=== PATIENT | male | born 1980 | race Caucasian/White ===

== ENCOUNTER 2024-07-20 15:39 | Outpatient (OUT) | payer OTHER, SELFPAY ==
[2024-07-20 16:25] LABS: Basophils Absolute Auto 0.1 10^3/uL (0.0-0.1); Eosinophils Absolute Auto 0.1 10^3/uL (0.0-0.7); Hematocrit 37.3 % (42.0-54.0); Hemoglobin 13.1 g/dL (14.0-18.0); Immature Granulocytes Abs Auto 0.02 10^3/uL (0.00-0.03); Immature Granulocytes Pct Auto 0.4 % (0.0-0.5); Lymphocytes Absolute Auto 1.5 10^3/uL (1.2-3.8); Lymphocytes Percent Auto 29.7 % (20.5-60.0); Mean Corpuscular HGB Conc 35.1 g/dL (29.9-35.2); Mean Corpuscular Volume 88.2 fL (80.0-94.0); Mean Platelet Volume 10.3 fL (9.5-13.5); Monocytes Absolute Auto 0.3 10^3/uL (0.3-0.8); Monocytes Percent Auto 6.3 % (1.7-12.0); Neutrophils Absolute Auto 3.1 10^3/uL (1.4-6.5); Neutrophils Percent Auto 60.6 % (43.0-75.0); Platelet Count 182 10^3/uL (150-450); Red Blood Count 4.23 10^6/uL (4.70-6.10); Red Cell Distribution Width 12.2 % (11.0-15.0); White Blood Count 5.1 10^3/uL (4.0-11.0)
[2024-07-20 16:27] LABS: Estimated Average Glucose 194 mg/dL; Glycohemoglobin A1C 8.4 % (4.5-6.2)
[2024-07-20 16:57] LABS: Alanine Aminotransferase 44 U/L (16-63); Albumin Globulin Ratio 1.1; Albumin Level 3.9 g/dL (3.4-5.0); Alkaline Phosphatase 116 U/L (46-116); Anion Gap 13.3; Aspartate Amino Transferase 20 U/L (15-37); BUN Creatinine Ratio 13.8; Bilirubin Direct 0.1 mg/dL (0.0-0.2); Bilirubin Total 0.5 mg/dL (0.2-1.0); Carbon Dioxide 27.3 mmol/L (21.0-32.0); Chloride 95 mmol/L (98-107); Chol HDL Ratio 5.3; Cholesterol 196 mg/dL (<=200); Estimated GFR (African America >60 (>=60); Estimated GFR (Non-African Ame >60 (>=60); Globulin 3.4 g/dL; Glucose 250 mg/dL (74-106); HDL Cholesterol 37 mg/dL (40-60); Potassium 3.6 mmol/L (3.5-5.1); Sodium 132 mmol/L (136-145); Thyroid Stimulating Hormone 1.311 uIU/mL (0.358-3.740); Total Protein 7.3 g/dL (6.4-8.2); Triglycerides 779 mg/dL (<=150); VLDL CHOLESTEROL 155.8 mg/dL
[2024-07-20 17:27] LABS: Prostate Specific Antigen Scrn 0.54 ng/mL (<=4.00)
[2024-07-20 19:10] LABS: LDL Cholesterol Direct 72 mg/dL
== END 2024-07-20 15:40 | disposition home or self-care (01) ==
LOC: LAB 15:43
PROVIDERS: PCP Family Medicine; Visit Provider Family Medicine
DX: Z00.00 Encounter for general adult medical examination without abnormal findings (principal)
CPT/HCPCS: 36415; 80048; 80061; 80076; 83036; 83721; 84443; 85025; G0103

== ENCOUNTER 2025-02-19 20:20 | Emergency (ER) | payer OTHER, SELFPAY ==
--- OUTSIDE RECORDS SUMMARY | 2025-02-19 20:30 | XMS_ITS | CCD ---
Author Organization [facility] Care Team Providers Care Nuclear Medicine Physician Name Role Phone DR SRINIVASAN CHRISTINE Attending Unavailable NANCI, DR SRINIVASAN Fernandez Consulting Unavailable NANCI, DR SRINIVASAN Fernandez Primary Care Unavailable NANCI, DR SRINIVASAN Fernandez Admitting Unavailable Srinivasan Christine MD Primary Care Provider SRINIVASAN CHRISTINE Attending Unavailable PETITTINEZ Person Attending Unavailable SRINIVASAN CHRISTINE Attending Unavailable NANCI, SRINIVASAN Attending Unavailable BOYER, CHRISTELLE Fernandez Attending Unavailable SRINIVASAN CHRISTINE Referring Unavailable SRINIVASAN CHRISTINE Primary Care Unavailable Srinivasan Christine MD Unavailable SRINIVASAN CHRISTINE Referring Unavailable SRINIVASAN CHRISTINE Primary Care Unavailable PATRIA MICHEL Admitting Unavailable PATRIA MICHEL Attending Unavailable SRINIVASAN CHRISTINE Primary Care Unavailable Srinivasan Christine MD Primary Care Provider [phone] Medications Current Medications Medication Drug Class(es) Dates Sig (Normalized) Sig (Original) atorvastatin 40 mg oral tablet (14 sources) HMG-CoA Reductase Inhibitor Start: 07-24-2024 take 1 tablet by mouth in the morning atorvastatin (LIPITOR) 40 mg tablet Take 1 tablet (40 mg total) by mouth in the morning. 07/24/2024 Active Start: 06-29-2024 End: 07-24-2024 take 1 tablet by mouth once daily atorvastatin (Lipitor) 20 MG tablet Indications: Dyslipidemia (CMS/HCC) Take 1 tablet (20 mg) by mouth Daily 90 tablet 3 06/29/2024 07/24/2024 Discontinued (Reorder) Start: 12-28-2023 take 1 tablet by john th in the morning atorvastatin (Lipitor) 20 MG tablet Indications: Dyslipidemia (CMS/HCC) Take 1 tablet (20 mg) by mouth in the morning. 90 tablet 3 12/28/2023 Active Start: 12-28-2023 take 1 tablet by john th in the morning atorvastatin (Lipitor) 20 MG tablet Indications: Dyslipidemia (CMS/HCC) Take 1 tablet (20 mg) by mouth in the morning. 90 tablet 3 12/28/2023 Active Start: 09-06-2023 End: 12-28-2023 take 1 tablet by mouth in the morning atorvastatin (Lipitor) 20 MG tablet Take 20 mg by mouth in the morning. 0 09/06/2023 12/28/2023 Discontinued (Reorder) Blood Glucose Monitoring Suppl (FreeStyle Lite) device (2 sources) Start: 07-24-2024 inject 1 dose by subcutaneous injection once daily Blood Glucose Monitoring Suppl (FreeStyle Lite) device Indications: Type 2 diabetes mellitus with hyperglycemia, without long-term current use of insulin (CMS/HCC) Inject 1 each under the skin Daily Use as instructed 1 each 07/24/2024 Active FREESTYLE LITE METER kit (3 sources) Start: 07-24-2024 FREESTYLE LITE METER kit 07/24/2024 Active hydroCHLOROthiazide 25 mg oral tablet (3 sources) Thiazide Diuretic Start: 11-03-2023 End: 12-28-2023 take 1 tablet by mouth once daily hydroCHLOROthiazide (HYDRODiuril) 25 MG tablet Indications: Benign essential hypertension (CMS/HCC) TAKE 1 TABLET BY MOUTH EVERY DAY 90 tablet 3 11/03/2023 12/28/2023 Discontinued hydroCHLOROthiazide 25 mg / lisinopril 20 mg oral tablet (11 sources) Thiazide Diuretic, Angiotensin Converting Enzyme Inhibitor Start: 06-29-2024 take 1 tablet by mouth in the morning lisinopril-hydroCHLOR Othiazide 20-25 MG tablet Indications: Benign essential hypertension (CMS/HCC) Take 1 tablet by mouth in the morning. 30 tablet 3 06/29/2024 Active Start: 12-28-2023 take 20-25 mg by john th in the morning lisinopril-hydroCHLOROthiazide (Zestoret ic) 20-25 MG tablet Indications: Benign essential hypertension (CMS/HCC) Take 1 tablet by mouth in the morning. 30 tablet 3 12/28/2023 Active Start: 12-28-2023 take 20-25 mg by john th in the morning lisinopril-hydroCHLOROthiazide (Zestoret ic) 20-25 MG tablet Indications: Benign essential hypertension (CMS/HCC) Take 1 tablet by mouth in the morning. 30 tablet 3 12/28/2023 Active take 1 tablet by john th once in the morning lisinopril-hydroCHLOROthiazide (PRINZIDE,ZESTORETIC) 20-25 mg per tablet Take 1 tablet by mouth in the morning. Active 24 hr metFORMIN hydrochloride 500 mg extended release oral tablet (5 sources) Biguanide Start: 08-28-2024 take 1 tablet by mouth every twenty-four hours at mealtime metFORMIN XR (Glucophage-XR) 500 MG 24 hr tablet Indications: Type 2 diabetes mellitus with hyperglycemia, without long-term current use of insulin (CMS/HCC) Take 1 tablet (500 mg) by mouth in the evening. Take with meals Do not crush, chew, or split. 30 tablet 5 08/28/2024 Active Start: 07-24-2024 take 1 tablet by john th once daily at breakfast metFORMIN XR (GLUCOPHAGE XR) 500 mg 24 hr tablet Take 1 tablet (500 mg total) by mouth daily with breakfast. 07/24/2024 Active Start: 07-24-2024 take 1 tablet by john th every twenty-four hours at mealtime metFORMIN XR (Glucophage-XR) 500 MG 24 hr tablet Indications: Type 2 diabetes mellitus with hyperglycemia, without long-term current use of insulin (CMS/HCC) Take 1 tablet (500 mg) by mouth in the evening. Take with meals Do not crush, chew, or split. 30 tablet 5 07/24/2024 Active PARoxetine hydrochloride 10 mg oral tablet (16 sources) Serotonin Reuptake Inhibitor Start: 06-29-2024 take 1 tablet by mouth in the morning PARoxetine (PAXIL) 10 mg tablet Take 1 tablet (10 mg total) by mouth in the morning. 06/29/2024 Active Start: 06-29-2024 End: 06-29-2025 take 1 tablet by mouth in the morning PARoxetine (Paxil) 20 MG tablet Indications: Generalized anxiety disorder (CMS/HCC) Take 1 tablet (20 mg) by mouth in the morning. 30 tablet 11 06/29/2024 07/20/2024 Discontinued Start: 12-28-2023 take 2 tablets by mo uth in the morning PARoxetine (Paxil) 10 MG tablet Indications: Generalized anxiety disorder (CMS/HCC) Take 2 tablets (20 mg) by mouth in the morning. 30 tablet 5 12/28/2023 Active Start: 12-28-2023 take 2 tablets by mo ut in the morning PARoxetine (Paxil) 10 MG tablet Indications: Generalized anxiety disorder (CMS/HCC) Take 2 tablets (20 mg) by mouth in the morning. 30 tablet 5 12/28/2023 Active Start: 11-23-2023 End: 12-28-2023 take 1 tablet by mouth in the morning PARoxetine (Paxil) 10 MG tablet Take 10 mg by mouth in the morning. 0 11/23/2023 12/28/2023 Discontinued (Reorder) sod sulf-pot chloride-mag sulf 1.479-0.188- 0.225 gram tablet (2 sources) Start: 07-31-2024 sod sulf-pot chloride-mag sulf 1.479-0.188- 0.225 gram tablet Indications: Encounter for screening colonoscopy Please see instructional sheet given by physicians office. 24 tablet 07/31/2024 Active terbinafine 250 mg oral tablet (14 sources) Allylamine Antifungal Start: 06-29-2024 take 1 tablet by mouth in the morning terbinafine (LamISIL) 250 mg tablet Take 1 tablet (250 mg total) by mouth in the morning. 06/29/2024 Active Start: 06-08-2024 terbinafine (L amISIL) 1 % cream Indications: Tinea manuum Apply to affected areas on hands and feet bid, then when clear use once weekly as maintenance 42 g 11 06/08/2024 Active Completed/Discontinued Medications Medication Drug Class(es) Dates Sig (Normalized) Sig (Original) chlorhexidine gluconate 1.2 mg/ml mouthwash (1 source) Start: 07-15-2021 End: 07-31-2024 take 15 mL by mouth twice daily chlorhexidine (PERIDEX) 0.12 % solution Indications: Tongue lesion Apply 15 mL to the mouth or throat 2 (two) times a day. 150 mL 07/15/2021 07/31/2024 Discontinued (Therapy completed) predniSONE 10 mg oral tablet (3 sources) Start: 02-21-2024 End: 07-20-2024 take 6 tablets by mouth once daily, then take 4 tablets by mouth once daily, then take 2 tablets by mouth once daily, then take 1 tablet by mouth once daily predniSONE (Deltasone) 10 MG tablet Indications: Chronic rhinosinusitis 6 PO daily x 3 days, 4 PO daily x 3 days, 2 PO daily x 3 days, 1 PO daily x 3 days 39 tablet 02/21/2024 07/20/2024 Discontinued Problems Active Problems Problem Classification Problem Date Documented Date Episodic/Chronic Anxiety disorders (11 sources) Generalized anxiety disorder; Translations: [Generalized anxiety disorder] Onset: 12-28-2023 12-28-2023 Chronic Diabetes mellitus with complications (3 sources) Hyperglycemia due to type 2 diabetes mellitus; Translations: [Type 2 diabetes mellitus with hyperglycemia] Onset: 07-21-2024 07-21-2024 Chronic Disorders of lipid metabolism (12 sources) Dyslipidemia; Translations: [Hyperlipidemia, unspecified] Onset: 12-28-2023 12-28-2023 Chronic Essential hypertension (13 sources) Benign essential hypertension; Translations: [Essential (primary) hypertension] Onset: 11-03-2023 11-03-2023 Chronic Other eye disorders (3 sources) Xanthoma of eyelid; 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, unspecified eyelid] Onset: 12-28-2023 12-28-2023 Episodic Other nutritional; endocrine; and metabolic disorders (2 sources) Severe obesity; Translations: [Class 2 severe obesity due to excess calories with serious comorbidity and body mass index (BMI) of 37.0 to 37.9 in adult ([facility])] Onset: 07-20-2024 09-07-2024 Chronic Other nutritional; endocrine; and metabolic disorders (6 sources) Body mass index 30+ - obesity; Translations: [Body mass index (BMI) 36.0-36.9, adult] Onset: 07-20-2024 07-20-2024 Chronic Other screening for suspected conditions (not mental disorders or infectious disease) (6 sources) Encounter for screening for malignant neoplasm of prostate; Translations: [Encounter for screening for malignant neoplasm of colon] Onset: 07-03-2022 07-20-2024 Episodic Other upper respiratory infections (9 sources) Chronic sinusitis; Translations: [Chronic sinusitis, unspecified] Onset: 12-28-2023 12-28-2023 Chronic Residual codes; unclassified (6 sources) Hypersomnia; Translations: [Hypersomnia, unspecified] Onset: 01-27-2024 01-27-2024 Chronic Residual codes; unclassified (1 source) Family history of malignant neoplasm of digestive organs; Translations: [Family history of malignant neoplasm of digestive organs] Onset: 07-31-2024 Episodic Unclassified (1 source) Colon Cancer Screening Onset: 07-31-2024 Unclassified (6 sources) Patient on antidepressant monitoring plan Onset: 06-29-2024 06-29-2024 Unclassified (6 sources) Baseline PHQ-9 Onset: 06-29-2024 06-29-2024 Unclassified (1 source) screening Onset: 09-22-2024 Past or Other Problems Problem Classification Problem Date Documented Da te Episodic/Chronic Mood disorders (3 sources) Mood disorders Onset: 08-27-2021 08-27-2021 Other eye disorders (6 sources) Xanthelasma; 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, unspecified eyelid] Onset: 12-28-2023 12-28-2023 Episodic Other upper respiratory disease (3 sources) Deviated nasal septum; Translations: [Deviated nasal septum] Onset: 07-15-2021 07-15-2021 Episodic Residual codes; unclassified (1 source) Family history of cancer of colon; Translations: [Family history of malignant neoplasm of digestive organs] 07-31-2024 Episodic Results Test Name Value Interpretation Reference Range Facility Surgical Pathologyon 024 Surgical Pathology Normal [facility] Comment on above: Result Comment: [facility] [address] [place] [address] Surgical Pathology Consultation Patient Name:GEM MENENDEZ:1980 (Age: 44)Gender:MTaken:4Reported:4Physician(s):Judy Michel MD ([phone])Copy To: Rec. #:[id number]: #[id number] Final Pathologic Diagnosis Rectal sigmoid polyp, polypectomy: Tubular adenoma. No high-grade dysplasia or invasive carcinoma identified. Report Electronically Signed Out [facility]09/27/2024Chema Casas M.D. Interpretation performed at [facility], [address] [place] [address], [place] [address], License number: [id number]. Clinical History Screening. Gross Description Received in formalin labeled RAKES, polyp rectal sigmoid is a 1.5 x 1.2 x 0.8 cm multinodular pedunculated polyp. The resection margin is inked black and the specimen is serially sectioned. Entirely submitted in 1 cassette. (1, ns, [id number], m1) mxw/09/25/2024NSK Specimen(s) Received Rectal sigmoid polyp Fee Codes(s): 1; 92472 ALL CBC WITH AUTO DIFFon BASOPHILS ABSOLUTE AUTO 0.1 [facility] Basophils/100 WBC (Bld) 1.0 % 0.2 - 2.0 % [facility] Eosinophils/100 WBC (Bld) 2.0 % 0.9 - 7.0 % [facility] Erythrocyte distribution width (RBC) [Ratio] 12.2 % 11.0 - 15.0 % [facility] Hematocrit (Bld) [Volume fraction] 37.3 % Low 42.0 - 54.0 % [facility] [Mass/Vol] 13.1 g/dL Low 14.0 - 18.0 g/dL [facility] IMMATURE GRANULOCYTES ABS AUTO 0.02 [facility] Immature granulocytes/100 WBC (Bld) 0.4 % 0.0 - 0.5 % [facility] Interpretation and review of laboratory results Abnormal [facility] LYMPHOCYTES ABSOLUTE AUTO 1.5 [facility] Lymphocytes/100 WBC (Bld) 29.7 % 20.5 - 60.0 % [facility] MCH (RBC) [Entitic mass] 31.0 pg 25.9 - 34.0 pg [facility] MCHC (RBC) [Mass/Vol] 35.1 g/dL 29.9 - 35.2 g/dL [facility] MCV (RBC) [Entitic vol] 88.2 fL 80.0 - 94.0 fL [facility] MONOCYTES ABSOLUTE AUTO 0.3 [facility] Monocytes/100 WBC (Bld) 6.3 % 1.7 - 12.0 % [facility] NEUTROPHILS ABSOLUTE AUTO 3.1 [facility] Neutrophils/100 WBC (Bld) 60.6 % 43.0 - 75.0 % [facility] Platelet mean volume (Bld) [Entitic vol] 10.3 fL 9.5 - 13.5 fL [facility] EO # 0.1 [facility] PLT 182 [facility] RBC 4.23 Low [facility] WBC 5.1 [facility] CBC AUTO DIFFon 07-02-2022 BASO # 0.1 103/ul Normal 0.0-0.1 [facility] Comment on above: Performed By: #### C BC #### [facility] [address] [place] [address] Dr. Casey Siddiqui Basophils/100 WBC (Bld) 0.6 % Normal 0.2-2.0 [facility] Comment on above: Performed By: #### C BC #### [facility] [address] [place] [address] Dr. Casey Siddiqui EO # 0.3 103/ul Normal 0.0-0.7 [facility] Comment on above: Performed By: #### C BC #### [facility] [address] [place] [address] Dr. Casey Siddiqui Eosinophils/100 WBC (Bld) 4.3 % Normal 0.9-7.0 [facility] Comment on above: Performed By: #### C BC #### [facility] [address] [place] [address] Dr. Casey Siddiqui Erythrocyte distribution width (RBC) [Ratio] 11.9 % Normal 11.0-15.0 [facility] Comment on above: Performed By: #### C BC #### [facility] [address] [place] [address] Dr. Casey Siddiqui Hematocrit (Bld) [Volume fraction] 40.8 % Critically low 42.0-54.0 [facility] Comment on above: Performed By: #### C BC #### [facility] [address] [place] [address] Dr. Casey Siddiqui Hemoglobin (Bld) [Mass/Vol] 14.5 g/dL Normal 14.0-18.0 [facility] Comment on above: Performed By: #### C BC #### [facility] [address] [place] [address] Dr. Casey Siddiqui IG # 0.03 10e3/ul Normal 0.00-0.03 [facility] Comment on above: Performed By: #### C BC #### [facility] [address] [place] [address] Dr. Casey Siddiqui IG % 0.4 % Normal 0.0-0.5 [facility] Comment on above: Performed By: #### C BC #### [facility] [address] [place] [address] Dr. Casey Siddiqui LYMPH # 1.9 103/ul Normal 1.2-3.8 [facility] Comment on above: Performed By: #### C BC #### [facility] [address] [place] [address] Dr. Casey Siddiqui Lymphocytes/100 WBC (Bld) 24.0 % Normal 20.5-60.0 [facility] Comment on above: Performed By: #### C BC #### [facility] [address] [place] [address] Dr. Casey Siddiqui MANUAL DIFF REQ NO Normal [facility] Comment on above: Performed By: #### C BC #### [facility] [address] [place] [address] Dr. Casey Siddiqui MCH (RBC) [Entitic mass] 31.6 pg Normal 25.9-34.0 [facility] Comment on above: Performed By: #### C BC #### [facility] [address] [place] [address] Dr. Casey Siddiqui MCHC (RBC) [Mass/Vol] 35.5 g/dL Critically high 29.9-35.2 [facility] Comment on above: Performed By: #### C BC #### [facility] [address] [place] [address] Dr. Casey Siddiqui MCV (RBC) [Entitic vol] 88.9 fL Normal 80.0-94.0 [facility] Comment on above: Performed By: #### C BC #### [facility] [address] [place] [address] Dr. Casey Siddiqui MONO # 0.5 103/ul Normal 0.3-0.8 [facility] Comment on above: Performed By: #### C BC #### [facility] [address] [place] [address] Dr. Casey Siddiqui Monocytes/100 WBC (Bld) 6.2 % Normal 1.7-12.0 [facility] Comment on above: Performed By: #### C BC #### [facility] [address] [place] [address] Dr. Casey Siddiqui NEUT # 5.0 103/ul Normal 1.4-6.5 [facility] Comment on above: Performed By: #### C BC #### [facility] [address] [place] [address] Dr. Casey Siddiqui Neutrophils/100 WBC (Bld) 64.5 % Normal 43.0-75.0 [facility] Comment on above: Performed By: #### C BC #### [facility] [address] [place] [address] Dr. Casey Siddiqui Platelet mean volume (Bld) [Entitic vol] 9.7 fL Normal 9.5-13.5 [facility] Comment on above: Performed By: #### C BC #### [facility] [address] [place] [address] Dr. Casey Siddiqui PLT 184 103/ul Normal 150-450 [facility] Comment on above: Performed By: #### C BC #### [facility] [address] [place] [address] Dr. Casey Siddiqui RBC 4.59 106/ul Critically low 4.70-6.10 [facility] Comment on above: Performed By: #### C BC #### [facility] [address] [place] [address] Dr. Casey Siddiqui WBC 7.8 103/ul Normal 4.0-11.0 [facility] Comment on above: Performed By: #### C BC #### [facility] [address] [address] [address] Casey Siddiqui GLYCOHEMOGLOBIN A1Con 2021 ADA RECOMMENDATION SEE BELOW Normal [facility] Comment on above: Result Comment: ADA RECOMMENDED LIMIT 4.0 - 6.0 ADA THERAPEUTIC TARGET < 7.0 ACTION SUGGESTED > 7.0 Performed By: #### A 1C #### [facility] [address] [place] [address] Dr. Casey Siddiqui Glucose [Mass/Vol] 105 mg/dL Normal [facility] Comment on above: Performed By: #### A 1C #### [facility] [address] [place] [address] Dr. Casey Siddiqui HbA1c (Bld) [Mass fraction] 5.3 % Normal 4.5-6.2 [facility] Comment on above: Performed By: #### A 1C #### [facility] [address] [place] [address] Dr. Casey Siddiqui LIPID PROFILEon 07-02-2022 CHOL-HDL RATIO NORM SEE BELOW Normal [facility] Comment on above: Result Comment: 3.3 - 4.4 LOW RISK 4.4 - 7.1 AVERAGE RISK 7.1 - 11.0 MODERATE RISK >11.0 HIGH RISK Performed By: #### B MP, LIPID, TSH, LIVER #### [facility] [address] [place] [address] Dr. Casey Siddiqui Cholesterol [Mass/Vol] 237 mg/dL Critically high <=200 [facility] Comment on above: Performed By: #### B MP, LIPID, TSH, LIVER #### [facility] [address] [place] [address] Dr. Casey Siddiqui Cholesterol in HDL [Mass/Vol] 44 mg/dL Normal 40-60 [facility] Comment on above: Performed By: #### B MP, LIPID, TSH, LIVER #### [facility] [address] [place] [address] Dr. Casey Siddiqui Cholesterol in LDL [Mass/Vol] 115.6 mg/dL Normal [facility] Comment on above: Performed By: #### B MP, LIPID, TSH, LIVER #### [facility] [address] [address] [address] Casey Siddiqui Cholesterol.total/Cho lesterol in HDL [Mass ratio] 5.4 {ratio} Normal [facility] Comment on above: Performed By: #### B MP, LIPID, TSH, LIVER #### [facility] [address] [address] [address] Casey Siddiqui HDL NORMAL > or = 60 mg/dl - LOW CARDIOVASCULAR RISK <40 mg/dl - HIGH CARDIOVASCULAR RISK Normal [facility] Comment on above: Performed By: #### B MP, LIPID, TSH, LIVER #### [facility] [address] [place] [address] Dr. Casey Siddiqui LDL CALC NORMAL SEE BELOW Normal [facility] Comment on above: Result Comment: <100 mg/dl OPTIMAL 100 - 129 mg/dl NEAR OR ABOVE OPTIMAL 130 - 159 mg/dl BORDERLINE HIGH 160 - 189 mg/dl HIGH >190 mg/dl VERY HIGH Performed By: #### B MP, LIPID, TSH, LIVER #### [facility] [address] [place] [address] Dr. Casey Siddiqui Triglyceride [Mass/Vol] 387 mg/dL Critically high <=150 [facility] Comment on above: Performed By: #### B MP, LIPID, TSH, LIVER #### [facility] [address] [place] [address] Dr. Casey Siddiqui VLDL CALC 77.4 mg/dL Normal [facility] Comment on above: Performed By: #### B MP, LIPID, TSH, LIVER #### [facility] [address] [address] [address] Casey Siddiqui LIVER PROFILEon 07-02-2022 Albumin [Mass/Vol] 4.2 g/dL Normal 3.4-5.0 [facility] Comment on above: Performed By: #### B MP, LIPID, TSH, LIVER #### [facility] [address] [place] [address] Dr. Casey Siddiqui Albumin/Globulin [Mass ratio] 1.2 {ratio} Normal [facility] Comment on above: Performed By: #### B MP, LIPID, TSH, LIVER #### [facility] [address] [place] [address] Dr. Casey Siddiqui ALP [Catalytic activity/Vol] 102 U/L Normal 46-116 [facility] Comment on above: Performed By: #### B MP, LIPID, TSH, LIVER #### [facility] [address] [place] [address] Dr. Casey Siddiqui ALT [Catalytic activity/Vol] 35 U/L Normal 16-63 [facility] [facility] Comment on above: Performed By: #### B MP, LIPID, TSH, LIVER #### [facility] [address] [place] [address] Dr. Casey Siddiqui AST [Catalytic activity/Vol] 23 U/L Normal 15-37 [facility] Comment on above: Performed By: #### B MP, LIPID, TSH, LIVER #### [facility] [address] [place] [address] Dr. Casey Siddiqui BILI, CONJUGATED 0.1 mg/dL Normal 0.0-0.2 [facility] Comment on above: Performed By: #### B MP, LIPID, TSH, LIVER #### [facility] [address] [place] [address] Dr. Casey Siddiqui Bilirubin [Mass/Vol] 0.6 mg/dL Normal 0.2-1.0 [facility] Comment on above: Performed By: #### B MP, LIPID, TSH, LIVER #### [facility] [address] [place] [address] Dr. Casey Siddiqui Globulin (S) [Mass/Vol] 3.4 g/dL Normal [facility] Comment on above: Performed By: #### B MP, LIPID, TSH, LIVER #### [facility] [address] [place] [address] Dr. Casey Siddiqui Protein [Mass/Vol] 7.6 g/dL Normal 6.4-8.2 [facility] Comment on above: Performed By: #### B MP, LIPID, TSH, LIVER #### [facility] [address] [place] [address] Dr. Casey Siddiqui PROF CHEM 8 (BAS METB)on Anion gap [Moles/Vol] 13.1 mmol/L Normal Th [facility] Comment on above: Performed By: #### B MP, LIPID, TSH, LIVER #### [facility] [address] [address] [address] Casey Siddiqui Calcium [Mass/Vol] 8.8 mg/dL Normal 8.5-10.1 [facility] Comment on above: Performed By: #### B MP, LIPID, TSH, LIVER #### [facility] [address] [address] [address] Casey Siddiqui Chloride [Moles/Vol] 101 mmol/L Normal 98-107 [facility] Comment on above: Performed By: #### B MP, LIPID, TSH, LIVER #### [facility] [address] [place] [address] Dr. Casey Siddiqui CO2 [Moles/Vol] 27.1 mmol/L Normal 21.0-32.0 [facility] Comment on above: Performed By: #### B MP, LIPID, TSH, LIVER #### [facility] [address] [address] [address] Caesy Siddiqui Creatinine [Mass/Vol] 0.99 mg/dL Normal 0.70-1.30 [facility] Comment on above: Performed By: #### B MP, LIPID, TSH, LIVER #### [facility] [address] [address] [address] Casey Siddiqui EGFR-AF NAMIBIAN >60 Normal >=60 [facility] Comment on above: Performed By: #### B MP, LIPID, TSH, LIVER #### [facility] [address] [address] [address] Casey Siddiqui EGFR-NON AF NAMIBIAN >60 Normal >=60 [facility] Comment on above: Performed By: #### B MP, LIPID, TSH, LIVER #### [facility] [address] [address] [address] Casey Siddiqui Glucose [Mass/Vol] 100 mg/dL Normal 74-106 [facility] Comment on above: Performed By: #### B MP, LIPID, TSH, LIVER #### [facility] [address] [place] [address] Dr. Casey Siddiqui Potassium [Moles/Vol] 3.2 mmol/L Critically low 3.5-5.1 [facility] Comment on above: Performed By: #### B MP, LIPID, TSH, LIVER #### [facility] [address] [place] [address] Dr. Casey Siddiqui Sodium [Moles/Vol] 138 mmol/L Normal 136-145 [facility] Comment on above: Performed By: #### B MP, LIPID, TSH, LIVER #### [facility] [address] [place] [address] Dr. Casey Siddiqui Urea nitrogen [Mass/Vol] 13.0 mg/dL Normal 7.0-18.0 [facility] Comment on above: Performed By: #### B MP, LIPID, TSH, LIVER #### [facility] [address] [place] [address] Dr. Casey Siddiqui Urea nitrogen/Creatinine [Mass ratio] 13.1 mg/mg Normal [facility] Comment on above: Performed By: #### B MP, LIPID, TSH, LIVER #### [facility] [address] [place] [address] Dr. Casey Siddiqui TSHon 07-02-2022 TSH 1.519 uIU/mL Normal 0.358-3.740 [facility] Comment on above: Performed By: #### B MP, LIPID, TSH, LIVER #### [facility] [address] [place] [address] Dr. Casey Siddiqui Vital Signs Date Time Vital Sign Value Performing Clinician Facility 09-14-2024 10:59-0400 Body height 170.2 cm P[facility] 1 [facility] 09-14-2024 10:59-0400 Body mass index (BMI) [Ratio] 35.4 kg/m2 [facility] 1 [facility] 09-14-2024 10:59-0400 Body weight 102.51 kg [facility] 1 [facility] 07-31-2024 11:21-0400 Body height 172.7 cm Christelle Boyer COMPONENT PREP OPERATOR-BONDED STRUCTURES REPAIRER Work Phone: [facility] 07-31-2024 11:21-0400 Body mass index (BMI) [Ratio] 35.34 kg/m2 Christelle Boyer COMPONENT PREP OPERATOR-BONDED STRUCTURES REPAIRER Work Phone: [facility] 07-31-2024 11:21-0400 Body weight 105.42 kg Christelle Boyer COMPONENT PREP OPERATOR-BONDED STRUCTURES REPAIRER Work Phone: [facility] 07-31-2024 11:21-0400 Diastolic blood pressure 97 mm[Hg] Christelle Boyer COMPONENT PREP OPERATOR-BONDED STRUCTURES REPAIRER Work Phone: [facility] 07-31-2024 11:21-0400 Systolic blood pressure 148 mm[Hg] Christelle Boyer COMPONENT PREP OPERATOR-BONDED STRUCTURES REPAIRER Work Phone: [facility] 07-20-2024 15:04-0400 Body height 170.2 cm Srinivasan Christine MD Work Phone: [facility] 07-20-2024 15:04-0400 Body mass index (BMI) [Ratio] 37.28 kg/m2 Srinivasan Christine MD Work Phone: [facility] 07-20-2024 15:04-0400 Body temperature 97.3 [degF] Srinivasan Christine MD Work Phone: [facility] 07-20-2024 15:04-0400 Body weight 107.96 kg Srinivasan Christine MD Work Phone: [facility] 07-20-2024 15:04-0400 Diastolic blood pressure 76 mm[Hg] Srinivasan Christine MD Work Phone: [facility] 07-20-2024 15:04-0400 Heart rate 101 /min Srinivasan Christine MD Work Phone: [facility] 07-20-2024 15:04-0400 Respiratory rate 18 /min Srinivasan Christine MD Work Phone: [facility] 07-20-2024 15:04-0400 SaO2% (BldA) [Mass fraction] 95 % Srinivasan Christine MD Work Phone: [facility] 07-20-2024 15:04-0400 Systolic blood pressure 130 mm[Hg] Srinivasan Christine MD Work Phone: [facility] 12-28-2023 11:38-0500 Body height 170.2 cm Srinivasna Christine MD Work Phone: [facility] 12-28-2023 11:38-0500 Body mass index (BMI) [Ratio] 36.34 kg/m2 Srinivasan Christine MD Work Phone: [facility] 12-28-2023 11:38-0500 Body temperature 97.81 [degF] Srinivasan Christine MD Work Phone: [facility] 12-28-2023 11:38-0500 Body weight 105.23 kg Srinivasan Christine MD Work Phone: [facility] 12-28-2023 11:38-0500 Diastolic blood pressure 130 mm[Hg] Srinivasan Christine MD Work Phone: [facility] 12-28-2023 11:38-0500 Heart rate 98 /min Srinivasan Christine MD Work Phone: [facility] 12-28-2023 11:38-0500 SaO2% (BldA) [Mass fraction] 98 % Srinivasan Christine MD Work Phone: [facility] 12-28-2023 11:38-0500 Systolic blood pressure 220 mm[Hg] Srinivasan Christine MD Work Phone: [facility] Encounters Encounter Date Encounter Type Care Provider Facility Start: 09-29-2024 End: 09-29-2024 Telephone encounter [facility] Start: 09-22-2024 End: 09-22-2024 Evaluation and management of inpatient [facility] Start: 09-14-2024 End: 09-14-2024 ambulatory SRINIVASAN CHRISTINE [facility] Start: 09-07-2024 End: 09-07-2024 Orders Only Srinivasan Christine MD Work Phone: [facility] Comment on above: Class 2 severe obesi ty due to excess calories with serious comorbidity and body mass index (BMI) of 37.0 to 37.9 in adult (CMS/HCC) (Primary Dx) Start: 07-31-2024 End: 07-31-2024 Patient encounter procedure Christelle Parhamoll COMPONENT PREP OPERATOR-BONDED STRUCTURES REPAIRER Work Phone: [facility] Comment on above: Encounter for screen ing colonoscopy (Primary Dx); Family history of malignant neoplasm of colon in mother Start: 07-31-2024 End: 07-31-2024 ambulatory [facility] Start: 07-21-2024 End: 07-24-2024 Orders Only Srinivasan Christine MD Work Phone: [facility] Comment on above: Type 2 diabetes aniyah itus with hyperglycemia, without long-term current use of insulin ([facility]) (Primary Dx); Dyslipidemia ([facility]) Start: 07-20-2024 End: 07-20-2024 Periodic preventive med est patient 40-64yrs Srinivasan Christine MD Work Phone: [facility] Comment on above: Annual physical exam (Primary Dx); Benign essential hypertension ([facility]); Colon cancer screening; Body mass index (BMI) 36.0-36.9, adult Start: 07-20-2024 End: 07-20-2024 ambulatory SRINIVASAN CHRISTINE Not Available Start: 07-20-2024 End: 07-20-2024 Bamboo flowsheet Srinivasan Christine MD Work Phone: [facility] Start: 07-20-2024 End: 07-20-2024 Clinisync Result Encounter Srinivasan Christine MD Work Phone: [facility] Unsolicited Start: 07-20-2024 End: 07-20-2024 Clinisync Result Encounter Srinivasan Christine MD Work Phone: [facility] Unsolicited Start: 07-20-2024 End: 07-20-2024 Patient encounter procedure Srinivasan Christine MD Work Phone: [facility] Start: 06-08-2024 End: 06-08-2024 ambulatory INEZ PANRaza Not Available Start: 01-27-2024 End: 01-27-2024 ambulatory SRINIVASAN CHRISTINE Not Available Start: 12-28-2023 Bamboo flowsheet Srinivasan Christine MD Work Phone: [facility] Start: 12-28-2023 Bamboo flowsheet Srinivasan Christine MD Work Phone: [facility] Start: 12-28-2023 End: 12-28-2023 ambulatory SRINIVASAN CHRISTINE Not Available Start: 12-28-2023 End: 12-28-2023 Office outpatient visit 15 minutes Srinivasan Christine MD Work Phone: [facility] Comment on above: Benign essential hyp ertension (CMS/HCC) (Primary Dx); Generalized anxiety disorder (CMS/HCC); Dyslipidemia (CMS/HCC) Start: 07-03-2022 Encounter for genera l adult medical examination without abnormal findings DR SRINIVASAN CHRISTINE [facility] Start: 07-02-2022 End: 07-03-[address] SRINIVASAN CHRISTINE Facility:[facility] Start: 07-02-2022 End: 07-03-2022 Encounter for general adult medical examination without abnormal findings DR SRINIVASAN CHRISTINE Facility:[facility] Procedures Date Procedure Procedure Detail Performing Clinician Start: 09-22-2024 Colonoscopy Salina Mistry ia PROPOSAL COORDINATOR Start: 07-20-2024 ALL CBC WITH AUTO DIFF Srinivasan Christine MD Work Phone: Start: 07-02-[address] SRINIVASAN VILLAFUERTE Comment on above: Performed By: #### P [facility] #### [facility] [address] [place] [address] Dr. Casey Siddiqui Start: 08-27-2021 Adult depression scr eening assessment Christellejayla Boyer COMPONENT PREP OPERATOR-BONDED STRUCTURES REPAIRER Work Phone: Plan of Treatment Date Care Activity Detail Author Start: 09-22-2027 Screening for malign ant neoplasm of colon Colonoscopy [facility] Start: 09-22-2025 Adult BMI Screening Adult BMI Screen ing [facility] Start: 09-22-2025 Tobacco Screening Tobacco Screening [facility] Start: 07-31-2025 Adult BMI Screening Adult BMI Screen ing [facility] Start: 07-31-2025 Tobacco Screening Tobacco Screening [facility] Start: 01-22-2025 End: 01-22-2025 Patient encounter procedure 01/22/2025 2:45 PM EDT Office Visit [facility] [address] [place] [address] Srinivasan Christine MD [address] [place] [address] [facility] Start: 12-28-2024 Screening for malign ant neoplasm of colon Colorectal Cancer Screening [facility] Comment on above: Postponed from 01/18 (Patient Refused) Start: 09-22-2024 End: 09-22-2024 Admission to same day surgery center 09/22/2024 8:00 AM EST - 09/22/2024 8:30 AM EST Surgery [facility] [address] [place] [id number] Patria Michel MD [address] [place] [id number] COLONOSCOPY DIAGNOSTIC / SCREENING [39002 (CPT )] [facility] Comment on above: COLONOSCOPY DIAGNOST IC / SCREENING [40122 (CPT )] Start: 09-22-2024 End: 09-22-2024 Colonoscopy flx dx w/collj spec when pfrmd COLONOSCOPY DIAGNOSTIC / SCREENING Screen for colon cancer 09/22/2024 8:00 AM [facility] Start: 09-22-2024 Subsequent hospital visit by physician 09/22/2024 8:00 AM EST Hospital Encounter [facility] [address] [place] [phone] Patria Michel MD [address] [place] [id number] [facility] Start: 09-14-2024 End: 09-14-2024 ambulatory 09/14/2024 4:00 PM EDT Support Visit [facility] [address] [place] [phone] [facility] Start: 09-07-2024 End: 09-07-2025 Thyrotropin [Units/volume] in Serum or Plasma TSH Lab Routine Class 2 severe obesity due to excess calories with serious comorbidity and body mass index (BMI) of 37.0 to 37.9 in adult (CMS/HCC) Expected: 09/07/2024 (Approximate), Expires: 09/07/2025 [facility] Work Phone: Comment on above: Expected: 09/07/2024 (Approximate), Expires: 09/07/2025 Start: 07-20-2024 End: 07-20-2024 Patient encounter procedure 07/20/2024 3:15 PM EDT [facility] [address] [place] [phone] Srinivasan Christine MD [address] [place] [address] Arrived [facility] Comment on above: Arrived Start: 07-20-2024 End: 07-20-2025 Basic metabolic 1998 panel - Serum or Plasma Basic metabolic panel Lab Routine Annual physical exam Expected: 07/20/2024 (Approximate), Expires: 07/20/2025 [facility] Comment on above: Expected: 07/20/2024 (Approximate), Expires: 07/20/2025 Start: 07-20-2024 End: 07-20-2025 CBC W Auto Differential panel - Blood CBC and differential Lab Routine Annual physical exam Expected: 07/20/2024 (Approximate), Expires: 07/20/2025 [facility] Comment on above: Expected: 07/20/2024 (Approximate), Expires: 07/20/2025 Start: 07-20-2024 End: 07-20-2025 Hemoglobin A1c/Hemoglobin.total in Blood Hemoglobin A1c Lab Routine Annual physical exam Expected: 07/20/2024 (Approximate), Expires: 07/20/2025 [facility] Work Phone: Comment on above: Expected: 07/20/2024 (Approximate), Expires: 07/20/2025 Start: 07-20-2024 End: 07-20-2025 Hepatic function 2000 panel - Serum or Plasma Hepatic function panel Lab Routine Annual physical exam Expected: 07/20/2024 (Approximate), Expires: 07/20/2025 [facility] Comment on above: Expected: 07/20/2024 (Approximate), Expires: 07/20/2025 Start: 07-20-2024 End: 07-20-2025 Lipid 1996 panel - Serum or Plasma Lipid panel Lab Routine Annual physical exam Expected: 07/20/2024 (Approximate), Expires: 07/20/2025 [facility] Comment on above: Expected: 07/20/2024 (Approximate), Expires: 07/20/2025 Start: 07-20-2024 End: 07-20-2025 Prostate specific Ag [Mass/volume] in Serum or Plasma PSA Lab Routine Annual physical exam Expected: 07/20/2024 (Approximate), Expires: 07/20/2025 [facility] Comment on above: Expected: 07/20/2024 (Approximate), Expires: 07/20/2025 Start: 07-20-2024 End: 07-20-2025 Thyrotropin [Units/volume] in Serum or Plasma TSH Lab Routine Annual physical exam Expected: 07/20/2024 (Approximate), Expires: 07/20/2025 [facility] Comment on above: Expected: 07/20/2024 (Approximate), Expires: 07/20/2025 Start: 07-16-2024 COVID-19 Vaccine () COVID-19 Vaccine () [facility] Start: 07-16-2024 COVID-19 Vaccine ( season) COVID-19 Vaccine ( season) [facility] Start: 07-16-2024 Influenza vaccination [facility] Start: 01-27-2024 End: 01-27-2024 Patient encounter procedure 01/27/2024 9:30 AM EDT Office Visit [facility] [address] [place] [address] Srinivasan Christine MD [address] [place] [address] [facility] Start: 07-16-2023 Influenza vaccination Influenza Vacc ine (#1) [facility] Start: 08-27-2022 Depression Screening Depression Scre ing [facility] Start: 1997 DTaP,Tdap and Td Vaccines (1 - Tdap) DTaP,Tdap and Td Vaccines (1 - Tdap) [facility] Start: 1997 Urine screening for protein Diabetes: Urine Protein Screening [facility] Start: 01-19-1996 Adult BMI Follow Up Plan Adult BMI Follow Up Plan [facility] Start: 1990 Depression Screening Depression Scre [facility] Start: 01-19-1988 Glaucoma screening Diabetes: R etinopathy Screening [facility] Start: 1978 Hemoglobin A1c measurement Diabetes: Hemoglobin A1C [facility] Start: 1978 Screening for malign ant neoplasm of colon [facility] Start: 1978 Tobacco Counseling Tobacco Counselin g [facility] End: 07-31-2025 Colonoscopy Colonoscopy GI Routine Encounter for screening colonoscopy 1 Occurrences starting 07/31/2024 until 07/31/[address] [facility] Work Phone: Comment on above: 1 Occurrences starti ng 07/31/2024 until 07/31/2025 Payers Date Payer Category Payer Managed Care Other (unspecified) [employer] [place] [id number] 2022 Private Health Insurance [employer] Member Subscriber Plan / Payer (Effective 2022-Present) Name: Gem Menendez Relation to Subscriber: Self Name: Gem Menendez Payer ID: Not on file Type: Not on file Address: [address] [place] [id number] 2020 Unknown [id number] 1978 Unknown [id number] 1978 Unknown [id number] 1978 Unknown [id number] [id number] 1978 Unknown [id number] 1978 Unknown [id number] [id number] 1978 Unknown [id number] 1978 Unknown [id number] 1978 Unknown [id number] 1959 Unknown [id number] Social History Date Type Detail Facility Tobacco smoking stat [facility] Tobacco smoking consumption unknown [facility] Start: 1978 Sex Assigned At Not on file [facility] Start: 08-27-2021 End: 12-28-2023 Gender identity Not on file [facility] Start: 12-28-2023 End: 01-05-2024 Tobacco smoking status ILIS Never smoked tobacco [facility] Start: 12-28-2023 Tobacco use and exposure Smokeless tobacco non-user [facility] Start: 08-27-2021 End: 12-28-2023 History of Social function [facility] Start: 01-05-2024 End: 07-31-2024 Tobacco use and exposure Former smokeless tobacco user [facility] History of tobacco use Chews Tobacco [facility] Start: 07-31-2024 Tobacco smoking stat [facility] Occasional tobacco smoker [facility] History of tobacco use Cigar Smoker [facility] Start: 07-31-2024 End: 09-26-2024 Alcoholic beverage intake Current drinker of alcohol (finding) [facility] Adolescent depressio n screening assessment 0 [facility] Start: 06-25-2021 Sex Male (finding) [facility] Medical Equipment Procedure Code Equipment Code Equipment Origin al Text Equipment Identifier Dates [id number] Start: 07-24-2024 1 each Daily [id number] Start: 07-24-2024 Goals Date Patient Goal Desired Activity /State Personal health goal Clinical Notes 12-28-2023 to 09-29-2024 Telephone Encounter - Salina Hurtado, [facility] - 09/29/2024 1:39 PM ESTTelephone Encounter - Salina Hurtado, [facility] - 09/29/2024 1:39 PM ESTTelephone Encounter - Salina Hurtado, [facility] - 09/29/2024 1:39 PM EST Note Date & Type Note Facility 09-29-2024 Miscellaneous Notes ----- Message from Dr. Patria Michel MD sent at 09/28/2024 9:00 AM EST ----- Regarding: Pathology Patient know that polyp removed during colonoscopy was benign tubular adenoma. Repeat colonoscopy as needed in 3 years due to size. Thank you ----- Message ----- From: Interface - Lab Results/Orders In Sent: 09/27/2024 4:43 PM EST To: Patria Michel MD Spoke with patient regarding pathology results. Patient verbally understood with no further questions. Recall to be put in chart. documented in this encounter [facility] 09-29-2024 Telephone encounter Note ----- Message from Dr. Patria Michel MD sent at 09/28/2024 9:00 AM EST ----- Regarding: Pathology Patient know that polyp removed during colonoscopy was benign tubular adenoma. Repeat colonoscopy as needed in 3 years due to size. Thank you ----- Message ----- From: Interface - Lab Results/Orders In Sent: 09/27/2024 4:43 PM EST To: Patria Michel MD [facility] 09-29-2024 Telephone encounter Note Spoke with patient regarding pathology results. Patient verbally understood with no further questions. Recall to be put in chart. [facility] 09-14-2024 Nurse Note Preoperative Education Checklist- General Surgery date: 09/22/24 Surgery time: 8a Arrival time: 610a 1. Bring a photo ID and your insurance card with you the day of surgery. You will check in at the main lobby of the [facility]- registration desk is straight ahead as soon as you walk in. Tell them you are here for surgery. 2. If you have a Living Will/Durable Power of Sap Pp Consultant for Health Care that is not on file here, please bring a copy the day of surgery. 3. Please shower/bathe the night before surgery with the provided soap or wipes. Do not shower the morning of surgery- you will do use wipes when you arrive here at the hospital before getting into your surgical gown. Do not shave the area of your procedure for 2 days prior to your surgery. 4. NO powder, lotion, perfume/cologne, aftershave, make-up, deodorant, or hair products after you have bathed. 5. NO nail v[place] citizen/acrylic on at least one finger. If you are having a hand, wrist or foot surgery then all nail v[place] citizen and artificial/acrylic nails must be removed from that hand or foot. 6. Avoid ALL Aspirin and non-steroidal anti-inflammatory drugs and certain vitamins (Ibuprofen, Advil, Aleve, Excedrin, Meloxicam, Celebrex, fish/krill oil, etc.) for 7 days prior to surgery as instructed by your surgeon and/or your prescribing doctor. Tylenol IS ALLOWED. If you are on Ticlid, Xarelto, Eliquis, Pradaxa, Plavix or Coumadin, please check with your prescribing doctor for instructions for when to stop them. 7. If you use an inhaler, continue to use it routinely. 8. Nothing to eat or drink (not even water, gum, mints, or hard candy!) AFTER midnight prior to your surgery. 9. Take only medications that you are instructed to on the morning of surgery with a TINY SIP OF WATER. 10. Choose a responsible adult that will be able to drive you home when you are discharged from your hospital stay for your surgery and can stay with you in your home for 24 hours after your procedure. You must NOT drive any vehicle or operate any machinery for 24 hours after surgery. 11. When you dress for your appointment, please wear loose fitting clothing that is appropriate to accommodate your surgical area procedure. BRING WITH YOU ANY DEVICES YOU MAY NEED: LACY hose, ice machine, sling/swath, brace or special shoe, oversized zip-up or button up shirt, CPAP machine if staying overnight. 12. Do NOT wear jewelry, watches, or any piercings or metal for surgery- leave these valuables and money at home. 13. Do NOT wear contact lenses for surgery- glasses are okay if needed. 14. The anesthesiologist will talk with you the day of surgery and will ask you to sign a Consent Form. 15. Refrain from smoking or any type of tobacco use for at least 8 hours and marijuana for 24 hours prior to arrival for your surgery. 16. If a GREEN BLOOD band is given to you, please bring it with you for the day of surgery. 17. Notify your surgeon if you develop any illness before your surgery. 18. If you are staying overnight, please DO NOT BRING your home medications with you. 19. If you have any questions prior to surgery, please call the Preadmission Testing office at [phone], Mon.-Fri. 7 a.m.-3 p.m. Leave a voicemail if needed. Pre-Surgery Instructions: Medication Instructions atorvastatin (LIPITOR) 40 mg tablet Stop taking 0 days prior to procedure lisinopril-hydroCHLOROthiazide (PRINZIDE,ZESTORETIC) 20-25 mg per tablet Stop taking 0 days prior to procedure PARoxetine (PAXIL) 10 mg tablet Stop taking 0 days prior to procedure sod sulf-pot chloride-mag sulf 1.479-0.188- 0.225 gram tablet Check with prescribing doctor for instructions terbinafine (LamISIL) 250 mg tablet Stop taking 0 days prior to procedure freestyle 28 gauge lancets Stop taking 0 days prior to procedure FREESTYLE LITE METER kit Stop taking 0 days prior to procedure FREESTYLE LITE STRIPS strip Stop taking 0 days prior to procedure metFORMIN XR (GLUCOPHAGE XR) 500 mg 24 hr tablet Stop taking 0 days prior to procedure [facility] 09-14-2024 Miscellaneous Notes Preoperative Education Checklist- General Surgery date: 09/22/24 Surgery time: 8a Arrival time: 610a 1. Bring a photo ID and your insurance card with you the day of surgery. You will check in at the main lobby of the [facility]- registration desk is straight ahead as soon as you walk in. Tell them you are here for surgery. 2. If you have a Living Will/Durable Power of Sap Pp Consultant for Health Care that is not on file here, please bring a copy the day of surgery. 3. Please shower/bathe the night before surgery with the provided soap or wipes. Do not shower the morning of surgery- you will do use wipes when you arrive here at the hospital before getting into your surgical gown. Do not shave the area of your procedure for 2 days prior to your surgery. 4. NO powder, lotion, perfume/cologne, aftershave, make-up, deodorant, or hair products after you have bathed. 5. NO nail v[place] citizen/acrylic on at least one finger. If you are having a hand, wrist or foot surgery then all nail v[place] citizen and artificial/acrylic nails must be removed from that hand or foot. 6. Avoid ALL Aspirin and non-steroidal anti-inflammatory drugs and certain vitamins (Ibuprofen, Advil, Aleve, Excedrin, Meloxicam, Celebrex, fish/krill oil, etc.) for 7 days prior to surgery as instructed by your surgeon and/or your prescribing doctor. Tylenol IS ALLOWED. If you are on Ticlid, Xarelto, Eliquis, Pradaxa, Plavix or Coumadin, please check with your prescribing doctor for instructions for when to stop them. 7. If you use an inhaler, continue to use it routinely. 8. Nothing to eat or drink (not even water, gum, mints, or hard candy!) AFTER midnight prior to your surgery. 9. Take only medications that you are instructed to on the morning of surgery with a TINY SIP OF WATER. 10. Choose a responsible adult that will be able to drive you home when you are discharged from your hospital stay for your surgery and can stay with you in your home for 24 hours after your procedure. You must NOT drive any vehicle or operate any machinery for 24 hours after surgery. 11. When you dress for your appointment, please wear loose fitting clothing that is appropriate to accommodate your surgical area procedure. BRING WITH YOU ANY DEVICES YOU MAY NEED: LACY hose, ice machine, sling/swath, brace or special shoe, oversized zip-up or button up shirt, CPAP machine if staying overnight. 12. Do NOT wear jewelry, watches, or any piercings or metal for surgery- leave these valuables and money at home. 13. Do NOT wear contact lenses for surgery- glasses are okay if needed. 14. The anesthesiologist will talk with you the day of surgery and will ask you to sign a Consent Form. 15. Refrain from smoking or any type of tobacco use for at least 8 hours and marijuana for 24 hours prior to arrival for your surgery. 16. If a GREEN BLOOD band is given to you, please bring it with you for the day of surgery. 17. Notify your surgeon if you develop any illness before your surgery. 18. If you are staying overnight, please DO NOT BRING your home medications with you. 19. If you have any questions prior to surgery, please call the Preadmission Testing office at [phone], Mon.-Fri. 7 a.m.-3 p.m. Leave a voicemail if needed. Pre-Surgery Instructions: Medication Instructions atorvastatin (LIPITOR) 40 mg tablet Stop taking 0 days prior to procedure lisinopril-hydroCHLOROthiazide (PRINZIDE,ZESTORETIC) 20-25 mg per tablet Stop taking 0 days prior to procedure PARoxetine (PAXIL) 10 mg tablet Stop taking 0 days prior to procedure sod sulf-pot chloride-mag sulf 1.479-0.188- 0.225 gram tablet Check with prescribing doctor for instructions terbinafine (LamISIL) 250 mg tablet Stop taking 0 days prior to procedure freestyle 28 gauge lancets Stop taking 0 days prior to procedure FREESTYLE LITE METER kit Stop taking 0 days prior to procedure FREESTYLE LITE STRIPS strip Stop taking 0 days prior to procedure metFORMIN XR (GLUCOPHAGE XR) 500 mg 24 hr tablet Stop taking 0 days prior to procedure [facility] History of Present illness Narrative Images from the original note were not included. Chief Complaint: Colon cancer screening History of Present Illness Gem Menendez is a 44 y.o. male who presents to the office for colon cancer screening. This is his first colonoscopy. He denies diarrhea, constipation, abdominal pain, melena, hematochezia, unexplained weight loss. There is a family history of colon cancer in his mother diagnosed in her late 40s or early 50s. Review of Systems Constitutional: Negative for fever and unexpected weight change. HENT: Negative for trouble swallowing. Respiratory: Negative for shortness of breath. Cardiovascular: Negative for chest pain. Gastrointestinal: Negative for nausea, vomiting, abdominal pain, diarrhea, constipation, blood in stool and black tarry stool. Genitourinary: Negative for dysuria and difficulty urinating. Musculoskeletal: Negative for gait problem. Skin: Negative for rash and wound. Neurological: Negative for dizziness, weakness and light-headedness. Hematological: Does not bruise/bleed easily. Psychiatric/Behavioral: Negative for confusion. Past Medical History: Diagnosis Date Diabetes mellitus ([facility]) 07/25/2024 Varicella YOUNG CHILD Past Surgical History: Procedure Laterality Date ANKLE SURGERY APPENDECTOMY KNEE SURGERY TONSILLECTOMY No Known Allergies Current Outpatient Medications: atorvastatin (LIPITOR) 40 mg tablet, Take 1 tablet (40 mg total) by mouth in the morning., Disp: , Rfl: freestyle 28 gauge lancets, , Disp: , Rfl: FREESTYLE LITE METER kit, , Disp: , Rfl: FREESTYLE LITE STRIPS strip, , Disp: , Rfl: lisinopril-hydroCHLOROthiazide (PRINZIDE,ZESTORETIC) 20-25 mg per tablet, Take 1 tablet by mouth in the morning., Disp: , Rfl: metFORMIN XR (GLUCOPHAGE XR) 500 mg 24 hr tablet, Take 1 tablet (500 mg total) by mouth daily with breakfast., Disp: , Rfl: PARoxetine (PAXIL) 10 mg tablet, Take 1 tablet (10 mg total) by mouth in the morning., Disp: , Rfl: terbinafine (LamISIL) 250 mg tablet, Take 1 tablet (250 mg total) by mouth in the morning., Disp: , Rfl: sod sulf-pot chloride-mag sulf 1.479-0.188- 0.225 gram tablet, Please see instructional sheet given by physicians office., Disp: 24 tablet, Rfl: 0 Social History Socioeconomic History Marital status: Spouse name: Not on file Number of children: Not on file Years of education: Not on file Highest education level: Not on file Occupational History Not on file Tobacco Use Smoking status: Some Days Types: Cigars Smokeless tobacco: Former Vaping Use Vaping status: Never Used Substance and Sexual Activity Alcohol use: Yes Alcohol/week: 12.0 standard drinks of alcohol Types: 12 Cans of beer per week Drug use: Never Sexual activity: Defer Other Topics Concern Coffee Not Asked Tea Not Asked Carbonated Beverages Not Asked Chocolate Not Asked Social History Narrative Not on file Social Determinants of Health Financial Resource Strain: Not on file Food Insecurity: Not on file Transportation Needs: Not on file Physical Activity: Not on file Stress: Not on file Social Connections: Not on file Interpersonal Safety: Not on file Housing Instability: Not on file Family History Problem Relation Age of Onset Colon cancer Mother Depression Mother Diabetes Mother Lung cancer Father Objective Physical Exam Constitutional: General: He is not in acute distress. Appearance: Normal appearance. He is not ill-appearing. HENT: Head: Normocephalic and atraumatic. Mouth/Throat: Mouth: Mucous membranes are moist. Eyes: Pupils: Pupils are equal, round, and reactive to light. Cardiovascular: Rate and Rhythm: Normal rate. Pulmonary: Effort: Pulmonary effort is normal. No respiratory distress. Abdominal: General: There is no distension. Palpations: Abdomen is soft. Musculoskeletal: General: Normal range of motion. Skin: General: Skin is warm and dry. Neurological: Mental Status: He is alert and oriented to person, place, and time. Mental status is at baseline. Vital Signs: Blood pressure (!) 148/97, height 172.7 cm (5' 8 ), weight 105.4 kg (232 lb 6.4 oz). Respiratory Source: No data recorded Admission Weight: Weight: 105.4 kg (232 lb 6.4 oz) Labs No results found for: WBC , HGB , HCT , MCV , PLT No results found for: GLU , CALCIUM , NA , K , CO2 , CL , BUN , CREATININE No results found for: AMYLASE No results found for: LIPASE No results found for: ALT , AST , GGT , ALKPHOS , LABBILI No results found for: INR , PROTIME Assessment First screening colonoscopy Family history of colon cancer in mother Plan Colonoscopy with possible biopsy and/or polypectomy. Risks, benefits, and alternatives discussed with patient. Educated on bowel evacuation preparation. Patient verbalizes understanding and wishes to proceed. Evaluation included: Preparing to see the patient (e.g., review of tests) Obtaining and/or reviewing separately obtained history Performing a medically appropriate examination and/or evaluation Counseling and educating the patient/family/caregiver Referring and communicating with other health team primary care physician Encounter for screening colonoscopy [Z12.11] ANNE CEDEÑO [facility] General Surgery [place] This note was created with the assistance of a speech recognition program. While intending to generate a timely document that accurately reflects the content of the visit, no guarantee can be provided that every grammatical or spelling mistake has been or will be identified or corrected. Thank you for your understanding. ANNE Cedeño 07/31/24 1242 documented in this encounter [facility] 07-21-2024 History of Present illness Narrative documented in this encounter [facility] 07-20-2024 History of Present illness Narrative Associated Problem(s): Benign essential hypertension (CMS/HCC) BP controlled and monitor PRN. Associated Problem(s): Annual physical exam Due for labs. Due for colon cancer screening and referral in chart. Discussed proper diet and regular aerobic exercise. Need aerobic exercise 5-6 days a week for 30 minutes at a time. Smaller portions and limit total calories. Tetanus every 10 years. Advised not to smoke. Discussed daily Aspirin therapy. Images from the original note were not included. Subjective Patient ID: Gem Menendez is a 44 y.o. male who presents for Follow-up (6 m). Presents for annual PE. Weight up 6 pounds since last visit. Plan on resuming regular exercise and activity. Tries to watch diet and eat healthy. Increased fruits and vegetables. Smaller portions and limits snacking. Tries to limit total daily calories. Due for labs. Never had colon cancer screening and willing to have colonoscopy. Checking BP PRN and typically controlled. BP normal today. Taking medication daily and tolerating without side effects. Review of Systems Constitutional: Negative for fatigue. Respiratory: Negative for cough, shortness of breath and wheezing. Cardiovascular: Negative for chest pain and palpitations. Gastrointestinal: Negative for abdominal pain, diarrhea, nausea and vomiting. Genitourinary: Negative for dysuria. Objective Physical Exam Constitutional: General: He is not in acute distress. Appearance: Normal appearance. HENT: Head: Normocephalic. Right Ear: Tympanic membrane and ear canal normal. Left Ear: Tympanic membrane and ear canal normal. Eyes: Extraocular Movements: Extraocular movements intact. Pupils: Pupils are equal, round, and reactive to light. Cardiovascular: Rate and Rhythm: Normal rate and regular rhythm. Heart sounds: No murmur heard. No friction rub. No gallop. Pulmonary: Breath sounds: Normal breath sounds. No wheezing, rhonchi or rales. Abdominal: General: Bowel sounds are normal. There is no distension. Palpations: Abdomen is soft. Tenderness: There is no abdominal tenderness. There is no guarding or rebound. Musculoskeletal: General: Normal range of motion. Left lower leg: No edema. Neurological: General: No focal deficit present. Mental Status: He is alert. Cranial Nerves: No cranial nerve deficit. Deep Tendon Reflexes: Reflexes normal. Assessment/Plan Problem List Items Addressed This Visit Benign essential hypertension (CMS/HCC) BP controlled and monitor PRN. Annual physical exam - Primary Due for labs. Due for colon cancer screening and referral in chart. Discussed proper diet and regular aerobic exercise. Need aerobic exercise 5-6 days a week for 30 minutes at a time. Smaller portions and limit total calories. Tetanus every 10 years. Advised not to smoke. Discussed daily Aspirin therapy. Relevant Orders Hemoglobin A1c Basic metabolic panel CBC and differential Hepatic function panel Lipid panel PSA TSH Other Visit Diagnoses Colon cancer screening Relevant Orders Ambulatory referral to General Surgery documented in this encounter [facility] 12-28-2023 History of Present illness Narrative Associated Problem(s): Generalized anxiety disorder (CMS/HCC) Increased stress and may be affecting BP. Increase paxil and warned will take 2-3 weeks to notice improvement in mood. Associated Problem(s): Benign essential hypertension (CMS/HCC) BP elevated and add lisinopril to hydrochlorothiazide. Monitor BP PRN. Discussed DASH diet. Subjective Patient ID: Gem Menendez is a 43 y.o. male who presents for Follow-up (High bp). C/o elevated blood pressure. Last seen July 2022 and tacking hydrochlorothiazide daily. Not monitoring BP away from office. Seen by ortho and had left thumb trigger finger release 12/24 under local anesthesia. Noted BP very high prior to surgery and almost did not perform surgery. Gave medication and BP improved prior to discharge. BP 220/130 today. Reports overall feels well and getting a cuff to start checking BP at home. Reports worsening anxiety. Severe stress and not handling well. Nervous and worry all the time. Stressed out and overwhelmed. Thought racing and hard to clear mind. [place], irritable and snapping at others. Easily upset and overreact. Taking paxil daily and seems like helping but may be affecting BP. Review of Systems Constitutional: Negative for fatigue. Respiratory: Negative for cough, shortness of breath and wheezing. Cardiovascular: Negative for chest pain and palpitations. Gastrointestinal: Negative for abdominal pain, diarrhea, nausea and vomiting. Genitourinary: Negative for dysuria. Objective Physical Exam Constitutional: General: He is not in acute distress. Appearance: Normal appearance. HENT: Head: Normocephalic. Right Ear: Tympanic membrane and ear canal normal. Left Ear: Tympanic membrane and ear canal normal. Eyes: Extraocular Movements: Extraocular movements intact. Pupils: Pupils are equal, round, and reactive to light. Cardiovascular: Rate and Rhythm: Normal rate and regular rhythm. Heart sounds: No murmur heard. No friction rub. No gallop. Pulmonary: Breath sounds: Normal breath sounds. No wheezing, rhonchi or rales. Abdominal: General: Bowel sounds are normal. There is no distension. Palpations: Abdomen is soft. Tenderness: There is no abdominal tenderness. There is no guarding or rebound. Musculoskeletal: Left lower leg: No edema. Neurological: Mental Status: He is alert. Assessment/Plan Problem List Items Addressed This Visit Benign essential hypertension (CMS/HCC) - Primary BP elevated and add lisinopril to hydrochlorothiazide. Monitor BP PRN. Discussed DASH diet. Relevant Medications lisinopril-hydroCHLOROthiazide (Zestoretic) 20-25 MG tablet Dyslipidemia (CMS/HCC) Relevant Medications atorvastatin (Lipitor) 20 MG tablet Generalized anxiety disorder (CMS/HCC) Increased stress and may be affecting BP. Increase paxil and warned will take 2-3 weeks to notice improvement in mood. Relevant Medications PARoxetine (Paxil) 10 MG tablet documented in this encounter [facility] Evaluation note Diagnosis Benign essential hypertension (CMS/HCC)- Primary Essential hypertension, benign Generalized anxiety disorder (CMS/HCC) Generalized anxiety disorder Dyslipidemia (CMS/HCC) Other and unspecified hyperlipidemia [facility] Diagnosis Benign essential hypertension (CMS/HCC)- Primary Essential hypertension, benign Generalized anxiety disorder (CMS/HCC) Generalized anxiety disorder Dyslipidemia (CMS/HCC) Other and unspecified hyperlipidemia Benign essential hypertension (CMS/HCC)- Primary Essential hypertension, benign Generalized anxiety disorder (CMS/HCC) Generalized anxiety disorder Chronic rhinosinusitis Unspecified sinusitis (chronic) Body mass index [BMI] 36.0-36.9, adult (Z68.36) Hypersomnia Hypersomnia, unspecified Dyslipidemia (CMS/HCC) Other and unspecified hyperlipidemia Annual physical exam- Primary Routine general medical examination at a health care facility Benign essential hypertension (CMS/HCC) Essential hypertension, benign Colon cancer screening Special screening for malignant neoplasms, colon Body mass index (BMI) 36.0-36.9, adult Class 2 severe obesity due to excess calories with serious comorbidity and body mass index (BMI) of 37.0 to 37.9 in adult (CMS/HCC)- Primary [facility] Diagnosis Annual physical exam- Primary Routine general medical examination at a health care facility Benign essential hypertension (CMS/HCC) Essential hypertension, benign Colon cancer screening Special screening for malignant neoplasms, colon Body mass index (BMI) 36.0-36.9, adult [facility] Diagnosis Type 2 diabetes mellitus with hyperglycemia, without long-term current use of insulin (CMS/HCC)- Primary Dyslipidemia (CMS/HCC) Other and unspecified hyperlipidemia [facility] Diagnosis Encounter for screening colonoscopy- Primary Family history of malignant neoplasm of colon in mother Screen for colon cancer Special screening for malignant neoplasms, colon [facility] filed[facility] in [facility] System[facility]ructionsNot on filedocumented in this encounter [facility] System[facility]ructionsNot on filedocumented in this encounter [facility] ([facility]ative[facility] Consultation (Routine) - Pending Review Specialty Diagnoses / Procedures [facility] Referred To Contact General Surgery Diagnoses Colon cancer screening Procedures [place] OFFICE/OUTPATIENT NEW HIGH MDM 60 MINUTES Srinivasan Christine MD [address] [place] [address] Oliver Fajardo DO [address] [place] [id number] Referral ID Status Reason Start Date Expiration Date Visits Requested Visits Authorized [id number] Pending Review Specialty Services Required 07/20/2024 01/16/2025 1 1 [facility] Summary Purpose Family History No Family History Records FoundNo Family History Records FoundNo Family History Records FoundNo Family History Records Found Advance Directives No Advanced Directives Records FoundNo Advanced Directives Records FoundNo Advanced Directives Records FoundNo Advanced Directives Records Found Additional Source Comments (unrecognized sect ion and content) No Status Records FoundNo Status Records FoundNo Status Records FoundNo Status Records Found INFORMATION SOURCE (unrecogn ized section and content) DATE CREATED AUTHOR 07/09/2022 [facility] DATE CREATED AUTHOR AUTHOR'S ORGANIZ ATION 07/22/2024 [facility] EPIC DATE CREATED AUTHOR AUTHOR'S ORGANIZ ATION 08/01/2024 [facility] DATE CREATED AUTHOR AUTHOR'S ORGANIZ ATION 09/30/2024 [facility] (unrecognized sec tion and content) Nuclear Medicine Physician Relationship Specialty Start Date End Date Srinivasan Christine MD [address] [place] [address] PCP - General Family Medicine 12/28/23 Nuclear Medicine Physician Relationship Specialty Start Date End Date Srinivasan Christine MD [address] [place] [address] PCP - General Family Medicine 12/28/23 Nuclear Medicine Physician Relationship Specialty Start Date End Date Srinivasan Christine MD [address] [place] [address] PCP - General Family Medicine 12/28/23 Srinivasan Christine MD [address] [place] [address] PCP - Medical [employer] 08/15/20 11/14/99 Nuclear Medicine Physician Relationship Specialty Start Date End Date Srinivasan Christine MD [address] [place] [address] PCP - General Family Medicine 12/28/23 Srinivasan Christine MD [address] [place] [address] PCP - [employer] 08/15/20 11/14/99 Nuclear Medicine Physician Relationship Specialty Start Date End Date Srinivasan Christine MD [address] [place] [address] PCP - General Family Medicine 12/28/23 Srinivasan Christine MD [address] [place] [id number] PCP - [facility] [employer] 08/15/20 11/14/99 Nuclear Medicine Physician Relationship Specialty Start Date End Date Srinivasan Christine MD [address] [place] [id number] PCP - General Family Medicine 12/28/23 Srinivasan Christine MD [address] [place] [phone] PCP - [facility] [employer] 08/15/20 11/14/99 Nuclear Medicine Physician Relationship Specialty Start Date End Date Srinivasan Christine MD PCP - General Family Medicine 07/15/21 Nuclear Medicine Physician Relationship Specialty Start Date End Date Srinivasan Christine MD PCP - General Family Medicine 07/15/21 Nuclear Medicine Physician Relationship Specialty Start Date End Date Srinivasan Christine MD PCP - General Family Medicine 07/15/21 Reason for Visit (unrecogniz ed section and content) Reason Comments Follow-up High bp Reason Comments Follow-up 6 m Reason Comments Colon Cancer Screening FIRST SCREENING C OLLIZETTE, HX OF COLON CANCER IN MOTHER Specialty Diagnoses / Procedures Referred By Contnolan t Referred To Contact General Surgery Diagnoses Colon cancer screening Procedures [place] OFFICE OUTPATIENT VISIT 60-74 MINS HIGH MDM AMB REFERRAL TO GENERAL SURGERY Srinivasan Christine MD [address] [place] [address] Oliver Fajardo DO [address] [place] [id number] Referral ID Status Reason Start Date Expiration Date Visits Re quested Visits Authorized [id number] Closed 07/20/2024 01/16/2025 1 1 FOR RECORDS PERTAINING TO PATIENTS WHO ARE OR HAVE BEEN ENROLLED IN A CHEMICAL DEPENDENCY/SUBSTANCEABUSE PROGRAM, SOME INFORMATION MAY BE OMITTED. This clinical summary was aggregated from multiple sources. Caution should be exercised in using it in the provision of clinical care. This summary normalizes information from multiple sources, and as a consequence, information in this document may materially change the coding, format and clinical context of patient data. In addition, data may be omitted in some cases. CLINICAL DECISIONS SHOULD BE BASED ON THE PRIMARY CLINICAL RECORDS. [facility]. provides no warranty or guarantee of the accuracy or completeness of information in this document.
[2025-02-19 20:33] VITALS: BP 157/109; PULSE 110; TEMP 36.9; O2SAT 97; BMI 35.2
--- NOTE | 2025-02-19 20:36 | ECG_ITS ---
[facility] Test Date: 2025-02-19 Pat Name: GEM HERRERA Department: Room: - Gender: Male [employer]: : 1980 Requested By: [id number] Order Number: [id number] Reading MD: SAMANTHA CARIAS M.D. Measurements Intervals [place] Rate: 111 P: 35 VT: 162 QRS: 110 QRSD: 86 T: 27 QT: 320 QTc: 386 Interpretive Statements 1120 Sinus tachycardia 5120 Possible right ventricular hypertrophy 9140 abnormal rhythm ECG No previous ECG available for comparison Electronically Signed On 02-20-2025 19:56:55 EDT by SAMANTHA CARIAS M.D.
--- NOTE | 2025-02-19 20:37 | ED.GENADUL1 ---
HPI HPI - General Adult General Chief complaint: Back Pain/Injury Stated complaint: FLANK PAIN Time Seen by Provider: 02/19/25 20:26 Source: patient and family Mode of arrival: walk-in Limitations: no limitations History of Present Illness HPI narrative: Patient is a 45 year old male who presents to the ED for the evaluation of pain in the thoracic back for the last 3 hours. Patient denies any mechanism of trauma or injury. He points to the right posterior chest as the source of his pain, worse with movement and position. He denies fevers, cough, hemoptysis, abdominal pain, urinary symptoms, extremity swelling. He has no history of coronary artery disease, Pulmonary embolism or pneumothorax. He took ibuprofen prior to arrival. Related Data Home Medications ?Medication ?Instructions ?Recorded ?Confirmed atorvastatin 40 mg tablet 40 mg PO .once daily 02/19/25 02/19/25 lisinopril 20 1 tab PO .once daily 02/19/25 02/19/25 mg-hydrochlorothiazide 25 mg tablet metformin 500 mg tablet,extended 500 mg PO .once daily 02/19/25 02/19/25 release 24 hr paroxetine HCl 10 mg tablet 10 mg PO .once daily 02/19/25 02/19/25 Previous Rx's ?Medication ?Instructions ?Recorded hydrocodone 5 mg-acetaminophen 325 1 tab PO Q6H PRN pain 3 days #12 02/19/25 mg tablet tabs ketorolac 10 mg tablet 10 mg PO TID PRN pain #10 tabs 02/19/25 methocarbamol 750 mg tablet 750 mg PO TID PRN pain #20 tabs 02/19/25 Allergies Allergy/AdvReac Type Severity Reaction Status Date / Time No Known Drug Allergies Allergy Verified 02/19/25 20:36 Opioid HPI Opioid Management Most Recent Opioid Data: No Data to Display Review of Systems ROS Constitutional Denies: fever or chills Ears, nose, mouth, and throat Denies: throat pain or nasal congestion Cardiovascular Denies: chest pain Respiratory Denies: shortness of breath, cough, change in phlegm color or coughing up blood Gastrointestinal Denies: abdominal pain, nausea or vomiting Musculoskeletal Reports: back pain; Denies: neck pain, extremity pain or extremity swelling Integumentary/Breast Denies: rash Neurological Denies: numbness in extremities or weakness in extremities Hematologic/Lymphatic Denies: easy bruising or easy bleeding PFSH PFSH Social History Little interest or pleasure in doing things: not at all Feeling down, depressed, or hopeless: not at all Exam Narrative Exam Narrative: Gen.: Awake, alert, in no distress Head: Normocephalic, atraumatic ENT: Moist mucous membranes Respiratory: No respiratory distress, lungs clear bilaterally Cardio: Regular rate and rhythm Back: No CVA tenderness, tenderness of the right thoracic back/chest wall. No thoracic spinal tenderness, no rashes noted. No ecchymosis or crepitance Extremities: Moves extremities equally, no peripheral edema Psych: Normal mood and affect Neuro: No focal neuro deficit Skin: Warm, dry, intact Constitutional Vital Signs, click to edit/add: Last Vital Signs Temp 98.5 F 02/19/25 20:33 Pulse 110 H 02/19/25 20:33 Resp 18 02/19/25 20:33 BP 157/109 H 02/19/25 20:33 Pulse Ox 98 02/19/25 21:14 O2 Del Method Room Air 02/19/25 21:14 Course Vital Signs Vital signs: Vital Signs Temperature 98.5 F 02/19/25 20:33 Pulse Rate 110 H 02/19/25 20:33 Respiratory Rate 18 02/19/25 20:33 Blood Pressure 157/109 H 02/19/25 20:33 Pulse Oximetry 97 02/19/25 20:33 Oxygen Delivery Method Room Air 02/19/25 20:33 Temperature 98.5 F 02/19/25 20:33 Pulse Rate 110 H 02/19/25 20:33 Respiratory Rate 18 02/19/25 20:33 Blood Pressure 157/109 H 02/19/25 20:33 Pulse Oximetry 98 02/19/25 21:14 Oxygen Delivery Method Room Air 02/19/25 21:14 Medical Decision Making MDM Narrative Medical decision making narrative: Patient medicated for pain with morphine, zofran, norflex and he is more relaxed however still having spasms on reevaluation. Additional solu-medrol and fentanyl given. Patient with normal labs, including d dimer and troponin. Chest xray is pending. Anticipate discharge home with pain medication, muscle relaxant and NSAIDS. Xray results pending and case is turned over to attending physician. SUPERVISED APC VISIT, PHYSICIAN ATTESTATION: Based on the medical record the care appears appropriate. ? Medical Records Medical records reviewed: Yes I reviewed the patient's medical records Lab Data Lab results reviewed: Yes I reviewed the patient's lab results Labs: Lab Results 02/19/25 Range/Units 20:45 WBC 7.1 (4.0-11.0) 10^3/uL RBC 4.57 L (4.70-6.10) 10^6/uL Hgb 14.3 (14.0-18.0) g/dL Hct 40.0 L (42.0-54.0) % MCV 87.5 (80.0-94.0) fL MCH 31.3 (25.9-34.0) pg MCHC 35.8 H (29.9-35.2) g/dL RDW 12.3 (11.0-15.0) % Plt Count 172 (150-450) 10^3/uL MPV 9.9 (9.5-13.5) fL Neut % (Auto) 79.3 H (43.0-75.0) % Lymph % (Auto) 12.3 L (20.5-60.0) % [place] % (Auto) 6.1 (1.7-12.0) % Eos % (Auto) 1.3 (0.9-7.0) % Baso % (Auto) 0.6 (0.2-2.0) % Neut # (Auto) 5.6 (1.4-6.5) 10^3/uL Lymph # (Auto) 0.9 L (1.2-3.8) 10^3/uL [place] # (Auto) 0.4 (0.3-0.8) 10^3/uL Eos # (Auto) 0.1 (0.0-0.7) 10^3/uL Baso # (Auto) 0.0 (0.0-0.1) 10^3/uL Abs Immat Gran (auto) 0.03 (0.00-0.03) 10^3/uL Imm/Tot Granulo (auto) 0.4 (0.0-0.5) % PT 11.2 (9.0-11.6) sec INR 1.06 D-Dimer <0.19 (<=0.59) mg/L FEU Sodium 132 L (136-145) mmol/L Potassium 3.7 (3.5-5.1) mmol/L Chloride 97 L (98-107) mmol/L Carbon Dioxide 22.6 (21.0-32.0) mmol/L Anion Gap 16.1 BUN 16.0 (7.0-18.0) mg/dL Creatinine 1.28 (0.70-1.30) mg/dL Est GFR ( Amer) >60 (>=60 mL/min/1.73m^2) Est GFR (Non-Af Amer) >60 (>=60 mL/min/1.73m^2) BUN/Creatinine Ratio 12.5 Glucose 184 H (74-106) mg/dL Calcium 9.3 (8.5-10.1) mg/dL Total Bilirubin 0.7 (0.2-1.0) mg/dL AST 24 (15-37) U/L ALT 40 (16-63) U/L Alkaline Phosphatase 113 (46-116) U/L Troponin I High Sens 5.2 (4.0-76.1) pg/mL Total Protein 7.9 (6.4-8.2) g/dL Albumin 4.3 (3.4-5.0) g/dL Globulin 3.6 g/dL Albumin/Globulin Ratio 1.2 Lipase 53.0 (16.0-77.0) U/L Imaging Data Chest x-ray: Attestation: I have reviewed the pertinent imaging results. ECG Data Attestation: I personally reviewed and interpreted this ECG as follows: (Sinus tachycardia at a rate of 111, no acute ST elevation or ectopy, artifact noted. EKG reviewed by attending physician.) Discharge Plan Discharge Chief Complaint: Back Pain/Injury Clinical Impression: Thoracic back pain Patient Disposition: Home, Self-Care Time of Disposition Decision: 21:48 Condition: Good Prescriptions / Home Meds: New hydrocodone-acetaminophen 5-325 mg tablet 1 tab PO Q6H PRN (Reason: pain) 3 Days Qty: 12 0RF Rx Instructions: DX: M54.5 ketorolac 10 mg tablet 10 mg PO TID PRN (Reason: pain) Qty: 10 0RF methocarbamol 750 mg tablet 750 mg PO TID PRN (Reason: pain) Qty: 20 0RF No Action atorvastatin 40 mg tablet 40 mg PO .once daily paroxetine HCl 10 mg tablet 10 mg PO .once daily lisinopril-hydrochlorothiazide 20-25 mg tablet 1 tab PO .once daily metformin 500 mg tablet extended release 24 hr 500 mg PO .once daily Print Language: Martiniquais Instructions: Thoracic Pain (ED) Referrals: Srinivasan Graham MD [Primary Care Provider] - 1 week Discharge Date/Time: 02/19/25 23:03
[2025-02-19] MEDS: ORPHENADRINE 60 MG/2 ML VIAL IV (20:56)
[2025-02-19] MEDS: 0.9 % SODIUM CHLORIDE 1,000 ML 999 ML IV (20:56)
[2025-02-19] MEDS: MORPHINE SULFATE 4 MG/ML VIAL IV (20:57)
[2025-02-19] MEDS: ONDANSETRON PF 4 MG/2 ML VIAL IV (20:57)
[2025-02-19 21:08] LABS: Basophils Percent Auto 0.6 % (0.2-2.0); Eosinophils Absolute Auto 0.1 10^3/uL (0.0-0.7); Eosinophils Percent Auto 1.3 % (0.9-7.0); Hemoglobin 14.3 g/dL (14.0-18.0); Immature Granulocytes Abs Auto 0.03 10^3/uL (0.00-0.03); Immature Granulocytes Pct Auto 0.4 % (0.0-0.5); Lymphocytes Absolute Auto 0.9 10^3/uL (1.2-3.8); Lymphocytes Percent Auto 12.3 % (20.5-60.0); Mean Corpuscular HGB Conc 35.8 g/dL (29.9-35.2); Mean Corpuscular Hemoglobin 31.3 pg (25.9-34.0); Mean Corpuscular Volume 87.5 fL (80.0-94.0); Mean Platelet Volume 9.9 fL (9.5-13.5); Monocytes Absolute Auto 0.4 10^3/uL (0.3-0.8); Monocytes Percent Auto 6.1 % (1.7-12.0); Neutrophils Absolute Auto 5.6 10^3/uL (1.4-6.5); Neutrophils Percent Auto 79.3 % (43.0-75.0); Platelet Count 172 10^3/uL (150-450); Red Blood Count 4.57 10^6/uL (4.70-6.10); Red Cell Distribution Width 12.3 % (11.0-15.0); White Blood Count 7.1 10^3/uL (4.0-11.0)
[2025-02-19 21:14] VITALS: O2SAT 98
[2025-02-19 21:25] LABS: Alanine Aminotransferase 40 U/L (16-63); Albumin Globulin Ratio 1.2; Albumin Level 4.3 g/dL (3.4-5.0); Alkaline Phosphatase 113 U/L (46-116); Anion Gap 16.1; Aspartate Amino Transferase 24 U/L (15-37); BUN Creatinine Ratio 12.5; Bilirubin Total 0.7 mg/dL (0.2-1.0); Calcium 9.3 mg/dL (8.5-10.1); Carbon Dioxide 22.6 mmol/L (21.0-32.0); Chloride 97 mmol/L (98-107); Estimated GFR (African America >60 (>=60 mL/min/1.73m^2); Estimated GFR (Non-African Ame >60 (>=60 mL/min/1.73m^2); Globulin 3.6 g/dL; Glucose 184 mg/dL (74-106); Potassium 3.7 mmol/L (3.5-5.1); Sodium 132 mmol/L (136-145); Total Protein 7.9 g/dL (6.4-8.2)
[2025-02-19 21:26] LABS: INR 1.06; Prothrombin Time 11.2 sec (9.0-11.6)
[2025-02-19 21:27] LABS: D Dimer <0.19 mg/L FEU (<=0.59)
[2025-02-19 21:28] LABS: Troponin I High Sensitivity 5.2 pg/mL (4.0-76.1)
[2025-02-19] MEDS: METHYLPREDNISOLONE SOD SUCC PF 125 MG/2 ML VIAL IVP (21:38)
[2025-02-19] MEDS: FENTANYL CITRATE/PF 100 MCG/2 ML VIAL 50 MCG IV (21:39)
== END 2025-02-19 23:03 | disposition home or self-care (01) ==
PROVIDERS: Physician Assistant; Emergency Provider Internal Medicine; PCP Family Medicine
DX: M54.6 Pain in thoracic spine (principal)
CPT/HCPCS: 36415; 71046; 80053; 83690; 84484; 85025; 85378; 85610; 93005; 96374; 96375; 99285; J2270; J2360; J2405; J2919; J3010

== ENCOUNTER 2025-02-21 07:08 | Emergency (ER) | payer OTHER, SELFPAY ==
[2025-02-21 07:11] VITALS: BP 134/93; PULSE 119; TEMP 36.6; O2SAT 98; BMI 35.2
--- OUTSIDE RECORDS SUMMARY | 2025-02-21 07:13 | XMS_ITS | CCD ---
Author Organization [facility] Care Team Providers Care Broacher Name Role Phone DR SRINIVASAN CHRISTINE Attending [...] Unavailable Srinivasan Christine MD Primary Care Provider Medications Current Medications Medication Drug Class(es) Dates [...] (BMI) of 37.0 to 37.9 in adult ([facility])] Onset: 07-20-2024 09-07-2024 Chronic Other nutritional; [...] Facility Surgical Pathologyon 024 Surgical Pathology Normal [facility] Comment on above: Result Comment: [facility] [address] [place] [address] Surgical Pathology Consultation Patient Name:GEM MENENDEZ:1980 (Age: 44)Gender:MTaken:4Reported:4Physician(s):Judy Michel MD ([phone])Copy To: Rec. #:[id number]: #[id number] Final Pathologic Diagnosis Rectal sigmoid polyp, polypectomy: Tubular adenoma. No high-grade dysplasia or invasive carcinoma identified. Report Electronically Signed Out [facility]09/27/2024Chema Casas M.D. Interpretation performed at [facility], [address] [place] [address], [place] [address], License number: [id number]. Clinical History Screening. Gross Description Received in formalin labeled RAKES, polyp rectal sigmoid is a 1.5 x 1.2 x 0.8 cm multinodular pedunculated polyp. The resection margin is inked black and the specimen is serially sectioned. Entirely submitted in 1 cassette. (1, ns, [id number], m1) mxw/09/25/2024NSK Specimen(s) Received Rectal sigmoid polyp Fee Codes(s): 1; 55713 ALL CBC WITH AUTO DIFFon BASOPHILS ABSOLUTE AUTO 0.1 [facility] Basophils/100 WBC (Bld) 1.0 % 0.2 - 2.0 % [facility] Eosinophils/100 WBC (Bld) 2.0 % 0.9 - 7.0 % [facility] Erythrocyte distribution width (RBC) [Ratio] 12.2 % 11.0 - 15.0 % [facility] Hematocrit (Bld) [Volume fraction] 37.3 % Low 42.0 - 54.0 % [facility] [Mass/Vol] 13.1 g/dL Low 14.0 - 18.0 g/dL [facility] IMMATURE GRANULOCYTES ABS AUTO 0.02 [facility] Immature granulocytes/100 WBC (Bld) 0.4 % 0.0 - 0.5 % [facility] Interpretation and review of laboratory results Abnormal [facility] LYMPHOCYTES ABSOLUTE AUTO 1.5 [facility] Lymphocytes/100 WBC (Bld) 29.7 % 20.5 - 60.0 % [facility] MCH (RBC) [Entitic mass] 31.0 pg 25.9 - 34.0 pg [facility] MCHC (RBC) [Mass/Vol] 35.1 g/dL 29.9 - 35.2 g/dL [facility] MCV (RBC) [Entitic vol] 88.2 fL 80.0 - 94.0 fL [facility] MONOCYTES ABSOLUTE AUTO 0.3 [facility] Monocytes/100 WBC (Bld) 6.3 % 1.7 - 12.0 % [facility] NEUTROPHILS ABSOLUTE AUTO 3.1 [facility] Neutrophils/100 WBC (Bld) 60.6 % 43.0 [...] BASO # 0.1 103/ul Normal 0.0-0.1 [facility] Comment on above: Performed By: #### C BC #### [facility] [address] [place] [address] Dr. Casey Siddiqui Basophils/100 WBC (Bld) 0.6 % Normal 0.2-2.0 [facility] Comment on above: Performed By: #### C BC #### [facility] [address] [place] [address] Dr. Casey Siddiqui EO # 0.3 103/ul Normal 0.0-0.7 [facility] Comment on above: Performed By: #### C BC #### [facility] [address] [place] [address] Dr. Casey Siddiqui Eosinophils/100 WBC (Bld) 4.3 % Normal 0.9-7.0 [facility] Comment on above: Performed By: #### C BC #### [facility] [address] [place] [address] Dr. Casey Siddiqui Erythrocyte distribution width (RBC) [Ratio] 11.9 % Normal 11.0-15.0 [facility] Comment on above: Performed By: #### C BC #### [facility] [address] [place] [address] Dr. Casey Siddiqui Hematocrit (Bld) [Volume fraction] 40.8 % Critically low 42.0-54.0 [facility] Comment on above: Performed By: #### C BC #### [facility] [address] [place] [address] Dr. Casey Siddiqui Hemoglobin (Bld) [Mass/Vol] 14.5 g/dL Normal 14.0-18.0 [facility] Comment on above: Performed By: #### C BC #### [facility] [address] [place] [address] Dr. Casey Siddiqui IG # 0.03 10e3/ul Normal 0.00-0.03 [facility] Comment on above: Performed By: #### C BC #### [facility] [address] [place] [address] Dr. Casey Siddiqui IG % 0.4 % Normal 0.0-0.5 [facility] Comment on above: Performed By: #### C BC #### [facility] [address] [place] [address] Dr. Casey Siddiqui LYMPH # 1.9 103/ul Normal 1.2-3.8 [facility] Comment on above: Performed By: #### C BC #### [facility] [address] [place] [address] Dr. Casey Siddiqui Lymphocytes/100 WBC (Bld) 24.0 % Normal 20.5-60.0 [facility] Comment on above: Performed By: #### C BC #### [facility] [address] [place] [address] Dr. Casey Siddiqui MANUAL DIFF REQ NO Normal [facility] Comment on above: Performed By: #### C BC #### [facility] [address] [place] [address] Dr. Casey Siddiqui MCH (RBC) [Entitic mass] 31.6 pg Normal 25.9-34.0 [facility] Comment on above: Performed By: #### C BC #### [facility] [address] [place] [address] Dr. Casey Siddiqui MCHC (RBC) [Mass/Vol] 35.5 g/dL Critically high 29.9-35.2 [facility] Comment on above: Performed By: #### C BC #### [facility] [address] [place] [address] Dr. Casey Siddiqui MCV (RBC) [Entitic vol] 88.9 fL Normal 80.0-94.0 [facility] Comment on above: Performed By: #### C BC #### [facility] [address] [place] [address] Dr. Casey Siddiqui MONO # 0.5 103/ul Normal 0.3-0.8 [facility] Comment on above: Performed By: #### C BC #### [facility] [address] [place] [address] Dr. Casey Siddiqui Monocytes/100 WBC (Bld) 6.2 % Normal 1.7-12.0 [facility] Comment on above: Performed By: #### C BC #### [facility] [address] [place] [address] Dr. Casey Siddiqui NEUT # 5.0 103/ul Normal 1.4-6.5 [facility] Comment on above: Performed By: #### C BC #### [facility] [address] [place] [address] Dr. Casey Siddiqui Neutrophils/100 WBC (Bld) 64.5 % Normal 43.0-75.0 [facility] Comment on above: Performed By: #### C BC #### [facility] [address] [place] [address] Dr. Casey Siddiqui Platelet mean volume (Bld) [Entitic vol] 9.7 fL Normal 9.5-13.5 [facility] Comment on above: Performed By: #### C BC #### [facility] [address] [place] [address] Dr. Casey Siddiqui PLT 184 103/ul Normal 150-450 [facility] Comment on above: Performed By: #### C BC #### [facility] [address] [place] [address] Dr. Casey Siddiqui RBC 4.59 106/ul Critically low 4.70-6.10 [facility] Comment on above: Performed By: #### C BC #### [facility] [address] [place] [address] Dr. Casey Siddiqui WBC 7.8 103/ul Normal 4.0-11.0 [facility] Comment on above: Performed By: #### C BC #### [facility] [address] [address] [address] Casey Siddqiui GLYCOHEMOGLOBIN A1Con 2021 ADA RECOMMENDATION SEE BELOW Normal [facility] Comment on above: Result Comment: ADA RECOMMENDED LIMIT 4.0 - 6.0 ADA THERAPEUTIC TARGET < 7.0 ACTION SUGGESTED > 7.0 Performed By: #### A 1C #### [facility] [address] [place] [address] Dr. Casey Siddiqui Glucose [Mass/Vol] 105 mg/dL Normal [facility] Comment on above: Performed By: #### A 1C #### [facility] [address] [place] [address] Dr. Casey Siddiqui HbA1c (Bld) [Mass fraction] 5.3 % Normal 4.5-6.2 [facility] Comment on above: Performed By: #### A 1C #### [facility] [address] [place] [address] Dr. Casey Siddiqui LIPID PROFILEon 07-02-2022 CHOL-HDL RATIO NORM SEE BELOW Normal [facility] Comment on above: Result Comment: 3.3 - 4.4 LOW RISK 4.4 - 7.1 AVERAGE RISK 7.1 - 11.0 MODERATE RISK >11.0 HIGH RISK Performed By: #### B MP, LIPID, TSH, LIVER #### [facility] [address] [place] [address] Dr. Casey Siddiqui Cholesterol [Mass/Vol] 237 mg/dL Critically high <=200 [facility] Comment on above: Performed By: #### B MP, LIPID, TSH, LIVER #### [facility] [address] [place] [address] Dr. Casey Siddiqui Cholesterol in HDL [Mass/Vol] 44 mg/dL Normal 40-60 [facility] Comment on above: Performed By: #### B MP, LIPID, TSH, LIVER #### [facility] [address] [place] [address] Dr. Casey Siddiqui Cholesterol in LDL [Mass/Vol] 115.6 mg/dL Normal [facility] Comment on above: Performed By: #### B MP, LIPID, TSH, LIVER #### [facility] [address] [address] [address] Casey Siddiqui Cholesterol.total/Cho lesterol in HDL [Mass ratio] 5.4 {ratio} Normal [facility] Comment on above: Performed By: #### B MP, LIPID, TSH, LIVER #### [facility] [address] [address] [address] Casey Siddiqui HDL NORMAL > or = 60 mg/dl - LOW CARDIOVASCULAR RISK <40 mg/dl - HIGH CARDIOVASCULAR RISK Normal [facility] Comment on above: Performed By: #### B MP, LIPID, TSH, LIVER #### [facility] [address] [place] [address] Dr. Casey Siddiqui LDL CALC NORMAL SEE BELOW Normal [facility] Comment on above: Result Comment: <100 mg/dl OPTIMAL 100 - 129 mg/dl NEAR OR ABOVE OPTIMAL 130 - 159 mg/dl BORDERLINE HIGH 160 - 189 mg/dl HIGH >190 mg/dl VERY HIGH Performed By: #### B MP, LIPID, TSH, LIVER #### [facility] [address] [place] [address] Dr. Casey Siddiqui Triglyceride [Mass/Vol] 387 mg/dL Critically high <=150 [facility] Comment on above: Performed By: #### B MP, LIPID, TSH, LIVER #### [facility] [address] [place] [address] Dr. Casey Siddiqui VLDL CALC 77.4 mg/dL Normal [facility] Comment on above: Performed By: #### B MP, LIPID, TSH, LIVER #### [facility] [address] [address] [address] Casey Siddiqui LIVER PROFILEon 07-02-2022 Albumin [Mass/Vol] 4.2 g/dL Normal 3.4-5.0 [facility] Comment on above: Performed By: #### B MP, LIPID, TSH, LIVER #### [facility] [address] [place] [address] Dr. Casey Siddiqui Albumin/Globulin [Mass ratio] 1.2 {ratio} Normal [facility] Comment on above: Performed By: #### B MP, LIPID, TSH, LIVER #### [facility] [address] [place] [address] Dr. Casey Siddiqui ALP [Catalytic activity/Vol] 102 U/L Normal 46-116 [facility] Comment on above: Performed By: #### B MP, LIPID, TSH, LIVER #### [facility] [address] [place] [address] Dr. Casey Siddiqui ALT [Catalytic activity/Vol] 35 U/L Normal 16-63 [facility] Comment on above: Performed By: #### B MP, LIPID, TSH, LIVER #### [facility] [address] [place] [address] Dr. Casey Siddiqui AST [Catalytic activity/Vol] 23 U/L Normal 15-37 [facility] Comment on above: Performed By: #### B MP, LIPID, TSH, LIVER #### [facility] [address] [place] [address] Dr. Casey Siddiqui BILI, CONJUGATED 0.1 mg/dL Normal 0.0-0.2 [facility] Comment on above: Performed By: #### B MP, LIPID, TSH, LIVER #### [facility] [address] [place] [address] Dr. Casey Siddiqui Bilirubin [Mass/Vol] 0.6 mg/dL Normal 0.2-1.0 [facility] Comment on above: Performed By: #### B MP, LIPID, TSH, LIVER #### [facility] [address] [place] [address] Dr. Casey Siddiqui Globulin (S) [Mass/Vol] 3.4 g/dL Normal [facility] Comment on above: Performed By: #### B MP, LIPID, TSH, LIVER #### [facility] [address] [place] [address] Dr. Casey Siddiqui Protein [Mass/Vol] 7.6 g/dL Normal 6.4-8.2 [facility] Comment on above: Performed By: #### B MP, LIPID, TSH, LIVER #### [facility] [address] [place] [address] Dr. Casey Siddiqui PROF CHEM 8 (BAS METB)on Anion gap [Moles/Vol] 13.1 mmol/L Normal [facility] Comment on above: Performed By: #### B MP, LIPID, TSH, LIVER #### [facility] [address] [address] [address] Casey Siddiqui Calcium [Mass/Vol] 8.8 mg/dL Normal 8.5-10.1 [facility] Comment on above: Performed By: #### B MP, LIPID, TSH, LIVER #### [facility] [address] [address] [address] Casey Siddiqui Chloride [Moles/Vol] 101 mmol/L Normal 98-107 [facility] Comment on above: Performed By: #### B MP, LIPID, TSH, LIVER #### [facility] [address] [place] [address] Dr. Casey Siddiqui CO2 [Moles/Vol] 27.1 mmol/L Normal 21.0-32.0 [facility] Comment on above: Performed By: #### B MP, LIPID, TSH, LIVER #### [facility] [address] [address] [address] Casey Siddiqui Creatinine [Mass/Vol] 0.99 mg/dL Normal 0.70-1.30 [facility] Comment on above: Performed By: #### B MP, LIPID, TSH, LIVER #### [facility] [address] [address] [address] Casey Siddiqui EGFR-AF TOGOLESE >60 Normal >=60 [facility] Comment on above: Performed By: #### B MP, LIPID, TSH, LIVER #### [facility] [address] [address] [address] Casey Siddiqui EGFR-NON AF TOGOLESE >60 Normal >=60 [facility] Comment on above: Performed By: #### B MP, LIPID, TSH, LIVER #### [facility] [address] [address] [address] Casey Siddiqui Glucose [Mass/Vol] 100 mg/dL Normal 74-106 [facility] Comment on above: Performed By: #### B MP, LIPID, TSH, LIVER #### [facility] [address] [place] [address] Dr. Casey Siddiqui Potassium [Moles/Vol] 3.2 mmol/L Critically low 3.5-5.1 [facility] Comment on above: Performed By: #### B MP, LIPID, TSH, LIVER #### [facility] [address] [place] [address] Dr. Casey Siddiqui Sodium [Moles/Vol] 138 mmol/L Normal 136-145 [facility] Comment on above: Performed By: #### B MP, LIPID, TSH, LIVER #### [facility] [address] [place] [address] Dr. Casey Siddiqui Urea nitrogen [Mass/Vol] 13.0 mg/dL Normal 7.0-18.0 [facility] Comment on above: Performed By: #### B MP, LIPID, TSH, LIVER #### [facility] [address] [place] [address] Dr. Casey Siddiqui Urea nitrogen/Creatinine [Mass ratio] 13.1 mg/mg Normal [facility] Comment on above: Performed By: #### B MP, LIPID, TSH, LIVER #### [facility] [address] [place] [address] Dr. Casey Siddiqui TSHon 07-02-2022 TSH 1.519 uIU/mL Normal 0.358-3.740 [facility] Comment on above: Performed By: #### B MP, LIPID, TSH, LIVER #### [facility] [address] [place] [address] Dr. Casey Siddiqui Vital Signs Date Time Vital Sign Value Performing Clinician Facility 09-14-2024 10:59-0400 Body height 170.2 cm Pmh 1 [facility] 09-14-2024 10:59-0400 Body mass index (BMI) [Ratio] 35.4 kg/m2 [facility] 1 [facility] 09-14-2024 10:59-0400 Body weight 102.51 kg Pmh 1 [facility] 07-31-2024 11:21-0400 Body height 172.7 cm Christelle Boyer VIRTUAL CUSTOMER ASSISTANT-BRINE MIXER OPERATOR Work Phone: [facility] 07-31-2024 11:21-0400 Body mass index (BMI) [Ratio] 35.34 kg/m2 Christelle Boyer VIRTUAL CUSTOMER ASSISTANT-BRINE MIXER OPERATOR Work Phone: [facility] 07-31-2024 11:21-0400 Body weight 105.42 kg Christelle Boyer VIRTUAL CUSTOMER ASSISTANT-BRINE MIXER OPERATOR Work Phone: [facility] 07-31-2024 11:21-0400 Diastolic blood pressure 97 mm[Hg] Christelle Boyer VIRTUAL CUSTOMER ASSISTANT-BRINE MIXER OPERATOR Work Phone: [facility] 07-31-2024 11:21-0400 Systolic blood pressure 148 mm[Hg] Christelle Boyer VIRTUAL CUSTOMER ASSISTANT-BRINE MIXER OPERATOR Work Phone: [facility] 07-20-2024 15:04-0400 Body height 170.2 cm Srinivasan Christine MD Work Phone: [facility] 07-20-2024 15:04-0400 Body mass index (BMI) [Ratio] 37.28 kg/m2 Srinivasan Christine MD Work Phone: [facility] 07-20-2024 15:04-0400 Body temperature 97.3 [degF] Srinivasan Christine MD Work Phone: [facility] 07-20-2024 15:04-0400 Body weight 107.96 kg Srinivasan Christine MD Work Phone: [facility] 07-20-2024 15:04-0400 Diastolic blood pressure 76 mm[Hg] Srinivasan Christine MD Work Phone: [facility] 07-20-2024 15:04-0400 Heart rate 101 /min Srinivasan Christine MD Work Phone: [facility] 07-20-2024 15:04-0400 Respiratory rate 18 /min Srinivasan Christine MD Work Phone: [facility] 07-20-2024 15:04-0400 SaO2% (BldA) [Mass fraction] 95 % Srinivasan Christine MD Work Phone: [facility] 07-20-2024 15:04-0400 Systolic blood pressure 130 mm[Hg] Srinivasan Christine MD Work Phone: [facility] 12-28-2023 11:38-0500 Body height 170.2 cm Srinivasan Christine MD Work Phone: [facility] 12-28-2023 11:38-0500 Body mass index (BMI) [Ratio] 36.34 kg/m2 Srinivasan Christine MD Work Phone: [facility] 12-28-2023 11:38-0500 Body temperature 97.81 [degF] Srinivasan Christine MD Work Phone: [facility] 12-28-2023 11:38-0500 Body weight 105.23 kg Srinivasan Christine MD Work Phone: [facility] 12-28-2023 11:38-0500 Diastolic blood pressure 130 mm[Hg] Srinivasan Christine MD Work Phone: [facility] 12-28-2023 11:38-0500 Heart rate 98 /min Srinivasan Christine MD Work Phone: [facility] 12-28-2023 11:38-0500 SaO2% (BldA) [Mass fraction] 98 % Srinivasan Christine MD Work Phone: [facility] 12-28-2023 11:38-0500 Systolic blood pressure 220 mm[Hg] Srinivasan Christine MD Work Phone: [facility] Healthcare Encounters Encounter Date Encounter Type Care Provider Facility Start: 09-29-2024 End: 09-29-2024 Telephone encounter Salina Hurtado CMA [facility] Start: 09-22-2024 End: 09-22-2024 Evaluation and management of inpatient [facility] Start: 09-14-2024 End: 09-14-2024 ambulatory SRINIVASAN CHRISTINE [facility] Start: 09-07-2024 End: 09-07-2024 Orders Only Srinivasan Christine MD Work Phone: [facility] Comment on above: Class 2 severe obesi ty due to excess calories with serious comorbidity and body mass index (BMI) of 37.0 to 37.9 in adult (CMS/HCC) (Primary Dx) Start: 07-31-2024 End: 07-31-2024 Patient encounter procedure Christelle Parhamoll VIRTUAL CUSTOMER ASSISTANT-BRINE MIXER OPERATOR Work Phone: [facility] Comment on above: Encounter for screen ing colonoscopy (Primary Dx); Family history of malignant neoplasm of colon in mother Start: 07-31-2024 End: 07-31-2024 ambulatory [facility] Start: 07-21-2024 End: 07-24-2024 Orders Only Srinivasan Christine MD Work Phone: [facility] Comment on above: Type 2 diabetes aniyah itus with hyperglycemia, without long-term current use of insulin ([facility]) (Primary Dx); Dyslipidemia ([facility]) Start: 07-20-2024 End: 07-20-2024 Periodic preventive med est patient 40-64yrs Srinivasan Christine MD Work Phone: [facility] Comment on above: Annual physical exam (Primary Dx); Benign essential hypertension ([facility]); Colon cancer screening; Body mass index [...] without abnormal findings DR SRINIVASAN CHRISTINE [facility] Start: 07-02-2022 End: 07-03-[address] SRINIVASAN CHRISTINE Facility:[facility] Start: 07-02-2022 End: 07-03-2022 Encounter for general adult medical examination without abnormal findings DR SRINIVASAN CHRISTINE Facility:[facility] Procedures Date Procedure Procedure Detail Performing Clinician Start: 09-22-2024 Colonoscopy Salina Mistry ia [employer] Start: 07-20-2024 ALL CBC WITH AUTO DIFF Srinivasan Christine MD Work Phone: Start: 07-02-[address] SRINIVASAN VILLAFUERTE Comment on above: Performed By: #### P [facility] #### [facility] [address] [place] [address] Dr. Casey Siddiqui Start: 08-27-2021 Adult depression scr eening assessment Christellejayla Boyer VIRTUAL CUSTOMER ASSISTANT-BRINE MIXER OPERATOR Work Phone: Plan of Treatment Date Care Activity Detail Author Start: 09-22-2027 Screening for malign ant neoplasm of colon Colonoscopy [facility] Start: 09-22-2025 Adult BMI Screening Adult BMI Screen ing [facility] Start: 09-22-2025 Tobacco Screening Tobacco Screening [facility] Start: 07-31-2025 Adult BMI Screening Adult BMI Screen ing [facility] Start: 07-31-2025 Tobacco Screening Tobacco Screening [facility] Start: 01-22-2025 End: 01-22-2025 Patient encounter procedure 01/22/2025 2:45 PM EDT Office Visit [facility] [address] [place] [address] Srinivasan Christine MD [address] [place] [address] [facility] Start: 12-28-2024 Screening for malign ant neoplasm of colon Colorectal Cancer Screening [facility] Comment on above: Postponed from 01/18 (Patient Refused) Start: 09-22-2024 End: 09-22-2024 Admission to same day surgery center 09/22/2024 8:00 AM EST - 09/22/2024 8:30 AM EST Surgery [facility] [address] [place] [id number] Patria Michel MD [address] [place] [id number] COLONOSCOPY DIAGNOSTIC / SCREENING [22046 (CPT )] [facility] Comment on above: COLONOSCOPY DIAGNOST IC / SCREENING [59261 (CPT )] Start: 09-22-2024 End: 09-22-2024 Colonoscopy flx dx w/collj spec when pfrmd COLONOSCOPY DIAGNOSTIC / SCREENING Screen for colon cancer 09/22/2024 8:00 AM [facility] Start: 09-22-2024 Subsequent hospital visit by physician 09/22/2024 8:00 AM EST Hospital Encounter [facility] [address] [place] [id number] Patria Michel MD [address] [place] [id number] [facility] Start: 09-14-2024 End: 09-14-2024 ambulatory 09/14/2024 4:00 PM EDT Support Visit [facility] - Pre Admit [address] [place] [id number] [facility] - Pre Admit Start: 09-07-2024 End: 09-07-2025 Thyrotropin [Units/volume] in Serum or Plasma TSH Lab Routine Class 2 severe obesity due to excess calories with serious comorbidity and body mass index (BMI) of 37.0 to 37.9 in adult (CMS/HCC) Expected: 09/07/2024 (Approximate), Expires: 09/07/2025 [facility] Work Phone: Comment on above: Expected: 09/07/2024 (Approximate), Expires: 09/07/2025 Start: 07-20-2024 End: 07-20-2024 Patient encounter procedure 07/20/2024 3:15 PM EDT Office Visit [facility] [address] [place] [phone] Srinivasan Christine MD [address] [place] [address] Arrived [facility] Comment on above: Arrived Start: 07-20-2024 End: 07-20-2025 Basic metabolic 1998 panel - Serum or Plasma Basic metabolic panel Lab Routine Annual physical exam Expected: 07/20/2024 (Approximate), Expires: 07/20/2025 [facility] Comment on above: Expected: 07/20/2024 (Approximate), Expires: 07/20/2025 Start: 07-20-2024 End: 07-20-2025 CBC W Auto Differential panel - Blood CBC and differential Lab Routine Annual physical exam Expected: 07/20/2024 (Approximate), Expires: 07/20/2025 [facility] Comment on above: Expected: 07/20/2024 (Approximate), Expires: 07/20/2025 Start: 07-20-2024 End: 07-20-2025 Hemoglobin A1c/Hemoglobin.total in Blood Hemoglobin A1c Lab Routine Annual physical exam Expected: 07/20/2024 (Approximate), Expires: 07/20/2025 [facility] Work Phone: Comment on above: Expected: 07/20/2024 (Approximate), Expires: 07/20/2025 Start: 07-20-2024 End: 07-20-2025 Hepatic function 2000 panel - Serum or Plasma Hepatic function panel Lab Routine Annual physical exam Expected: 07/20/2024 (Approximate), Expires: 07/20/2025 [facility] Comment on above: Expected: 07/20/2024 (Approximate), Expires: 07/20/2025 Start: 07-20-2024 End: 07-20-2025 Lipid 1996 panel - Serum or Plasma Lipid panel Lab Routine Annual physical exam Expected: 07/20/2024 (Approximate), Expires: 07/20/2025 [facility] Comment on above: Expected: 07/20/2024 (Approximate), Expires: 07/20/2025 Start: 07-20-2024 End: 07-20-2025 Prostate specific Ag [Mass/volume] in Serum or Plasma PSA Lab Routine Annual physical exam Expected: 07/20/2024 (Approximate), Expires: 07/20/2025 [facility] Comment on above: Expected: 07/20/2024 (Approximate), Expires: 07/20/2025 Start: 07-20-2024 End: 07-20-2025 Thyrotropin [Units/volume] in Serum or Plasma TSH Lab Routine Annual physical exam Expected: 07/20/2024 (Approximate), Expires: 07/20/2025 [facility] Comment on above: Expected: 07/20/2024 (Approximate), Expires: 07/20/2025 Start: 07-16-2024 COVID-19 Vaccine () COVID-19 Vaccine () [facility] Start: 07-16-2024 COVID-19 Vaccine ( season) COVID-19 Vaccine ( season) [facility] Start: 07-16-2024 Influenza vaccination [facility] Start: 01-27-2024 End: 01-27-2024 Patient encounter procedure 01/27/2024 9:30 AM EDT Office Visit [facility] [address] [place] [address] Srinivasan Christine MD [address] [place] [address] [facility] Start: 07-16-2023 Influenza vaccination Influenza Vacc ine (#1) [facility] Start: 08-27-2022 Depression Screening Depression Scre ing [facility] Start: 1997 DTaP,Tdap and Td Vaccines (1 - Tdap) DTaP,Tdap and Td Vaccines (1 - Tdap) [facility] Start: 1997 Urine screening for protein Diabetes: Urine Protein Screening [facility] Start: 01-19-1996 Adult BMI Follow Up Plan Adult BMI Follow Up Plan [facility] Start: 1990 Depression Screening Depression Scre [facility] Start: 01-19-1988 Glaucoma screening Diabetes: R etinopathy Screening [facility] Start: 1978 Hemoglobin A1c measurement Diabetes: Hemoglobin A1C [facility] Start: 1978 Screening for malign ant neoplasm of colon [facility] Start: 1978 Tobacco Counseling Tobacco Counselin g [facility] End: 07-31-2025 Colonoscopy Colonoscopy GI Routine Encounter for screening colonoscopy 1 Occurrences starting 07/31/2024 until 07/31/2025 [facility] Work Phone: Comment on above: 1 Occurrences starti ng 07/31/2024 until 07/31/2025 Payers Date Payer Category Payer Managed Care Other (unspecified) [employer] [place] [id number] 2022 Private Health Insurance [employer] Member Subscriber Plan / Payer (Effective 2022-Present) Name: Gem Menendez Relation to Subscriber: Self Name: Gem Menendez Payer ID: Not on file Type: Not on file Address: [address] [place] [id number] 2020 Unknown [id number] 1978 Unknown [id number] 1978 Unknown [id number] 1258 1978 Unknown [id number] 1258 1978 Unknown [id number] 1978 Unknown [id number] 1258 1978 Unknown [id number] 6 1978 Unknown [id number] 1286 1978 Unknown [id number] 1959 Unknown [id number] Social History Date Type Detail Facility Tobacco smoking stat [facility] Tobacco smoking consumption unknown [facility] Start: 1980 Sex Assigned At Not on file N [facility] Start: 08-27-2021 End: 12-28-2023 Gender identity Not on file [facility] Start: 12-28-2023 End: 01-05-2024 Tobacco smoking status NCIS Never smoked tobacco [facility] Start: 12-28-2023 Tobacco use and exposure Smokeless tobacco non-user [facility] Start: 08-27-2021 End: 12-28-2023 History of Social function [facility] Start: 01-05-2024 End: 07-31-2024 Tobacco use and exposure Former smokeless tobacco user [facility] History of tobacco use Chews Tobacco [facility] Start: 07-31-2024 Tobacco smoking stat [facility] Occasional tobacco smoker [facility] History of tobacco use Cigar Smoker [facility] Start: 07-31-2024 End: 09-26-2024 Alcoholic beverage intake Current drinker of alcohol (finding) [facility] Adolescent depressio n screening assessment 0 [facility] Start: 06-25-2021 Sex Male (finding) [facility] Medical Equipment Procedure Code Equipment Code Equipment Origin al Text Equipment Identifier Dates [id number] Start: 07-24-2024 1 each Daily [id number] Start: 07-24-2024 Goals Date Patient Goal Desired Activity /State Personal health goal Clinical Notes 12-28-2023 to 09-29-2024 Telephone Encounter - Salina Hurtado, [facility] - 09/29/2024 1:39 PM ESTTelephone Encounter - Salina Hurtado, [facility] - 09/29/2024 1:39 PM ESTTelephone Encounter - Salina Hurtado, [facility] - 09/29/2024 1:39 PM EST Note [...] put in chart. documented in this encounter [facility] 09-29-2024 Telephone encounter Note ----- Message from Dr. Patria Michel MD sent at 09/28/2024 9:00 AM EST ----- Regarding: Pathology Patient know that polyp removed during colonoscopy was benign tubular adenoma. Repeat colonoscopy as needed in 3 years due to size. Thank you ----- Message ----- From: Interface - Lab Results/Orders In Sent: 09/27/2024 4:43 PM EST To: Patria Michel MD [facility] 09-29-2024 Telephone encounter Note Spoke with patient regarding pathology results. Patient verbally understood with no further questions. Recall to be put in chart. [facility] 09-14-2024 Nurse Note Preoperative Education Checklist- General Surgery date: 09/22/24 Surgery time: 8a Arrival time: 610a 1. Bring a photo ID and your insurance card with you the day of surgery. You will check in at the main lobby of the [facility]- registration desk is straight ahead as soon as you walk in. Tell them you are here for surgery. 2. If you have a Living Will/Durable Power of Steam Distribution Supervisor for Health Care that is not on [...] after you have bathed. 5. NO nail chadian/acrylic on at least one finger. If you are having a hand, wrist or foot surgery then all nail chadian and artificial/acrylic nails must be removed from [...] please call the Preadmission Testing office at [phone], Mon.-Fri. 7 a.m.-3 p.m. Leave a voicemail [...] Stop taking 0 days prior to procedure [facility] 09-14-2024 Miscellaneous Notes Preoperative Education Checklist- General Surgery date: 09/22/24 Surgery time: 8a Arrival time: 610a 1. Bring a photo ID and your insurance card with you the day of surgery. You will check in at the main lobby of the [facility]- registration desk is straight ahead as soon as you walk in. Tell them you are here for surgery. 2. If you have a Living Will/Durable Power of Steam Distribution Supervisor for Health Care that is not on [...] after you have bathed. 5. NO nail chadian/acrylic on at least one finger. If you are having a hand, wrist or foot surgery then all nail chadian and artificial/acrylic nails must be removed from [...] please call the Preadmission Testing office at [phone], Mon.-Fri. 7 a.m.-3 p.m. Leave a voicemail [...] prior to procedure documented in this encounter [facility] History of Present illness Narrative Images [...] Past Medical History: Diagnosis Date Diabetes mellitus ([facility]) 07/25/2024 Varicella YOUNG CHILD Past Surgical [...] patient/family/caregiver Referring and communicating with other health rn long term care Encounter for screening colonoscopy [Z12.11] ANNE CEDEÑO [facility] Physicians General Surgery [place] This note was created with the assistance of a speech recognition program. While intending to generate a timely document that accurately reflects the content of the visit, no guarantee can be provided that every grammatical or spelling mistake has been or will be identified or corrected. Thank you for your understanding. ANNE Cedeño 07/31/24 1242 documented in this encounter [facility] 07-21-2024 History of Present illness Narrative documented in this encounter [facility] 07-20-2024 History of Present illness Narrative [...] to General Surgery documented in this encounter [facility] 12-28-2023 History of Present illness Narrative [...] malignant neoplasms, colon documented in this encounter [facility]Not on filedocumented in this encounter [facility] SystemInstructionsNot on filedocumented in this encounter [facility] SystemInstructionsNot on filedocumented in this encounter [facility] SystemReason for referral (narrative)* Consultation (Routine) - Pending Review Specialty Diagnoses / Procedures [facility] Referred To Contact General Surgery Diagnoses Colon cancer screening Procedures [place] OFFICE/OUTPATIENT NEW HIGH MDM 60 MINUTES Srinivasan Christine MD [address] [place] [address] Oliver Fajardo DO [address] [place] [address] Referral ID Status Reason Start Date Expiration Date Visits Requested Visits Authorized [id number] Pending Review Specialty Services Required 07/20/2024 01/16/2025 [...] DATE CREATED AUTHOR AUTHOR'S ORGANIZ ATION 07/22/2024 [facility] dical Specialists EPIC DATE CREATED AUTHOR AUTHOR'S ORGANIZ ATION 08/01/2024 [facility] DATE CREATED AUTHOR AUTHOR'S ORGANIZ ATION 09/30/2024 [facility] Care Teams (unrecognized sec tion and content) Broacher Relationship Specialty Start Date End Date Srinivasan Christine MD [address] [place] [address] PCP - General Family Medicine 12/28/23 Broacher Relationship Specialty Start Date End Date Srinivasan Christine MD [address] [place] [address] PCP - General Family Medicine 12/28/23 Broacher Relationship Specialty Start Date End Date Srinivasan Christine MD [address] [place] [address] PCP - General Family Medicine 12/28/23 Srinivasan Christine MD [address] [place] [address] PCP - Medical [employer] 08/15/20 11/14/99 Broacher Relationship Specialty Start Date End Date Srinivasan Christine MD [address] [place] [address] PCP - General Family Medicine 12/28/23 Srinivasan Christine MD [address] [place] [address] PCP - Medical [employer] 08/15/20 11/14/99 Broacher Relationship Specialty Start Date End Date Srinivasan Christine MD [address] [place] [address] PCP - General Family Medicine 12/28/23 Srinivasan Christine MD [address] [place] [address] PCP - Medical [employer] 08/15/20 11/14/99 Broacher Relationship Specialty Start Date End Date Srinivasan Christine MD [address] [place] [address] PCP - General Family Medicine 12/28/23 Srinivasan Christine MD [address] [place] [address] PCP - Medical [employer] 08/15/20 11/14/99 Broacher Relationship Specialty Start Date End Date Srinivasan Christine MD PCP - General Family Medicine 07/15/21 Broacher Relationship Specialty Start Date End Date Srinivasan Christine MD PCP - General Family Medicine 07/15/21 Broacher Relationship Specialty Start Date End Date Srinivasan [...] General Surgery Diagnoses Colon cancer screening Procedures [facility] OFFICE OUTPATIENT VISIT 60-74 MINS HIGH MDM AMB REFERRAL TO GENERAL SURGERY Srinivasan Christine MD [address] [place] [address] Oliver Fajardo DO [address] [place] [address] Referral ID Status Reason Start Date Expiration Date Visits Re quested Visits Authorized [id number] Closed 07/20/2024 01/16/2025 1 1 FOR RECORDS [...] BE BASED ON THE PRIMARY CLINICAL RECORDS. [facility]. provides no warranty or guarantee of the accuracy or completeness of information in this document.
--- NOTE | 2025-02-21 07:25 | ECG_ITS ---
[facility] Test Date: 2025-02-21 Pat Name: GEM HERRERA Department: Room: - Gender: Male [employer]: : 1980 Requested By: ABIMAEL CHRISTINE Order Number: [id number] Reading MD: JARED CHU Measurements Intervals [place] Rate: 115 P: 43 MO: 168 QRS: 71 QRSD: 78 T: 34 QT: 292 QTc: 360 Interpretive Statements 1120 Sinus tachycardia 2420 RSR (QR) in lead V1/V2, consistent with right ventricular conduction delay 8102 Low QRS voltage in chest leads 9140 abnormal rhythm ECG Compared to ECG 02/19/2025 20:51:04 Low QRS voltage now present Electronically Signed On 02-21-2025 14:07:28 EDT by JARED CHU
[2025-02-21] MEDS: KETOROLAC TROMETHAMINE 30 MG/ML VIAL IVP (07:37)
[2025-02-21] MEDS: ORPHENADRINE 60 MG/2 ML VIAL IV (07:37)
[2025-02-21 07:40] LABS: Hemoglobin 13.2 g/dL (14.0-18.0); Mean Corpuscular HGB Conc 34.7 g/dL (29.9-35.2); Mean Corpuscular Hemoglobin 31.4 pg (25.9-34.0); Mean Corpuscular Volume 90.5 fL (80.0-94.0); Mean Platelet Volume 9.9 fL (9.5-13.5); Platelet Count 144 10^3/uL (150-450); Red Cell Distribution Width 12.8 % (11.0-15.0); White Blood Count 6.1 10^3/uL (4.0-11.0)
--- NOTE | 2025-02-21 07:42 | ED_ITS ---
HPI HPI - General Adult General Chief complaint: Back Pain/Injury Stated complaint: back pain Time Seen by Provider: 02/21/25 07:10 Source: patient Mode of arrival: walk-in History of Present Illness HPI narrative: Patient presents the ED complaining of right sided thoracic pain. Patient said this started Wednesday about 6:00. He came into the ER around 8:00. Patient states he had an EKG and x-rays done at this time and he was put on some pain medication and muscle relaxer. He said it only works for about a half an hour. He said yesterday he went to work and it was tolerable but last night he could not sleep because of the pain. He said the pain is constant but gets stronger at certain times and with certain movements. He said the pain is more right-sided in the flank lower lung and thoracic area and radiates around the side. He said he does still have his gallbladder. He said the pain does hurt worse with a deep breath. He denies any specific abdominal pain. He does get nauseated and diaphoretic due to the pain. He does not have any history of kidney stones. Patient denies any testicular pain or troubles urinating. He has not noticed any blood in the urine. Patient denies any chest pain. He said it is difficult to get comfortable, it is hard to sit in the bed it is hard to stand, he just cannot seem to get comfortable. Patient denies any pain in his legs. No numbness tinging in the extremities. He denies any injury or heavy lifting. Related Data Home Medications ?Medication ?Instructions ?Recorded ?Confirmed atorvastatin 40 mg tablet 40 mg PO .once daily 02/19/25 02/21/25 lisinopril 20 1 tab PO .once daily 02/19/25 02/21/25 mg-hydrochlorothiazide 25 mg tablet metformin 500 mg tablet,extended 500 mg PO .once daily 02/19/25 02/21/25 release 24 hr paroxetine HCl 10 mg tablet 10 mg PO .once daily 02/19/25 02/21/25 Previous Rx's ?Medication ?Instructions ?Recorded hydrocodone 5 mg-acetaminophen 325 1 tab PO Q6H PRN pain 3 days #12 02/19/25 mg tablet tabs ketorolac 10 mg tablet 10 mg PO TID PRN pain #10 tabs 02/19/25 methocarbamol 750 mg tablet 750 mg PO TID PRN pain #20 tabs 02/19/25 lidocaine 5 % topical patch 1 patch topical DAILY #15 ea 02/21/25 Allergies Allergy/AdvReac Type Severity Reaction Status Date / Time No Known Drug Allergies Allergy Verified 02/19/25 20:36 Opioid HPI Opioid Management Most Recent Opioid Data: Last MAR Pain Assessment 02/21/25 07:37 Review of Systems ROS Status of ROS 10 or more systems reviewed and unremark able except as noted in history and below PFSH PFSH Social History Little interest or pleasure in doing things: not at all Feeling down, depressed, or hopeless: not at all Exam Narrative Exam Narrative: Time Seen: [] Vital Signs: [Per nurse's notes.] General: [Alert] Skin: [Warm, dry, no rash.] No evidence of shingles Head: [Normocephalic, atraumatic.] Neck: [Supple, trachea midline.] Eye: [Pupils are equal, round and reactive to light, extraocular movements are intact, normal conjunctiva.] Ears, nose, mouth and throat: oral mucosa moist. Cardiovascular: Tachycardia, no murmur.] Respiratory: [Lungs are clear to auscultation, respirations are non-labored, breath sounds are equal.] Patient reports pain in the right lower lung thoracic area with deep inspiration Gastrointestinal: [Soft, nontender, non distended, normal bowel sounds.] MSK: 5 out of 5 muscle strength x 4 extremities no calf pain or edema. Tenderness with palpation in the right thoracic paraspinal muscles and around the right side of the ribs Psychiatric: [Cooperative, appropriate mood & affect.] Neurological: [Alert and oriented to person, place, time, and situation, no focal neurological deficit observed.] Constitutional Vital Signs, click to edit/add: Last Vital Signs Temp 98 F 02/21/25 07:11 Pulse 119 H 02/21/25 07:11 Resp 20 02/21/25 07:11 BP 134/93 H 02/21/25 07:11 Pulse Ox 98 02/21/25 07:11 O2 Del Method Room Air 02/21/25 07:11 Course Vital Signs Vital signs: Vital Signs Temperature 98 F 02/21/25 07:11 Pulse Rate 119 H 02/21/25 07:11 Respiratory Rate 20 02/21/25 07:11 Blood Pressure 134/93 H 02/21/25 07:11 Pulse Oximetry 98 02/21/25 07:11 Oxygen Delivery Method Room Air 02/21/25 07:11 Temperature 98 F 02/21/25 07:11 Pulse Rate 119 H 02/21/25 07:11 Respiratory Rate 20 02/21/25 07:11 Blood Pressure 134/93 H 02/21/25 07:11 Pulse Oximetry 98 02/21/25 07:11 Oxygen Delivery Method Room Air 02/21/25 07:11 Medical Decision Making MDM Narrative Medical decision making narrative: Patient's labs were relatively nonacute. His heart rate improved after pain medication. He was feeling better after the Norflex and Toradol. He did request something more for pain but did not have a ride home because he was still having some persistent pain although it was improved. Patient CT chest was negative for any PE or pneumonia or other concerning finding. CT abdomen pelvis did not show any obstructing kidney stone or pyelonephritis or gallstones or inflammation. Patient will be sent home with pain medication and muscle relaxers. He is instructed to call his family doctor to schedule close follow- up appointment. I also did refer him to orthospine. Most likely this is thoracic back pain due to disc disease or arthritis. Patient afebrile, no neurological deficits x 4 extremities. Patient did state he just urinated prior to arrival so he did not have to go to the bathroom here. He said he has no sensation deficit in the bladder or saddle area. Patient is alert and comfortable with care plan for home. He is diabetic and his sugar is slightly elevated. He will not be sent home on steroids because I did not want to further increase the blood sugar. Return to ED if worsening symptoms otherwise follow-up outpatient Differential Diagnosis Differential Diagnosis: Cauda equina, PE, kidney stone, back strain, degenerative disc disease, Medical Records Medical records reviewed: Yes I reviewed the patient's medical records Lab Data Lab results reviewed: Yes I reviewed the patient's lab results Labs: Lab Results 02/21/25 Range/Units 07:35 WBC 6.1 (4.0-11.0) 10^3/uL RBC 4.20 L (4.70-6.10) 10^6/uL Hgb 13.2 L (14.0-18.0) g/dL Hct 38.0 L (42.0-54.0) % MCV 90.5 (80.0-94.0) fL MCH 31.4 (25.9-34.0) pg MCHC 34.7 (29.9-35.2) g/dL RDW 12.8 (11.0-15.0) % Plt Count 144 L (150-450) 10^3/uL MPV 9.9 (9.5-13.5) fL Seg Neuts % (Manual) 90.0 H (43.0-75.0) Lymphocytes % (Manual) 7.0 L (20.5-60.0) % Monocytes % (Manual) 3.0 (1.7-12.0) % Eosinophils % (Manual) 0.0 L (0.9-7.0) % Basophils % (Manual) 0.0 L (0.2-2.0) % Neutrophils # (Manual) 5.49 (1.4-6.5) 10^3/uL Lymphocytes # (Manual) 0.42 L (1.20-3.80) 10^3/uL Monocytes # (Manual) 0.18 L (0.30-0.80) 10^3/uL Eosinophils # (Manual) 0.00 (0.00-0.70) 10^3/uL Basophils # (Manual) 0.00 (0.00-0.10) 10^3/uL Anisocytosis 1+ Sodium 132 L (136-145) mmol/L Potassium 3.7 (3.5-5.1) mmol/L Chloride 95 L (98-107) mmol/L Carbon Dioxide 26.6 (21.0-32.0) mmol/L Anion Gap 14.1 BUN 24.0 H (7.0-18.0) mg/dL Creatinine 1.45 H (0.70-1.30) mg/dL Est GFR ( Amer) >60 (>=60 mL/min/1.73m^2) Est GFR (Non-Af Amer) 52 L (>=60 mL/min/1.73m^2) BUN/Creatinine Ratio 16.6 Glucose 230 H (74-106) mg/dL Calcium 8.9 (8.5-10.1) mg/dL Total Bilirubin 1.1 H (0.2-1.0) mg/dL AST 30 (15-37) U/L ALT 33 (16-63) U/L Alkaline Phosphatase 82 (46-116) U/L Total Protein 7.6 (6.4-8.2) g/dL Albumin 3.8 (3.4-5.0) g/dL Globulin 3.8 g/dL Albumin/Globulin Ratio 1.0 Lipase 40.0 (16.0-77.0) U/L Imaging Data CT scan - abdomen: Attestation: I have reviewed the pertinent imaging results. ECG Data Attestation: I personally reviewed and interpreted this ECG as follows: Interpretation: EKG INTERPRETATION Time: [] 734 Rate: [] 115 Rhythm: _ [] Sinus tachycardia ST segments: _ [] No acute ST elevation or depression T waves: _ [] Ectopy: _ [] P wave/AZ interval: _ [] QRS interval: _ [] QT interval: _ [] Comparison: _ [] Comparison EKG date: [] Performed by: [self] Discharge Plan Discharge Chief Complaint: Back Pain/Injury Clinical Impression: Thoracic back pain Patient Disposition: Home, Self-Care Time of Disposition Decision: 09:19 Condition: Good Mode of Transportation: Private Vehicle Prescriptions / Home Meds: New lidocaine 5 % adhesive patch,medicated 1 patch topical DAILY Qty: 15 0RF Rx Instructions: leave on most painful area for up to 12 hrs No Action atorvastatin 40 mg tablet 40 mg PO .once daily paroxetine HCl 10 mg tablet 10 mg PO .once daily lisinopril-hydrochlorothiazide 20-25 mg tablet 1 tab PO .once daily metformin 500 mg tablet extended release 24 hr 500 mg PO .once daily hydrocodone-acetaminophen 5-325 mg tablet 1 tab PO Q6H PRN (Reason: pain) 3 Days Qty: 12 0RF Rx Instructions: DX: M54.5 ketorolac 10 mg tablet 10 mg PO TID PRN (Reason: pain) Qty: 10 0RF methocarbamol 750 mg tablet 750 mg PO TID PRN (Reason: pain) Qty: 20 0RF Print Language: Chinese Instructions: Thoracic Disc Herniation (ED), Back Pain (ED) Referrals: Srinivasan Graham MD [Primary Care Provider] - 1 week Robbin Gotti MD [Physician] - 1 week Discharge Date/Time: 02/21/25 09:30
[2025-02-21 07:56] LABS: Lymphocytes Absolute Manual 0.42 10^3/uL (1.20-3.80); Monocytes Absolute Manual 0.18 10^3/uL (0.30-0.80); Segmented Neut Absolute Manual 5.49 10^3/uL (1.4-6.5)
[2025-02-21 07:57] LABS: Anisocytosis 1+
[2025-02-21 07:58] LABS: Alanine Aminotransferase 33 U/L (16-63); Albumin Level 3.8 g/dL (3.4-5.0); Alkaline Phosphatase 82 U/L (46-116); Anion Gap 14.1; Aspartate Amino Transferase 30 U/L (15-37); BUN Creatinine Ratio 16.6; Bilirubin Total 1.1 mg/dL (0.2-1.0); Calcium 8.9 mg/dL (8.5-10.1); Carbon Dioxide 26.6 mmol/L (21.0-32.0); Chloride 95 mmol/L (98-107); Estimated GFR (African America >60 (>=60 mL/min/1.73m^2); Estimated GFR (Non-African Ame 52 (>=60 mL/min/1.73m^2); Globulin 3.8 g/dL; Glucose 230 mg/dL (74-106); Potassium 3.7 mmol/L (3.5-5.1); Sodium 132 mmol/L (136-145); Total Protein 7.6 g/dL (6.4-8.2)
[2025-02-21] MEDS: 0.9 % SODIUM CHLORIDE 1,000 ML 1000 ML IV (08:18)
== END 2025-02-21 09:30 | disposition home or self-care (01) ==
PROVIDERS: Emergency Provider Emergency Medicine; PCP Family Medicine
DX: M54.6 Pain in thoracic spine (principal); E11.65 Type 2 diabetes mellitus with hyperglycemia; Z79.84 Long term (current) use of oral hypoglycemic drugs
CPT/HCPCS: 36415; 71275; 74176; 80053; 83690; 85007; 85027; 93005; 96374; 96375; 99285; J1885; J2360; Q9967

== ENCOUNTER 2025-03-12 07:38 | Outpatient (RCR) | payer OTHER, SELFPAY ==
[2025-03-12 13:00] VITALS: PULSE 68; TEMP 36.8; O2SAT 97
[2025-03-12 13:20] LABS: Basophils Percent Auto 0.3 % (0.2-2.0); Eosinophils Absolute Auto 0.1 10^3/uL (0.0-0.7); Eosinophils Percent Auto 1.6 % (0.9-7.0); Hematocrit 28.5 % (42.0-54.0); Hemoglobin 9.5 g/dL (14.0-18.0); Immature Granulocytes Abs Auto 0.02 10^3/uL (0.00-0.03); Immature Granulocytes Pct Auto 0.5 % (0.0-0.5); Lymphocytes Absolute Auto 0.9 10^3/uL (1.2-3.8); Lymphocytes Percent Auto 23.6 % (20.5-60.0); Mean Corpuscular HGB Conc 33.3 g/dL (29.9-35.2); Mean Corpuscular Hemoglobin 30.5 pg (25.9-34.0); Mean Corpuscular Volume 91.6 fL (80.0-94.0); Mean Platelet Volume 9.2 fL (9.5-13.5); Monocytes Absolute Auto 0.3 10^3/uL (0.3-0.8); Neutrophils Absolute Auto 2.6 10^3/uL (1.4-6.5); Platelet Count 219 10^3/uL (150-450); Red Blood Count 3.11 10^6/uL (4.70-6.10); Red Cell Distribution Width 13.2 % (11.0-15.0); White Blood Count 3.9 10^3/uL (4.0-11.0)
[2025-03-12 13:38] LABS: Estimated GFR (African America >60 (>=60 mL/min/1.73m^2); Estimated GFR (Non-African Ame >60 (>=60 mL/min/1.73m^2)
== END 2025-03-12 13:31 | disposition home or self-care (01) ==
LOC: INF 07:38
PROVIDERS: PCP Family Medicine
DX: G06.2 Extradural and subdural abscess, unspecified (principal)
CPT/HCPCS: 36592; 82565; 84520; 85025

== ENCOUNTER 2025-03-21 15:53 | Outpatient (REF) | payer OTHER, SELFPAY ==
[2025-03-21 17:06] LABS: Uric Acid 4.8 mg/dL (3.5-7.2)
== END 2025-03-21 15:54 | disposition home or self-care (01) ==
LOC: LAB 15:53
PROVIDERS: PCP Family Medicine; Visit Provider Family Medicine
DX: M25.541 Pain in joints of right hand (principal)
CPT/HCPCS: 84550

== ENCOUNTER 2025-04-10 07:38 | Outpatient (RCR) | payer OTHER, SELFPAY ==
[2025-03-19 13:22] LABS: Basophils Percent Auto 0.7 % (0.2-2.0); Eosinophils Absolute Auto 0.1 10^3/uL (0.0-0.7); Eosinophils Percent Auto 4.4 % (0.9-7.0); Hematocrit 31.1 % (42.0-54.0); Hemoglobin 10.5 g/dL (14.0-18.0); Immature Granulocytes Abs Auto 0.01 10^3/uL (0.00-0.03); Immature Granulocytes Pct Auto 0.4 % (0.0-0.5); Lymphocytes Absolute Auto 0.8 10^3/uL (1.2-3.8); Lymphocytes Percent Auto 30.3 % (20.5-60.0); Mean Corpuscular HGB Conc 33.8 g/dL (29.9-35.2); Mean Corpuscular Hemoglobin 30.7 pg (25.9-34.0); Mean Corpuscular Volume 90.9 fL (80.0-94.0); Mean Platelet Volume 9.3 fL (9.5-13.5); Monocytes Absolute Auto 0.2 10^3/uL (0.3-0.8); Monocytes Percent Auto 6.3 % (1.7-12.0); Neutrophils Absolute Auto 1.6 10^3/uL (1.4-6.5); Neutrophils Percent Auto 57.9 % (43.0-75.0); Platelet Count 172 10^3/uL (150-450); Red Blood Count 3.42 10^6/uL (4.70-6.10); Red Cell Distribution Width 13.7 % (11.0-15.0); White Blood Count 2.7 10^3/uL (4.0-11.0)
[2025-03-19 13:27] LABS: Estimated GFR (African America >60 (>=60 mL/min/1.73m^2); Estimated GFR (Non-African Ame >60 (>=60 mL/min/1.73m^2)
[2025-03-21 16:04] VITALS: BP 137/79; PULSE 86; TEMP 36.6; O2SAT 93
[2025-03-21] MEDS: SODIUM CHLORIDE 0.9% IV (16:25)
[2025-03-21] MEDS: DAPTOMYCIN IV (16:25)
[2025-03-21 17:19] LABS: C Reactive Protein <0.50 mg/dL (<=0.50); Creatine Kinase 48 U/L (39-308); Creatine Kinase MB <0.50 ng/mL (<=3.60)
[2025-03-26 13:06] VITALS: BP 151/101; PULSE 85; TEMP 36.9; O2SAT 96
--- NOTE | 2025-03-26 13:10 | PC.NURSE ---
rt upper arm single lumen picc intact site clear, excellent blood return, labs drawn, caps changed. new stat lock and CHG tegaderm applied. skin intact under dressing. 0 cm external catheter length
[2025-03-26 13:19] LABS: Basophils Percent Auto 0.7 % (0.2-2.0); Eosinophils Absolute Auto 0.1 10^3/uL (0.0-0.7); Eosinophils Percent Auto 2.9 % (0.9-7.0); Hematocrit 34.4 % (42.0-54.0); Hemoglobin 11.8 g/dL (14.0-18.0); Immature Granulocytes Abs Auto 0.02 10^3/uL (0.00-0.03); Immature Granulocytes Pct Auto 0.4 % (0.0-0.5); Lymphocytes Absolute Auto 1.4 10^3/uL (1.2-3.8); Lymphocytes Percent Auto 30.5 % (20.5-60.0); Mean Corpuscular HGB Conc 34.3 g/dL (29.9-35.2); Mean Corpuscular Volume 90.3 fL (80.0-94.0); Mean Platelet Volume 9.5 fL (9.5-13.5); Monocytes Absolute Auto 0.4 10^3/uL (0.3-0.8); Neutrophils Absolute Auto 2.6 10^3/uL (1.4-6.5); Neutrophils Percent Auto 57.5 % (43.0-75.0); Platelet Count 187 10^3/uL (150-450); Red Blood Count 3.81 10^6/uL (4.70-6.10); Red Cell Distribution Width 14.6 % (11.0-15.0); White Blood Count 4.5 10^3/uL (4.0-11.0)
[2025-03-26 13:25] LABS: Estimated GFR (African America >60 (>=60 mL/min/1.73m^2); Estimated GFR (Non-African Ame >60 (>=60 mL/min/1.73m^2)
[2025-03-28 11:10] LABS: C Reactive Protein <0.50 mg/dL (<=0.50); Creatine Kinase 61 U/L (39-308)
[2025-04-02 13:09] VITALS: BP 147/90; PULSE 100; TEMP 36.6; O2SAT 98
[2025-04-02 13:23] LABS: Basophils Percent Auto 0.6 % (0.2-2.0); Eosinophils Absolute Auto 0.1 10^3/uL (0.0-0.7); Hematocrit 38.2 % (42.0-54.0); Hemoglobin 13.1 g/dL (14.0-18.0); Immature Granulocytes Abs Auto 0.01 10^3/uL (0.00-0.03); Immature Granulocytes Pct Auto 0.2 % (0.0-0.5); Lymphocytes Absolute Auto 1.4 10^3/uL (1.2-3.8); Lymphocytes Percent Auto 29.1 % (20.5-60.0); Mean Corpuscular HGB Conc 34.3 g/dL (29.9-35.2); Mean Corpuscular Hemoglobin 30.5 pg (25.9-34.0); Mean Platelet Volume 9.7 fL (9.5-13.5); Monocytes Absolute Auto 0.3 10^3/uL (0.3-0.8); Monocytes Percent Auto 6.5 % (1.7-12.0); Neutrophils Absolute Auto 3.1 10^3/uL (1.4-6.5); Neutrophils Percent Auto 62.6 % (43.0-75.0); Platelet Count 225 10^3/uL (150-450); Red Blood Count 4.29 10^6/uL (4.70-6.10); Red Cell Distribution Width 13.6 % (11.0-15.0); White Blood Count 4.9 10^3/uL (4.0-11.0)
[2025-04-02 13:37] LABS: C Reactive Protein <0.50 mg/dL (<=0.50); Creatine Kinase 69 U/L (39-308); Estimated GFR (African America >60 (>=60 mL/min/1.73m^2); Estimated GFR (Non-African Ame >60 (>=60 mL/min/1.73m^2)
== END 2025-04-14 23:59 | disposition home or self-care (01) ==
LOC: INF 07:38
PROVIDERS: PCP Family Medicine; Visit Provider Dietitian, Registered
DX: G06.2 Extradural and subdural abscess, unspecified (principal); A49.1 Streptococcal infection, unspecified site; R79.82 Elevated C-reactive protein (CRP); D72.819 Decreased white blood cell count, unspecified; M25.541 Pain in joints of right hand
CPT/HCPCS: 36592; 82550; 82553; 82565; 84520; 84550; 85025; 86140; 96365; J0878

== ENCOUNTER 2025-07-05 07:10 | Outpatient (OUT) | payer OTHER, SELFPAY ==
--- OUTSIDE RECORDS SUMMARY | 2025-07-05 07:14 | XMS_ITS | CCD ---
Author Organization [facility] Care Team Providers Care Lead Medical Technologist Name Role Phone DR SRINIVASAN CHRISTINE Attending Unavailable NANCI, DR SRINIVASAN Fernandez Consulting Unavailable NANCI, DR SRINIVASAN Fernandez Primary Care Unavailable NANCI, DR SRINIVASAN Fernandez Admitting Unavailable Nanci YOUNG, Srinivasan Primary Care Provider [phone] Srinivasan Christine MD Unavailable Srinivasan Christine MD Primary Care Provider [phone] SRINIVASAN CHRISTINE Primary Care Unavailable YOANA CORTEZ Attending Unavailable ERICH MICHEL Admitting Unavailable ERICH MICHEL Attending Unavailable SRINIVASAN CHRISTINE Primary Care Unavailable SRINIVASAN CHRISTINE Referring Unavailable SRINIVASAN CHRISTINE Primary Care Unavailable Nanci YOUNG, Srinivasan Primary Care Provider [phone] ANURAG HUFFMAN Attending Unavailable ANURAG HUFFMAN Referring Unavailable SRINIVASAN CHRISTINE Primary Care Unavailable LATONYA SHELTON Attending Unavailable SRINIVASAN CHRISTINE Primary Care Unavailable ALMA DELIA SANTOS Referring Unavailable SRINIVASAN CHRISTINE Primary Care Unavailable LALO, YANG Attending Unavailable LALO, YANG Referring Unavailable SRINIVASAN CHRISTINE Primary Care Unavailable LALO, YANG Attending Unavailable LALO, YANG Referring Unavailable SRINIVASAN CHRISTINE Primary Care Unavailable SRINIVASAN CHRISTINE Referring Unavailable SRINIVASAN CHRISTINE Primary Care Unavailable GIOVANNY BARRETO Admitting Unavailable LEE WILDER Attending Unavailable SRINIVASAN CHRISTINE Primary Care Unavailable ANURAG HUFFMAN Consulting Unavailable BRITTANY UMANA Consulting Unavailable EMMY YBARRA Consulting Unavailable SUDARSHAN MARTIENZ Consulting Unavailable KANG GALINDO Consulting Unavailable HEMANT KENNEDY Attending Unavailable HEMANT KENNEDY Attending Unavailable BISI BOYER Attending Unavailable SRINIVASAN CHRISTINE Referring Unavailable SRINIVASAN CHRISTINE Primary Care Unavailable SRINIVASAN CHRISTINE Referring Unavailable SRINIVASAN CHRISTINE Primary Care Unavailable ANURAG HUFFMAN Attending Unavailable SRINIVASAN CHRISTINE Referring Unavailable SRINIVASAN CHRISTINE Primary Care Unavailable SRINIVASAN CHRISTINE Attending Unavailable SRINIVASAN CHRISTINE Attending Unavailable INEZ CAMARGO Attending Unavailable SRINIVASAN CHRISTINE Attending Unavailable Allergies Allergy Classification Reported Allergen(s) Allergy Type Date of Onset Reaction(s) Facility (12 sources) cefTRIAXone; Translations: [CEFTRIAXONE] Drug Allergy 03-01-20 Facial Swelling [facility] (12 sources) hydroCHLOROthiazide / Lisinopril; Translations: [LISINOPRIL-HYDROCHLOR OTHIAZIDE] Drug Allergy 03-01-20 Facial Swelling [facility] Work Phone: (11 sources) Lisinopril Propensity to adverse reactions 03-21-20 [facility] Medications Current Medications Medication Drug Class(es) Dates Sig (Normalized) Sig (Original) acetaminophen 325 mg / oxyCODONE hydrochloride 5 mg oral tablet (2 sources) Opioid Agonist Start: 02-22-2025 End: 03-01-2025 take 1 tablet by mouth four times daily as needed for pain oxyCODONE-acetamin ophen (Percocet) 5-325 MG tablet Indications: Thoracic degenerative disc disease Take 1 tablet by mouth 4 (four) times a day as needed for severe pain or moderate pain for up to 7 days 28 tablet 02/22/2025 03/01/2025 Active atorvastatin 40 mg oral tablet (20 sources) HMG-CoA Reductase Inhibitor Start: 07-24-2024 take 1 tablet by mouth once daily atorvastatin (Lipitor) 40 MG tablet Indications: Dyslipidemia Take 1 tablet (40 mg) by mouth Daily 90 tablet 3 10/30/2024 Active Start: 06-29-2024 End: 07-24-2024 take 1 [...] Blood Glucose Monitoring Suppl (FreeStyle Lite) device (19 sources) Start: 07-24-2024 inject 1 dose by subcutaneous injection once daily Blood Glucose Monitoring Suppl (FreeStyle Lite) device Indications: Type 2 diabetes mellitus with hyperglycemia, without long-term current use of insulin (HCC) Inject 1 each under the skin Daily Use as instructed 1 each 07/24/2024 Active Start: 07-24-2024 inject 1 dose by sub cutaneous injection once daily Blood Glucose Monitoring Suppl (FreeStyle Lite) device Indications: Type 2 diabetes mellitus with hyperglycemia, without long-term current use of insulin (CMS/HCC) Inject 1 each under the skin Daily Use as instructed 1 each 07/24/2024 Active FREESTYLE LITE METER kit (12 sources) Start: 07-24-2024 FREESTYLE LITE METER kit 07/24/2024 Active heparin sodium, porcine 10 unt/ml injectable solution (18 sources) Unfractionated Heparin, Anti-coagulant Start: 03-05-2025 heparin lock flush, porcine, 10 unit/mL injection Infuse 1-5 mL (10-50 Units total) into a venous catheter as needed (line care per nursing agency protocol.). 1 mL 03/05/2025 Active Start: 03-05-2025 heparin lock f lush, porcine, injection 100 unit/mL solution Infuse 1-5 mL (100-500 Units total) into a venous catheter as needed (line care per nursing agency protocol.). 1 mL 03/05/2025 Active hydroCHLOROthiazide 25 mg oral tablet (15 sources) Thiazide Diuretic Start: 03-21-2025 take 1 tablet by mouth once daily hydroCHLOROthiazide (HYDRODiuril) 25 MG tablet Indications: Benign essential hypertension Take 1 tablet (25 mg) by mouth Daily 30 tablet 5 03/21/2025 Active Start: 11-03-2023 End: 12-28-2023 take 1 tablet by mouth once daily hydroCHLOROthiazide (HYDRODiuril) 25 MG tablet Indications: Benign essential hypertension (CMS/HCC) TAKE 1 TABLET BY MOUTH EVERY DAY 90 tablet 3 11/03/2023 12/28/2023 Discontinued hydroCHLOROthiazide 25 mg / lisinopril 20 mg oral tablet (20 sources) Thiazide Diuretic, Angiotensin Converting Enzyme Inhibitor Start: 10-16-2024 End: 03-21-2025 take 1 tablet by mouth once daily in the morning lisinopril-hydroCHLOROthiazide 20-25 MG tablet Indications: Benign essential hypertension (CMS/HCC) TAKE 1 TABLET BY MOUTH EVERY DAY IN THE MORNING 90 tablet 2 10/16/2024 03/21/2025 Discontinued Start: 06-29-2024 take 1 tablet by john th in the morning lisinopril-hydroCHLOROthiazide 20-25 MG tablet Indications: Benign essential hypertension [...] tablet by mouth in the morning. Active lidocaine 0.05 mg/mg medicated patch (9 sources) Antiarrhythmic, Amide Local Anesthetic Start: 02-21-2025 apply 1 dose transdermal route once daily lidocaine (LIDODERM) 5 % Place 1 patch on the skin daily. 02/21/2025 Active 24 hr metFORMIN hydrochloride 500 mg extended release oral tablet (20 sources) Biguanide Start: 06-18-2025 take 1 tablet by mouth every twenty-four hours at mealtime metFORMIN XR (Glucophage-XR) 500 MG 24 hr tablet Indications: Type 2 diabetes mellitus with hyperglycemia, without long-term current use of insulin (HCC) TAKE 1 TABLET (500 MG) BY MOUTH IN THE EVENING. TAKE WITH MEALS DO NOT CRUSH, CHEW, OR SPLIT. 90 tablet 1 06/18/2025 Active Start: 12-27-2024 take 1 tablet by john th every twenty-four hours at mealtime metFORMIN XR (Glucophage-XR) 500 MG 24 hr tablet Indications: Type 2 diabetes mellitus with hyperglycemia, without long-term current use of insulin (CMS/HCC) TAKE 1 TABLET (500 MG) BY MOUTH IN THE EVENING. TAKE WITH MEALS DO NOT CRUSH, CHEW, OR SPLIT. 90 tablet 1 12/27/2024 Active Start: 08-28-2024 take 1 tablet by john th every [...] 1 tablet by john th once daily metFORMIN XR (GLUCOPHAGE XR) 500 mg 24 hr tablet Take 1 tablet (500 mg total) by mouth nightly. 07/24/2024 Active Start: 07-24-2024 take 1 tablet by john th every twenty-four hours at mealtime metFORMIN XR (Glucophage-XR) 500 MG 24 hr tablet Indications: Type 2 diabetes mellitus with hyperglycemia, without long-term current use of insulin (CMS/HCC) Take 1 tablet (500 mg) by mouth in the evening. Take with meals Do not crush, chew, or split. 30 tablet 5 07/24/2024 Active methocarbamol 750 mg oral tablet (20 sources) Muscle Relaxant Start: 02-20-2025 End: 06-27-2025 take 1 tablet by mouth three times daily as needed for muscle spasms methocarbamol (Robaxin) 750 MG tablet Indications: Thoracic degenerative disc disease Take 1 tablet (750 mg) by mouth 3 (three) times a day as needed for muscle spasms 90 tablet 3 03/11/2025 06/27/2025 Discontinued naloxone (NARCAN) 4 mg/actuation spray,non-aerosol nasal spray (9 sources) Start: 03-05-2025 naloxone (NARCAN) 4 mg/actuation spray,non-aerosol nasal spray Administer 1 spray (4 mg total) into alternating nostrils as needed for opioid reversal. 1 each 03/05/2025 Active NIFEdipine 90 mg osmotic 24 hr extended release oral tablet (12 sources) Dihydropyridine Calcium Channel Onofre Start: 06-27-2025 take 1 tablet by mouth once daily NIFEdipine XL (Procardia XL) 90 MG 24 hr tablet Indications: Benign essential hypertension Take 1 tablet (90 mg) by mouth Daily Do not crush, chew, or split. 30 tablet 5 06/27/2025 Active Start: 06-27-2025 take 1 tablet by john th once daily NIFEdipine XL (Procardia XL) 90 MG 24 hr tablet Indications: Benign essential hypertension Take 1 tablet (90 mg) by mouth Daily Do not crush, chew, or split. 30 tablet 5 06/27/2025 Active Start: 04-24-2025 End: 06-27-2025 take 1 tablet by mouth once daily NIFEdipine XL (Procardia XL) 60 MG 24 hr tablet Indications: Benign essential hypertension Take 1 tablet (60 mg) by mouth Daily Do not crush, chew, or split. 30 tablet 3 04/24/2025 06/27/2025 Discontinued Start: 03-26-2025 take 1 tablet by john th once daily NIFEdipine CC (ADALAT CC) 30 mg 24 hr tablet TAKE 1 TABLET (30 MG) BY MOUTH DAILY DO NOT CRUSH, CHEW, OR SPLIT 03/26/2025 Active Start: 03-26-2025 End: 04-24-2025 take 1 tablet by mouth once daily NIFEdipine XL (Procardia XL) 30 MG 24 hr tablet Indications: Benign essential hypertension (CMS/HCC) Take 1 tablet (30 mg) by mouth Daily Do not crush, chew, or split. 30 tablet 3 03/26/2025 04/24/2025 Discontinued oxyCODONE hydrochloride 5 mg oral tablet (7 sources) Opioid Agonist Start: 03-21-2025 End: 04-11-2025 take 1 tablet by mouth every six hours as needed for pain oxyCODONE (ROXICODONE) 5 mg immediate release tablet Indications: S/P laminectomy Take 1 tablet (5 mg total) by mouth every 6 (six) hours as needed for pain for up to 14 days. Max Daily Amount: 20 mg 56 tablet 03/28/2025 04/11/2025 Active Start: 03-08-2025 End: 03-15-2025 oxyCODONE (ROXICODONE) 5 mg immediate release tablet Indications: S/P laminectomy Take 1-2 tablets (5-10 mg total) by mouth every 6 (six) hours as needed for pain for up to 7 days. Max Daily Amount: 40 mg 56 tablet 03/08/2025 03/15/2025 Active OZEMPIC 0.25 mg or 0.5 mg (2 mg/3 mL) pen injector (1 source) Start: 03-28-2025 inject 0.25 mg by subcutaneous injection every week, then inject 0.5 mg by subcutaneous injection every week OZEMPIC 0.25 mg or 0.5 mg (2 mg/3 mL) pen injector INJECT 0.25MG UNDER THE SKIN ONCE WEEKLY FOR 4 WEEKS, THEN INCREASE TO 0.5MG ONCE WEEKLY 03/28/2025 Active PARoxetine hydrochloride 10 mg oral tablet (20 sources) Serotonin Reuptake Inhibitor Start: 06-29-2024 take 1 tablet by mouth once daily PARoxetine (Paxil) 10 MG tablet Indications: Generalized anxiety disorder Take 1 tablet (10 mg) by mouth Daily 90 tablet 3 06/29/2024 Active Start: 06-29-2024 End: 06-29-2025 take [...] the morning. 0 11/23/2023 12/28/2023 Discontinued (Reorder) penicillin G potassium 4 Mil lion Units in sodium chloride 0.9 % 100 mL IVPB (8 sources) Start: 03-05-2025 End: 04-11-2025 penicillin G potassium 4 Million Units in sodium chloride 0.9 % 100 mL IVPB Infuse 4 Million Units into a venous catheter every 4 (four) hours for 37 days. 1 each 03/05/2025 04/11/2025 Active 0.25 mg, 0.5 mg dose 1.5 ml semaglutide 1.34 mg/ml pen injector (11 sources) Start: 03-30-2025 semaglutide (O zempic, 0.25 or 0.5 MG/DOSE,) 2 MG/1.5ML solution pen-injector Indications: Type 2 diabetes mellitus with hyperglycemia, without long-term current use of insulin ([facility]) 0.25 mg SC weekly x 4 weeks, then 0.5 mg weekly 3 each 3 03/30/2025 Active Start: 03-21-2025 semaglutide (O zempic, 0.25 or 0.5 MG/DOSE,) 2 MG/1.5ML solution pen-injector Indications: Type 2 diabetes mellitus with hyperglycemia, without long-term current use of insulin (CMS/HCC) 0.25 mg SC weekly x 4 weeks, then 0.5 mg weekly 1 each 1 03/21/2025 Active sod sulf-pot chloride-mag sulf 1.479-0.188- 0.225 gram tablet (2 sources) Start: 07-31-2024 sod sulf-pot chloride-mag sulf 1.479-0.188- 0.225 gram tablet Indications: Encounter for screening colonoscopy Please see instructional sheet given by physicians office. 24 tablet 07/31/2024 Active 125 ml sodium chloride 9 mg/ml prefilled syringe (9 sources) Start: 03-05-2025 sodium chloride injection Infuse 10-20 mL into a venous catheter as needed for line care (line care per nursing agency protocol.). 1 mL 03/05/2025 Active tamsulosin hydrochloride 0.4 mg oral capsule (9 sources) alpha-Adrenergic Onofre Start: 03-06-2025 take 1 capsule by mouth once daily tamsulosin (FLOMAX) 0.4 mg capsule Take 1 capsule (0.4 mg total) by mouth nightly. 30 capsule 03/06/2025 Active terbinafine 250 mg oral tablet (20 sources) Allylamine Antifungal Start: 06-29-2024 End: 03-21-2025 take 1 tablet by mouth once daily terbinafine (LamISIL) 250 MG tablet Indications: Tinea manuum Take 1 tablet, by mouth, once daily, 21 days 21 tablet 06/29/2024 03/21/2025 Discontinued Start: 06-08-2024 End: 03-21-2025 terbinafine (LamISIL) 1 % cr eam Indications: Tinea manuum Apply to affected areas on hands and feet bid, then when clear use once weekly as maintenance 42 g 11 06/08/2024 03/21/2025 Discontinued tiZANidine 4 mg oral tablet (12 sources) Central alpha-2 Adrenergic Agonist Start: 02-22-2025 End: 03-11-2025 take 1 tablet by mouth three times daily as needed tiZANidine (ZANAFLEX) 4 mg tablet Take 1 tablet (4 mg total) by mouth Three times daily as needed. 02/22/2025 Active Completed/Discontinued Medications Medication Drug Class(es) Dates [...] Problem Date Documented Date Episodic/Chronic Anxiety disorders (20 sources) Generalized anxiety disorder; Translations: [Generalized anxiety disorder] Onset: 12-28-2023 12-28-2023 Chronic Bacterial infection; unspecified site (2 sources) Streptococcal infection, unspecified site; Translations: [Streptococcal infection, unspecified site] Onset: 03-20-2025 Episodic Diabetes mellitus with complications (20 sources) Hyperglycemia due to type 2 diabetes mellitus; Translations: [Type 2 diabetes mellitus with hyperglycemia] Onset: 07-21-2024 07-21-2024 Chronic Diseases of white blood cells (2 sources) Decreased white blood cell count, unspecified; Translations: [Decreased white blood cell count, unspecified] Onset: 03-20-2025 Chronic Disorders of lipid metabolism (20 sources) Dyslipidemia; Translations: [Hyperlipidemia, unspecified] Onset: 12-28-2023 12-28-2023 Chronic Essential hypertension (20 sources) Benign essential hypertension; Translations: [Essential (primary) hypertension] Onset: 11-03-2023 11-03-2023 Chronic Genitourinary symptoms and ill-defined conditions (11 sources) Retention of urine, unspecified; Translations: [Retention of urine] Onset: 02-23-2025 02-26-2025 Episodic Other eye disorders (3 sources) Xanthoma of eyelid; 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, unspecified eyelid] Onset: 12-28-2023 12-28-2023 Episodic Other nervous system disorders (1 source) Numbness Onset: 02-24-2025 Episodic Other nutritional; endocrine; and metabolic disorders (17 sources) Severe obesity; Translations: [Class 2 severe obesity due to excess calories with serious comorbidity and body mass index (BMI) of 37.0 to 37.9 in adult ([facility])] Onset: 07-20-2024 09-07-2024 Chronic Other nutritional; endocrine; and metabolic disorders (6 sources) Body mass index 30+ - obesity; Translations: [Body mass index (BMI) 36.0-36.9, adult] Onset: 07-20-2024 07-20-2024 Chronic Other nutritional; endocrine; and metabolic disorders (4 sources) Obesity caused by energy imbalance; Translations: [Class 1 obesity due to excess calories with serious comorbidity and body mass index (BMI) of 34.0 to 34.9 in adult] Onset: 07-20-2024 06-27-2025 Chronic Other upper respiratory infections (20 sources) Chronic sinusitis; Translations: [Chronic sinusitis, unspecified] Onset: 12-28-2023 12-28-2023 Chronic Residual codes; unclassified (20 sources) Hypersomnia; Translations: [Hypersomnia, unspecified] Onset: 01-27-2024 01-27-2024 Chronic Residual codes; unclassified (5 sources) H/O Spinal surgery; Translations: [Other specified postprocedural states] 03-08-2025 Episodic Spondylosis; intervertebral disc disorders; other back problems (19 sources) Degeneration of thoracic intervertebral disc; Translations: [Other intervertebral disc degeneration, thoracic region] Onset: 02-22-2025 02-22-2025 Chronic Spondylosis; intervertebral disc disorders; other back problems (2 sources) Backache; Translations: [Dorsalgia, unspecified] Onset: 02-23-2025 Episodic Unclassified (20 sources) Patient on antidepressant monitoring plan Onset: 06-29-2024 06-29-2024 Unclassified (20 sources) Baseline PHQ-9 Onset: 06-29-2024 06-29-2024 Unclassified (1 source) Low back pain, unspecified; Translations: [Low back pain, unspecified] Onset: 02-23-2025 Unclassified (1 source) EMS Onset: 02-23-2025 Unclassified (1 source) [place] transfer, 145/75 Onset: 02-24-2025 Unclassified (1 source) Colon Cancer Screening Onset: 07-31-2024 Past or Other Problems Problem Classification Problem Date Documented Da te Episodic/Chronic Mood disorders (12 sources) Mood disorders Onset: 08-27-2021 Resolved: 02-25-2025 08-27-2021 Other aftercare (11 sources) 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; Translations: [Long-term (current) use of antibiotics] Onset: 03-21-2025 03-21-2025 Episodic Other EQUIPMENT MAINTENANCE SUPERINTENDENT infection and poliomyelitis (20 sources) Epidural abscess; Translations: [Extradural and subdural abscess, unspecified] Onset: 02-24-2025 02-24-2025 Episodic Other eye disorders (20 sources) Xanthelasma; 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, unspecified eyelid] Onset: 12-28-2023 12-28-2023 Episodic Other injuries and conditions due to external causes (13 sources) Angioedema; Translations: [Angioneurotic edema, subsequent encounter] Onset: 03-21-2025 Resolved: 06-27-2025 03-21-2025 Episodic Other non-traumatic joint disorders (13 sources) Joint pain in right hand; Translations: [Pain in joints of right hand] Onset: 03-21-2025 03-21-2025 Episodic Other screening for suspected conditions (not mental disorders or infectious disease) (8 sources) Encounter for screening for malignant neoplasm of prostate; Translations: [Patient encounter status] Onset: 07-03-2022 07-20-2024 Episodic Other upper respiratory disease (12 sources) Deviated nasal septum; Translations: [Deviated nasal septum] Onset: 07-15-2021 07-15-2021 Episodic Residual codes; unclassified (1 source) Family history of cancer of colon; Translations: [Family history of malignant neoplasm of digestive organs] 07-31-2024 Episodic Residual codes; unclassified (1 source) Family history of malignant neoplasm of digestive organs; Translations: [Family history of malignant neoplasm of digestive organs] Onset: 07-31-2024 Episodic Results Test Name Value Interpretation Reference Range Facility Follow-Upon 04-06-2025 Follow-Up [id number] Gem Menendez 1980 M Date Provider Department Center 04/06/2025 HEMANT HANKINS [facility] IN[facility] No family history on file Level of Service:49757 LA OFFICE/OUTPATIENT ESTABLISHED LOW MDM 20 MIN Reason for Visit and Comments: Abscess [267] - Doing well, just some healing muscle pain Normal [facility] 36on 04-04-2025 36 Called to follow up on labs office is closed and no records has been received Normal [facility] 36on 04-03-2025 36 Labs will be sent from 03/27 and 04/02 per nurse Carson. [facility] ALL CBC WITH AUTO DIFFon BASOPHILS ABSOLUTE AUTO 0 [facility] Basophils/100 WBC (Bld) 0.6 % 0.2 - 2.0 % [facility] Eosinophils/100 WBC (Bld) 1 % 0.9 - 7.0 % [facility] Erythrocyte distribution width (RBC) [Ratio] 13.6 % 11.0 - 15.0 % [facility] Hematocrit (Bld) [Volume fraction] 38.2 % Low 42.0 - 54.0 % [facility] Hemoglobin (Bld) [Mass/Vol] 13.1 g/dL Low 14.0 - 18.0 g/dL [facility] IMMATURE GRANULOCYTES ABS AUTO 0.01 [facility] Immature granulocytes/100 WBC (Bld) 0.2 % 0.0 - 0.5 % [facility] Interpretation and review of laboratory results Abnormal [facility] LYMPHOCYTES ABSOLUTE AUTO 1.4 [facility] Lymphocytes/100 WBC (Bld) 29.1 % 20.5 - 60.0 % [facility] MCH (RBC) [Entitic mass] 30.5 pg 25.9 - 34.0 pg [facility] MCHC (RBC) [Mass/Vol] 34.3 g/dL 29.9 - 35.2 g/dL [facility] MCV (RBC) [Entitic vol] 89 fL 80.0 - 94.0 fL [facility] MONOCYTES ABSOLUTE AUTO 0.3 [facility] Monocytes/100 WBC (Bld) 6.5 % 1.7 - 12.0 % [facility] NEUTROPHILS ABSOLUTE AUTO 3.1 [facility] Neutrophils/100 WBC (Bld) 62.6 % 43.0 - 75.0 % [facility] Platelet mean volume (Bld) [Entitic vol] 9.7 fL 9.5 - 13.5 fL [facility] TBH EO # 0.1 [facility] TBH PLT 225 [facility] TB RBC 4.29 Low [facility] TBH WBC 4.9 [facility] ALL BUNon 03-26-2025 Urea nitrogen [Mass/Vol] 17 mg/dL 7.0 - 18.0 mg/dL [facility] ALL CBC WITH AUTO DIFFon BASOPHILS ABSOLUTE AUTO 0 [facility] Basophils/100 WBC (Bld) 0.7 % 0.2 - 2.0 % [facility] Eosinophils/100 WBC (Bld) 2.9 % 0.9 - 7.0 % [facility] Erythrocyte distribution width (RBC) [Ratio] 14.6 % 11.0 - 15.0 % [facility] Hematocrit (Bld) [Volume fraction] 34.4 % Low 42.0 - 54.0 % [facility] Hemoglobin (Bld) [Mass/Vol] 11.8 g/dL Low 14.0 - 18.0 g/dL [facility] IMMATURE GRANULOCYTES ABS AUTO 0.02 [facility] Immature granulocytes/100 WBC (Bld) 0.4 % 0.0 - 0.5 % [facility] Interpretation and review of laboratory results Abnormal [facility] LYMPHOCYTES ABSOLUTE AUTO 1.4 [facility] Lymphocytes/100 WBC (Bld) 30.5 % 20.5 - 60.0 % [facility] MCH (RBC) [Entitic mass] 31 pg 25.9 - 34.0 pg [facility] MCHC (RBC) [Mass/Vol] 34.3 g/dL 29.9 - 35.2 g/dL [facility] MCV (RBC) [Entitic vol] 90.3 fL 80.0 - 94.0 fL [facility] MONOCYTES ABSOLUTE AUTO 0.4 [facility] Monocytes/100 WBC (Bld) 8 % 1.7 - 12.0 % [facility] NEUTROPHILS ABSOLUTE AUTO 2.6 [facility] Neutrophils/100 WBC (Bld) 57.5 % 43.0 - 75.0 % [facility] Platelet mean volume (Bld) [Entitic vol] 9.5 fL 9.5 - 13.5 fL [facility] EO # 0.1 [facility] PLT 187 [facility] RBC 3.81 Low [facility] WBC 4.5 [facility] No Panel Informationon 03-26 [facility] CREATININEon 03-26-2025 Creatinine [Mass/Vol] 0.91 mg/dL 0.70 - 1.30 mg/dL [facility] GFR/1.73 sq M.predicted CKD-EPI (S/P/Bld) [Vol rate/Area] >60 >=60 mL/min/1.73m 2 [facility] TB EGFR-NON AF SYRIAN >60 >=60 mL/min/1.73m 2 [facility] 36on 03-22-2025 36 Labs are in media Normal [facility] 36on 03-21-2025 36 Vm left for return call for updates on labs. [facility] 36 Call from pt stating Domonique called him to say they never received our orders and asked pt to call us to inform us. Orders refaxed to [facility]. Called to Carmina and she hasn't checked the fax but requests the order be sent to centralized [id number] 0. [facility] ALL C REACTIVE PROTEINon CRP [Mass/Vol] mg/L NINF - 0.50 mg/dL [facility] ALL CKMBon 03-21-2025 [facility] CREATININE KINASE MB <0.50 NINF - 3.60 ng/mL [facility] ALL URIC ACIDon 03-21-2025 Urate [Mass/Vol] 4.8 mg/dL 3.5 - 7.2 mg/dL [facility] CLINISYNC [facility] CCF CKon 03-21-2025 CK [Catalytic activity/Vol] 48 U/L 39 - 308 U/L [facility] No [facility]25 [facility] need to change the pt's antibiotic to Daptomycin 800mg every day. [facility] update them regarding the med change and lab change. Orders faxed to [phone] and Staci states they will call the pt to schedule a time for the first dose. [facility] 36 The patient is demonstrating penicillin induced leukopenia. He previously had a reaction to ceftriaxone. We will transition him to daptomycin for the remainder of his treatment course. He will need to have weekly CK total levels obtained. Please also add on CRP's. He has been instructed to hold his statin. [facility] Follow-Upon 03-20-2025 Follow-Up [id number] Gem Menendez 1980 M Date Provider Department [place] 03/20/2025 [facility] family history on file Level of Service:96287 LA OFFICE/OUTPATIENT ESTABLISHED MOD MDM 30 MIN Reason for Visit and Comments: Follow-up [890072] [facility] Telephoneon 03-20-2025 Telephone [phone] Gem Menendez 1980 M Date Provider Department [place] 03/20/2025 [facility] No family history on file [facility] ALL BUNon 03-19-2025 Urea nitrogen [Mass/Vol] 9 mg/dL 7.0 - 18.0 mg/dL [facility] ALL CBC WITH AUTO DIFFon BASOPHILS ABSOLUTE AUTO 0 [facility] Basophils/100 WBC (Bld) 0.7 % 0.2 - 2.0 % [facility] Eosinophils/100 WBC (Bld) 4.4 % 0.9 - 7.0 % [facility] Erythrocyte distribution width (RBC) [Ratio] 13.7 % 11.0 - 15.0 % [facility] Hematocrit (Bld) [Volume fraction] 31.1 % Low 42.0 - 54.0 % [facility] Hemoglobin (Bld) [Mass/Vol] 10.5 g/dL Low 14.0 - 18.0 g/dL [facility] IMMATURE GRANULOCYTES ABS AUTO 0.01 [facility] Immature granulocytes/100 WBC (Bld) 0.4 % 0.0 - 0.5 % [facility] Interpretation and review of laboratory results Abnormal [facility] LYMPHOCYTES ABSOLUTE AUTO 0.8 Low [facility] Lymphocytes/100 WBC (Bld) 30.3 % 20.5 - 60.0 % [facility] MCH (RBC) [Entitic mass] 30.7 pg 25.9 - 34.0 pg [facility] MCHC (RBC) [Mass/Vol] 33.8 g/dL 29.9 - 35.2 g/dL [facility] MCV (RBC) [Entitic vol] 90.9 fL 80.0 - 94.0 fL [facility] MONOCYTES ABSOLUTE AUTO 0.2 Low [facility] Monocytes/100 WBC (Bld) 6.3 % 1.7 - 12.0 % [facility] NEUTROPHILS ABSOLUTE AUTO 1.6 [facility] Neutrophils/100 WBC (Bld) 57.9 % 43.0 - 75.0 % [facility] Platelet mean volume (Bld) [Entitic vol] 9.3 fL Low 9.5 - 13.5 fL [facility] EO # 0.1 [facility] PLT 172 [facility] RBC 3.42 Low [facility] WBC 2.7 Low [facility] No Panel Informationon 03-19 [facility] CREATININEon 03-19-2025 Creatinine [Mass/Vol] 0.85 mg/dL 0.70 - 1.30 mg/dL [facility] GFR/1.73 sq M.predicted CKD-EPI (S/P/Bld) [Vol rate/Area] >60 >=60 mL/min/1.73m 2 [facility] EGFR-NON AF SYRIAN >60 >=60 mL/min/1.73m 2 [facility] 36on 03-13-2025 36 Labs are in [facility] ALL BUNon 03-12-2025 Urea nitrogen [Mass/Vol] 9 mg/dL 7.0 - 18.0 mg/dL [facility] ALL CBC WITH AUTO DIFFon BASOPHILS ABSOLUTE AUTO 0 [facility] Basophils/100 WBC (Bld) 0.3 % 0.2 - 2.0 % [facility] Eosinophils/100 WBC (Bld) 1.6 % 0.9 - 7.0 % [facility] Erythrocyte distribution width (RBC) [Ratio] 13.2 % 11.0 - 15.0 % [facility] Hematocrit (Bld) [Volume fraction] 28.5 % Low 42.0 - 54.0 % [facility] Hemoglobin (Bld) [Mass/Vol] 9.5 g/dL Low 14.0 - 18.0 g/dL [facility] IMMATURE GRANULOCYTES ABS AUTO 0.02 [facility] Immature granulocytes/100 WBC (Bld) 0.5 % 0.0 - 0.5 % [facility] Interpretation and review of laboratory results Abnormal [facility] LYMPHOCYTES ABSOLUTE AUTO 0.9 Low [facility] Lymphocytes/100 WBC (Bld) 23.6 % 20.5 - 60.0 % [facility] MCH (RBC) [Entitic mass] 30.5 pg 25.9 - 34.0 pg [facility] MCHC (RBC) [Mass/Vol] 33.3 g/dL 29.9 - 35.2 g/dL [facility] MCV (RBC) [Entitic vol] 91.6 fL 80.0 - 94.0 fL [facility] MONOCYTES ABSOLUTE AUTO 0.3 [facility] Monocytes/100 WBC (Bld) 7 % 1.7 - 12.0 % [facility] NEUTROPHILS ABSOLUTE AUTO 2.6 [facility] Neutrophils/100 WBC (Bld) 67 % 43.0 - 75.0 % [facility] Platelet mean volume (Bld) [Entitic vol] 9.2 fL Low 9.5 - 13.5 fL [facility] EO # 0.1 [facility] PLT 219 [facility] RBC 3.11 Low [facility] WBC 3.9 Low [facility] No Panel Informationon 03-12 [facility] CREATININEon 03-12-2025 Creatinine [Mass/Vol] 1.02 mg/dL 0.70 - 1.30 mg/dL [facility] GFR/1.73 sq M.predicted CKD-EPI (S/P/Bld) [Vol rate/Area] >60 >=60 mL/min/1.73m 2 [facility] EGFR-NON AF SYRIAN >60 >=60 mL/min/1.73m 2 [facility] 36on 03-07-2025 36 Opat received. [facility] s [facility]. Message left with pt to call for a hospital follow up appt and to schedule his dressing change and lab draw with [facility]. Normal [facility] CBC AND AUTO DIFFon 03-06-20 25 Erythrocyte distribution width (RBC) [Ratio] 13.7 % Normal 11.5-15.0 [facility] Comment on above: Performed By: #### H A1C #### [facility] ([id number]) [address], [address] [place] [address] Hematocrit (Bld) [Volume fraction] 30.0 % Low 39-49 [facility] Comment on above: Performed By: #### H A1C #### [facility] ([id number]) [address], [address] [place] [address] Hemoglobin (Bld) [Mass/Vol] 10.4 g/dL Low 13.0-17.0 [facility] Comment on above: Performed By: #### H A1C #### [facility] ([id number]) [address], [address] [place] [address] Lymphocytes (Bld) [#/Vol] 1.5 10*3/uL Normal 1.0-3.5 [facility] Comment on above: Performed By: #### H A1C #### [facility] ([id number]) [address], [address] [place] [address] Lymphocytes/100 WBC (Bld) 24.8 % Normal [facility] Comment on above: Performed By: #### H A1C #### [facility] ([id number]) [address], [address] [place] [address] MCH (RBC) [Entitic mass] 30.7 pg Normal 27-34 [facility] Comment on above: Performed By: #### H A1C #### [facility] ([id number]) [address], [address] [place] [address] MCHC (RBC) [Mass/Vol] 34.6 g/dL Normal 32-36 [facility] Comment on above: Performed By: #### H A1C #### [facility] ([id number]) [address], [address] [place] [address] MCV (RBC) [Entitic vol] 89 fL Normal 80-100 [facility] Comment on above: Performed By: #### H A1C #### [facility] ([id number]) [address], [address] [place] [address] Monocytes (Bld) [#/Vol] 0.4 10*3/uL Normal 0-0.9 [facility] Comment on above: Performed By: #### H A1C #### [facility] ([id number]) [address], [address] [place] [address] Monocytes/100 WBC (Bld) 6.7 % Normal [facility] Comment on above: Performed By: #### H A1C #### [facility] ([id number]) [address], [address] [place] [address] Neutrophils (Bld) [#/Vol] 4.1 10*3/uL Normal 1.5-6.6 [facility] Comment on above: Performed By: #### H A1C #### [facility] ([id number]) [address], [address] [place] [address] Platelet mean volume (Bld) [Entitic vol] 7.3 fL Normal 7-12 [facility] Comment on above: Performed By: #### H A1C #### [facility] ([id number]) [address], [address] [place] [address] Platelets (Bld) [#/Vol] 235 10*3/uL Normal 150-450 [facility] Comment on above: Performed By: #### H A1C #### [facility] ([id number]) [address], [address] [place] [address] RBC COUNT 3.38 X10E12/L Low 4.10-5.70 [facility] Comment on above: Performed By: #### H A1C #### [facility] ([id number]) [address], [address] [place] [address] RBC morphology finding Nom (Bld) REVIEWED Normal [facility] Comment on above: Performed By: #### H A1C #### [facility] ([id number]) [address], [address] [place] [address] SEG NEUTROPHIL 68.5 % Normal [facility] Comment on above: Performed By: #### H A1C #### [facility] ([id number]) [address], [address] [place] [address] WBC (Bld) [#/Vol] 6.0 10*3/uL Normal 4.0-11.0 [facility] Comment on above: Performed By: #### H A1C #### [facility] ([id number]) [address], [address] [place] [address] COMPREHENSIVE METABOLIC PANE [place] 03-06-2025 Albumin [Mass/Vol] 3.3 g/dL Normal 3.2-5.3 [facility] Comment on above: Performed By: #### H A1C #### [facility] ([id number]) [address], [address] [place] [address] ALP [Catalytic activity/Vol] 69 U/L Normal 39-130 [facility] Comment on above: Performed By: #### H A1C #### [facility] ([id number]) [address], [address] [place] [address] ALT [Catalytic activity/Vol] 53 U/L High 0-40 [facility] Comment on above: Performed By: #### H A1C #### [facility] ([id number]) [address], [address] [place] [address] Anion gap [Moles/Vol] 8 mmol/L Normal 5-15 [facility] Comment on above: Performed By: #### H A1C #### [facility] ([id number]) [address], [address] [place] [address] AST [Catalytic activity/Vol] 22 U/L Normal 0-41 [facility] Comment on above: Performed By: #### H A1C #### [facility] ([id number]) [address], [address] [place] [address] Bilirubin [Mass/Vol] 0.5 mg/dL Normal 0.3-1.2 [facility] Comment on above: Performed By: #### H A1C #### [facility] ([id number]) [address], [address] [place] [address] Calcium [Mass/Vol] 8.8 mg/dL Normal 8.5-10.5 [facility] Comment on above: Performed By: #### H A1C #### [facility] ([id number]) [address], [address] [place] [address] Chloride [Moles/Vol] 104 mmol/L Normal 98-109 [facility] Comment on above: Performed By: #### H A1C #### [facility] ([id number]) [address], [address] [place] [address] CO2 [Moles/Vol] 25 mmol/L Normal 22-32 [facility] Comment on above: Performed By: #### H A1C #### [facility] ([id number]) [address], [address] [place] [address] Creatinine [Mass/Vol] 0.71 mg/dL Normal 0.60-1.30 [facility] Comment on above: Result Comment: METH OD TRACEABLE TO IDMS STANDARD Performed By: #### H A1C #### [facility] ([id number]) [address], [address] [place] [address] eGFR (CKD-EPI) NON-RACE DEPENDENT >90 Normal >59 [facility] Comment on above: Result Comment: Reported eGFR is based on the CKD-EPI 2020 equation that does not use a race coefficient. Performed By: #### H A1C #### [facility] ([id number]) [address], [address] [place] [address] Glucose [Mass/Vol] 154 mg/dL High 65-99 [facility] Comment on above: Performed By: #### H A1C #### [facility] ([id number]) [address], [address] [place] [address] Potassium [Moles/Vol] 4.1 mmol/L Normal 3.5-5.0 [facility] Comment on above: Performed By: #### H A1C #### [facility] ([id number]) [address], [address] [place] [address] Protein [Mass/Vol] 6.2 g/dL Normal 6.0-8.0 [facility] Comment on above: Performed By: #### H A1C #### [facility] ([id number]) [address], [address] [place] [address] Sodium [Moles/Vol] 137 mmol/L Normal 134-146 [facility] Comment on above: Performed By: #### H A1C #### [facility] ([id number]) [address], [address] [place] [address] Urea nitrogen [Mass/Vol] 11 mg/dL Normal 5-23 [facility] Comment on above: Performed By: #### H A1C #### [facility] ([id number]) [address], [address] [place] [address] Glucose Glucometer (BldC) [M ass/Vol]on 03-06-2025 Glucose [Mass/Vol] 159 mg/dL High 65-99 [facility] Glucose [Mass/Vol] 246 mg/dL High 65-99 [facility] Glucose [Mass/Vol] 149 mg/dL High 65-99 [facility] CBC AND AUTO DIFFon 03-05-20 25 Eosinophils (Bld) [#/Vol] 0.1 10*3/uL Normal 0.0-0.4 [facility] Comment on above: Performed By: #### H A1C #### [facility] ([id number]) [address], [address] [place] [address] Eosinophils/100 WBC (Bld) 2.0 % Normal [facility] Comment on above: Performed By: #### H A1C #### [facility] ([id number]) [address], [address] [place] [address] Erythrocyte distribution width (RBC) [Ratio] 13.6 % Normal 11.5-15.0 [facility] Comment on above: Performed By: #### H A1C #### [facility] ([id number]) [address], [address] [place] [address] Hematocrit (Bld) [Volume fraction] 31.9 % Low 39-49 [facility] Comment on above: Performed By: #### H A1C #### [facility] ([id number]) [address], [address] [place] [address] Hemoglobin (Bld) [Mass/Vol] 10.9 g/dL Low 13.0-17.0 [facility] Comment on above: Performed By: #### H A1C #### [facility] ([id number]) [address], [address] [place] [address] Lymphocytes (Bld) [#/Vol] 1.5 10*3/uL Normal 1.0-3.5 [facility] Comment on above: Performed By: #### H A1C #### [facility] ([id number]) [address], [address] [place] [address] Lymphocytes/100 WBC (Bld) 21.0 % Normal [facility] Comment on above: Performed By: #### H A1C #### [facility] ([id number]) [address], [address] [place] [address] MCH (RBC) [Entitic mass] 31.0 pg Normal 27-34 [facility] Comment on above: Performed By: #### H A1C #### [facility] ([id number]) [address], [address] [place] [address] MCHC (RBC) [Mass/Vol] 34.2 g/dL Normal 32-36 [facility] Comment on above: Performed By: #### H A1C #### [facility] ([id number]) [address], [address] [place] [address] MCV (RBC) [Entitic vol] 91 fL Normal 80-100 [facility] Comment on above: Performed By: #### H A1C #### [facility] ([id number]) [address], [address] [place] [address] Metamyelocytes/100 WBC (Bld) 1.0 % Normal [facility] Comment on above: Performed By: #### H A1C #### [facility] ([id number]) [address], [address] [place] [address] Monocytes (Bld) [#/Vol] 0.4 10*3/uL Normal 0-0.9 [facility] Comment on above: Performed By: #### H A1C #### [facility] ([id number]) [address], [address] [place] [address] Monocytes/100 WBC (Bld) 6.0 % Normal [facility] Comment on above: Performed By: #### H A1C #### [facility] ([id number]) [address], [address] [place] [address] MYELOCYTE 3.0 % Normal [facility] Comment on above: Performed By: #### H A1C #### [facility] ([id number]) [address] [place] [address] Neutrophils (Bld) [#/Vol] 4.9 10*3/uL Normal 1.5-6.6 [facility] Comment on above: Performed By: #### H A1C #### [facility] ([id number]) [address], [address] [place] [address] Platelet mean volume (Bld) [Entitic vol] 7.3 fL Normal 7-12 [facility] Comment on above: Performed By: #### H A1C #### [facility] ([id number]) [address], [address] [place] [address] Platelets (Bld) [#/Vol] 250 10*3/uL Normal 150-450 [facility] Comment on above: Performed By: #### H A1C #### [facility] ([id number]) [address], [address] [place] [address] POLYCHROMASIA 1+ Abnormal NONE [facility] Comment on above: Performed By: #### H A1C #### [facility] ([id number]) [address], [address] [place] [address] RBC COUNT 3.52 X10E12/L Low 4.10-5.70 [facility] Comment on above: Performed By: #### H A1C #### [facility] ([id number]) [address], [address] [place] [address] SEG NEUTROPHIL 67.0 % Normal [facility] Comment on above: Performed By: #### H A1C #### [facility] ([id number]) [address], [address] [place] [address] WBC (Bld) [#/Vol] 7.2 10*3/uL Normal 4.0-11.0 [facility] Comment on above: Performed By: #### H A1C #### [facility] ([id number]) [address], [address] [place] [address] COMPREHENSIVE METABOLIC PANE [place] 03-05-2025 Albumin [Mass/Vol] 3.3 g/dL Normal 3.2-5.3 [facility] Comment on above: Performed By: #### H A1C #### [facility] ([id number]) [address], [address] [place] [address] ALP [Catalytic activity/Vol] 70 U/L Normal 39-130 [facility] Comment on above: Performed By: #### H A1C #### [facility] ([id number]) [address], [address] [place] [address] ALT [Catalytic activity/Vol] 60 U/L High 0-40 [facility] Comment on above: Performed By: #### H A1C #### [facility] ([id number]) [address], [address] [place] [address] Anion gap [Moles/Vol] 8 mmol/L Normal 5-15 [facility] Comment on above: Performed By: #### H A1C #### [facility] ([id number]) [address], [address] [place] [address] AST [Catalytic activity/Vol] 27 U/L Normal 0-41 [facility] Comment on above: Performed By: #### H A1C #### [facility] ([id number]) [address], [address] [place] [address] Bilirubin [Mass/Vol] 0.5 mg/dL Normal 0.3-1.2 [facility] Comment on above: Performed By: #### H A1C #### [facility] ([id number]) [address], [address] [place] [address] Calcium [Mass/Vol] 8.6 mg/dL Normal 8.5-10.5 [facility] Comment on above: Performed By: #### H A1C #### [facility] ([id number]) [address], [address] [place] [address] Chloride [Moles/Vol] 103 mmol/L Normal 98-109 [facility] Comment on above: Performed By: #### H A1C #### [facility] ([id number]) [address], [address] [place] [address] CO2 [Moles/Vol] 26 mmol/L Normal 22-32 [facility] Comment on above: Performed By: #### H A1C #### [facility] ([id number]) [address] [place] [address] Creatinine [Mass/Vol] 0.71 mg/dL Normal 0.60-1.30 [facility] Comment on above: Result Comment: METH OD TRACEABLE TO IDMS STANDARD Performed By: #### H A1C #### [facility] ([id number]) [address] [place] [address] eGFR (CKD-EPI) NON-RACE DEPENDENT >90 Normal >59 [facility] Comment on above: Result Comment: Reported eGFR is based on the CKD-EPI 2020 equation that does not use a race coefficient. Performed By: #### H A1C #### [facility] ([id number]) [address], [address] [place] [address] Glucose [Mass/Vol] 144 mg/dL High 65-99 [facility] Comment on above: Performed By: #### H A1C #### [facility] ([id number]) [address], [address] [place] [address] Potassium [Moles/Vol] 4.1 mmol/L Normal 3.5-5.0 [facility] Comment on above: Performed By: #### H A1C #### [facility] ([id number]) [address], [address] [place] [address] Protein [Mass/Vol] 6.1 g/dL Normal 6.0-8.0 [facility] Comment on above: Performed By: #### H A1C #### [facility] ([id number]) [address] [place] [address] Sodium [Moles/Vol] 137 mmol/L Normal 134-146 [facility] Comment on above: Performed By: #### H A1C #### [place] [facility] ([id number]) [address], [address] [place] [address] Urea nitrogen [Mass/Vol] 13 mg/dL Normal 5-23 [facility] Comment on above: Performed By: #### H A1C #### [facility] ([id number]) [address], [facility] [address] [place] [address] Glucose Glucometer (BldC) [M ass/Vol]on 03-05-2025 Glucose [Mass/Vol] 155 mg/dL High 65-99 [facility] Glucose [Mass/Vol] 199 mg/dL High 65-99 [facility] Glucose [Mass/Vol] 199 mg/dL High 65-99 [facility] Glucose [Mass/Vol] 142 mg/dL High 65-99 [facility] CBC AND AUTO DIFFon 03-04-20 25 Band form neutrophils/100 WBC (Bld) 1.0 % Normal [facility] Comment on above: Performed By: #### C BCA, CMP ####[facility] ([id number])[address] [address] Erythrocyte distribution width (RBC) [Ratio] 13.6 % Normal 11.5-15.0 [facility] Comment on above: Performed By: #### C BCA, CMP ####[facility] ([id number])[address] [address] Hematocrit (Bld) [Volume fraction] 30.8 % Low 39-49 [facility] Comment on above: Performed By: #### C BCA, CMP ####[facility] ([id number])[address] [address] Hemoglobin (Bld) [Mass/Vol] 10.6 g/dL Low 13.0-17.0 [facility] Comment on above: Performed By: #### C BCA, CMP ####[facility] ([id number])[address], [place] [address] LYMPHOCYTE, ATYPICAL 1.0 % Normal [facility] Comment on above: Performed By: #### C BCA, CMP ####[facility] ([id number])[address] [address], [place] [address] Lymphocytes (Bld) [#/Vol] 3.0 10*3/uL Normal 1.0-3.5 [facility] Comment on above: Performed By: #### C BCA, CMP ####[facility] ([id number])[address] [address], [place] [address] Lymphocytes/100 WBC (Bld) 37.9 % Normal [facility] Comment on above: Performed By: #### C BCA, CMP ####[facility] ([id number])[address] [address], [place] [address] MCH (RBC) [Entitic mass] 30.8 pg Normal 27-34 [facility] Comment on above: Performed By: #### C BCA, CMP ####[facility] ([id number])[address] [address], [place] [address] MCHC (RBC) [Mass/Vol] 34.3 g/dL Normal 32-36 [facility] Comment on above: Performed By: #### C BCA, CMP ####[facility] ([id number])[address] [address], [place] [address] MCV (RBC) [Entitic vol] 90 fL Normal 80-100 [facility] Comment on above: Performed By: #### C BCA, CMP ####[facility] ([id number])[address] [address], [place] [address] Monocytes (Bld) [#/Vol] 0.1 10*3/uL Normal 0-0.9 [facility] Comment on above: Performed By: #### C BCA, CMP ####[facility] ([id number])[address], [place] [address] Monocytes/100 WBC (Bld) 1.0 % Normal [facility] Comment on above: Performed By: #### C BCA, CMP ####[facility] ([id number])[address], [address], [place] [address] MYELOCYTE 1.0 % Normal [facility] Comment on above: Performed By: #### C BCA, CMP ####[facility] ([id number])[address] [place] [place] [address] Neutrophils (Bld) [#/Vol] 4.5 10*3/uL Normal 1.5-6.6 [facility] Comment on above: Performed By: #### C KEKE, CMP ####[facility] ([id number])[address] [place] [place] [address] Platelet mean volume (Bld) [Entitic vol] 7.3 fL Normal 7-12 [facility] Comment on above: Performed By: #### C BCA, CMP ####[facility] ([id number])[address], [place] [address] Platelets (Bld) [#/Vol] 262 10*3/uL Normal 150-450 [facility] Comment on above: Performed By: #### C BCA, CMP ####[facility] ([id number])[address], [place] [address] POLYCHROMASIA 1+ Abnormal NONE [facility] Comment on above: Performed By: #### C BCA, CMP ####[facility] ([id number])[address], [place] [address] RBC COUNT 3.44 X10E12/L Low 4.10-5.70 [facility] Comment on above: Performed By: #### C BCA, CMP ####[facility] ([id number])[address], [address], [place] [address] SEG NEUTROPHIL 58.1 % Normal [facility] Comment on above: Performed By: #### C BCA, CMP ####[facility] ([id number])[address], [address], [place] [address] WBC (Bld) [#/Vol] 7.6 10*3/uL Normal 4.0-11.0 [facility] Comment on above: Performed By: #### C BCA, CMP ####[facility] ([id number])[address], [address], [place] [address] COMPREHENSIVE METABOLIC PANE Tyler 03-04-2025 Albumin [Mass/Vol] 3.2 g/dL Normal 3.2-5.3 [facility] Comment on above: Performed By: #### C KEKE, CMP ####[facility] ([id number])[address], [address], [place] [address] ALP [Catalytic activity/Vol] 65 U/L Normal 39-130 [facility] Comment on above: Performed By: #### C BCA, CMP ####[facility] ([id number])[address], [address], [place] [address] ALT [Catalytic activity/Vol] 57 U/L High 0-40 [facility] Comment on above: Performed By: #### C BCA, CMP ####[facility] ([id number])[address], [address], [place] [address] Anion gap [Moles/Vol] 7 mmol/L Normal 5-15 [facility] Comment on above: Performed By: #### C BCA, CMP ####[facility] ([id number])[address], [address], [place] [address] AST [Catalytic activity/Vol] 28 U/L Normal 0-41 [facility] Comment on above: Performed By: #### C BCA, CMP ####[facility] ([id number])[address] [address] [place] [address] Bilirubin [Mass/Vol] 0.4 mg/dL Normal 0.3-1.2 [facility] Comment on above: Performed By: #### C BCA, CMP ####[facility] ([id number])[address] [address] [place] [place] [address] Calcium [Mass/Vol] 8.7 mg/dL Normal 8.5-10.5 [facility] Comment on above: Performed By: #### C BCA, CMP ####[facility] ([id number])[address] [address] [place] [place] [address] Chloride [Moles/Vol] 107 mmol/L Normal 98-109 [facility] Comment on above: Performed By: #### C BCA, CMP ####[facility] ([id number])[address] [address], [place] [address] CO2 [Moles/Vol] 26 mmol/L Normal 22-32 [facility] Comment on above: Performed By: #### C BCA, CMP ####[facility] ([id number])[address] [address] [place] [place] [address] Creatinine [Mass/Vol] 0.80 mg/dL Normal 0.60-1.30 [facility] Comment on above: Result Comment: METH OD TRACEABLE TO IDMS STANDARD Performed By: #### C BCA, CMP ####[facility] ([id number])[address] [address] [place] [place] [address] eGFR (CKD-EPI) NON-RACE DEPENDENT >90 Normal >59 [facility] Comment on above: Result Comment: Reported eGFR is based on the CKD-EPI 2020 equation that does not use a race coefficient. Performed By: #### C BCA, CMP ####[facility] ([id number])[address] [place] [address] Glucose [Mass/Vol] 128 mg/dL High 65-99 [facility] Comment on above: Performed By: #### C BCA, CMP ####[facility] ([id number])[address], [address] [place] [address] Potassium [Moles/Vol] 4.3 mmol/L Normal 3.5-5.0 [facility] Comment on above: Performed By: #### C BCA, CMP ####[facility] ([id number])[address] [place] [address] Protein [Mass/Vol] 6.0 g/dL Normal 6.0-8.0 [facility] Comment on above: Performed By: #### C BCA, CMP ####[facility] ([id number])[address] [place] [address] Sodium [Moles/Vol] 140 mmol/L Normal 134-146 [facility] Comment on above: Performed By: #### C BCA, CMP ####[facility] ([id number])[address] [place] [address] Urea nitrogen [Mass/Vol] 15 mg/dL Normal 5-23 [facility] Comment on above: Performed By: #### C BCA, CMP ####[facility] ([id number])[address], [place] [address] Glucose Glucometer (BldC) [M ass/Vol]on 03-04-2025 Glucose [Mass/Vol] 208 mg/dL High 65-99 [facility] Glucose [Mass/Vol] 183 mg/dL High 65-99 [facility] Glucose [Mass/Vol] 178 mg/dL High 65-99 [facility] Glucose [Mass/Vol] 129 mg/dL High 65-99 [facility] CBC AND AUTO DIFFon 04-19-20 25 Eosinophils (Bld) [#/Vol] 0.1 10*3/uL Normal 0.0-0.4 [facility] Comment on above: Performed By: #### C MP, CBCA ####[facility] ([id number])[address] [address] [place] [address] Eosinophils/100 WBC (Bld) 1.0 % Normal [facility] Comment on above: Performed By: #### C MP, CBCA ####[facility] ([id number])[address] [address] [place] [address] Erythrocyte distribution width (RBC) [Ratio] 13.3 % Normal 11.5-15.0 [facility] Comment on above: Performed By: #### C MP, CBCA ####[facility] ([id number])[address] [address] [place] [address] Hematocrit (Bld) [Volume fraction] 30.6 % Low 39-49 [facility] Comment on above: Performed By: #### C MP, CBCA ####[facility] ([id number])[address] [address] [place] [address] Hemoglobin (Bld) [Mass/Vol] 10.7 g/dL Low 13.0-17.0 [facility] Comment on above: Performed By: #### C MP, CBCA ####[facility] ([id number])[address] [address] [place] [address] Lymphocytes (Bld) [#/Vol] 3.0 10*3/uL Normal 1.0-3.5 [facility] Comment on above: Performed By: #### C MP, CBCA ####[facility] ([id number])[address] [address] [place] [address] Lymphocytes/100 WBC (Bld) 33.0 % Normal [facility] Comment on above: Performed By: #### C MP, CBCA ####[facility] ([id number])[address], [place] [address] MCH (RBC) [Entitic mass] 31.2 pg Normal 27-34 [facility] Comment on above: Performed By: #### C MP, CBCA ####[facility] ([id number])[address], [address], [place] [address] MCHC (RBC) [Mass/Vol] 34.8 g/dL Normal 32-36 [facility] Comment on above: Performed By: #### C MP, CBCA ####[facility] ([id number])[address] [address] [place] [address] MCV (RBC) [Entitic vol] 90 fL Normal 80-100 [facility] Comment on above: Performed By: #### C MP, CBCA ####[facility] ([id number])[address] [address] [place] [address] Metamyelocytes/100 WBC (Bld) 1.0 % Normal [facility] Comment on above: Performed By: #### C MP, CBCA ####[facility] ([id number])[address] [address] [place] [address] Monocytes (Bld) [#/Vol] 0.3 10*3/uL Normal 0-0.9 [facility] Comment on above: Performed By: #### C MP, CBCA ####[facility] ([id number])[address] [place] [address] Monocytes/100 WBC (Bld) 2.9 % Normal [facility] Comment on above: Performed By: #### C MP, CBCA ####[facility] ([id number])[address], [address], [place] [address] MYELOCYTE 2.9 % Normal [facility] Comment on above: Performed By: #### C MP, CBCA ####[facility] ([id number])[address], [address], [place] [address] Neutrophils (Bld) [#/Vol] 5.3 10*3/uL Normal 1.5-6.6 [facility] Comment on above: Performed By: #### C MP, CBCA ####[facility] ([id number])[address], [address], [place] [address] Platelet mean volume (Bld) [Entitic vol] 7.1 fL Normal 7-12 [facility] Comment on above: Performed By: #### C MP, CBCA ####[facility] ([id number])[address], [address], [place] [address] Platelets (Bld) [#/Vol] 268 10*3/uL Normal 150-450 [facility] Comment on above: Performed By: #### C MP, CBCA ####[facility] ([id number])[address], [address], [place] [address] RBC COUNT 3.42 X10E12/L Low 4.10-5.70 [facility] Comment on above: Performed By: #### C MP, CBCA ####[facility] ([id number])[address], [address], [place] [address] RBC morphology finding Nom (Bld) NORMAL Normal [facility] Comment on above: Performed By: #### C MP, CBCA ####[facility] ([id number])[address], [address], [place] [address] SEG NEUTROPHIL 59.2 % Normal [facility] Comment on above: Performed By: #### C MP, CBCA ####[facility] ([id number])[address], [address], [place] [address] WBC (Bld) [#/Vol] 9.0 10*3/uL Normal 4.0-11.0 [facility] Comment on above: Performed By: #### C LANI CBCA ####[facility] ([id number])[address], [address], [place] [address] COMPREHENSIVE METABOLIC PANE Tyler 03-03-2025 Albumin [Mass/Vol] 3.2 g/dL Normal 3.2-5.3 [facility] Comment on above: Performed By: #### C LANI CBCA ####[facility] ([id number])[address], [address] [place] [address] ALP [Catalytic activity/Vol] 59 U/L Normal 39-130 [facility] Comment on above: Performed By: #### C LANI CBCA ####[facility] ([id number])[address] [place] [address] ALT [Catalytic activity/Vol] 56 U/L High 0-40 [facility] Comment on above: Performed By: #### C LANI CBCA ####[facility] ([id number])[address], [address], [place] [address] Anion gap [Moles/Vol] 8 mmol/L Normal 5-15 [facility] Comment on above: Performed By: #### C LANI CBCA ####[facility] ([id number])[address] [address], [place] [address] AST [Catalytic activity/Vol] 33 U/L Normal 0-41 [facility] Comment on above: Performed By: #### C LANI CBCA ####[facility] ([id number])[address] [place] [address] Bilirubin [Mass/Vol] 0.5 mg/dL Normal 0.3-1.2 [facility] Comment on above: Performed By: #### C MP, CBCA ####[facility] ([id number])[address] [address] [place] [address] Calcium [Mass/Vol] 8.7 mg/dL Normal 8.5-10.5 [facility] Comment on above: Performed By: #### C LANI, CBCA ####[facility] ([id number])[address] [address] [place] [address] Chloride [Moles/Vol] 106 mmol/L Normal 98-109 [facility] Comment on above: Performed By: #### C LANI CBCA ####[facility] ([id number])[address] [address] [place] [address] CO2 [Moles/Vol] 25 mmol/L Normal 22-32 [facility] Comment on above: Performed By: #### C LANI CBCA ####[facility] ([id number])[address] [address] [place] [address] Creatinine [Mass/Vol] 0.75 mg/dL Normal 0.60-1.30 [facility] Comment on above: Result Comment: METH OD TRACEABLE TO IDMS STANDARD Performed By: #### C LANI CBCA ####[facility] ([id number])[address] [address] [place] [address] eGFR (CKD-EPI) NON-RACE DEPENDENT >90 Normal >59 [facility] Comment on above: Result Comment: Reported eGFR is based on the CKD-EPI 1 equation that does not use a race coefficient. Performed By: #### C LANI CBCA ####[facility] ([id number])[address] [address] [place] [address] Glucose [Mass/Vol] 113 mg/dL High 65-99 [facility] Comment on above: Performed By: #### C LANI CBCA ####[facility] ([id number])[address], [address] [place] [address] Potassium [Moles/Vol] 3.9 mmol/L Normal 3.5-5.0 [facility] Comment on above: Performed By: #### C LANI, CBCA ####[facility] ([id number])[address], [address] [place] [address] Protein [Mass/Vol] 6.0 g/dL Normal 6.0-8.0 [facility] Comment on above: Performed By: #### C LANI, CBCA ####[facility] ([id number])[address], [address] [place] [address] Sodium [Moles/Vol] 139 mmol/L Normal 134-146 [facility] Comment on above: Performed By: #### C LANI, CBCA ####[facility] ([id number])[address], [address] [place] [address] Urea nitrogen [Mass/Vol] 15 mg/dL Normal 5-23 [facility] Comment on above: Performed By: #### C LANI, CBCA ####[facility] ([id number])[address], [address] [place] [address] Glucose Glucometer (BldC) [M ass/Vol]on 03-03-2025 Glucose [Mass/Vol] 266 mg/dL High 65-99 [facility] Glucose [Mass/Vol] 183 mg/dL High 65-99 [facility] Glucose [Mass/Vol] 261 mg/dL High 65-99 [facility] Glucose [Mass/Vol] 119 mg/dL High 65-99 [facility] CBC AND AUTO DIFFon 03-02-20 25 ABSOLUTE BASOPHIL 0.1 X10E9/L Normal 0.0-0.2 [facility] Comment on above: Performed By: #### C LANI, [id number], CBCA ####[facility] ([id number])[address], [address], [place] [address] ABSOLUTE NEUTROPHIL 5.6 X10E9/L Normal 1.5-6.6 [facility] Comment on above: Performed By: #### C LANI, , CBCA ####[facility] ([id number])[address] [address], [place] [address] Basophils/100 WBC (Bld) 0.9 % Normal [facility] Comment on above: Performed By: #### C LANI, , CBCA ####[facility] ([id number])[address] [address], [place] [address] Eosinophils (Bld) [#/Vol] 0.1 10*3/uL Normal 0.0-0.4 [facility] Comment on above: Performed By: #### Christine GARIBAY, , CBCA ####[facility] ([id number])[address] [address] [place] [address] Eosinophils/100 WBC (Bld) 0.6 % Normal [facility] Comment on above: Performed By: #### Christine GARIBAY, , CBCA ####[facility] ([id number])[address] [address], [place] [address] Erythrocyte distribution width (RBC) [Ratio] 13.4 % Normal 11.5-15.0 [facility] Comment on above: Performed By: #### Christine GARIBAY, , CBCA ####[facility] ([id number])[address] [address], [place] [address] Hematocrit (Bld) [Volume fraction] 30.7 % Low 39-49 [facility] Comment on above: Performed By: #### Christine GARIBAY, , CBCA ####[facility] ([id number])[address] [address], [place] [address] Hemoglobin (Bld) [Mass/Vol] 10.7 g/dL Low 13.0-17.0 [facility] Comment on above: Performed By: #### C LANI, , CBCA ####[facility] ([id number])[address], [place] [address] Lymphocytes (Bld) [#/Vol] 2.7 10*3/uL Normal 1.0-3.5 [facility] Comment on above: Performed By: #### C LANI, , CBCA ####[facility] ([id number])[address], [place] [address] Lymphocytes/100 WBC (Bld) 30.4 % Normal [facility] Comment on above: Performed By: #### Christine GARIBAY, , CBCA ####[facility] ([id number])[address], [place] [address] MCH (RBC) [Entitic mass] 31.6 pg Normal 27-34 [facility] Comment on above: Performed By: #### Christine GARIBAY, , CBCA ####[facility] ([id number])[address] [address], [place] [address] MCHC (RBC) [Mass/Vol] 35.0 g/dL Normal 32-36 [facility] Comment on above: Performed By: #### Christine GARIBAY, , CBCA ####[facility] ([id number])[address] [address] [place] [address], [place] [address] MCV (RBC) [Entitic vol] 90 fL Normal 80-100 [facility] Comment on above: Performed By: #### Christine GARIBAY, , CBCA ####[facility] ([id number])[address] [address], [place] [address] Monocytes (Bld) [#/Vol] 0.6 10*3/uL Normal 0-0.9 [facility] Comment on above: Performed By: #### C LANI, , CBCA ####[facility] ([id number])[address] [place] [address] Monocytes/100 WBC (Bld) 6.4 % Normal [facility] Comment on above: Performed By: #### C LANI, , CBCA ####[facility] ([id number])[address], [place] [address] Neutrophils/100 WBC (Bld) 61.7 % Normal [facility] Comment on above: Performed By: #### C LANI, , CBCA ####[facility] ([id number])[address], [address] [place] [address] Platelet mean volume (Bld) [Entitic vol] 7.2 fL Normal 7-12 [facility] Comment on above: Performed By: #### C LANI, , CBCA ####[facility] ([id number])[address] [place] [address] Platelets (Bld) [#/Vol] 287 10*3/uL Normal 150-450 [facility] Comment on above: Performed By: #### Christine GARIBAY, , CBCA ####[facility] ([id number])[address] [place] [address] POLYCHROMASIA 1+ Abnormal NONE [facility] Comment on above: Performed By: #### C LANI, , CBCA ####[facility] ([id number])[address] [place] [address] RBC COUNT 3.39 X10E12/L Low 4.10-5.70 [facility] Comment on above: Performed By: #### Christine GARIBAY, , CBCA ####[facility] ([id number])[address], [address] [place] [address] WBC (Bld) [#/Vol] 9.0 10*3/uL Normal 4.0-11.0 [facility] Comment on above: Performed By: #### C LANI, , CBCA ####[facility] ([id number])[address], [address], [place] [address] COMPREHENSIVE METABOLIC PANE [place] 03-02-2025 Albumin [Mass/Vol] 3.3 g/dL Normal 3.2-5.3 [facility] Comment on above: Performed By: #### C LANI, , CBCA ####[facility] ([id number])[address], [address] [place] [address] ALP [Catalytic activity/Vol] 59 U/L Normal 39-130 [facility] Comment on above: Performed By: #### C LANI, , CBCA ####[facility] ([id number])[address], [address] [place] [address] ALT [Catalytic activity/Vol] 63 U/L High 0-40 [facility] Comment on above: Performed By: #### C LANI, , CBCA ####[facility] ([id number])[address], [address] [place] [address] Anion gap [Moles/Vol] 6 mmol/L Normal 5-15 [facility] Comment on above: Performed By: #### C LANI, , CBCA ####[facility] ([id number])[address], [address] [place] [address] AST [Catalytic activity/Vol] 49 U/L High 0-41 [facility] Comment on above: Performed By: #### C LANI, , CBCA ####[facility] ([id number])[address] [address] [place] [address] Bilirubin [Mass/Vol] 0.4 mg/dL Normal 0.3-1.2 [facility] Comment on above: Performed By: #### C LANI, , CBCA ####[facility] ([id number])[address] [address] [place] [address] Calcium [Mass/Vol] 8.8 mg/dL Normal 8.5-10.5 [facility] Comment on above: Performed By: #### C LANI, , CBCA ####[facility] ([id number])[address], [address] [place] [address] Chloride [Moles/Vol] 105 mmol/L Normal 98-109 [facility] Comment on above: Performed By: #### C LANI, , CBCA ####[facility] ([id number])[address] [address], [place] [address] CO2 [Moles/Vol] 26 mmol/L Normal 22-32 [facility] Comment on above: Performed By: #### C LANI, , CBCA ####[facility] ([id number])[address] [address], [place] [address] Creatinine [Mass/Vol] 0.78 mg/dL Normal 0.60-1.30 [facility] Comment on above: Result Comment: METH OD TRACEABLE TO IDMS STANDARD Performed By: #### C LANI, , CBCA ####[facility] ([id number])[address] [address], [place] [address] eGFR (CKD-EPI) NON-RACE DEPENDENT >90 Normal >59 [facility] Comment on above: Result Comment: Reported eGFR is based on the CKD-EPI 2020 equation that does not use a race coefficient. Performed By: #### C LANI, , CBCA ####[facility] ([id number])[address], [place] [address] Glucose [Mass/Vol] 108 mg/dL High 65-99 [facility] Comment on above: Performed By: #### Christine GARIBAY, , CBCA ####[facility] ([id number])[address], [address], [place] [address] Potassium [Moles/Vol] 4.3 mmol/L Normal 3.5-5.0 [facility] Comment on above: Performed By: #### Christine GARIBAY, , CBCA ####[facility] ([id number])[address], [address], [place] [address] Protein [Mass/Vol] 6.0 g/dL Normal 6.0-8.0 [facility] Comment on above: Performed By: #### Christine GARIBAY, , CBCA ####[facility] ([id number])[address], [address], [place] [address] Sodium [Moles/Vol] 137 mmol/L Normal 134-146 [facility] Comment on above: Performed By: #### Christine GARIBAY, , CBCA ####[facility] ([id number])[address], [address], [place] [address] Urea nitrogen [Mass/Vol] 19 mg/dL Normal 5-23 [facility] Comment on above: Performed By: #### Christine GARIBAY, , CBCA ####[facility] ([id number])[address], [address], [place] [address] Glucose Glucometer (BldC) [M ass/Vol]on 03-02-2025 Glucose [Mass/Vol] 232 mg/dL High 65-99 [facility] Glucose [Mass/Vol] 314 mg/dL High 65-99 [facility] Glucose [Mass/Vol] 183 mg/dL High 65-99 [facility] Glucose [Mass/Vol] 109 mg/dL High 65-99 [facility] MAGNESIUMon 03-02-2025 Magnesium [Mass/Vol] 2.1 mg/dL Normal 1.8-2.6 [facility] Comment on above: Performed By: #### C LANI, [address]-8, CBCA ####[facility] ([id number])[address], [address], [place] [address] CBC AND AUTO DIFFon 03-01-20 ABSOLUTE BASOPHIL 0.0 X10E9/L Normal 0.0-0.2 [facility] Comment on above: Performed By: #### C LANI, CBCA ####[facility] ([id number])[address], [address] [place] [address] ABSOLUTE NEUTROPHIL 6.6 X10E9/L Normal 1.5-6.6 [facility] Comment on above: Performed By: #### C LANI, CBCA ####[facility] ([id number])[address], [address], [place] [address] Basophils/100 WBC (Bld) 0.4 % Normal [facility] Comment on above: Performed By: #### C LANI, CBCA ####[facility] ([id number])[address] [address], [place] [address] Eosinophils (Bld) [#/Vol] 0.0 10*3/uL Normal 0.0-0.4 [facility] Comment on above: Performed By: #### C MP, CBCA ####[facility] ([id number])[address], [address], [place] [address] Eosinophils/100 WBC (Bld) 0.1 % Normal [facility] Comment on above: Performed By: #### C MP, CBCA ####[facility] ([id number])[address], [address], [place] [address] Erythrocyte distribution width (RBC) [Ratio] 13.2 % Normal 11.5-15.0 [facility] Comment on above: Performed By: #### C MP, CBCA ####[facility] ([id number])[address] [place] [address] Hematocrit (Bld) [Volume fraction] 31.2 % Low 39-49 [facility] Comment on above: Performed By: #### C MP, CBCA ####[facility] ([id number])[address] [address] [place] [address] Hemoglobin (Bld) [Mass/Vol] 10.8 g/dL Low 13.0-17.0 [facility] Comment on above: Performed By: #### C MP, CBCA ####[facility] ([id number])[address] [address] [place] [address] Lymphocytes (Bld) [#/Vol] 1.7 10*3/uL Normal 1.0-3.5 [facility] Comment on above: Performed By: #### C LANI, CBCA ####[facility] ([id number])[address] [address] [place] [address] Lymphocytes/100 WBC (Bld) 19.6 % Normal [facility] Comment on above: Performed By: #### C MP, CBCA ####[facility] ([id number])[address] [address] [place] [address] MCH (RBC) [Entitic mass] 30.7 pg Normal 27-34 [facility] Comment on above: Performed By: #### C MP, CBCA ####[facility] ([id number])[address] [address] [place] [address] MCHC (RBC) [Mass/Vol] 34.5 g/dL Normal 32-36 [facility] Comment on above: Performed By: #### C MP, CBCA ####[facility] ([id number])[address], [address], [place] [address] MCV (RBC) [Entitic vol] 89 fL Normal 80-100 [facility] Comment on above: Performed By: #### C MP, CBCA ####[facility] ([id number])[address], [address], [place] [address] Monocytes (Bld) [#/Vol] 0.5 10*3/uL Normal 0-0.9 [facility] Comment on above: Performed By: #### C MP, CBCA ####[facility] ([id number])[address], [address], [place] [address] Monocytes/100 WBC (Bld) 5.5 % Normal [facility] Comment on above: Performed By: #### C MP, CBCA ####[facility] ([id number])[address], [address], [place] [address] Neutrophils/100 WBC (Bld) 74.4 % Normal [facility] Comment on above: Performed By: #### C MP, CBCA ####[facility] ([id number])[address], [address], [place] [address] Platelet mean volume (Bld) [Entitic vol] 7.8 fL Normal 7-12 [facility] Comment on above: Performed By: #### C MP, CBCA ####[facility] ([id number])[address], [address], [place] [address] Platelets (Bld) [#/Vol] 322 10*3/uL Normal 150-450 [facility] Comment on above: Performed By: #### C MP, CBCA ####[facility] ([id number])[address], [address], [place] [address] RBC COUNT 3.50 X10E12/L Low 4.10-5.70 [facility] Comment on above: Performed By: #### C LANI CBCA ####[facility] ([id number])[address], [address] [place] [address] WBC (Bld) [#/Vol] 8.9 10*3/uL Normal 4.0-11.0 [facility] Comment on above: Performed By: #### C LANI CBCA ####[facility] ([id number])[address], [address], [place] [address] COMPREHENSIVE METABOLIC PANE [place] 03-01-2025 Albumin [Mass/Vol] 3.4 g/dL Normal 3.2-5.3 [facility] Comment on above: Performed By: #### C LANI CBCA ####[facility] ([id number])[address], [address], [place] [address] ALP [Catalytic activity/Vol] 58 U/L Normal 39-130 [facility] Comment on above: Performed By: #### C LANI CBCA ####[facility] ([id number])[address], [address] [place] [address], [place] [address] ALT [Catalytic activity/Vol] 57 U/L High 0-40 [facility] Comment on above: Performed By: #### C LANI CBCA ####[facility] ([id number])[address], [address], [place] [address] Anion gap [Moles/Vol] 9 mmol/L Normal 5-15 [facility] Comment on above: Performed By: #### C LANI CBCA ####[facility] ([id number])[address] [address] [place] [address], [place] [address] AST [Catalytic activity/Vol] 42 U/L High 0-41 [facility] Comment on above: Performed By: #### C LANI CBCA ####[facility] ([id number])[address] [address], [place] [address] Bilirubin [Mass/Vol] 0.4 mg/dL Normal 0.3-1.2 [facility] Comment on above: Performed By: #### C LANI, CBCA ####[facility] ([id number])[address] [address], [place] [address] Calcium [Mass/Vol] 8.9 mg/dL Normal 8.5-10.5 [facility] Comment on above: Performed By: #### C LANI, CBCA ####[facility] ([id number])[address] [address] [place] [address] Chloride [Moles/Vol] 99 mmol/L Normal 98-109 [facility] Comment on above: Performed By: #### C LANI CBCA ####[facility] ([id number])[address] [address], [place] [address] CO2 [Moles/Vol] 27 mmol/L Normal 22-32 [facility] Comment on above: Performed By: #### C LANI CBCA ####[facility] ([id number])[address] [address], [place] [address] Creatinine [Mass/Vol] 0.65 mg/dL Normal 0.60-1.30 [facility] Comment on above: Result Comment: METH OD TRACEABLE TO IDMS STANDARD Performed By: #### C LANI CBCA ####[facility] ([id number])[address] [address], [place] [address] eGFR (CKD-EPI) NON-RACE DEPENDENT >90 Normal >59 [facility] Comment on above: Result Comment: Reported eGFR is based on the CKD-EPI 2020 equation that does not use a race coefficient. Performed By: #### C LANI, CBCA ####[facility] ([id number])[address] [address], [place] [address] Glucose [Mass/Vol] 177 mg/dL High 65-99 [facility] Comment on above: Performed By: #### C LANI, CBCA ####[facility] ([id number])[address], [address] [address] Potassium [Moles/Vol] 4.1 mmol/L Normal 3.5-5.0 [facility] Comment on above: Performed By: #### C LANI, CBCA ####[facility] ([id number])[address], [address] [place] [address] Protein [Mass/Vol] 6.4 g/dL Normal 6.0-8.0 [facility] Comment on above: Performed By: #### C LANI, CBCA ####[facility] ([id number])[address], [address] [place] [address] Sodium [Moles/Vol] 135 mmol/L Normal 134-146 [facility] Comment on above: Performed By: #### C LANI, CBCA ####[facility] ([id number])[address], [address] [address] Urea nitrogen [Mass/Vol] 21 mg/dL Normal 5-23 [facility] Comment on above: Performed By: #### C LANI, CBCA ####[facility] ([id number])[address] [address] Glucose Glucometer (BldC) [M ass/Vol]on 03-01-2025 Glucose [Mass/Vol] 260 mg/dL High 65-99 [facility] Glucose [Mass/Vol] 290 mg/dL High 65-99 [facility] Glucose [Mass/Vol] 211 mg/dL High 65-99 [facility] Glucose [Mass/Vol] 154 mg/dL High 65-99 [facility] CBC AND AUTO DIFFon 02-29-20 25 ABSOLUTE BASOPHIL 0.0 X10E9/L Normal 0.0-0.2 [facility] Comment on above: Performed By: #### C BCA, CMP ####[facility] ([id number])[address] [address], [place] [address] ABSOLUTE NEUTROPHIL 5.5 X10E9/L Normal 1.5-6.6 [facility] Comment on above: Performed By: #### C BCA, CMP ####[facility] ([id number])[address] [address], [place] [address] Basophils/100 WBC (Bld) 0.2 % Normal [facility] Comment on above: Performed By: #### C BCA, CMP ####[facility] ([id number])[address] [address], [place] [address] Eosinophils (Bld) [#/Vol] 0.0 10*3/uL Normal 0.0-0.4 [facility] Comment on above: Performed By: #### C BCA, CMP ####[facility] ([id number])[address] [address], [place] [address] Eosinophils/100 WBC (Bld) 0.4 % Normal [facility] Comment on above: Performed By: #### C BCA, CMP ####[facility] ([id number])[address] [address], [place] [address] Erythrocyte distribution width (RBC) [Ratio] 13.4 % Normal 11.5-15.0 [facility] Comment on above: Performed By: #### C BCA, CMP ####[facility] ([id number])[address] [address], [place] [address] Hematocrit (Bld) [Volume fraction] 32.4 % Low 39-49 [facility] Comment on above: Performed By: #### C BCA, CMP ####[facility] ([id number])[address] [address], [place] [address] Hemoglobin (Bld) [Mass/Vol] 11.4 g/dL Low 13.0-17.0 [facility] Comment on above: Performed By: #### C BCA, CMP ####[facility] ([id number])[address], [address], [place] [address] Lymphocytes (Bld) [#/Vol] 1.9 10*3/uL Normal 1.0-3.5 [facility] Comment on above: Performed By: #### C BCA, CMP ####[facility] ([id number])[address], [address], [place] [address] Lymphocytes/100 WBC (Bld) 23.2 % Normal [facility] Comment on above: Performed By: #### C BCA, CMP ####[facility] ([id number])[address] [address], [place] [address] MCH (RBC) [Entitic mass] 31.1 pg Normal 27-34 [facility] Comment on above: Performed By: #### C BCA, CMP ####[facility] ([id number])[address] [address] [place] [address] MCHC (RBC) [Mass/Vol] 35.0 g/dL Normal 32-36 [facility] Comment on above: Performed By: #### C BCA, CMP ####[facility] ([id number])[address] [address], [place] [address] MCV (RBC) [Entitic vol] 89 fL Normal 80-100 [facility] Comment on above: Performed By: #### C BCA, CMP ####[facility] ([id number])[address] [address] [place] [address] Monocytes (Bld) [#/Vol] 0.6 10*3/uL Normal 0-0.9 [facility] Comment on above: Performed By: #### C BCA, CMP ####[facility] ([id number])[address] [place] [address] Monocytes/100 WBC (Bld) 7.8 % Normal [facility] Comment on above: Performed By: #### C BCA, CMP ####[facility] ([id number])[address], [address] [place] [address] Neutrophils/100 WBC (Bld) 68.4 % Normal [facility] Comment on above: Performed By: #### C BCA, CMP ####[facility] ([id number])[address], [address] [place] [address], [place] [address] Platelet mean volume (Bld) [Entitic vol] 7.5 fL Normal 7-12 [facility] Comment on above: Performed By: #### C KEKE, CMP ####[facility] ([id number])[address], [address] [place] [address], [place] [address] Platelets (Bld) [#/Vol] 299 10*3/uL Normal 150-450 [facility] Comment on above: Performed By: #### C BCA, CMP ####[facility] ([id number])[address] [place] [address] RBC COUNT 3.66 X10E12/L Low 4.10-5.70 [facility] Comment on above: Performed By: #### C BCA, CMP ####[facility] ([id number])[address] [address] [place] [address], [place] [address] WBC (Bld) [#/Vol] 8.0 10*3/uL Normal 4.0-11.0 [facility] Comment on above: Performed By: #### C BCA, CMP ####[facility] ([id number])[address] [place] [address] COMPREHENSIVE METABOLIC PANE Tyler 02-28-2025 Albumin [Mass/Vol] 3.4 g/dL Normal 3.2-5.3 [facility] Comment on above: Performed By: #### C BCA, CMP ####[facility] ([id number])[address], [address], [place] [address] ALP [Catalytic activity/Vol] 59 U/L Normal 39-130 [facility] Comment on above: Performed By: #### C BCA, CMP ####[facility] ([id number])[address], [address], [place] [address] ALT [Catalytic activity/Vol] 30 U/L Normal 0-40 [facility] Comment on above: Performed By: #### C BCA, CMP ####[facility] ([id number])[address], [address], [place] [address] Anion gap [Moles/Vol] 10 mmol/L Normal 5-15 [facility] Comment on above: Performed By: #### C BCA, CMP ####[facility] ([id number])[address], [place] [address] AST [Catalytic activity/Vol] 25 U/L Normal 0-41 [facility] Comment on above: Performed By: #### C BCA, CMP ####[facility] ([id number])[address], [place] [address] Bilirubin [Mass/Vol] 0.5 mg/dL Normal 0.3-1.2 [facility] Comment on above: Performed By: #### C BCA, CMP ####[facility] ([id number])[address], [place] [address] Calcium [Mass/Vol] 8.9 mg/dL Normal 8.5-10.5 [facility] Comment on above: Performed By: #### C BCA, CMP ####[facility] ([id number])[address], [place] [address] Chloride [Moles/Vol] 97 mmol/L Low 98-109 [facility] Comment on above: Performed By: #### C BCA, CMP ####[facility] ([id number])[address] [address], [place] [address] CO2 [Moles/Vol] 28 mmol/L Normal 22-32 [facility] Comment on above: Performed By: #### C BCA, CMP ####[facility] ([id number])[address] [address] [place] [place] [address] Creatinine [Mass/Vol] 0.66 mg/dL Normal 0.60-1.30 [facility] Comment on above: Result Comment: METH OD TRACEABLE TO IDMS STANDARD Performed By: #### C BCA, CMP ####[facility] ([id number])[address] [address], [place] [address] eGFR (CKD-EPI) NON-RACE DEPENDENT >90 Normal >59 [facility] Comment on above: Result Comment: Reported eGFR is based on the CKD-EPI 2020 equation that does not use a race coefficient. Performed By: #### C BCA, CMP ####[facility] ([id number])[address] [address], [place] [address] Glucose [Mass/Vol] 192 mg/dL High 65-99 [facility] Comment on above: Performed By: #### C BCA, CMP ####[facility] ([id number])[address] [address], [place] [address] Potassium [Moles/Vol] 4.2 mmol/L Normal 3.5-5.0 [facility] Comment on above: Performed By: #### C BCA, CMP ####[facility] ([id number])[address] [address], [place] [address] Protein [Mass/Vol] 6.4 g/dL Normal 6.0-8.0 [facility] Comment on above: Performed By: #### Christine DAVIES, CMP ####[facility] ([id number])[address], [place] [address] Sodium [Moles/Vol] 135 mmol/L Normal 134-146 [facility] Comment on above: Performed By: #### Christine DAVIES, CMP ####[facility] ([id number])[address], [place] [address] Urea nitrogen [Mass/Vol] 22 mg/dL Normal 5-23 [facility] Comment on above: Performed By: #### Christine DAVIES, CMP ####[facility] ([id number])[address], [place] [address] Glucose Glucometer (BldC) [M ass/Vol]on 02-28-2025 Glucose [Mass/Vol] 329 mg/dL High 65-99 [facility] Glucose [Mass/Vol] 315 mg/dL High 65-99 [facility] Glucose [Mass/Vol] 250 mg/dL High 65-99 [facility] Glucose [Mass/Vol] 175 mg/dL High 65-99 [facility] CBC AND AUTO DIFFon 02-28-20 25 ABSOLUTE BASOPHIL 0.0 X10E9/L Normal 0.0-0.2 [facility] Comment on above: Performed By: #### Christine DAVIES CMP, [id number] ####[facility] ([id number])[address], [place] [address] ABSOLUTE NEUTROPHIL 5.1 X10E9/L Normal 1.5-6.6 [facility] Comment on above: Performed By: #### Christine DAVIES CMP, 16055-0, 1988-03 ####[facility] ([id number])[address], [place] [address] Basophils/100 WBC (Bld) 0.2 % Normal [facility] Comment on above: Performed By: #### C JOEL DAVIES, 01662-0, 1988-03 ####[facility] ([id number])[address] [address], [place] [address] Eosinophils (Bld) [#/Vol] 0.0 10*3/uL Normal 0.0-0.4 [facility] Comment on above: Performed By: #### Christine DAVIES CMP, 61041-9, 1988-03 ####[facility] ([id number])[address], [place] [address] Eosinophils/100 WBC (Bld) 0.4 % Normal [facility] Comment on above: Performed By: #### Christine DAVIES CMP, 75655-4, 1988-03 ####[facility] ([id number])[address], [place] [address] Erythrocyte distribution width (RBC) [Ratio] 13.6 % Normal 11.5-15.0 [facility] Comment on above: Performed By: #### Christine DAVIES CMP, 22128-8, 1988-03 ####[facility] ([id number])[address] [address], [place] [address] Hematocrit (Bld) [Volume fraction] 33.4 % Low 39-49 [facility] Comment on above: Performed By: #### Christine DAVIES CMP, 03978-6, 1988-03 ####[facility] ([id number])[address] [address], [place] [address] Hemoglobin (Bld) [Mass/Vol] 11.6 g/dL Low 13.0-17.0 [facility] Comment on above: Performed By: #### Christine DAVIES CMP, 10989-8, 1988-03 ####[facility] ([id number])[address], [place] [address] Lymphocytes (Bld) [#/Vol] 1.3 10*3/uL Normal 1.0-3.5 [facility] Comment on above: Performed By: #### Christine DAVIES CMP, 56375-8, 1988-03 ####[facility] ([id number])[address], [place] [address] Lymphocytes/100 WBC (Bld) 19.3 % Normal [facility] Comment on above: Performed By: #### Christine DAVIES CMP, 38755-6, 1988-03 ####[facility] ([id number])[address], [place] [address] MCH (RBC) [Entitic mass] 30.9 pg Normal 27-34 [facility] Comment on above: Performed By: #### Christine DAVIES CMP, 08525-1, 1988-03 ####[facility] ([id number])[address] [place] [address] MCHC (RBC) [Mass/Vol] 34.6 g/dL Normal 32-36 [facility] Comment on above: Performed By: #### Christine DAVIES [facility], 70276-1, 1988-03 ####[facility] ([id number])[address] [address] [place] [address] MCV (RBC) [Entitic vol] 89 fL Normal 80-100 [facility] Comment on above: Performed By: #### Christine DAVIES [facility], 24618-6, 1988-03 ####[facility] ([id number])[address] [address], [place] [address] Monocytes (Bld) [#/Vol] 0.5 10*3/uL Normal 0-0.9 [facility] Comment on above: Performed By: #### Christine DAVIES CMP, 25787-9, 1988-03 ####[facility] ([id number])[address], [place] [address] Monocytes/100 WBC (Bld) 7.2 % Normal [facility] Comment on above: Performed By: #### Christine DAVIES CMP, 66962-1, 1988-03 ####[facility] ([id number])[address], [address], [place] [address] Neutrophils/100 WBC (Bld) 72.9 % Normal [facility] Comment on above: Performed By: #### Christine DAVIES CMP, 80211-8, 1988-03 ####[facility] ([id number])[address], [place] [address] Platelet mean volume (Bld) [Entitic vol] 7.7 fL Normal 7-12 [facility] Comment on above: Performed By: #### Christine DAVIES CMP, 76938-4, 1988-03 ####[facility] ([id number])[address], [address] [place] [address] Platelets (Bld) [#/Vol] 247 10*3/uL Normal 150-450 [facility] Comment on above: Performed By: #### Christine DAVIES CMP, 12083-6, 1988-03 ####[facility] ([id number])[address] [address] [place] [address], [place] [address] RBC COUNT 3.74 X10E12/L Low 4.10-5.70 [facility] Comment on above: Performed By: #### Christine DAVIES CMP, 65942-6, 1988-03 ####[facility] ([id number])[address], [address], [place] [address] WBC (Bld) [#/Vol] 7.0 10*3/uL Normal 4.0-11.0 [facility] Comment on above: Performed By: #### Christine DAVIES CMP, 14845-3, 1988-03 ####[facility] ([id number])[address], [address], [place] [address] COMPREHENSIVE METABOLIC PANE [place] 02-27-2025 Albumin [Mass/Vol] 3.4 g/dL Normal 3.2-5.3 [facility] Comment on above: Performed By: #### C BCA, CMP, 87484-0, 1988-03 ####[facility] ([id number])[address], [address] [place] [address] ALP [Catalytic activity/Vol] 55 U/L Normal 39-130 [facility] Comment on above: Performed By: #### C KEKE, CMP, 15992-7, 1988-03 ####[facility] ([id number])[address], [address] [place] [address] ALT [Catalytic activity/Vol] 20 U/L Normal 0-40 [facility] Comment on above: Performed By: #### C KEKE, CMP, 13606-1, 1988-03 ####[facility] ([id number])[address], [address] [place] [address] Anion gap [Moles/Vol] 11 mmol/L Normal 5-15 [facility] Comment on above: Performed By: #### C BCA, CMP, 44315-3, 1988-03 ####[facility] ([id number])[address], [address], [place] [address] AST [Catalytic activity/Vol] 17 U/L Normal 0-41 [facility] Comment on above: Performed By: #### C BCA, CMP, 20409-2, 1988-03 ####[facility] ([id number])[address], [address] [place] [address] Bilirubin [Mass/Vol] 0.5 mg/dL Normal 0.3-1.2 [facility] Comment on above: Performed By: #### C BCA, CMP, 84983-2, 1988-03 ####[facility] ([id number])[address] [address] [place] [address] Calcium [Mass/Vol] 8.8 mg/dL Normal 8.5-10.5 [facility] Comment on above: Performed By: #### C JOEL DAVIES, 82992-4, 1988-03 ####[facility] ([id number])[address] [address], [place] [address] Chloride [Moles/Vol] 96 mmol/L Low 98-109 [facility] Comment on above: Performed By: #### C KEKE [facility], 64119-1, 1988-03 ####[facility] ([id number])[address] [address], [place] [address] CO2 [Moles/Vol] 27 mmol/L Normal 22-32 [facility] Comment on above: Performed By: #### C JOEL DAVIES, 34036-2, 1988-03 ####[facility] ([id number])[address] [address], [place] [address] Creatinine [Mass/Vol] 0.75 mg/dL Normal 0.60-1.30 [facility] Comment on above: Result Comment: METH OD TRACEABLE TO IDMS STANDARD Performed By: #### C JOEL DAVIES, 89337-4, 1988-03 ####[facility] ([id number])[address] [address], [place] [address] eGFR (CKD-EPI) NON-RACE DEPENDENT >90 Normal >59 [facility] Comment on above: Result Comment: Reported eGFR is based on the CKD-EPI 2020 equation that does not use a race coefficient. Performed By: #### C JOEL DAVIES, 26013-1, 1988-03 ####[facility] ([id number])[address] [address] [place] [address] Glucose [Mass/Vol] 210 mg/dL High 65-99 [facility] Comment on above: Performed By: #### C KEKE [facility], 92750-2, 1988-03 ####[facility] ([id number])[address], [place] [address] Potassium [Moles/Vol] 3.8 mmol/L Normal 3.5-5.0 [facility] Comment on above: Performed By: #### C KEKE [facility], 39264-5, 1988-03 ####[facility] ([id number])[address], [place] [address] Protein [Mass/Vol] 6.3 g/dL Normal 6.0-8.0 [facility] Comment on above: Performed By: #### C KEKE [facility], 62411-7, 1988-03 ####[facility] ([id number])[address], [address], [place] [address] Sodium [Moles/Vol] 134 mmol/L Normal 134-146 [facility] Comment on above: Performed By: #### C KEKE [facility], 17766-2, 1988-03 ####[facility] ([id number])[address] [address], [place] [address] Urea nitrogen [Mass/Vol] 22 mg/dL Normal 5-23 [facility] Comment on above: Performed By: #### C KEKE [facility], 56046-6, 1988-03 ####[facility] ([id number])[address], [place] [address] CRP [Mass/Vol]on 02-27-2025 C REACTIVE PROTEIN 10.7 mg/dL High 0.000-0.744 [facility] Comment on above: Performed By: #### C KEKE [facility], 76648-5, 1988-03 ####[facility] ([id number])[address], [place] [address] ESR Photometric method (Bld) [Velocity]on 02-27-2025 ESR, ERYTHROCYTE SEDIMENTATION RATE 61 mm/h High 0-15 [facility] Comment on above: Performed By: #### C KEKE, [facility], 77839-0, 1988-03 ####[facility] ([id number])[address], [place] [address] Glucose Glucometer (BldC) [M ass/Vol]on 02-27-2025 Glucose [Mass/Vol] 377 mg/dL High 65-99 [facility] Glucose [Mass/Vol] 387 mg/dL High 65-99 [facility] Glucose [Mass/Vol] 361 mg/dL High 65-99 [facility] Glucose [Mass/Vol] 217 mg/dL High 65-99 [facility] Glucose [Mass/Vol] 220 mg/dL High 65-99 [facility] BASIC METABOLIC PANLon 02-26 Anion gap [Moles/Vol] 10 mmol/L Normal 5-15 [facility] Comment on above: Performed By: #### 8 2477-, 1988-03, 58386-9 #### [facility] ([id number]) [address], [address] [place] [address] Calcium [Mass/Vol] 8.8 mg/dL Normal 8.5-10.5 [facility] Comment on above: Performed By: #### 8 2477-, 1988-03, 46481-7 #### [facility] ([id number]) [address], [address] [place] [address] Chloride [Moles/Vol] 97 mmol/L Low 98-109 [facility] Comment on above: Performed By: #### 8 2477-1, 1988-03, 95136-1 #### [facility] ([id number]) [address], [address] [place] [address] CO2 [Moles/Vol] 27 mmol/L Normal 22-32 [facility] Comment on above: Performed By: #### 8 24705-15, 1988-03, #### [facility] ([id number]) [address], [address] [place] [address] Creatinine [Mass/Vol] 0.64 mg/dL Normal 0.60-1.30 [facility] Comment on above: Result Comment: METH OD TRACEABLE TO IDMS STANDARD Performed By: #### 8 24705-15, 1988-03, #### [facility] ([id number]) [address], [address] [place] [address] eGFR (CKD-EPI) NON-RACE DEPENDENT >90 Normal >59 [facility] Comment on above: Result Comment: Reported eGFR is based on the CKD-EPI 2020 equation that does not use a race coefficient. Performed By: #### 8 24705-15, 1988-03, #### [facility] ([id number]) [address], [address] [place] [address] Glucose [Mass/Vol] 212 mg/dL High 65-99 [facility] Comment on above: Performed By: #### 8 24705-15, 1988-03, #### [facility] ([id number]) [address], [address] [place] [address] Potassium [Moles/Vol] 4.0 mmol/L Normal 3.5-5.0 [facility] Comment on above: Performed By: #### 8 24705-15, 1988-03, #### [facility] ([id number]) [address], [address] [place] [address] Sodium [Moles/Vol] 134 mmol/L Normal 134-146 [facility] Comment on above: Performed By: #### 8 24705-15, 1988-03, #### [facility] ([id number]) [address], [address] [place] [address] Urea nitrogen [Mass/Vol] 15 mg/dL Normal 5-23 [facility] Comment on above: Performed By: #### 8 2477, 1988-03, #### [facility] ([id number]) [address], [facility] [address] [place] [address] CBC AND AUTO DIFFon 02-27-20 Erythrocyte distribution width (RBC) [Ratio] 13.7 % Normal 11.5-15.0 [facility] Comment on above: Performed By: #### 8 24705-15, 1988-03, #### [facility] ([id number]) [address], [facility] [address] [place] [address] Hematocrit (Bld) [Volume fraction] 32.3 % Low 39-49 [facility] Comment on above: Performed By: #### 8 24705-15, 1988-03, #### [facility] ([id number]) [address], [facility] [address] [place] [address] Hemoglobin (Bld) [Mass/Vol] 11.2 g/dL Low 13.0-17.0 [facility] Comment on above: Performed By: #### 8 24705-15, 1988-03, #### [facility] ([id number]) [address], [facility] [address] [place] [address] Lymphocytes (Bld) [#/Vol] 1.0 10*3/uL Normal 1.0-3.5 [facility] Comment on above: Performed By: #### 8 24705-15, 1988-03, #### [facility] ([id number]) [address], [facility] [address] [place] [address] Lymphocytes/100 WBC (Bld) 17.1 % Normal [facility] Comment on above: Performed By: #### 8 24705-15, 1988-03, #### [facility] ([id number]) [address], [address] [place] [address] MCH (RBC) [Entitic mass] 30.9 pg Normal 27-34 [facility] Comment on above: Performed By: #### 8 24705-15, 1988-03, #### [facility] ([id number]) [address], [address] [place] [address] MCHC (RBC) [Mass/Vol] 34.8 g/dL Normal 32-36 [facility] Comment on above: Performed By: #### 8 2476-11, 1988-03, #### [facility] ([id number]) [address], [address] [place] [address] MCV (RBC) [Entitic vol] 89 fL Normal 80-100 [facility] Comment on above: Performed By: #### 8 2476-11, 1988-03, #### [facility] ([id number]) [address], [address] [place] [address] Monocytes (Bld) [#/Vol] 0.2 10*3/uL Normal 0-0.9 [facility] Comment on above: Performed By: #### 8 24705-15, 1988-03, #### [facility] ([id number]) [address], [address] [place] [address] Monocytes/100 WBC (Bld) 2.9 % Normal [facility] Comment on above: Performed By: #### 8 24705-15, 1988-03, #### [facility] ([id number]) [address], [address] [place] [address] Neutrophils (Bld) [#/Vol] 4.6 10*3/uL Normal 1.5-6.6 [facility] Comment on above: Performed By: #### 8 24705-15, 1988-03, #### [facility] ([id number]) [address], [address] [place] [address] Platelet mean volume (Bld) [Entitic vol] 8.9 fL Normal 7-12 [facility] Comment on above: Performed By: #### 8 247-, 1988-03, #### [facility] ([id number]) [address], [address] [place] [address] Platelets (Bld) [#/Vol] 215 10*3/uL Normal 150-450 [facility] Comment on above: Performed By: #### 8 24705-15, 1988-03, #### [facility] ([id number]) [address], [address] [place] [address] RBC COUNT 3.64 X10E12/L Low 4.10-5.70 [facility] Comment on above: Performed By: #### 8 2476-11, 1988-03, #### [facility] ([id number]) [address], [address] [place] [address] RBC morphology finding Nom (Bld) NORMAL Normal [facility] Comment on above: Performed By: #### 8 24705-15, 1988-03, #### [facility] ([id number]) [address], [address] [place] [address] SEG NEUTROPHIL 80.0 % Normal [facility] Comment on above: Performed By: #### 8 24705-15, 1988-03, #### [facility] ([id number]) [address], [address] [place] [address] WBC (Bld) [#/Vol] 5.8 10*3/uL Normal 4.0-11.0 [facility] Comment on above: Performed By: #### 8 24705-15, 1988-03, #### [facility] ([id number]) [address], [address] [place] [address] Glucose Glucometer (BldC) [M ass/Vol]on 02-26-2025 Glucose [Mass/Vol] 326 mg/dL High 65-99 [facility] Glucose [Mass/Vol] 199 mg/dL High 65-99 [facility] Glucose [Mass/Vol] 204 mg/dL High 65-99 [facility] Glucose [Mass/Vol] 176 mg/dL High 65-99 [facility] HEMOGLOBINon 02-26-2025 Hemoglobin (Bld) [Mass/Vol] 11.3 g/dL Low 13.0-17.0 [facility] Comment on above: Performed By: #### 8 2477-1, 1988-03, 26545-9 #### [facility] ([id number]) [address], [address] [place] [address] LIVER PANELon 02-26-2025 Albumin [Mass/Vol] 3.4 g/dL Normal 3.2-5.3 [facility] Comment on above: Performed By: #### 8 2477-1, 1988-03, 08021-7 #### [facility] ([id number]) [address], [address] [place] [address] ALP [Catalytic activity/Vol] 56 U/L Normal 39-130 [facility] Comment on above: Performed By: #### 8 2477-, 1988-03, 75218-0 #### [facility] ([id number]) [address], [address] [place] [address] ALT [Catalytic activity/Vol] 22 U/L Normal 0-40 [facility] Comment on above: Performed By: #### 8 2477-, 1988-03, 90434-6 #### [facility] ([id number]) [address], [address] [place] [address] AST [Catalytic activity/Vol] 23 U/L Normal 0-41 [facility] Comment on above: Performed By: #### 8 24705-15, 1988-03, #### [facility] ([id number]) [address], [address] [place] [address] Bilirubin [Mass/Vol] 0.5 mg/dL Normal 0.3-1.2 [facility] Comment on above: Performed By: #### 8 24705-15, 1988-03, #### [facility] ([id number]) [address], [address] [place] [address] Bilirubin.direct [Mass/Vol] 0.2 mg/dL Normal 0.0-0.4 [facility] Comment on above: Performed By: #### 8 24705-15, 1988-03, #### [facility] ([id number]) [address], [address] [place] [address] Protein [Mass/Vol] 6.4 g/dL Normal 6.0-8.0 [facility] Comment on above: Performed By: #### 8 24705-15, 1988-03, #### [facility] ([id number]) [address], [address] [place] [address] PLATELET COUNT AND MPVon Platelet mean volume (Bld) [Entitic vol] 8.0 fL Normal 7-12 [facility] Comment on above: Performed By: #### 8 24705-15, 1988-03, #### [facility] ([id number]) [address], [address] [place] [address] Platelets (Bld) [#/Vol] 205 10*3/uL Normal 150-450 [facility] Comment on above: Performed By: #### 8 24705-15, 1988-03, #### [facility] ([id number]) [address], [address] [place] [address] BASIC METABOLIC PANLon 02-25 Anion gap [Moles/Vol] 11 mmol/L Normal 5-15 [facility] Comment on above: Performed By: #### 8 2477-, 1988-03, 60350-9 #### [facility] ([id number]) [address], [address] [place] [address] Calcium [Mass/Vol] 8.7 mg/dL Normal 8.5-10.5 [facility] Comment on above: Performed By: #### 8 2477-, 1988-03, 71761-3 #### [facility] ([id number]) [address], [address] [place] [address] Chloride [Moles/Vol] 100 mmol/L Normal 98-109 [facility] Comment on above: Performed By: #### 8 2477, 1988-03, 91381-5 #### [facility] ([id number]) [address], [address] [place] [address] CO2 [Moles/Vol] 25 mmol/L Normal 22-32 [facility] Comment on above: Performed By: #### 8 2477, 1988-03, 46919-4 #### [facility] ([id number]) [address], [address] [place] [address] Creatinine [Mass/Vol] 0.72 mg/dL Normal 0.60-1.30 [facility] Comment on above: Result Comment: METH OD TRACEABLE TO IDMS STANDARD Performed By: #### 8 2477-, 1988-03, 18411-4 #### [facility] ([id number]) [address], [address] [place] [address] eGFR (CKD-EPI) NON-RACE DEPENDENT >90 Normal >59 [facility] Comment on above: Result Comment: Reported eGFR is based on the CKD-EPI 2020 equation that does not use a race coefficient. Performed By: #### 8 2477-, 1988-03, 03003-2 #### [facility] ([id number]) [address], [address] [place] [address] Glucose [Mass/Vol] 236 mg/dL High 65-99 [facility] Comment on above: Performed By: #### 8 2477, 1988-03, #### [facility] ([id number]) [address], [facility] [address] [place] [address] Potassium [Moles/Vol] 4.2 mmol/L Normal 3.5-5.0 [facility] Comment on above: Performed By: #### 8 2477-, 1988-03, #### [facility] ([id number]) [address], [facility] [address] [place] [address] Sodium [Moles/Vol] 136 mmol/L Normal 134-146 [facility] Comment on above: Performed By: #### 8 2477, 1988-03, 94809-1 #### [facility] ([id number]) [address], [facility] [address] [place] [address] Urea nitrogen [Mass/Vol] 19 mg/dL Normal 5-23 [facility] Comment on above: Performed By: #### 8 2477-, 1988-03, 09506-0 #### [facility] ([id number]) [address], [address] [place] [address] FL FLUORO GUIDANCE SPINAL PU NCTURE OPERATIVEon 02-25-2025 FL FLUORO GUIDANCE SPINAL PUNCTURE OPERATIVE FL FLUORO GUIDANCE SPINAL PUNCTURE OPERATIVE FL FLUORO GUIDANCE SPINAL PUNCTURE OPERATIVE CLINICAL HISTORY: Intraoperative localization for multilevel thoracic laminectomies. COMPARISON: Thoracic spine MRI from earlier on the same day FINDINGS: 6 fluoroscopic images are saved/ obtained. Soft tissues: Visualized part of the lungs appear unremarkable Osseous structures: Markers are seen localizing the thoracic spine. ETT is seen in place. Fluoroscopic time is 13.3 seconds. Reference air kerma is 5.26 mGy IMPRESSION: * Postoperative guidance intraoperatively prior to thoracic spine laminectomies. Finalized by Carine Ortiz MD on 02/25/2025 4:40 AM Normal [facility] Glucose Glucometer (BldC) [M ass/Vol]on 02-25-2025 Glucose [Mass/Vol] 253 mg/dL High 65-99 [facility] Glucose [Mass/Vol] 187 mg/dL High 65-99 [facility] Glucose [Mass/Vol] 202 mg/dL High 65-99 [facility] Glucose [Mass/Vol] 256 mg/dL High 65-99 [facility] HEMOGLOBINon 02-25-2025 Hemoglobin (Bld) [Mass/Vol] 11.0 g/dL Low 13.0-17.0 [facility] Comment on above: Performed By: #### 8 2477-, 1988-03, 06899-2 #### [facility] ([id number]) [address] [place] [address] MAGNESIUMon 02-25-2025 Magnesium [Mass/Vol] 2.4 mg/dL Normal 1.8-2.6 [facility] Comment on above: Performed By: #### 8 2477-, 1988-03, 26854-5 #### [facility] ([id number]) [address], [address] [place] [address] PLATELET COUNT AND MPVon Platelet mean volume (Bld) [Entitic vol] 8.0 fL Normal 7-12 [facility] Comment on above: Performed By: #### 8 2477-, 1988-03, 66528-5 #### [facility] ([id number]) [address], [address] [place] [address] Platelets (Bld) [#/Vol] 170 10*3/uL Normal 150-450 [facility] Comment on above: Performed By: #### 8 2477-, 1988-03, 43126-5 #### [facility] ([id number]) [address] [place] [address] aPTT Coag (PPP) [Time]on aPTT Coag (Bld) [Time] 23 s Low 26-37 [facility] Comment on above: Performed By: #### 8 2477-, 1988-03, 31673-4 #### [facility] ([id number]) [address], [address] [place] [address] ANAEROBE CULTUREon 5 Bacteria identified Anaer cx Nom (Unsp spec) CULTURE RESULTS NO ANAEROBIC ORGANISMS ISOLATED Normal [facility] Comment on above: Performed By: #### 8 2477, 1988-03, 96880-8 #### [facility] ([id number]) [address], [address] [place] [address] Bacteria identified Anaer cx Nom (Unsp spec) CULTURE RESULTS NO ANAEROBIC ORGANISMS ISOLATED Normal [facility] Comment on above: Performed By: #### 8 2477, 1988-03, 90764-0 #### [facility] ([id number]) [address], [address] [place] [address] ASPIRATE CULTUREon 5 Bacteria identified Aer cx Nom (Asp) GRAM STAIN >25 WHITE BLOOD CELLS/LPF 0 SQUAMOUS EPITHELIAL CELLS/LPF MODERATE GRAM POSITIVE COCCI IN CHAINS CULTURE RESULTS MANY STREPTOCOCCUS AGALACTIAE (GROUP B) Abnormal [facility] Comment on above: Performed By: #### 8 2477, 1988-03, 01761-6 #### [facility] ([id number]) [address], [address] [place] [address] BLOOD CULTUREon 02-24-2025 Bacteria identified Aer cx Nom (Bld) SPECIMEN NOTES SUBOPTIMAL VOLUME OF BLOOD COLLECTED, RESULTS MAY BE AFFECTED. CULTURE RESULTS NO GROWTH 5 DAYS Normal [facility] Comment on above: Performed By: #### 8 2477-, 1988-03, 56501-9 #### [facility] ([id number]) [address], [address] [place] [address] CRP [Mass/Vol]on 02-24-2025 C REACTIVE PROTEIN 24.7 mg/dL High 0.000-0.744 [facility] Comment on above: Performed By: #### 8 2477-1, 1987-, 12830-5 #### [facility] ([id number]) [address], [address] [place] [address] CT CTA ABD AND PELVISon 02-13 CT CTA ABD AND PELVIS CT CTA ABD AND PELVIS STUDY: CT angiography of the abdomen and pelvis with contrast CLINICAL HISTORY: Back pain, atraumatic. Clinical concern for aortic dissection. COMPARISON: None. TECHNIQUE: CT angiography of the abdomen and pelvis was performed utilizing thin section axial images with coronal and sagittal reformatted images generated. 3-D maximum intensity projection coronal and sagittal reformatted images generated and reviewed. Images acquired following the uneventful administration of 100 cc Omnipaque 350 nonionic intravenous contrast. Automated exposure control was utilized. FINDINGS: Vascular: Excellent arterial opacification. Patent celiac axis, SMA, single left renal artery, multiple right renal arteries, BELINDA, common, internal, external iliac arteries. Additional: Hepatic steatosis. Unremarkable gallbladder, adrenal glands, pancreas. Splenomegaly, 17 cm. Substantial urinary bladder distention, mild hydroureter. No dilatation or wall thickening of the bowel. No aggressive osseous lesions. Significant degenerative changes lower lumbar spine. IMPRESSION: 1. No convincing acute aortic pathology. 2. Substantial urinary bladder distention, correlate for clinical signs of urinary retention. Mild bilateral hydroureter, presumably related to bladder distention. 3. Consider spine MR, as deemed clinically appropriate. All CT scans at this facility use dose modulation, iterative reconstruction, and/or weight based dosing when appropriate to reduce radiation dose to as low as reasonably achievable. Finalized by Clinton Wade MD on 02/24/2025 12:20 AM Normal [facility] CT CTA CHESTon 02-24-[address] CTA CHEST STUDY: CT angiography of the chest with contrast CLINICAL HISTORY: Back pain, trauma. COMPARISON: None. TECHNIQUE: CT angiography of the chest was performed utilizing thin section axial images with coronal and sagittal reformatted images generated. 3-D maximum intensity projection coronal and sagittal reformatted images generated and reviewed. Images acquired following the uneventful administration of 100 cc Omnipaque 350 nonionic intravenous contrast. Automated exposure control was utilized. FINDINGS: Preserved thoracic vertebral body heights. No substantial listhesis. Well aligned posterior facets. No aggressive osseous lesions. Trace gas within the spinal canal at the T9-T10 level [series 602 image #81]. Thoracic epidural lipomatosis. Nonenlarged heart, no acute aortic pathology. Suboptimal pulmonary arterial opacification, no central pulmonary was seen. No pneumothorax or pleural effusion. Dependent atelectasis. Hepatic steatosis. IMPRESSION: 1. No acute aortic pathology. 2. Trace gas within the spinal canal at the T9-T10 level is nonspecific, possibly related to vacuum phenomenon from adjacent posterior facet arthropathy, iatrogenic, etc. All CT scans at this facility use dose modulation, iterative reconstruction, and/or weight based dosing when appropriate to reduce radiation dose to as low as reasonably achievable. Finalized by Clinton Wade MD on 02/24/2025 12:16 AM Normal [facility] ESR Photometric method (Bld) [Velocity]on 02-24-2025 ESR, ERYTHROCYTE SEDIMENTATION RATE 78 mm/h High 0-15 [facility] Comment on above: Performed By: #### 8 2477-1, 65138-8 #### [facility] ([id number]) [address], [address] [place] [address] FUNGAL CULTUREon 02-24-2025 Fungus identified Cx Nom (Unsp spec) FUNGAL SMEAR NO FUNGUS ISOLATED ON DIRECT SMEAR CULTURE RESULTS NO FUNGUS ISOLATED AFTER 4 WEEKS [facility] Comment on above: Performed By: #### 8 2477-1, 10889-6 #### [facility] ([id number]) [address], [address] [place] [address] Fungus identified Cx Nom (Unsp spec) FUNGAL SMEAR NO FUNGUS ISOLATED ON DIRECT SMEAR CULTURE RESULTS NO FUNGUS ISOLATED AFTER 4 WEEKS [facility] Comment on above: Performed By: #### 8 2477-1, 1987-5, 09754-8 #### [facility] ([id number]) [address] [place] [address], [address] [address] Glucose Glucometer (BldC) [M ass/Vol]on 02-24-2025 Glucose [Mass/Vol] 227 mg/dL High 65-99 [facility] Glucose [Mass/Vol] 202 mg/dL High 65-99 [facility] Glucose [Mass/Vol] 237 mg/dL High 65-99 [facility] HGB A1C (GLYCO-HGB)on 2024 Glucose [Mass/Vol] 160 mg/dL Normal [facility] Comment on above: Performed By: #### H A1C #### [facility] ([id number]) [address] [place] [address], [address] [address] HbA1c (Bld) [Mass fraction] 7.2 % High 4.4-5.6 [facility] Comment on above: Result Comment: NOTE ADA Guidelines Result HgbA1c Normal : less than 5.7 % Prediabetes : 5.7 % to 6.4 % Diabetes : > 6.4 % Use with caution in patients with abnormal hemoglobin variants as the half-life of red blood cells and in vivo glycation rates are affected. Performed By: #### H A1C #### [facility] ([id number]) [address] [place] [address], [address] [address] HIV 1+2 Ab+HIV1 p24 Ag IA Ql on 02-24-2025 HIV 1 and 2 Ab/Ag Screen Non-Reactive Normal NRCT [facility] Comment on above: Result Comment: NEW TEST METHOD NOTE This information has been disclosed to you from confidential records protected from disclosure by state law. You shall make no further disclosure of this information without the specific, written and informed release of the individual to whom it pertains, or as otherwise permitted by state law. A general authorization for the release of medical or other information is not sufficient for the purpose of the release of HIV test results or diagnoses. Performed By: #### 8 2477-1, 1987-, 21560-5 #### [facility] ([id number]) [address], [address] [place] [address] HbA1c (Bld) [Mass fraction]o n 02-24-2025 Average glucose Estimated from glycated hemoglobin (Bld) [Mass/Vol] 160 mg/dL [facility] Comment on above: PERFORMED AT [facility] [address],[place] [address] The copy-to physician of this order is SRINIVASAN Min ; , ; The ordering physician of this order is LATONYA Eagle Interpretation and review of laboratory results Abnormal [facility] Hemoglobin A1con 02-24-2025 HbA1c (Bld) [Mass fraction] 7.2 % High 4.4 - 5.6 % [facility] Comment on above: NOTE ADA Guidelines Result HgbA1c Normal : less than 5.7 % Prediabetes : 5.7 % to 6.4 % Diabetes : > 6.4 % Use with caution in patients with abnormal hemoglobin variants as the half-life of red blood cells and in vivo glycation rates are affected. MR CERVICAL SPINE W WO CONTo n 02-24-2025 MR CERVICAL SPINE W WO CONT MR CERVICAL SPINE W WO CONT MR CERVICAL SPINE W WO CONT: 02/24/2025 10:18 AM Clinical: Bilateral lower extremity weakness and urinary retention. EXAM: MRI CERVICAL SPINE without and with contrast. Procedure: Multiplanar spin echo MRI cervical spine performed without and with Prohance IV. Comparison: none Findings: Cervical vertebral body heights and alignment and signal are normal. Craniocervical junction is normal. Signal in the cervical spinal cord is normal. No disc herniation or spinal stenosis seen. No abnormal enhancement seen Impression: * No acute abnormality or abnormal enhancement. Finalized by Alessandro Matute MD on 02/24/2025 11:21 AM Normal [facility] MR LUMBAR SPINE WO CONTon MR LUMBAR SPINE WO CONT MR LUMBAR SPINE WO CONT MR LUMBAR SPINE WO CONT HISTORY: concern for cauda equina COMPARISON: CT chest and CT abdomen pelvis 02/23/2025 TECHNIQUE: Multiplanar, multisequence MR imaging is obtained of the lumbar spine without intravenous contrast. FINDINGS: Significant effacement of the subarachnoid space within the visualized thoracic spine suboptimally evaluated on this MRI of the lumbar spine. No acute vertebral body height loss. No focal suspicious marrow replacing process. Epidural lipomatosis. Multilevel degenerative changes of the lumbar spine most significant at L4-L5 and L5-S1 with disc space narrowing, disc desiccation, marginal spurring and facet arthrosis. Mild loss and fatty infiltration of the lower paraspinous musculature. Duplicated IVC. The conus medullaris is unremarkable and terminates at L1. Cauda equina demonstrates no evidence of clumping. Evaluation of the individual intervertebral disc levels are as follows: L1-L2: No significant spinal canal or neural foraminal stenosis. L2-L3: Disc bulge, facet arthrosis and ligamentum flavum thickening contribute to mild spinal canal stenosis. No significant neural foraminal stenosis. Right facet effusion. L3-L4: Disc bulge, facet arthrosis, ligamentum flavum thickening contribute to mild spinal canal stenosis. No significant neural foraminal stenosis. Bilateral facet effusions. L4-L5: Disc bulge with superimposed central disc protrusion, facet arthrosis and ligamentum flavum thickening resulting in narrowing of the subarticular recesses bilaterally, potential contact with the descending L5 nerve roots, overall mild to moderate spinal canal stenosis and mild left greater than right neural foraminal stenosis. Bilateral facet effusions. L5-S1: Disc bulge with focal central disc extrusion, bilateral facet arthrosis results in mild to moderate spinal canal stenosis, contact of the descending S1 nerve roots in the lateral recess/subarticular recess. Moderate right and moderate to severe left neuroforaminal stenosis. Bilateral facet effusions. IMPRESSION: Significant effacement of the subarachnoid space within the visualized thoracic spine with morphologic distortion of the cord suboptimally evaluated on this MRI of the lumbar spine. Findings are indeterminate. Recommend urgent MRI of the thoracic spine. Multilevel discogenic degenerative changes of the lumbar spine most significant at L4-L5 and L5-S1 with up to mild to moderate spinal canal stenosis. Disc material likely contacting the bilateral descending L5 and and S1 nerve roots. Moderate to severe left and moderate right neuroforaminal stenosis at L5-S1. Correlate clinically with symptoms. Above findings were discussed Secure Epic chat with Yang May DO at the time of interpretation (02/24/2025 8:52 AM) by Manny Mendoza M.D. THIS REPORT CONTAINS A SIGNIFICANT RESULT AND/OR RECOMMENDATION, WHICH REQUIRES THE ATTENTION OF THE LICENSED CAREGIVER RESPONSIBLE FOR THIS PATIENT. THEREFORE, I SPECIFICALLY DESIGNATED THIS REPORT TO BE TELEPHONED BY THE RADIOLOGY DEPARTMENT. Finalized by Manny Mendoza MD on 02/24/2025 9:07 AM Normal [facility] MR THORACIC SPINE W WO CONTo n 02-24-2025 MR THORACIC SPINE W WO CONT MR THORACIC SPINE W WO CONT MR THORACIC SPINE W WO CONT HISTORY: BLE weakness and urinary retention PROTOCOL: Routine multiplanar multisequence MR imaging of the thoracic spine was performed with and without contrast. COMPARISON: None. FINDINGS: No acute vertebral body height loss. No significant malalignment of the thoracic spine. Ill-defined heterogeneous signal and enhancement within the epidural space visualized thoracic spine most significant from T5 to T11. This results in significant mass effect and morphologic distortion of the thoracic cord most significant from T7-T11 level. Abnormal signal and enhancement extends into the neural foramina and right paravertebral space most apparent at T8-T9. Abnormal signal and enhancement within the facets T8-T9 with facet effusions. Trace right pleural effusion. No apparent cord signal alteration though limited due to motion degradation. Unremarkable paraspinous soft tissues. IMPRESSION: Ill-defined abnormal signal and enhancement spanning the visualized thoracic spine most significant from T7 to T11 which results in severe spinal canal stenosis and compression of the thoracic cord. No overt abnormal cord signal alteration though limited by motion degradation. Findings may represent phlegmonous/abscess or hematoma. Underlying mass not excluded. THIS REPORT CONTAINS A SIGNIFICANT RESULT AND/OR RECOMMENDATION, WHICH REQUIRES THE ATTENTION OF THE LICENSED CAREGIVER RESPONSIBLE FOR THIS PATIENT. THEREFORE, I SPECIFICALLY DESIGNATED THIS REPORT TO BE TELEPHONED BY THE RADIOLOGY DEPARTMENT (02/24/2025 12:00 PM). Finalized by Manny Mendoza MD on 02/24/2025 12:09 PM Normal [facility] PLATELET COUNT AND MPVon Platelet mean volume (Bld) [Entitic vol] 8.1 fL Normal 7-12 [facility] Comment on above: Performed By: #### 8 2477-1, 1988-03, 43521-2 #### [facility] ([id number]) [address] [place] [address] Platelets (Bld) [#/Vol] 179 10*3/uL Normal 150-450 [facility] Comment on above: Performed By: #### 8 2477-1, 1988-03, 31941-1 #### [facility] ([id number]) [address], [address] [place] [address] RAPID CARDIAC W/ NAon 2024 HUBERT'S TEST Normal [facility] Comment on above: Performed By: #### A KYAW #### [facility] ([id number]) [address] [place] [address] Base excess Calc (Bld) [Moles/Vol] 1.8 mmol/L Normal 0.0-2.0 [facility] Comment on above: Performed By: #### A KYAW #### [facility] ([id number]) [address] [place] [address] Body temperature 98.6 [degF] Normal 37.0 [facility] Comment on above: Performed By: #### A KYAW #### [facility] ([id number]) [address] [place] [address] Glucose [Mass/Vol] 226 mg/dL High 65-99 [facility] Comment on above: Performed By: #### A KYAW #### [facility] ([id number]) [address] [place] [address] HCO3 (Bld) [Moles/Vol] 26.4 mmol/L High 22-26 [facility] Comment on above: Performed By: #### A KYAW #### [facility] ([id number]) [address] [place] [address] Hematocrit (Bld) [Volume fraction] 36 % Low 39-49 [facility] Comment on above: Performed By: #### A KYAW #### [facility] ([id number]) [address] [facility] [place] [address] Hemoglobin (Bld) [Mass/Vol] 11.6 g/dL Low 13.0-17.0 [facility] Comment on above: Performed By: #### A KYAW #### [facility] ([id number]) [address] [place] [address] INSP. O2 CONC. 50 % Normal [facility] Comment on above: Performed By: #### A KYAW #### [facility] ([id number]) [address] [place] [address] IONIZED CALCIUM 4.8 mg/dL Normal 4.5-5.3 [facility] Comment on above: Performed By: #### A KYAW #### [facility] ([id number]) [address] [place] [address] Oxygen (Bld) [Partial pressure] 180 mm[Hg] High 80-100 [facility] Comment on above: Performed By: #### A KYAW #### [facility] ([id number]) [address] [place] [address] Oxygen saturation in Blood 99.9 % Normal >90 [facility] Comment on above: Performed By: #### A KYAW #### [facility] ([id number]) [address] [facility] [place] [address] PCO2 41.3 MMHG Normal 35-45 [facility] Comment on above: Performed By: #### A KYAW #### [facility] ([id number]) [address] [place] [address] pH (Bld) 7.414 [pH] Normal 7.350-7.450 [facility] Comment on above: Performed By: #### A KYAW #### [facility] ([id number]) [address] [place] [address] Potassium [Moles/Vol] 4.1 mmol/L Normal 3.5-5.0 [facility] Comment on above: Performed By: #### A KYAW #### [facility] ([id number]) [address] [place] [address] SAMPLE SITE SNEHA Normal [facility] Comment on above: Performed By: #### A KYAW #### [facility] ([id number]) [address] [place] [address] SAMPLE TYPE Arterial Normal [facility] Comment on above: Performed By: #### A KYAW #### [facility] ([id number]) [address] [place] [address] Sodium [Moles/Vol] 138 mmol/L Normal 134-146 [facility] Comment on above: Performed By: #### A KYAW #### [facility] ([id number]) [address] [place] [address] TISSUE CULTUREon 02-24-2025 Bacteria identified Aer cx Nom (Tiss) GRAM STAIN 0 to 1 WHITE BLOOD CELLS/LPF 0 SQUAMOUS EPITHELIAL CELLS/LPF NO ORGANISMS SEEN CULTURE RESULTS RARE STREPTOCOCCUS AGALACTIAE (GROUP B) Abnormal [facility] Comment on above: Performed By: #### 8 2477-1, 1987-, 05913-6 #### [facility] ([id number]) [address] [facility], [address] [place] [address] URN MACROSCOPIC NURon 2024 BILIRUBIN ELIZ Negative Normal NEG [facility] Comment on above: Performed By: #### N UM #### [facility] ([id number]) [address] [facility] [place] [address] BLOOD/HGB ELIZ Trace Abnormal NEG [facility] Comment on above: Performed By: #### N UM #### [facility] ([id number]) [address] [place] [address] GLUCOSE ELIZ 500 mg/dL Abnormal NEG [facility] Comment on above: Performed By: #### N UM #### [facility] ([id number]) [address] [place] [address] KETONES ELIZ 15 mg/dL Abnormal NEG [facility] Comment on above: Performed By: #### N UM #### [facility] ([id number]) [address] [place] [address] LEUKOCYTE ESTERASE ELIZ Negative Normal NEG [facility] Comment on above: Performed By: #### N UM #### [facility] ([id number]) [address] [place] [address] NITRITE ELIZ Negative Normal NEG [facility] Comment on above: Performed By: #### N UM #### [facility] ([id number]) [address] [place] [address] PH ELIZ 6.0 Normal 5.0-8.5 [facility] Comment on above: Performed By: #### N UM #### [facility] ([id number]) [address] [place] [address] PROTEIN ELIZ 30 mg/dL Abnormal NEG [facility] Comment on above: Performed By: #### N UM #### [facility] ([id number]) [address] [place] [address] [place] [address] SPECIFIC GRAVITY ELIZ 1.015 Normal 1.003-1.035 [facility] Comment on above: Performed By: #### N UM #### [facility] ([id number]) [address] [place] [address] [place] [address] UROBILINOGEN ELIZ 2.0 eu/dL High <1.1 [facility] Comment on above: Performed By: #### N UM #### [facility] ([id number]) [address] [place] [address] XR HAND RT MIN 3 VWSon 02-24 XR HAND RT MIN 3 VWS XR HAND RT MIN 3 VW S XR HAND RT MIN 3 VWS CLINICAL HISTORY: Pain and swelling over the third and fourth fingers COMPARISON: None. FINDINGS: 4 views are obtained. Soft tissues: Unremarkable. Osseous structures: No acute fracture. No destructive osseous lesion. Joints: No dislocation or malalignment. IMPRESSION: * No acute fracture or malalignment. Finalized by Carine Ortiz MD on 02/24/2025 5:34 AM Normal [facility] BASIC METABOLIC PANLon 02-23 Anion gap [Moles/Vol] 12 mmol/L Normal 5-15 [facility] Comment on above: Performed By: #### P INR, LIVR, 3040-3, BMP, CBCA, 08735-0 #### [facility] ([id number]) [address] [place] [address] Calcium [Mass/Vol] 9.0 mg/dL Normal 8.5-10.5 [facility] Comment on above: Performed By: #### P INR, LIVR, 3040-3, BMP, CBCA, 44506-9 #### [facility] ([id number]) [address] [place] [address] Chloride [Moles/Vol] 94 mmol/L Low 98-109 [facility] Comment on above: Performed By: #### P INR, LIVR, 3040-3, BMP, CBCA, 50202-9 #### [facility] ([id number]) [address] [place] [address] CO2 [Moles/Vol] 24 mmol/L Normal 22-32 [facility] Comment on above: Performed By: #### P INR, LIVR, 3040-3, BMP, CBCA, 30186-9 #### [facility] ([id number]) [address] [place] [address] Creatinine [Mass/Vol] 0.90 mg/dL Normal 0.70-1.20 [facility] Comment on above: Result Comment: METH OD TRACEABLE TO IDMS STANDARD Performed By: #### P INR, LIVR, 3040-3, BMP, CBCA, 52774-7 #### [facility] ([id number]) [address] [place] [address] eGFR (CKD-EPI) NON-RACE DEPENDENT >90 Normal >59 [facility] Comment on above: Result Comment: Reported eGFR is based on the CKD-EPI 2020 equation that does not use a race coefficient. Performed By: #### P INR, LIVR, 3040-3, BMP, CBCA, 45943-4 #### [facility] ([id number]) [address] [place] [address] Glucose [Mass/Vol] 245 mg/dL High 65-99 [facility] Comment on above: Performed By: #### P INR, LIVR, 3040-3, BMP, CBCA, 52167-7 #### [facility] ([id number]) [address] [place] [address] Potassium [Moles/Vol] 3.6 mmol/L Normal 3.5-5.0 [facility] Comment on above: Performed By: #### P INR, LIVR, 3040-3, BMP, CBCA, 06653-2 #### [facility] ([id number]) [address] [place] [address] Sodium [Moles/Vol] 130 mmol/L Low 134-146 [facility] Comment on above: Performed By: #### P INR, LIVR, 3040-3, BMP, CBCA, 77332-9 #### [facility] ([id number]) [address] [place] [address] Urea nitrogen [Mass/Vol] 25 mg/dL High 5-23 [facility] Comment on above: Performed By: #### P INR, LIVR, 3040-3, BMP, CBCA, 97206-2 #### [facility] ([id number]) [address] [place] [address] CBC AND AUTO DIFFon 02-24-20 25 ABSOLUTE BASOPHIL 0.0 X10E9/L Normal 0.0-0.2 [facility] Comment on above: Performed By: #### P INR, LIVR, 3040-3, BMP, CBCA, 84289-3 #### [facility] ([id number]) [address] [place] [address] ABSOLUTE NEUTROPHIL 6.4 X10E9/L Normal 1.5-6.6 [facility] Comment on above: Performed By: #### P INR, LIVR, 3040-3, BMP, CBCA, 56879-0 #### [facility] ([id number]) [address] [place] [address] Basophils/100 WBC (Bld) 0.2 % Normal [facility] Comment on above: Performed By: #### P INR, LIVR, 3040-3, BMP, CBCA, 21866-9 #### [facility] ([id number]) [address] [place] [address] Eosinophils (Bld) [#/Vol] 0.0 10*3/uL Normal 0.0-0.4 [facility] Comment on above: Performed By: #### P INR, LIVR, 3040-3, BMP, CBCA, 50210-6 #### [facility] ([id number]) [address] [place] [address] Eosinophils/100 WBC (Bld) 0.1 % Normal [facility] Comment on above: Performed By: #### P INR, LIVR, 3040-3, BMP, CBCA, 47666-2 #### [facility] ([id number]) [address] [place] [address] Erythrocyte distribution width (RBC) [Ratio] 13.1 % Normal 11.5-15.0 [facility] Comment on above: Performed By: #### P INR, LIVR, 3040-3, BMP, CBCA, 20722-8 #### [facility] ([id number]) [address] [place] [address] Hematocrit (Bld) [Volume fraction] 31.4 % Low 39-49 [facility] Comment on above: Performed By: #### P INR, LIVR, 3040-3, BMP, CBCA, 15637-6 #### [facility] ([id number]) [address] [place] [address] Hemoglobin (Bld) [Mass/Vol] 11.4 g/dL Low 13.0-17.0 [facility] Comment on above: Performed By: #### P INR, LIVR, 3040-3, BMP, CBCA, 71415-1 #### [facility] ([id number]) [address] [place] [address] Lymphocytes (Bld) [#/Vol] 0.6 10*3/uL Low 1.0-3.5 [facility] Comment on above: Performed By: #### P INR, LIVR, 3040-3, BMP, CBCA, 34751-5 #### [facility] ([id number]) [address] [place] [address] Lymphocytes/100 WBC (Bld) 8.3 % Normal [facility] Comment on above: Performed By: #### P INR, LIVR, 3040-3, BMP, CBCA, 76516-5 #### [facility] ([id number]) [address] [place] [address] MCH (RBC) [Entitic mass] 31.9 pg Normal 27-34 [facility] Comment on above: Performed By: #### P INR, LIVR, 3040-3, BMP, CBCA, 28003-6 #### [facility] ([id number]) [address] [place] [address] MCHC (RBC) [Mass/Vol] 36.4 g/dL High 32-36 [facility] Comment on above: Performed By: #### P INR, LIVR, 3040-3, BMP, CBCA, 42416-5 #### [facility] ([id number]) [address] [place] [address] 39949 MCV (RBC) [Entitic vol] 88 fL Normal 80-100 [facility] Comment on above: Performed By: #### P INR, LIVR, 3040-3, BMP, CBCA, 42560-6 #### [facility] ([id number]) [address] [place] [address] 77552 Monocytes (Bld) [#/Vol] 0.7 10*3/uL Normal 0-0.9 [facility] Comment on above: Performed By: #### P INR, LIVR, 3040-3, BMP, CBCA, 09298-6 #### [facility] ([id number]) [address] [place] [address] 99968 Monocytes/100 WBC (Bld) 9.3 % Normal [facility] Comment on above: Performed By: #### P INR, LIVR, 3040-3, BMP, CBCA, 98639-0 #### [facility] ([id number]) [address] [place] [address] 29580 Neutrophils/100 WBC (Bld) 82.1 % Normal [facility] Comment on above: Performed By: #### P INR, LIVR, 3040-3, BMP, CBCA, 15168-9 #### [facility] ([id number]) [address] [place] [address] 72174 Platelet mean volume (Bld) [Entitic vol] 8.3 fL Normal 7-12 [facility] Comment on above: Performed By: #### P INR, LIVR, 3040-3, BMP, CBCA, 04090-3 #### [facility] ([id number]) [address] [place] [address] 06591 Platelets (Bld) [#/Vol] 147 10*3/uL Low 150-450 [facility] Comment on above: Performed By: #### P INR, LIVR, 3040-3, BMP, CBCA, 21080-2 #### [facility] ([id number]) [address] [place] [address] 90466 RBC COUNT 3.58 X10E12/L Low 4.10-5.70 [facility] Comment on above: Performed By: #### P INR, LIVR, 3040-3, BMP, CBCA, 02762-5 #### [facility] ([id number]) [address] [place] [address] 09211 WBC (Bld) [#/Vol] 7.8 10*3/uL Normal 4.0-11.0 [facility] Comment on above: Performed By: #### P INR, LIVR, 3040-3, BMP, CBCA, 96931-4 #### [facility] ([id number]) [address] [place] [address] 09012 DRUG SCREEN, URINEon 025 AMPHETAMINE/METHAMP Negative Normal NEG [facility] Comment on above: Result Comment: AMPH /METH screening cut off = 1000 ng/mL Performed By: #### P INR, LIVR, 3040-3, BMP, CBCA, 45008-5 #### [facility] ([id number]) [address] [place] [address] 08843 BARBITURATES Negative Normal NEG [facility] Comment on above: Result Comment: Brigette iturates screening cut off value = 200 ng/mL Performed By: #### P INR, LIVR, 3040-3, BMP, CBCA, 96085-3 #### [facility] ([id number]) [address] [place] [address] 62280 BENZODIAZEPINES Negative Normal NEG [facility] Comment on above: Result Comment: Chris odiazepines screening cut off value = 200 ng/mL Performed By: #### P INR, LIVR, 3040-3, BMP, CBCA, 23323-8 #### [facility] ([id number]) [address] [place] [address] 71313 CANNABINOIDS Positive Abnormal NEG [facility] Comment on above: Result Comment: Conf irmation available upon request. Cannabinoids/THC screening cut off value = 50 ng/mL Performed By: #### P INR, LIVR, 3040-3, BMP, CBCA, 07190-5 #### [facility] ([id number]) [address] [place] [address] 27645 COCAINE METABOLITE Negative Normal NEG [facility] Comment on above: Result Comment: Coca ine screening cut off value = 300 ng/mL Performed By: #### P INR, LIVR, 3040-3, BMP, CBCA, 36128-9 #### [facility] ([id number]) [address] [place] [address] 70896 ECSTASY Negative Normal NEG [facility] Comment on above: Result Comment: Ecst asy screening cut off value = 500 ng/mL This report is intended for use in clinical monitoring or management of patients. Performed By: #### P INR, LIVR, 3040-3, BMP, CBCA, 95307-4 #### [facility] ([id number]) [address] [place] [address] 22408 METHADONE Negative Normal NEG [facility] Comment on above: Result Comment: Meth adone screening cut off value = 300 ng/mL. Performed By: #### P INR, LIVR, 3040-3, BMP, CBCA, 47569-7 #### [facility] ([id number]) [address] [place] [address] 12704 OPIATES Positive Abnormal NEG [facility] Comment on above: Result Comment: Conf irmation available upon request. Opiates screening cut off value = 300 ng/mL NOTE: This test is used for the detection of codeine, hydrocodone (>1000 ng/mL), morphine and hydromorphone (>900 ng/mL) in urine. Performed By: #### P INR, LIVR, 3040-3, BMP, CBCA, 12345-5 #### [facility] ([id number]) [address] [place] [address] 62172 OXYCODONE Positive Abnormal NEG [facility] Comment on above: Result Comment: Conf irmation available upon request. Oxycodone screening cut off value = 300 ng/mL NOTE: This test is used for the detection of oxycodone and oxymorphone in urine. Performed By: #### P INR, LIVR, 3040-3, BMP, CBCA, 70994-7 #### [facility] ([id number]) [address] [place] [address] 86067 PHENCYCLIDINE Negative Normal NEG [facility] Comment on above: Result Comment: Phen cyclidine screening cut off value = 25 ng/mL Performed By: #### P INR, LIVR, 3040-3, BMP, CBCA, 17955-6 #### [facility] ([id number]) [address] [place] [address] 27458 LIPASEon 02-23-2025 Lipase [Catalytic activity/Vol] 31 U/L Normal 17-40 [facility] Comment on above: Performed By: #### P INR, LIVR, 3040-3, BMP, CBCA, 78915-4 #### [facility] ([id number]) [address] [place] [address] 07545 LIVER PANELon 02-23-2025 Albumin [Mass/Vol] 3.5 g/dL Normal 3.2-5.3 [facility] Comment on above: Performed By: #### P INR, LIVR, 3040-3, BMP, CBCA, 64434-0 #### [facility] ([id number]) [address] [place] [address] 11273 ALP [Catalytic activity/Vol] 66 U/L Normal 39-130 [facility] Comment on above: Performed By: #### P INR, LIVR, 3040-3, BMP, CBCA, 22325-6 #### [facility] ([id number]) [address] [place] [address] 02742 ALT [Catalytic activity/Vol] 29 U/L Normal 0-40 [facility] Comment on above: Performed By: #### P INR, LIVR, 3040-3, BMP, CBCA, 94239-5 #### [facility] ([id number]) [address] [place] [address] 17362 AST [Catalytic activity/Vol] 21 U/L Normal 0-41 [facility] Comment on above: Performed By: #### P INR, LIVR, 3040-3, BMP, CBCA, 61309-1 #### [facility] ([id number]) [address] [place] [address] 18776 Bilirubin [Mass/Vol] 1.9 mg/dL High 0.3-1.2 [facility] Comment on above: Performed By: #### P INR, LIVR, 3040-3, BMP, CBCA, 48567-4 #### [facility] ([id number]) [address] [place] [address] 37474 Bilirubin.direct [Mass/Vol] 0.4 mg/dL Normal 0.0-0.4 [facility] Comment on above: Performed By: #### P INR, LIVR, 3040-3, BMP, CBCA, 65671-3 #### [facility] ([id number]) [address] [place] [address] 54668 Protein [Mass/Vol] 7.6 g/dL Normal 6.0-8.0 [facility] Comment on above: Performed By: #### P INR, LIVR, 3040-3, BMP, CBCA, 23882-0 #### [facility] ([id number]) [address] [place] [address] 54345 PROTIME AND INRon 02-23-2025 INR Coag (PPP) [Relative time] 1.3 {INR} High 0.9-1.2 [facility] Comment on above: Performed By: #### P INR, LIVR, 3040-3, BMP, CBCA, 25737-6 #### [facility] ([id number]) [address] [place] [address] 79125 PT Coag (PPP) [Time] 14.3 s High 9.8-13.2 [facility] Comment on above: Result Comment: NEW REFERENCE RANGE Performed By: #### P INR, LIVR, 3040-3, BMP, CBCA, 55517-3 #### [facility] ([id number]) [address] [place] [address] 08793 URINE CULTUREon 02-23-2025 Bacteria identified Cx Nom (U) CULTURE RESULTS NO GROWTH AT <1000 CFU/mL Normal [facility] Comment on above: Performed By: #### P INR, LIVR, 3040-3, BMP, CBCA, 70712-7 #### [facility] ([id number]) [address] [place] [address] 93989 aPTT Coag (PPP) [Time]on aPTT Coag (Bld) [Time] 27 s Normal 26-37 [facility] Comment on above: Result Comment: NEW REFERENCE RANGE Performed By: #### P INR, LIVR, 3040-3, BMP, CBCA, 83931-9 #### [facility] ([id number]) [address] [facility] [place] [address] ECG 3 LeadOrdered By: Carley Mims on 02-21-2025 [facility] Surgical Pathologyon 024 [facility] Pathology Normal [facility] Comment on above: Result Comment: [facility] [address] [place] [address] Surgical Pathology Consultation Patient Name:GEM MENENDEZ:1980 (Age: 44)Gender:MTaken:09/22/2024eported:09/27/2024hysician(s):Karel Michel MD ([phone])Copy To: Rec. #:[id number]: #[id number] Final Pathologic Diagnosis Rectal sigmoid polyp, polypectomy: Tubular adenoma. No high-grade dysplasia or invasive carcinoma identified. Report Electronically Signed Out ssi/09/27/2024Suhilary Casas M.D. [place] [address], License number: [id number]. Clinical History Screening. Gross Description Received in formalin labeled JAVIER, deanna rectal sigmoid is a 1.5 x 1.2 x 0.8 cm multinodular pedunculated polyp. The resection margin is inked black and the specimen is serially sectioned. Entirely submitted in 1 cassette. (1, ns, [id number], m1) MW mxw/09/25/2024NSK Specimen(s) Received Rectal sigmoid polyp Fee Codes(s): 1; 39708 ALL CBC WITH AUTO DIFFon BASOPHILS ABSOLUTE AUTO 0.1 [facility] Basophils/100 WBC (Bld) 1.0 % 0.2 - 2.0 % [facility] Eosinophils/100 WBC (Bld) 2.0 % 0.9 - 7.0 % [facility] Erythrocyte distribution width (RBC) [Ratio] 12.2 % 11.0 - 15.0 % [facility] Hematocrit (Bld) [Volume fraction] 37.3 % Low 42.0 - 54.0 % [facility] Hemoglobin (Bld) [Mass/Vol] 13.1 g/dL Low 14.0 - 18.0 g/dL [facility] IMMATURE GRANULOCYTES ABS AUTO 0.02 [facility] Immature granulocytes/100 WBC (Bld) 0.4 % 0.0 - 0.5 % [facility] Interpretation and review of laboratory results Abnormal [facility] LYMPHOCYTES ABSOLUTE AUTO 1.5 [facility] Lymphocytes/100 WBC (Bld) 29.7 % 20.5 - 60.0 % [facility] MCH (RBC) [Entitic mass] 31.0 pg 25.9 - 34.0 pg [facility] MCHC (RBC) [Mass/Vol] 35.1 g/dL 29.9 - 35.2 g/dL [facility] MCV (RBC) [Entitic vol] 88.2 fL 80.0 - 94.0 fL [facility] MONOCYTES ABSOLUTE AUTO 0.3 [facility] Monocytes/100 WBC (Bld) 6.3 % 1.7 - 12.0 % [facility] NEUTROPHILS ABSOLUTE AUTO 3.1 [facility] Neutrophils/100 WBC (Bld) 60.6 % 43.0 - 75.0 % [facility] Platelet mean volume (Bld) [Entitic vol] 10.3 fL 9.5 - 13.5 fL [facility] TB EO # 0.1 [facility] PLT 182 [facility] RBC 4.23 Low [facility] WBC 5.1 [facility] CBC AUTO DIFFon 07-02-2022 BASO # 0.1 103/ul Normal 0.0-0.1 [facility] Comment on above: Performed By: #### C BC #### [facility] [address] [place], [place] [address] Dr. Casey Siddiqui Basophils/100 WBC (Bld) 0.6 % Normal 0.2-2.0 [facility] Comment on above: Performed By: #### C BC #### [facility] [address] [place], [place] [address] Dr. Casey Siddiqui EO # 0.3 103/ul Normal 0.0-0.7 [facility] Comment on above: Performed By: #### C BC #### [facility] [address] [place] [address] Dr. Casey Siddiqui Eosinophils/100 WBC (Bld) 4.3 % Normal 0.9-7.0 [facility] Comment on above: Performed By: #### C BC #### [facility] [address] [place] [address] Dr. Casey Siddiqui Erythrocyte distribution width (RBC) [Ratio] 11.9 % Normal 11.0-15.0 [facility] Comment on above: Performed By: #### C BC #### [facility] [address] [place] [address] Dr. Casey Siddiqui Hematocrit (Bld) [Volume fraction] 40.8 % Critically low 42.0-54.0 [facility] Comment on above: Performed By: #### C BC #### [facility] [address] [place] [address] Dr. Casey Siddiqui Hemoglobin (Bld) [Mass/Vol] 14.5 g/dL Normal 14.0-18.0 [facility] Comment on above: Performed By: #### C BC #### [facility] [address] [place] [address] Dr. Casey Siddiqui IG # 0.03 10e3/ul Normal 0.00-0.03 [facility] Comment on above: Performed By: #### C BC #### [facility] [address] [place] [address] Dr. Casey Siddiqui IG % 0.4 % Normal 0.0-0.5 [facility] Comment on above: Performed By: #### C BC #### [facility] [address] [place] [address] Dr. Casey Siddiqui LYMPH # 1.9 103/ul Normal 1.2-3.8 [facility] Comment on above: Performed By: #### C BC #### [facility] [address] [place] [address] Dr. Casey Siddiqui Lymphocytes/100 WBC (Bld) 24.0 % Normal 20.5-60.0 [facility] Comment on above: Performed By: #### C BC #### [facility] [address] [place] [address] Dr. Casey Siddiqui MANUAL DIFF REQ NO Normal [facility] Comment on above: Performed By: #### C BC #### [facility] [address] [place] [address] Dr. Casey Siddiqui MCH (RBC) [Entitic mass] 31.6 pg Normal 25.9-34.0 [facility] Comment on above: Performed By: #### C BC #### [facility] [address] [place] [address] Dr. Casey Siddiqui MCHC (RBC) [Mass/Vol] 35.5 g/dL Critically high 29.9-35.2 [facility] Comment on above: Performed By: #### C BC #### [facility] [address] [place] [address] Dr. Casey Siddiqui MCV (RBC) [Entitic vol] 88.9 fL Normal 80.0-94.0 [facility] Comment on above: Performed By: #### C BC #### [facility] [address] [place] [address] Dr. Casey Siddiqui MONO # 0.5 103/ul Normal 0.3-0.8 [facility] Comment on above: Performed By: #### C BC #### [facility] [address] [place] [address] Dr. Casey Siddiqui Monocytes/100 WBC (Bld) 6.2 % Normal 1.7-12.0 [facility] Comment on above: Performed By: #### C BC #### [facility] [address] [place] [address] Dr. Casey Siddiqui NEUT # 5.0 103/ul Normal 1.4-6.5 [facility] Comment on above: Performed By: #### C BC #### [facility] [address] [place] [address] Dr. Casey Siddiqui Neutrophils/100 WBC (Bld) 64.5 % Normal 43.0-75.0 [facility] Comment on above: Performed By: #### C BC #### [facility] [address] [place] [address] Dr. Casey Siddiqui Platelet mean volume (Bld) [Entitic vol] 9.7 fL Normal 9.5-13.5 [facility] Comment on above: Performed By: #### C BC #### [facility] [address] [place] [address] [address] Casey Siddiqui PLT 184 103/ul Normal 150-450 [facility] Comment on above: Performed By: #### C BC #### [facility] [address] [place] [address] [address] Casey Siddiqui RBC 4.59 106/ul Critically low 4.70-6.10 [facility] Comment on above: Performed By: #### C BC #### [facility] [address] [place] [address] Dr. Casey Siddiqui WBC 7.8 103/ul Normal 4.0-11.0 [facility] Comment on above: Performed By: #### C BC #### [facility] [address] [place] [address] Dr. Casey Siddiqui GLYCOHEMOGLOBIN A1Con 2021 ADA RECOMMENDATION SEE BELOW Normal [facility] Comment on above: Result Comment: ADA RECOMMENDED LIMIT 4.0 - 6.0 ADA THERAPEUTIC TARGET < 7.0 ACTION SUGGESTED > 7.0 Performed By: #### A 1C #### [facility] [address] [place] [address] Dr. Casey Siddiqui Glucose [Mass/Vol] 105 mg/dL Normal [facility] Comment on above: Performed By: #### A 1C #### [facility] [address] [place] [address] Dr. Casey Siddiqui HbA1c (Bld) [Mass fraction] 5.3 % Normal 4.5-6.2 [facility] Comment on above: Performed By: #### A 1C #### [facility] [address] [place] [address] Dr. Casey Siddiqui LIPID PROFILEon 07-02-2022 CHOL-HDL RATIO NORM SEE BELOW Normal [facility] Comment on above: Result Comment: 3.3 - 4.4 LOW RISK 4.4 - 7.1 AVERAGE RISK 7.1 - 11.0 MODERATE RISK >11.0 HIGH RISK Performed By: #### B MP, LIPID, TSH, LIVER #### [facility] [address] [place] [address] [address] Casey Siddiqui Cholesterol [Mass/Vol] 237 mg/dL Critically high <=200 [facility] Comment on above: Performed By: #### B MP, LIPID, TSH, LIVER #### [facility] [address] [place] [address] [address] Casey Siddiqui Cholesterol in HDL [Mass/Vol] 44 mg/dL Normal 40-60 [facility] Comment on above: Performed By: #### B MP, LIPID, TSH, LIVER #### [facility] [address] [place] [address] Dr. Casey Siddiqui Cholesterol in LDL [Mass/Vol] 115.6 mg/dL Normal [facility] Comment on above: Performed By: #### B MP, LIPID, TSH, LIVER #### [facility] [address] [place] [address] [address] Casey Siddiqui Cholesterol.total/Ch olesterol in HDL [Mass ratio] 5.4 {ratio} Normal [facility] Comment on above: Performed By: #### B MP, LIPID, TSH, LIVER #### [facility] [address] [place] [address] [address] Casey Siddiqui HDL NORMAL > or = 60 mg/dl - LO W CARDIOVASCULAR RISK <40 mg/dl - HIGH CARDIOVASCULAR RISK Normal [facility] Comment on above: Performed By: #### B MP, LIPID, TSH, LIVER #### [facility] [address] [place] [address] Dr. Casey Siddiqui LDL CALC NORMAL SEE BELOW Normal [facility] Comment on above: Result Comment: <100 mg/dl OPTIMAL 100 - 129 mg/dl NEAR OR ABOVE OPTIMAL 130 - 159 mg/dl BORDERLINE HIGH 160 - 189 mg/dl HIGH >190 mg/dl VERY HIGH Performed By: #### B MP, LIPID, TSH, LIVER #### [facility] [address] [place] [address] [address] Casey Siddiqui Triglyceride [Mass/Vol] 387 mg/dL Critically high <=150 [facility] Comment on above: Performed By: #### B MP, LIPID, TSH, LIVER #### [facility] [address] [place] [address] Dr. Casey Siddiqui VLDL CALC 77.4 mg/dL Normal [facility] Comment on above: Performed By: #### B MP, LIPID, TSH, LIVER #### [facility] [address] [place] [address] Dr. Casey Siddiqui LIVER PROFILEon 07-02-2022 Albumin [Mass/Vol] 4.2 g/dL Normal 3.4-5.0 [facility] Comment on above: Performed By: #### B MP, LIPID, TSH, LIVER #### [facility] [address] [place] [address] Dr. Casey Siddiqui Albumin/Globulin [Mass ratio] 1.2 {ratio} Normal [facility] Comment on above: Performed By: #### B MP, LIPID, TSH, LIVER #### [facility] [address] [place] [address] Dr. Casey Siddiqui ALP [Catalytic activity/Vol] 102 U/L Normal 46-116 [facility] Comment on above: Performed By: #### B MP, LIPID, TSH, LIVER #### [facility] [address] [place] [address] Dr. Casey Siddiqui ALT [Catalytic activity/Vol] 35 U/L Normal 16-63 [facility] Comment on above: Performed By: #### B MP, LIPID, TSH, LIVER #### [facility] [address] [place] [address] Dr. Casey Siddiqui AST [Catalytic activity/Vol] 23 U/L Normal 15-37 [facility] Comment on above: Performed By: #### B MP, LIPID, TSH, LIVER #### [facility] [address] [place] [address] Dr. Casey Siddiqui BILI, CONJUGATED 0.1 mg/dL Normal 0.0-0.2 [facility] Comment on above: Performed By: #### B MP, LIPID, TSH, LIVER #### [facility] [address] [place] [address] Dr. Casey Siddiqui Bilirubin [Mass/Vol] 0.6 mg/dL Normal 0.2-1.0 [facility] Comment on above: Performed By: #### B MP, LIPID, TSH, LIVER #### [facility] [address] [place] [address] Dr. Casey Siddiqui Globulin (S) [Mass/Vol] 3.4 g/dL Normal [facility] Comment on above: Performed By: #### B MP, LIPID, TSH, LIVER #### [facility] [address] [place] [address] Dr. Casey Siddiqui Protein [Mass/Vol] 7.6 g/dL Normal 6.4-8.2 [facility] Comment on above: Performed By: #### B MP, LIPID, TSH, LIVER #### [facility] [address] [place] [address] Dr. Casey Siddiqui PROF CHEM 8 (BAS METB)on Anion gap [Moles/Vol] 13.1 mmol/L Normal [facility] Comment on above: Performed By: #### B MP, LIPID, TSH, LIVER #### [facility] [address] [place] [address] Dr. Casey Siddiqui Calcium [Mass/Vol] 8.8 mg/dL Normal 8.5-10.1 [facility] Comment on above: Performed By: #### B MP, LIPID, TSH, LIVER #### [facility] [address] [place] [address] Dr. Casey Siddiqui Chloride [Moles/Vol] 101 mmol/L Normal 98-107 [facility] Comment on above: Performed By: #### B MP, LIPID, TSH, LIVER #### [facility] [address] [place] [address] Dr. Casey Siddiqui CO2 [Moles/Vol] 27.1 mmol/L Normal 21.0-32.0 [facility] Comment on above: Performed By: #### B MP, LIPID, TSH, LIVER #### [facility] [address] [place] [address] [address] Casey Siddiqui Creatinine [Mass/Vol] 0.99 mg/dL Normal 0.70-1.30 [facility] Comment on above: Performed By: #### B MP, LIPID, TSH, LIVER #### [facility] [address] [place] [address] Dr. Casey Siddiqui EGFR-AF SYRIAN >60 Normal >=60 [facility] Comment on above: Performed By: #### B MP, LIPID, TSH, LIVER #### [facility] [address] [place] [address] Dr. Casey Siddiqui EGFR-NON AF SYRIAN >60 Normal >=60 [facility] Comment on above: Performed By: #### B MP, LIPID, TSH, LIVER #### [facility] [address] [place] [address] Dr. Casey Siddiqui Glucose [Mass/Vol] 100 mg/dL Normal 74-106 [facility] Comment on above: Performed By: #### B MP, LIPID, TSH, LIVER #### [facility] [address] [place] [address] Dr. Casey Siddiqui Potassium [Moles/Vol] 3.2 mmol/L Critically low 3.5-5.1 [facility] Comment on above: Performed By: #### B MP, LIPID, TSH, LIVER #### [facility] [address] [place] [address] Dr. Casey Siddiqui Sodium [Moles/Vol] 138 mmol/L Normal 136-145 [facility] [facility] Comment on above: Performed By: #### B MP, LIPID, TSH, LIVER #### [facility] [address] [place] [address] Dr. Casey Siddiqui Urea nitrogen [Mass/Vol] 13.0 mg/dL Normal 7.0-18.0 [facility] Comment on above: Performed By: #### B MP, LIPID, TSH, LIVER #### [facility] [address] [place] [address] Dr. Casey Siddiqui Urea nitrogen/Creatinine [Mass ratio] 13.1 mg/mg Normal [facility] Comment on above: Performed By: #### B MP, LIPID, TSH, LIVER #### [facility] [address], [place] [address] Dr. Casey Siddiqui TSHon 07-02-2022 TSH 1.519 uIU/mL Normal 0.358-3.740 [facility] Comment on above: Performed By: #### B MP, LIPID, TSH, LIVER #### [facility] [address] [id number] Casey Siddiqui Vital Signs Date Time Vital Sign Value Performing Clinician Facility 06-27-2025 07:33-0400 Body height 170.2 cm Srinivasan Christine MD Work Phone: [facility] 06-27-2025 07:33-0400 Body mass index (BMI) [Ratio] 34.14 kg/m2 Srinivasan Christine MD Work Phone: [facility] 06-27-2025 07:33-0400 Body temperature 97.81 [degF] Srinivasan Christine MD Work Phone: [facility] 06-27-2025 07:33-0400 Body weight 98.88 kg Srinivasan Christine MD Work Phone: [facility] 06-27-2025 07:33-0400 Diastolic blood pressure 90 mm[Hg] Srinivasan Christine MD Work Phone: [facility] 06-27-2025 07:33-0400 Heart rate 90 /min Srinivasan Christine MD Work Phone: [facility] 06-27-2025 07:33-0400 Respiratory rate 20 /min Srinivasan Christine MD Work Phone: [facility] 06-27-2025 07:33-0400 SaO2% (BldA) [Mass fraction] 97 % Srinivasan Christine MD Work Phone: [facility] 06-27-2025 07:33-0400 Systolic blood pressure 158 mm[Hg] Srinivasan Christine MD Work Phone: [facility] 04-24-2025 15:29-0400 Body height 170.2 cm Srinivasan Christine MD Work Phone: [facility] 04-24-2025 15:29-0400 Body mass index (BMI) [Ratio] 35.08 kg/m2 Srinivasan Christine MD Work Phone: [facility] 04-24-2025 15:29-0400 Body temperature 97.81 [degF] Srinivasan Christine MD Work Phone: [facility] 04-24-2025 15:29-0400 Body weight 101.61 kg Srinivasan Christine MD Work Phone: [facility] 04-24-2025 15:29-0400 Diastolic blood pressure 110 mm[Hg] Srinivasan Christine MD Work Phone: [facility] 04-24-2025 15:29-0400 Heart rate 100 /min Srinivasan Christine MD Work Phone: [facility] 04-24-2025 15:29-0400 Respiratory rate 20 /min Srinivasan Christine MD Work Phone: [facility] 04-24-2025 15:29-0400 SaO2% (BldA) [Mass fraction] 97 % Srinivasan Christine MD Work Phone: [facility] 04-24-2025 15:29-0400 Systolic blood pressure 156 mm[Hg] Srinivasan Christine MD Work Phone: [facility] 04-12-2025 13:29-0400 Body height 170.2 cm Anurag Huffman MD Work Phone: [facility] 04-12-2025 13:29-0400 Body mass index (BMI) [Ratio] 33.99 kg/m2 Anurag Huffman MD Work Phone: [facility] 04-12-2025 13:29-0400 Body weight 98.43 kg Anurag Huffman MD Work Phone: [facility] 03-21-2025 08:58-0400 Body height 170.2 cm Srinivasan Christine MD Work Phone: [facility] 03-21-2025 08:58-0400 Body mass index (BMI) [Ratio] 35.55 kg/m2 Srinivasan Christine MD Work Phone: [facility] 03-21-2025 08:58-0400 Body temperature 97.81 [degF] Srinivasan Christine MD Work Phone: [facility] 03-21-2025 08:58-0400 Body weight 102.97 kg Srinivasan Christine MD Work Phone: [facility] 03-21-2025 08:58-0400 Diastolic blood pressure 102 mm[Hg] Srinivasan Christine MD Work Phone: [facility] 03-21-2025 08:58-0400 Heart rate 92 /min Srinivasan Christine MD Work Phone: [facility] 03-21-2025 08:58-0400 Respiratory rate 22 /min Srinivasan Christine MD Work Phone: [facility] 03-21-2025 08:58-0400 SaO2% (BldA) [Mass fraction] 91 % Srinivasan Christine MD Work Phone: [facility] 03-21-2025 08:58-0400 Systolic blood pressure 176 mm[Hg] Srinivasan Christine MD Work Phone: [facility] 09-14-2024 10:59-0400 Body height 170.2 cm [facility] 1 [facility] 09-14-2024 10:59-0400 Body mass index (BMI) [Ratio] 35.4 kg/m2 [facility] 1 [facility] 09-14-2024 10:59-0400 Body weight 102.51 kg P[facility] 1 [facility] 07-31-2024 11:21-0400 Body height 172.7 cm Bisi RODRÍGUEZ Work Phone: [facility] 07-31-2024 11:21-0400 Body mass index (BMI) [Ratio] 35.34 kg/m2 Bisi Boyer INSPECTOR WIRE ROPE-HEMODIALYSIS CHARGE NURSE Work Phone: [facility] 07-31-2024 11:21-0400 Body weight 105.42 kg Bisi Boyer INSPECTOR WIRE ROPE-HEMODIALYSIS CHARGE NURSE Work Phone: [facility] 07-31-2024 11:21-0400 Diastolic blood pressure 97 mm[Hg] Bisi Boyer INSPECTOR WIRE ROPE-HEMODIALYSIS CHARGE NURSE Work Phone: [facility] 07-31-2024 11:21-0400 Systolic blood pressure 148 mm[Hg] Bisi Boyer INSPECTOR WIRE ROPE-HEMODIALYSIS CHARGE NURSE Work Phone: [facility] 07-20-2024 15:04-0400 Body height 170.2 cm Srinivasan Christine MD Work Phone: [facility] 07-20-2024 15:04-0400 Body mass index (BMI) [Ratio] 37.28 kg/m2 Srinivasan Christine MD Work Phone: [facility] 07-20-2024 15:04-0400 Body temperature 97.3 [degF] Srinivasan Christine MD Work Phone: [facility] 07-20-2024 15:04-0400 Body weight 107.96 kg Srinivasan Christine MD Work Phone: [facility] 07-20-2024 15:04-0400 Diastolic blood pressure 76 mm[Hg] Srinivasan Christine MD Work Phone: [facility] 07-20-2024 15:04-0400 Heart rate 101 /min Srinivasan Christine MD Work Phone: [facility] 07-20-2024 15:04-0400 Respiratory rate 18 /min Srinivasan Christine MD Work Phone: [facility] 07-20-2024 15:04-0400 SaO2% (BldA) [Mass fraction] 95 % Srinivasan Christine MD Work Phone: [facility] 07-20-2024 15:04-0400 Systolic blood pressure 130 mm[Hg] Srinivasan Christine MD Work Phone: [facility] 12-28-2023 11:38-0500 Body height 170.2 cm Srinivasan Christine MD Work Phone: [facility] 12-28-2023 11:38-0500 Body mass index (BMI) [Ratio] 36.34 kg/m2 Srinivasan Christine MD Work Phone: [facility] 12-28-2023 11:38-0500 Body temperature 97.81 [degF] Srinivasan Christine MD Work Phone: [facility] 12-28-2023 11:38-0500 Body weight 105.23 kg Srinivasan Christine MD Work Phone: [facility] 12-28-2023 11:38-0500 Diastolic blood pressure 130 mm[Hg] Srinivasan Christine MD Work Phone: [facility] 12-28-2023 11:38-0500 Heart rate 98 /min Srinivasan Christine MD Work Phone: [facility] 12-28-2023 11:38-0500 SaO2% (BldA) [Mass fraction] 98 % Srinivasan Christine MD Work Phone: [facility] 12-28-2023 11:38-0500 Systolic blood pressure 220 mm[Hg] Srinivasan Christine MD Work Phone: [facility] Healthcare Encounters Encounter Date Encounter Type Care Provider Facility Start: 06-27-2025 End: 06-27-2025 Bamboo flowsheet Srinivasan Christine MD Work Phone: [facility] Start: 06-27-2025 End: 06-27-2025 Bamboo flowsheet Srinivasan Christine MD Work Phone: [facility] Start: 06-27-2025 End: 06-27-2025 Patient encounter procedure Srinivasan Christine MD Work Phone: [facility] Work Phone: Start: 06-27-2025 End: 06-27-2025 Periodic preventive med est patient 40-64yrs Srinivasan Christine MD Work Phone: [facility] Comment on above: Annual physical exam (Primary Dx); Type 2 diabetes mellitus with hyperglycemia, without long-term current use of insulin (HCC); Benign essential hypertension ; Class 1 obesity due to excess calories with serious comorbidity and body mass index (BMI) of 34.0 to 34.9 in adult Start: 04-24-2025 End: 04-24-2025 Office outpatient visit 15 minutes Srinivasan Christine MD Work Phone: [facility] Comment on above: Type 2 diabetes aniyah itus with hyperglycemia, without long-term current use of insulin (CMS/HCC) (Primary Dx); Benign essential hypertension (CMS/HCC) Start: 04-24-2025 End: 04-24-2025 ambulatory SRINIVASAN CHRISTINE Not Available Start: 04-24-2025 End: 04-24-2025 Bamboo flowsheet Srinivasan Christine MD Work Phone: [facility] Start: 04-24-2025 End: 04-24-2025 Bamboo flowsheet Srinivasan Christine MD Work Phone: [facility] Start: 04-12-2025 End: 04-12-2025 Office outpatient visit 10 minutes Anurag Huffman MD Work Phone: [facility] Comment on above: Epidural abscess (Pr imary Dx) Start: 04-12-2025 End: 04-12-2025 ambulatory ANURAG HUFFMAN [facility] Start: 04-06-2025 ambulatory HEMANT Garza [facility] Start: 04-02-2025 End: 04-02-2025 Clinisync Result Encounter Generic External Data Provider [facility] External Department Unsolicited Start: 04-02-2025 End: 04-02-2025 Clinisync Result Encounter Generic External Data Provider [facility] External Department Unsolicited Start: 03-27-2025 End: 03-30-2025 Refill Amaris Prieto RN [facility] Comment on above: S/P laminectomy med refill request Start: 03-26-2025 End: 03-26-2025 Clinisync Result Encounter Generic External Data Provider [facility] External Department Unsolicited Start: 03-26-2025 End: 03-26-2025 Clinisync Result Encounter Generic External Data Provider [facility] External Department Unsolicited Start: 03-21-2025 End: 03-21-2025 Bamboo flowsheet Srinivasan Christine MD Work Phone: [facility] Start: 03-21-2025 End: 03-22-2025 Bamboo flowsheet Srinivasan Christine MD Work Phone: [facility] Start: 03-21-2025 End: 03-22-2025 Clinisync Result Encounter Srinivasan Christine MD Work Phone: [facility] Unsolicited Start: 03-21-2025 End: 03-21-2025 Transitional care manage srvc 14 day discharge Srinivasan Christine MD Work Phone: [facility] Comment on above: Epidural abscess (Pr imary Dx); Arthralgia of right hand; Benign essential hypertension (CMS/HCC); Angioedema, subsequent encounter; Type 2 diabetes mellitus with hyperglycemia, without long-term current use of insulin (CMS/HCC) Start: 03-21-2025 End: 03-23-2025 Refill Amaris Prieto RN [facility] Comment on above: S/P laminectomy (Joie dayne Dx) med refill request Start: 03-20-2025 End: 03-20-2025 ambulatory [facility] Start: 03-19-2025 End: 03-19-2025 Clinisync Result Encounter Generic External Data Provider [facility] External Department Unsolicited Start: 03-19-2025 End: 03-19-2025 Clinisync Result Encounter Generic External Data Provider [facility] External Department Unsolicited Start: 03-15-2025 End: 03-15-2025 Telephone encounter Lisa River LPN [facility] Comment on above: clarify PT order Start: 03-12-2025 End: 03-12-2025 Clinisync Result Encounter Generic External Data Provider [facility] External Department Unsolicited Start: 03-12-2025 End: 03-12-2025 Clinisync Result Encounter Generic External Data Provider [facility] External Department Unsolicited Start: 03-11-2025 End: 03-11-2025 Orders Only Srinivasan Christine MD Work Phone: [facility] Comment on above: Thoracic degenerativ e disc disease (Primary Dx) Start: 03-08-2025 End: 03-08-2025 Postop follow up visit related to original px [facility] Neurosurgery Nurse [facility] Comment on above: S/P laminectomy (Joie dayne Dx) Start: 03-08-2025 End: 03-08-2025 Refill Lisa River LPN [facility] Comment on above: S/P laminectomy (Joie dayne Dx) Start: 03-07-2025 End: 03-07-2025 Documentation procedure Ne Munoz [facility] Start: 03-06-2025 End: 03-06-2025 Emergency department patient visit LATONYA SHELTON [facility] Start: 02-27-2025 End: 02-27-2025 ambulatory SRINIVASAN CHRISTINE [facility] Start: 02-24-2025 End: 02-24-2025 External Result Encounter Generic External Data Provider [facility] External Department Unsolicited Start: 02-24-2025 End: 02-24-2025 External Result Encounter Generic External Data Provider [facility] External Department Unsolicited Start: 02-24-2025 End: 03-06-2025 Emergency department patient visit ANURAG HUFFMAN [facility] Start: 02-24-2025 End: 03-06-2025 Emergency department patient visit ALMA DELIA SANTOS [facility] Start: 02-24-2025 End: 03-06-2025 Emergency department patient visit YANG MAY [facility] Start: 02-24-2025 End: 03-06-2025 Evaluation and management of inpatient GIOVANNY Reed BARRETO [facility] Start: 02-23-2025 End: 02-24-2025 Emergency department patient visit SRINIVASAN CHRISTINE [facility] Start: 02-21-2025 End: 02-22-2025 Orders Only Srinivasan Christine MD Work Phone: [facility] Comment on above: Thoracic degenerativ e disc disease (Primary Dx) Start: 09-29-2024 End: 09-29-2024 Telephone encounter Salina Hurtado [facility] General Surgery Start: 09-22-2024 End: 09-22-2024 Evaluation and management of inpatient ERICH Ruth BUCK [facility] Start: 09-14-2024 End: 09-14-2024 ambulatory h Pat Phone Call Provider 1 [facility] - Pre Admit Start: 09-07-2024 End: 09-07-2024 Orders Only Srinivasan Christine MD Work Phone: [facility] Comment on above: Class 2 severe obesi ty due to excess calories with serious comorbidity and body mass index (BMI) of 37.0 to 37.9 in adult (CMS/HCC) (Primary Dx) Start: 07-31-2024 End: 07-31-2024 Patient encounter procedure Bisi Boyer APRN-HEMODIALYSIS CHARGE NURSE Work Phone: [facility] Comment on above: Encounter for screen ing colonoscopy (Primary Dx); Family history of malignant neoplasm of colon in mother Start: 07-31-2024 End: 07-31-2024 ambulatory [facility] Start: 07-21-2024 End: 07-24-2024 Orders Only Srinivasan Christnie MD Work Phone: [facility] Comment on above: Type 2 diabetes aniyah itus with hyperglycemia, without long-term current use of insulin (CMS/HCC) (Primary Dx); Dyslipidemia (CMS/HCC) Start: 07-20-2024 End: 07-20-2024 Periodic preventive med est patient 40-64yrs Srinivasan Christine MD Work Phone: [facility] Comment on above: Annual physical exam (Primary Dx); Benign essential hypertension (CMS/HCC); Colon cancer screening; Body mass index (BMI) [...] Healthcare Start: 06-08-2024 End: 06-08-2024 ambulatory INEZ Jim CAMARGO Not Available Start: 12-28-2023 Bamboo flowsheet Srinivasan Christine MD Work Phone: [facility] Start: 12-28-2023 Bamboo flowsheet Srinivasan Christine MD Work Phone: [facility] Start: 12-28-2023 End: 12-28-2023 Office outpatient visit 15 minutes Srinivasan Christnie MD Work Phone: [facility] Comment on above: Benign essential hyp ertension (CMS/HCC) (Primary Dx); Generalized anxiety disorder (CMS/HCC); Dyslipidemia (CMS/HCC) Start: 07-03-2022 Encounter for genera l adult medical examination without abnormal findings DR SRINIVASAN CHRISTINE [facility] Start: 07-02-2022 End: 07-03-[address] SRINIVASAN CHRISTINE Facility:[facility] Start: 07-02-2022 End: 07-03-2022 Encounter for general adult medical examination without abnormal findings DR SRINIVASAN CHRISTINE Facility:[facility] Procedures Date Procedure Procedure Detail Performing Clinician Start: 04-12-2025 Follow-up visit Follow-up ANURAG HUFFMAN Start: 04-02-2025 ALL CBC WITH AUTO DIFF Generic External Data Provider Start: 03-26-2025 ALL BUN Generic Ex ternal Data Provider Start: 03-26-2025 ALL CBC WITH AUTO DIFF Generic External Data Provider Start: 03-26-2025 [facility] CREATININE Generic External Data Provider Start: 03-21-2025 ALL C REACTIVE PROTEIN Generic External Data Provider Start: 03-21-2025 ALL CKMB Generic Ex ternal Data Provider Start: 03-21-2025 ALL URIC ACID Srinivasan cortes MD Work Phone: Start: 03-21-2025 [facility] CK Generic Ex ternal Data Provider Start: 03-19-2025 ALL BUN Generic Ex ternal Data Provider Start: 03-19-2025 ALL CBC WITH AUTO DIFF Generic External Data Provider Start: 03-19-2025 [facility] CREATININE Generic External Data Provider Start: 03-12-2025 ALL BUN Generic Ex ternal Data Provider Start: 03-12-2025 ALL CBC WITH AUTO DIFF Generic External Data Provider Start: 03-12-2025 [facility] CREATININE Generic External Data Provider Start: 02-25-2025 Adult depression scr eening assessment Ne Her RN Start: 02-24-2025 Hemoglobin glycosylated a1c Generic External Data Provider Start: 02-21-2025 Rhythm ecg 1-3 leads interpretation & reprt on Srinivasan Christine MD Work Phone: Start: 09-22-2024 Colonoscopy Salina robb CROWNING INSPECTOR Start: 07-20-2024 ALL CBC WITH AUTO DIFF Srinivasan Christine MD Work Phone: Start: 07-02-[address] SRINIVASAN VILLAFUERTE Comment on above: Performed By: #### P [facility] #### [facility] [address] [place] [address] Dr. Casey Siddiqui Start: 08-27-2021 Adult depression scr eening assessment Bisi Boyer INSPECTOR WIRE ROPE-HEMODIALYSIS CHARGE NURSE Work Phone: Plan of Treatment Date Care Activity Detail Author Start: 09-22-2034 Screening for malign ant neoplasm of colon [facility] Healthcare Start: 09-22-2027 Screening for malign ant neoplasm of colon Colonoscopy [facility] Start: 04-12-2026 Adult BMI Screening Adult BMI Screen ing [facility] Start: 02-25-2026 Adult BMI Screening Adult BMI Screen ing [facility] Start: 02-25-2026 Depression Screening Depression Scre ening [facility] Start: 02-25-2026 Tobacco Screening Tobacco Screening [facility] Start: 09-27-2025 End: 09-27-2025 Patient encounter procedure 09/27/2025 2:45 PM EST Office Visit [facility] [address] [place] [address] Srinivasan Christine MD [address] [place] [address] [facility] Start: 09-22-2025 Adult BMI Screening Adult BMI Screen ing [facility] Start: 09-22-2025 Tobacco Screening Tobacco Screening [facility] Start: 08-26-2025 Hemoglobin A1c measurement Diabetes: Hemoglobin A1C [facility] Start: 07-31-2025 Adult BMI Screening Adult BMI Screen ing [facility] Start: 07-31-2025 Tobacco Screening Tobacco Screening [facility] Start: 07-16-2025 Influenza vaccination [facility] Start: 06-27-2025 End: 06-27-2026 CBC W Auto Differential panel - Blood CBC and differential Lab Routine Annual physical exam Expected: 06/27/2025 (Approximate), Expires: 06/27/2026 [facility] Comment on above: Expected: 06/27/2025 (Approximate), Expires: 06/27/2026 Start: 06-27-2025 End: 06-27-2026 Comprehensive metabolic 2000 panel - Serum or Plasma Comprehensive metabolic panel Lab Routine Annual physical exam Expected: 06/27/2025 (Approximate), Expires: 06/27/2026 [facility] Comment on above: Expected: 06/27/2025 (Approximate), Expires: 06/27/2026 Start: 06-27-2025 End: 06-27-2026 Hemoglobin A1c/Hemoglobin.total in Blood Hemoglobin A1c Lab Routine Annual physical exam Expected: 06/27/2025 (Approximate), Expires: 06/27/2026 [facility] Work Phone: Comment on above: Expected: 06/27/2025 (Approximate), Expires: 06/27/2026 Start: 06-27-2025 End: 06-27-2026 Lipid 1996 panel - Serum or Plasma Lipid panel Lab Routine Annual physical exam Expected: 06/27/2025 (Approximate), Expires: 06/27/2026 [facility] Comment on above: Expected: 06/27/2025 (Approximate), Expires: 06/27/2026 Start: 06-27-2025 End: 06-27-2026 Microalbumin/Creatinine panel in random Urine Microalbumin / creatinine, urine ratio Lab Routine Type 2 diabetes mellitus with hyperglycemia, without long-term current use of insulin (HCC) Expected: 06/27/2025 (Approximate), Expires: 06/27/2026 [facility] Comment on above: Expected: 06/27/2025 (Approximate), Expires: 06/27/2026 Start: 06-27-2025 End: 06-27-2026 Prostate specific Ag [Mass/volume] in Serum or Plasma PSA Lab Routine Annual physical exam Expected: 06/27/2025 (Approximate), Expires: 06/27/2026 [facility] Comment on above: Expected: 06/27/2025 (Approximate), Expires: 06/27/2026 Start: 06-27-2025 End: 06-27-2026 Testosterone [Mass/volume] in Serum or Plasma Testosterone Lab Routine Annual physical exam Expected: 06/27/2025 (Approximate), Expires: 06/27/2026 [facility] Comment on above: Expected: 06/27/2025 (Approximate), Expires: 06/27/2026 Start: 06-27-2025 End: 06-27-2026 Thyrotropin [Units/volume] in Serum or Plasma TSH Lab Routine Annual physical exam Expected: 06/27/2025 (Approximate), Expires: 06/27/2026 [facility] Comment on above: Expected: 06/27/2025 (Approximate), Expires: 06/27/2026 Start: 06-27-2025 End: 06-27-2025 Patient encounter procedure [facility] Comment on above: Arrived Start: 05-26-2025 Hemoglobin A1c measurement Diabetes: Hemoglobin A1C [facility] Start: 04-24-2025 End: 04-24-2025 Patient encounter procedure [facility] Comment on above: Arrived Start: 04-11-2025 End: 04-11-2025 Patient encounter procedure 04/11/2025 9:30 AM EDT Office Visit [facility] [address] [place] [address] [address] [facility] [place] [address] Sudarshan Martinez MD [address] [place] [id number] Shannan Powers PA [address] [place] [address] [facility] Start: 04-05-2025 End: 04-05-2025 Patient encounter procedure 04/05/2025 1:30 PM EDT Office Visit [facility] [address] [place] [address] [phone] Anurag Huffman MD [address] [place] [id number] [facility] Start: 03-21-2025 End: 03-21-2026 Urate [Mass/volume] in Serum or Plasma Uric acid Lab Routine Arthralgia of right hand Expected: 03/21/2025 (Approximate), Expires: 03/21/2026 [facility] Work Phone: Comment on above: Expected: 03/21/2025 (Approximate), Expires: 03/21/2026 Start: 03-21-2025 End: 03-21-2025 Patient encounter procedure [facility] Comment on above: Arrived Start: 03-08-2025 End: 03-08-2025 Admission to same day surgery center 03/08/2025 11:30 AM EDT Support Visit [facility] [address] [place] [address] [phone] [facility] Start: 01-22-2025 End: 01-22-2025 Patient encounter procedure 01/22/2025 2:45 PM EDT Office Visit [facility] [address] [place] [address] Srinivasan Christine MD [address] [place] [address] [facility] Start: 12-28-2024 Screening for malign ant neoplasm of colon Colorectal Cancer Screening [facility] Comment on above: Postponed from 01/18 (Patient Refused) Start: 09-22-2024 End: 09-22-2024 Admission to same day surgery center 09/22/2024 8:00 AM EST - 09/22/2024 8:30 AM [facility] Surgery [facility] [address] [place] [phone] Erich Michel MD [address] [place] [phone] COLONOSCOPY DIAGNOSTIC / SCREENING [91007 (CPT )] [facility] Comment on above: COLONOSCOPY DIAGNOST IC / SCREENING [29122 (CPT )] Start: 09-22-2024 End: 09-22-2024 Colonoscopy flx dx w/collj spec when pfrmd COLONOSCOPY DIAGNOSTIC / SCREENING Screen for colon cancer 09/22/2024 8:00 AM [facility] [facility] Start: 09-22-2024 Subsequent hospital visit by physician 09/22/2024 8:00 AM [facility] Hospital Encounter [facility] [address] [place] [phone] Erich Michel MD [address] [place] [phone] [facility] Start: 09-14-2024 End: 09-14-2024 ambulatory 09/14/2024 4:00 PM EDT Support Visit [facility] - Pre Admit [address] [place] [phone] [facility] - Pre Admit Start: 09-07-2024 End: 09-07-2025 Thyrotropin [Units/volume] in Serum or Plasma TSH Lab Routine Class 2 severe obesity due to excess calories with serious comorbidity and body mass index (BMI) of 37.0 to 37.9 in adult (CMS/HCC) Expected: 09/07/2024 (Approximate), Expires: 09/07/2025 [facility] Work Phone: Comment on above: Expected: 09/07/2024 (Approximate), Expires: 09/07/2025 Start: 07-20-2024 End: 07-20-2024 Patient encounter procedure 07/20/2024 3:15 PM EDT Office Visit [facility] [address] [place] [phone] Srinivasan Christine MD [address] [place] [address] Arrived [facility] Comment on above: Arrived Start: 07-20-2024 End: 07-20-2025 Basic metabolic 1998 panel - Serum or Plasma Basic metabolic panel Lab Routine Annual physical exam Expected: 07/20/2024 (Approximate), Expires: 07/20/2025 [facility] Comment on above: Expected: 07/20/2024 (Approximate), Expires: 07/20/2025 Start: 07-20-2024 End: 07-20-2025 CBC W Auto Differential panel - Blood CBC and differential Lab Routine Annual physical exam Expected: 07/20/2024 (Approximate), Expires: 07/20/2025 [facility] Comment on above: Expected: 07/20/2024 (Approximate), Expires: 07/20/2025 Start: 07-20-2024 End: 07-20-2025 Hemoglobin A1c/Hemoglobin.total in Blood Hemoglobin A1c Lab Routine Annual physical exam Expected: 07/20/2024 (Approximate), Expires: 07/20/2025 [facility] Work Phone: Comment on above: Expected: 07/20/2024 (Approximate), Expires: 07/20/2025 Start: 07-20-2024 End: 07-20-2025 Hepatic function 2000 panel - Serum or Plasma Hepatic function panel Lab Routine Annual physical exam Expected: 07/20/2024 (Approximate), Expires: 07/20/2025 [facility] Comment on above: Expected: 07/20/2024 (Approximate), Expires: 07/20/2025 Start: 07-20-2024 End: 07-20-2025 Lipid 1996 panel - Serum or Plasma Lipid panel Lab Routine Annual physical exam Expected: 07/20/2024 (Approximate), Expires: 07/20/2025 [facility] Comment on above: Expected: 07/20/2024 (Approximate), Expires: 07/20/2025 Start: 07-20-2024 End: 07-20-2025 Prostate specific Ag [Mass/volume] in Serum or Plasma PSA Lab Routine Annual physical exam Expected: 07/20/2024 (Approximate), Expires: 07/20/2025 [facility] Comment on above: Expected: 07/20/2024 (Approximate), Expires: 07/20/2025 Start: 07-20-2024 End: 07-20-2025 Thyrotropin [Units/volume] in Serum or Plasma TSH Lab Routine Annual physical exam Expected: 07/20/2024 (Approximate), Expires: 07/20/2025 [facility] Comment on above: Expected: 07/20/2024 (Approximate), Expires: 07/20/2025 Start: 07-16-2024 COVID-19 Vaccine ( season) COVID-19 Vaccine ( season) [facility] Start: 07-16-2024 COVID-19 Vaccine ( season) COVID-19 Vaccine ( season) [facility] Start: 07-16-2024 Influenza [facility] Start: 01-27-2024 End: 01-27-2024 Patient encounter procedure 01/27/2024 9:30 AM EDT Office Visit [facility] [address] [place] [phone] Srinivasan Christine MD [address] [place] [phone] [facility] Start: 07-16-2023 Influenza vaccination Influenza Vacc ine (#1) [facility] Start: 08-27-2022 Depression Screening Depression Scre ening [facility] Start: 1997 DTaP,Tdap and Td Vaccines (1 - Tdap) DTaP,Tdap and Td Vaccines (1 - Tdap) [facility] Start: 1997 Urine screening for protein Diabetes: Urine Protein Screening [facility] Start: 01-19-1996 Adult BMI Follow Up Plan Adult BMI Follow Up Plan [facility] Start: 01-19-1996 Diabetic foot examination Diabetic Foot Exam [facility] Start: 1990 Depression Screening Depression Scre ening [facility] Start: 01-19-1988 Glaucoma screening Diabetes: R etinopathy Screening [facility] Start: 1978 Glaucoma screening Diabetic Op hthalmology Exam [facility] Start: 1978 Hemoglobin A1c measurement Diabetes: Hemoglobin A1C [facility] Start: 1978 Screening for malign ant neoplasm of colon [facility] Start: 1978 Tobacco Counseling Tobacco Counselin g [facility] Start: 1978 Urine screening for protein Urine Microalbumin [facility] End: 07-31-2025 Colonoscopy Colonoscopy GI Routine Encounter for screening colonoscopy 1 Occurrences starting 07/31/2024 until 07/31/2025 [facility] Work Phone: Comment on above: 1 Occurrences starti ng 07/31/2024 until 07/31/2025 Payers Date Payer Category Payer Managed Care Other (unspecified) [place] [address] [id number] 2022 Private Health Insurance [id number] 2022 Private Health Insurance [id number] 2020 Unknown [id number] 1978 Unknown [id number] 2.16840.1.520772.3.579.2.5 93 1978 Unknown [id number] 2.16840.1.586128.3.579.2.1 286 1978 Unknown [id number] 2.16840.1.082923.3.579.2.1 286 1978 Unknown [id number] 2.16840.1.492769.3.579.2.1 286 1978 Unknown [id number] 2.16840.1.001850.3.579.2.1 286 1978 Unknown [id number] 2.16840.1.697827.3.579.2.1 286 1978 Unknown [id number] 2.16840.1.077428.3.579.2.1 286 1978 Unknown [id number] 2.16840.1.370399.3.579.2.1 286 1978 Unknown [id number] 2.16840.1.692741.3.579.2.1 286 1978 Unknown [id number] 2.16840.1.315355.3.579.2.1 286 1978 Unknown [id number] 2.16.840.1.662096.3.579.2.1 286 1978 Unknown [id number] 2.16.840.1.129873.3.579.2.1 286 1978 Unknown [id number] 2.16.840.1.567481.3.579.2.1 286 1978 Unknown [id number] 2.16.840.1.911056.3.579.2.1 286 1978 Unknown [id number] 2.16.840.1.696894.3.579.2.1 286 1978 Unknown [id number] 2.16.840.1.011129.3.579.2.1 286 1978 Unknown [id number] 2.16.840.1.357526.3.579.2.1 259 1978 Unknown [id number] 2.16.840.1.691145.3.579.2.1 259 1978 Unknown [id number] 2.16.840.1.318240.3.579.2.1 259 1978 Unknown [id number] 2.16.840.1.872513.3.579.2.1 259 1959 Unknown [id number] Social History Date Type Detail Facility [facility] Start: 1978 Sex Assigned At Not on file [facility] Start: 12-28-2023 End: 06-21-2025 Gender identity Not on file [facility] Start: 12-28-2023 End: 01-05-2024 Tobacco smoking status MEIS Never smoked tobacco [facility] Start: 12-28-2023 Tobacco use and exposure Smokeless tobacco non-user [facility] Start: 12-28-2023 End: 06-21-2025 History of Social function [facility] Start: 01-05-2024 End: 02-25-2025 Tobacco use and exposure Former smokeless tobacco user [facility] History of tobacco use Chews Tobacco [facility] Start: 02-14-2024 End: 02-25-2025 Tobacco smoking status NHIS Occasional tobacco smoker [facility] Start: 02-14-2024 History of tobacco use [facility] Start: 07-31-2024 End: 04-12-2025 Alcoholic beverage intake Current drinker of alcohol (finding) [facility] Adolescent depressio n screening assessment [facility] Start: 06-25-2021 Sex Male (finding) [facility] [employer] the [employer] threatened to shut off services in your home in past 12Mo No [facility] How often to you hav e a drink containing alcohol? 4 or more times a week [facility] How many standard drinks containing alcohol do you have on a typical day? 3 or 4 [facility] How often do you hav e 6 or more drinks on 1 occasion? Weekly [facility] How often do you nee d to have someone help you when you read instructions, pamphlets, or other written material from your doctor or pharmacy [SILS] Never [facility] Are you now , , , , never or living with a partner? [facility] Do you feel stress - tense, restless, nervous, or anxious, or unable to sleep at night because your mind is troubled all the time - these days [OSQ] Not at all [facility] (I/We) worried wheth er (my/our) food would run out before (I/we) got money to buy more. Never true [facility] Medical Equipment Procedure Code Equipment Code Equipment Origin al Text Equipment Identifier Dates [id number] Start: 07-24-2024 1 each Daily [id number] Start: 07-24-2024 1 each by Other route Daily Use as instructed [id number] Start: 09-19-2024 Goals Date Patient Goal Desired Activity /State Personal health goal Personal health goal Comment on above: Formatting of this n ote might be different from the original. Evaluation of progress towards goal: Patient stated he hopes to go home, but waiting therapy input for discharge planning. Clinical Notes 12-28-2023 to 06-27-2025 Srinivasan Christine MD - 06/27/2025 8:18 AM EDMelvi Christine MD - 06/27/2025 8:18 AM Blanca Christine MD - 06/27/2025 8:18 AM Blanca Christine MD - 06/27/2025 7:30 AM EDTPatient Instructions Note Date & Type Note Facility 06-27-2025 History of Present illness Narrative Associated Problem(s): Type 2 diabetes mellitus with hyperglycemia, without long-term current use of insulin (HCC) Not checking BS and due for A1C. Stick to ADA diet and limit carbs. Associated Problem(s): Benign essential hypertension BP elevated and increase procardia. Continue to monitor PRN. Associated Problem(s): Annual physical exam Due for labs. Discussed proper diet and regular aerobic exercise. Need aerobic exercise 5-6 days a week for 30 minutes at a time. Smaller portions and limit total calories. Colonoscopy every 10 years. Tetanus every 10 years. Advised not to smoke. Images from the original note were not included. Subjective Patient ID: Gem Menendez is a 45 y.o. male who presents for Follow-up (2M). Presents for annual PE. Patient feels well today. Weight down 20 pounds in the past year. Tries to increase activity and walk more. Tries to watch diet and eat healthy. Increased fruits and vegetables. Smaller portions and limits snacking. Tries to limit total daily calories. Due for labs. Not checking BS away from office. Tries to eat well and stick to ADA diet. Denies signs of elevated BS such as polyuria, polyphagia or polydipsia. Checking BP PRN and elevated. BP 158/90 today. BP higher since off lisinopril. Review of Systems Constitutional: Negative for fatigue. [...] Items Addressed This Visit Benign essential hypertension BP elevated and increase procardia. Continue to monitor PRN. Relevant Medications NIFEdipine XL (Procardia XL) 90 MG 24 hr tablet Annual physical exam - Primary Due for labs. Discussed proper diet and regular aerobic exercise. Need aerobic exercise 5-6 days a week for 30 minutes at a time. Smaller portions and limit total calories. Colonoscopy every 10 years. Tetanus every 10 years. Advised not to smoke. Relevant Orders Hemoglobin A1c Comprehensive metabolic panel CBC and differential Lipid panel PSA TSH Testosterone Class 1 obesity due to excess calories with serious comorbidity and body mass index (BMI) of 34.0 to 34.9 in adult Type 2 diabetes mellitus with hyperglycemia, without long-term current use of insulin ([facility]) Not checking BS and due for A1C. Stick to ADA diet and limit carbs. Relevant Orders Microalbumin / creatinine, urine ratio documented in this encounter [facility] 04-24-2025 History of Present illness Narrative Associated Problem(s): Class 2 severe obesity due to excess calories with serious comorbidity and body mass index (BMI) of 35.0 to 35.9 in adult ([facility]) Weight loss indicated. Associated Problem(s): Benign essential hypertension (CMS/HCC) BP elevated and increase procardia. Continue to monitor PRN. Associated Problem(s): Type 2 diabetes mellitus with hyperglycemia, without long-term current use of insulin (CMS/HCC) BS stable and continue ozempic. Stick to ADA diet and limit carbs. Images from the original note were not included. Subjective Patient ID: Gem Menendez is a 45 y.o. male who presents for Follow-up (1 m). Follow up DM and HTN. Not checking BS at home. Tries to eat well and stick to ADA diet. Denies signs of elevated BS such as polyuria, polyphagia or polydipsia. Taking ozempic and tolerating without side effects. Checking BP PRN and typically 140s/90s systolic. BP elevated today but reports stressful day at work. Taking medication daily and tolerating without side [...] This Visit Benign essential hypertension (CMS/HCC) BP elevated and increase procardia. Continue to monitor PRN. Relevant Medications NIFEdipine XL (Procardia XL) 60 MG 24 hr tablet Type 2 diabetes mellitus with hyperglycemia, without long-term current use of insulin (CMS/HCC) - Primary BS stable and continue ozempic. Stick to ADA diet and limit carbs. documented in this encounter [facility] 04-12-2025 History of Present illness Narrative Images from the original note were not included. [facility] [address] [place] [address], [address] [place] [address] * CHART NOTE ? 04/12/2025 Patient: Gem Menendez 1980 [id number] Physician: Anurag Huffman MD REASON FOR VISIT Follow up from thoracic laminectomy for epidural abscess. INTERVAL HISTORY He feels well. No fevers or chills. He is ambulating well. No longer having any issues with urination. No bowel concerns. He was just taken off of IV antibiotics last Wednesday. ALLERGIES Allergies Allergen Reactions Prinzide [Lisinopril-Hydrochlorothiazide] Facial Swelling Rocephin [Ceftriaxone] Facial Swelling MEDICATIONS Current Outpatient Medications: freestyle 28 gauge lancets, , Disp: , Rfl: FREESTYLE LITE METER kit, , Disp: , Rfl: FREESTYLE LITE STRIPS strip, , Disp: , Rfl: hydroCHLOROthiazide (HYDRODIURIL) 25 mg tablet, Take 1 tablet (25 mg total) by mouth daily., Disp: , Rfl: metFORMIN XR (GLUCOPHAGE XR) 500 mg 24 hr tablet, Take 1 tablet (500 mg total) by mouth nightly., Disp: , Rfl: NIFEdipine CC (ADALAT CC) 30 mg 24 hr tablet, TAKE 1 TABLET (30 MG) BY MOUTH DAILY DO NOT CRUSH, CHEW, OR SPLIT, Disp: , Rfl: OZEMPIC 0.25 mg or 0.5 mg (2 mg/3 mL) pen injector, INJECT 0.25MG UNDER THE SKIN ONCE WEEKLY FOR 4 WEEKS, THEN INCREASE TO 0.5MG ONCE WEEKLY, Disp: , Rfl: PARoxetine (PAXIL) 10 mg tablet, Take 1 tablet (10 mg total) by mouth in the morning., Disp: , Rfl: atorvastatin (LIPITOR) 40 mg tablet, Take 1 tablet (40 mg total) by mouth in the morning. (Patient not taking: Reported on 04/12/2025), Disp: , Rfl: heparin lock flush, porcine, 10 unit/mL injection, Infuse 1-5 mL (10-50 Units total) into a venous catheter as needed (line care per nursing agency protocol.). (Patient not taking: Reported on 04/12/2025), Disp: 1 mL, Rfl: 0 heparin lock flush, porcine, injection 100 unit/mL solution, Infuse 1-5 mL (100-500 Units total) into a venous catheter as needed (line care per nursing agency protocol.). (Patient not taking: Reported on 04/12/2025), Disp: 1 mL, Rfl: 0 lidocaine (LIDODERM) 5 %, Place 1 patch on the skin daily. (Patient not taking: Reported on 04/12/2025), Disp: , Rfl: lisinopril-hydroCHLOROthiazide (PRINZIDE,ZESTORETIC) 20-25 mg per tablet, Take 1 tablet by mouth in the morning., Disp: , Rfl: methocarbamoL (ROBAXIN) 750 mg tablet, Take 1 tablet (750 mg total) by mouth 3 (three) times a day as needed. (Patient not taking: Reported on 04/12/2025), Disp: , Rfl: naloxone (NARCAN) 4 mg/actuation spray,non-aerosol nasal spray, Administer 1 spray (4 mg total) into alternating nostrils as needed for opioid reversal. (Patient not taking: Reported on 04/12/2025), Disp: 1 each, Rfl: 0 sodium chloride injection, Infuse 10-20 mL into a venous catheter as needed for line care (line care per nursing agency protocol.). (Patient not taking: Reported on 04/12/2025), Disp: 1 mL, Rfl: 0 tamsulosin (FLOMAX) 0.4 mg capsule, Take 1 capsule (0.4 mg total) by mouth nightly., Disp: 30 capsule, Rfl: 0 tiZANidine (ZANAFLEX) 4 mg tablet, Take 1 tablet (4 mg total) by mouth Three times daily as needed. (Patient not taking: Reported on 04/12/2025), Disp: , Rfl: VITAL SIGNS Ht 170.2 cm (5' 7 ) Wt 98.4 kg (217 lb) BMI 33.99 kg/m PHYSICAL EXAMINATION On exam he is awake and attentive in no distress. He ambulates steadily down the hallway. He has no focal motor weakness in zhou upper or lower extremity dermatomes. He does have brisk reflexes throughout. A few beats of clonus are noted in the right lower extremity. Questionable Prabhakar's in the right upper extremity. SILT in zhou dermatomes. Incision has healed very well. IMAGING No new imaging for review. IMPRESSION AND PLAN 45 year old male status post thoracic laminectomies for epidural abscess causing urinary retention, numbness in legs, and mild weakness. He appears to be doing well status post surgery and course of IV antibiotics. At this point he can follow up with us as needed if he starts to notice any new concerns. Anurag Huffman MD documented in this encounter [facility] 04-12-2025 Instructions Sophie Suarez CMA - 04/12/2025 1:45 PM EDT Patient ok to RTW 04/23/2025. [facility] paperwork to be updated ss documented in this encounter [facility] 04-06-2025 Note Division of Infectio us Diseases - Outpatient Clinic Note Patient name: Gem Menendez Patient Today's Date and Time: 04/06/2025, 11:55 AM Primary Care Physician: Srinivasan Christine MD Reason for consultation / Chief complaint: Epidural abscess History of Present Illness: This is a 45-year-old male patient who was initially admitted on February 24, 2025. The patient presented to the emergency department with back pain. He had developed the pain a few days prior without any inciting event. He then developed urinary retention with some chills. He attempted to go to work but developed numbness in the bilateral lower extremities and presented to an outside hospital. A Dee catheter was inserted with 3100 mL of urine obtained. He was then transferred to [facility], and neurosurgery was consulted. The patient had not had any recent surgeries. He has screws in his lower extremity from his surgery performed years ago. He underwent an MRI that showed an ill-defined abnormal signal and enhancement spanning the visualized thoracic spine most significant from T7-T11. An MRI of the cervical spine did not show any abnormalities, and an MRI of the lumbar spine showed multi level discogenic degenerative changes. He underwent a laminectomy, and cultures obtained showed group B streptococcus. He was initially on ceftriaxone but developed right sided facial edema, so ceftriaxone and lisinopril were both stopped. The facialedema had resolved. He was discharged on 6 weeks of intravenous penicillin that would conclude on April 06, 2025. The patient had completed a hospital follow-up with our service on March 20, 2025. At that time, he was demonstrating leukopenia secondary to penicillin. He was also experiencing severe fatigue. It was decided to transition him to daptomycin for the remainder of his treatment course. The patient is completing a subsequent follow-up with our service today to evaluate for any other change of symptoms.He is present today with his . He reports he has done very well since his last follow-up. He has been tolerating daptomycin without any side effects. He reports his fatigue has significantly lessened. He denied having any pain of the back. He reports the numbness of his right side has been improving. He was scheduled to see neurosurgery yesterday, but due to an emergency surgery, this was rescheduled to next week. He denied having any fevers, chills, chest pain, shortness of breath, abdominal pain, nausea, vomiting, or diarrhea. He is not experiencing any difficulty urinating. Past Medical History: No past medical history on file. Past Surgical History: No past surgical history on file. Medications: Social History: Social History Socioeconomic History Marital status: Spouse name: Not on file Number of children: Not on file Years of education: Not on file Highest education level: Not on file Occupational History Not on file Tobacco Use Smoking status: Not on file Smokeless tobacco: Not on file Substance and Sexual Activity Alcohol use: Not on file Drug use: Not on file Sexual activity: Not on file Other Topics Concern Not on file Social History Narrative Not on file Social Determinants of Health Financial Resource Strain: Not on file Food Insecurity: No Food Insecurity (02/26/2025) [facility] Hunger Screening Within the past 12 months we worried whether our food would run out before we got money to buy more.: Never True Within the past 12 months the food we bought just didn't last and we didn't have money to get more.: Never True Transportation Needs: No Transportation Needs (02/25/2025) [facility] [employer] PRAPARE - Transportation Lack of Transportation (Medical): No Lack of Transportation (Non-Medical): No Physical Activity: Not on file Stress: Not on file Social Connections: Not on file Intimate Partner Violence: Not on file Housing Stability: Low Risk (02/25/2025) [facility] [employer] Housing Instability Are you worried or concerned that in the next two months you may not have stable housing that you own, rent or stay in as a part of a household?: No Family History: No family history on file. Immunization History: Immunization History Administered Date(s) Administered Chantelle Sars-Cov-2 Vaccination 02/14/2021, 10/24/2021 Allergies: Allergies Allergen Reactions Ceftriaxone Swelling Lisinopril-Hydrochlorothiazide Swelling Review of Systems: General: No fevers or chills. Eyes: No double vision or blurry vision. ENT: No sore throat or runny nose. Cardiovascular: No chest pain or palpitations. Lung: No shortness of breath or cough. Abdomen: No nausea, vomiting, diarrhea, or abdominal pain. Genitourinary: No increased urinary frequency, or dysuria. Musculoskeletal: No muscle aches or pains. Hematologic: No bleedi (more content not included)... [facility] 03-27-2025 Miscellaneous Notes oxycodone documented in this encounter [facility] 03-27-2025 Telephone encounter Note oxycodone [facility] 03-27-2025 Miscellaneous Notes Gem calls asking for refill of oxycodone Pended 1 q 6 hr prn for 14 days (56) to Dr Huffman Gem calls and asks about pain medication being sent to pharmacy. Call to Gem and informed that script is pending sign from provider. Will remind him to sign again. He then ask what restrictions he may have- discussed with him to listen to body but would avoid mowing lawn. documented in this encounter [facility] 03-27-2025 Telephone encounter Note Gem calls asking for refill of oxycodone Pended 1 q 6 hr prn for 14 days (56) to Dr Huffman [facility] 03-27-2025 Telephone encounter Note Gem calls and asks about pain medication being sent to pharmacy. Call to Gem and informed that script is pending sign from provider. Will remind him to sign again. He then ask what restrictions he may have- discussed with him to listen to body but would avoid mowing lawn. [facility] 03-21-2025 Miscellaneous Notes oxycodone documented in this encounter [facility] 03-21-2025 Telephone encounter Note oxycodone [facility] 03-21-2025 Miscellaneous Notes Gem calls asking for oxycodone 5 to be refilled. Oxycodone 5 q 6 hr prn for 14 days (56) pended to Dr Huffman. documented in this encounter [facility] 03-21-2025 Telephone encounter Note Gem calls asking for oxycodone 5 to be refilled. Oxycodone 5 q 6 hr prn for 14 days (56) pended to Dr Huffman. [facility] 03-21-2025 History of Present illness Narrative Associated Problem(s): Type 2 diabetes mellitus with hyperglycemia, without long-term current use of insulin (CMS/[facility]) BS improved and A1C 7.2. Concerned of weight and add ozempic. Associated Problem(s): Epidural abscess Doing well and follow with surgeon and ID. Associated Problem(s): Benign essential hypertension (CMS/HCC) BP elevated and start hydrochlorothiazide. Monitor PRN. Associated Problem(s): Arthralgia of right hand Still swelling and check uric acid. Associated Problem(s): Angioedema Developed angioedema in hospital and stopped lisinopril. Images from the original note were not included. Subjective Patient ID: Gem Menendez is a 45 y.o. male who presents for Follow-up (6m f/up/Hospital f/u). Hospital follow up from 02/23-03/06 for epidural abscess. Developed back pain and to ER 02/21. Thought strain and sent home. Developed urinary retention and continued pain. Transferred to [facility] and MRI showed epidural abscess. Drained and seen by ID. Initially on ceftriaxone and then developed angioedema. Stopped lisinopril and changed to penicillin. Culture with Group B strep. Followed with ID and changed to daptomycin. BP elevated since off medication. BP 176/102 today and was 150/86 at ID yesterday. Reports recent dental abscess last year and had cleaning few weeks prior to pain. ID recommends antibiotics prior to dental procedure or cleaning. Pain stable and in PT. Review of Systems Constitutional: Negative for fatigue. [...] This Visit Benign essential hypertension (CMS/HCC) BP elevated and start hydrochlorothiazide. Monitor PRN. Relevant Medications hydroCHLOROthiazide (HYDRODiuril) 25 MG tablet Type 2 diabetes mellitus with hyperglycemia, without long-term current use of insulin (CMS/HCC) BS improved and A1C 7.2. Concerned of weight and add ozempic. Relevant Medications semaglutide (Ozempic, 0.25 or 0.5 MG/DOSE,) 2 MG/1.5ML solution pen-injector Epidural abscess - Primary Doing well and follow with surgeon and ID. Arthralgia of right hand Still swelling and check uric acid. Relevant Orders Uric acid Angioedema Developed angioedema in hospital and stopped lisinopril. documented in this encounter [facility] 03-20-2025 Note Division of Infectio us Diseases - Outpatient Clinic Note Patient name: Gem Menendez Patient Today's Date and Time: 03/20/2025, 3:00 PM Primary Care Physician: Srinivasan Christine MD Reason for consultation / Chief complaint: Epidural abscess History of Present Illness: This is a 45-year-old male patient who was initially admitted on February 24, 2025. The patient presented to the emergency department with back pain. He had developed the pain a few days prior without any inciting event. He then developed urinary retention with some chills. He attempted to go to work but developed numbness in the bilateral lower extremities and presented to an outside hospital. A Dee catheter was inserted with 3100 mL of urine obtained. He was then transferred to [facility], and neurosurgery was consulted. The patient had not had any recent surgeries. He has screws in his lower extremity from his surgery performed years ago. He underwent an MRI that showed an ill-defined abnormal signal and enhancement spanning the visualized thoracic spine most significant from T7-T11. An MRI of the cervical spine did not show any abnormalities, and an MRI of the lumbar spine showed multi level discogenic degenerative changes. He underwent a laminectomy, and cultures obtained showed group B streptococcus. He was initially on ceftriaxone but developed right sided facial edema, so ceftriaxone and lisinopril were both stopped. The facial edema had resolved. He was discharged on 6 weeks of intravenous penicillin that would conclude on April 06, 2025. The patient is completing a hospital follow-up with our service today to evaluate for any change of symptoms.He is present today with his . They report they have been infusing penicillin as prescribed. He has not experienced any side effects from the antibiotic. He denied having any fevers, chills, chest pain, shortness of breath, abdominal pain, nausea, vomiting, or diarrhea. He reports the pain of his mid to low back has been improving, and he would currently rated this as 3 out of 10. He has been working with physical therapy, and he more recently worked with them this morning. He reports persistent numbness of the right side of his body, but he does report some improvement in this. He reports improvement in the swelling of his right upper extremity. He is not currently experiencing any pain at his PICC line insertion site. He does report he underwent a tooth removal approximately a year and a half ago, and since then, he has been experiencing intermittent pain of the right side of his back. He also underwent a dental cleaning 1 month prior to the development of the symptoms that brought him to the hospital. He will be following up with neurosurgery on April 05, 2025. He denied having any other concerns. Past Medical History: No past medical history on file. Past Surgical History: No past surgical history on file. Medications: Social History: Social History Socioeconomic History Marital status: Spouse name: Not on file Number of children: Not on file Years of education: Not on file Highest education level: Not on file Occupational History Not on file Tobacco Use Smoking status: Not on file Smokeless tobacco: Not on file Substance and Sexual Activity Alcohol use: Not on file Drug use: Not on file Sexual activity: Not on file Other Topics Concern Not on file Social History Narrative Not on file Social Determinants of Health Financial Resource Strain: Not on file Food Insecurity: No Food Insecurity (02/26/2025) Received from [facility] [employer] Hunger Screening Within the past 12 months we worried whether our food would run out before we got money to buy more.: Never True Within the past 12 months the food we bought just didn't last and we didn't have money to get more.: Never True Transportation Needs: No Transportation Needs (02/25/2025) [facility] - [facility] Lack of Transportation (Medical): No Lack of Transportation (Non-Medical): No Physical Activity: Not on file Stress: Not on file Social Connections: Not on file Intimate Partner Violence: Not on file Housing Stability: Low Risk (02/25/2025) [facility] Housing Instability Are you worried or concerned that in the next two months you may not have stable housing that you own, rent or stay in as a part of a household?: No Family History: No family history on file. Immunization History: Immunization History Administered Date(s) Administered Chantelle Sars-Cov-2 Vaccination 02/14/2021, 10/24/2021 Allergies: Allergies Allergen Reactions Ceftriaxone Swelling Lisinopril-Hydrochlorothiazide Swelling Review of Systems: General: No fevers or chills. Eyes: No double vision or blurry vision. ENT: No sore throat or runny nose. Cardiovascular: No chest pain or p (more content not included)... [facility] 03-15-2025 Miscellaneous Notes Karina with [facility] calls asking to clarify patients PT order. Reports due to patient having a PICC line to RUE, land based PT will be started first. Advised ok. documented in this encounter [facility] 03-15-2025 Telephone encounter Note Karina with [facility] calls asking to clarify patients PT order. Reports due to patient having a PICC line to RUE, land based PT will be started first. Advised ok. [facility] 03-08-2025 Miscellaneous Notes Roxicodone documented in this encounter [facility] 03-08-2025 Telephone encounter Note Roxicodone [facility] 03-08-2025 History of Present illness Narrative [facility] [address] [facility], [address] [address] Suture/Staple Removal/Wound Date: March 08, 2025 Patient: Gem Menendez Physician: Dr. Huffman Procedure: Past Surgical History: Procedure Laterality Date ANKLE SURGERY Left APPENDECTOMY COLONOSCOPY DIAGNOSTIC / SCREENING N/A 09/22/2024 Performed by Erich Michel MD at [facility] KNEE SURGERY Left LAMINECTOMY THORACIC MULTI LEVEL T6-T11 N/A 02/24/2025 Performed by Anurag Huffman MD at [facility] TONSILLECTOMY Date of Procedure: 02/24/25 Reason for Appointment: staple removal Post-Op Fever?: No Incisional Drainage?: No Skin Edges Approximated?: Yes Unusual Redness?: No Unusual Swelling?: No Sutures/[place] Removed?: Yes Steri Strips Applied?: No Use of Pain Medication: Roxicodone, requests a medication refill at nurse visit. Prescription pended to provider per provider Effective for Pain Relief?: Yes Comments: Patient ambulates with a steady gate accompanied by spouse. Incision is clean,dry, with edges well approximated. No s/s of infection, no drainage,redness or warmth noted. Balsam removed without difficulty. Hygiene reviewed with patient understanding.Patient does report some relief to edmar horse in back post operatively. Patient request PT referral to [facility] fax [phone]. Patient has PICC to [facility] with daily infusion of penicillin done by spouse.Patient reports not receiving any pain medications at discharge due to having pain medications left from PCP. Per provider ok to pend a prescription for Roxicodone 1-2 PO every 6 hours prn for pain x 7 days. #56.no refill. pended.Patient verbalizes post op appointment on 04/05/25 and is advised to call our office prior with any questions or concerns. Current Concerns with Incision or Symptoms?: No Patient educated on how to properly request future pain medication refills as well as the need to always read the directions on their medication bottle because the direction on how to take the medication may change with every refill. Neurosurgery will not provide early refills for prescriptions that are lost, stolen or not taken as prescribed. It is best to reposition often to reduce the amount of pressure on the incision. documented in this encounter [facility] 03-07-2025 History of Present illness Narrative Images from the original note were not included. Rita Frost RN spoke with patient today and he reports that he is set up for lab draws in [place], but if anything changes he will reach out to our office again. [facility] Blanca from [facility] called about a patient that will be getting home infusions for penicillin. Wants to know if we can do his lab draws here? His name is Gem Menendez [id number] Her number is [phone] documented in this encounter [facility] 09-29-2024 Miscellaneous Notes ----- Message from Dr. Erich Michel MD sent at 09/28/2024 9:00 AM EST ----- Regarding: Pathology Patient know that polyp removed during colonoscopy was benign tubular adenoma. Repeat colonoscopy as needed in 3 years due to size. Thank you ----- Message ----- From: Interface - Lab Results/Orders In Sent: 09/27/2024 4:43 PM EST To: Erich Michel MD Spoke with patient regarding pathology results. Patient verbally understood with no further questions. Recall to be put in chart. documented in this encounter [facility] 09-29-2024 Telephone encounter Note ----- Message from Dr. Erich Michel MD sent at 09/28/2024 9:00 AM EST ----- Regarding: Pathology Patient know that polyp removed during colonoscopy was benign tubular adenoma. Repeat colonoscopy as needed in 3 years due to size. Thank you ----- Message ----- From: Interface - Lab Results/Orders In Sent: 09/27/2024 4:43 PM EST To: Erich Michel MD [employer] 09-29-2024 Telephone encounter Note Spoke with patient regarding pathology results. Patient verbally understood with no further questions. Recall to be put in chart. [employer] 09-14-2024 Nurse Note Preoperative Education Checklist- General Surgery date: 09/22/24 Surgery time: 8a Arrival time: 610a 1. Bring a photo ID and your insurance card with you the day of surgery. You will check in at the main lobby of the [facility]- registration desk is straight ahead as soon as you walk in. Tell them you are here for surgery. 2. If you have a Living Will/Durable Power of [place] Curtain Machine Tender for Health Care that is not on [...] after you have bathed. 5. NO nail swiss/acrylic on at least one finger. If you are having a hand, wrist or foot surgery then all nail swiss and artificial/acrylic nails must be removed from [...] please call the Preadmission Testing office at [phone], Mon.-Fri. 7 a.m.-3 p.m. Leave a voicemail [...] Stop taking 0 days prior to procedure [facility] [employer] [facility] 09-14-2024 Miscellaneous Notes Preoperative Education Checklist- General Surgery date: 09/22/24 Surgery time: 8a Arrival time: 610a 1. Bring a photo ID and your insurance card with you the day of surgery. You will check in at the main lobby of the [facility]- registration desk is straight ahead as soon as you walk in. Tell them you are here for surgery. 2. If you have a Living Will/Durable Power of [place] Curt[employer] Tender for Health Care that is not on [...] after you have bathed. 5. NO nail swiss/acrylic on at least one finger. If you are having a hand, wrist or foot surgery then all nail swiss and artificial/acrylic nails must be removed from [...] please call the Preadmission Testing office at [phone], Mon.-Fri. 7 a.m.-3 p.m. Leave a voicemail [...] prior to procedure documented in this encounter [employer] 07-31-2024 History of Present illness Narrative Images [...] Past Medical History: Diagnosis Date Diabetes mellitus ([facility]) 07/25/2024 Varicella YOUNG CHILD Past Surgical [...] patient/family/caregiver Referring and communicating with other health healthcare market consultant Encounter for screening colonoscopy [Z12.11] ANNE CEDEÑO [facility] Physicians General Surgery [place] This note was created with the assistance of a speech recognition program. While intending to generate a timely document that accurately reflects the content of the visit, no guarantee can be provided that every grammatical or spelling mistake has been or will be identified or corrected. Thank you for your understanding. ANNE Cedeño 07/31/24 1242 documented in this encounter [facility] 07-21-2024 History of Present illness Narrative documented in this encounter [facility] 07-20-2024 History of Present illness Narrative [...] to General Surgery documented in this encounter [facility] 12-28-2023 History of Present illness Narrative [...] malignant neoplasms, colon [facility] Diagnosis Benign essential hypertension (CMS/HCC)- Primary [...] colon Body mass index (BMI) 36.0-36.9, adult Thoracic degenerative disc disease- Primary documented in this encounter [facility]* Diagnosis S/P laminectomy- Primary Other postprocedural status [facility] Diagnosis S/P laminectomy- Primary Other postprocedural status [facility] Diagnosis Benign essential hypertension (CMS/HCC)- Primary [...] colon Body mass index (BMI) 36.0-36.9, adult Thoracic degenerative disc disease- Primary documented in this encounter [facility]* Diagnosis Benign essential hypertension (CMS/HCC)- [...] colon Body mass index (BMI) 36.0-36.9, adult Epidural abscess- Primary Intracranial abscess Arthralgia of right hand Benign essential hypertension (CMS/HCC) Essential hypertension, benign Angioedema, subsequent encounter Type 2 diabetes mellitus with hyperglycemia, without long-term current use of insulin (CMS/HCC) documented in this encounter [facility]* Diagnosis S/P laminectomy- Primary Other postprocedural status [facility] Diagnosis S/P laminectomy Other postprocedural status [facility] Diagnosis Epidural abscess- Primary Intracranial abscess [facility] Diagnosis Benign essential hypertension (CMS/HCC)- Primary [...] colon Body mass index (BMI) 36.0-36.9, adult Epidural abscess- Primary Intracranial abscess Arthralgia of right hand Benign essential hypertension (CMS/HCC) Essential hypertension, benign Angioedema, subsequent encounter Type 2 diabetes mellitus with hyperglycemia, without long-term current use of insulin (CMS/HCC) Type 2 diabetes mellitus with hyperglycemia, without long-term current use of insulin (CMS/HCC)- Primary Benign essential hypertension (CMS/HCC) Essential hypertension, benign documented in this encounter [facility] HealthcareEvaluation [facility]* Diagnosis Benign essential hypertension- Primary Essential hypertension, benign Generalized anxiety disorder Generalized anxiety disorder Dyslipidemia Other and unspecified hyperlipidemia Benign essential hypertension- Primary Essential hypertension, benign Generalized anxiety disorder Generalized anxiety disorder Chronic rhinosinusitis Unspecified sinusitis (chronic) Body mass index [BMI] 36.0-36.9, adult (Z68.36) Hypersomnia Hypersomnia, unspecified Dyslipidemia Other and unspecified hyperlipidemia Annual physical exam- Primary Routine general medical examination at a health care facility Benign essential hypertension Essential hypertension, benign Colon cancer screening Special screening for malignant neoplasms, colon Body mass index (BMI) 36.0-36.9, adult Epidural abscess ([facility]-H[facility])- Primary Intracranial abscess Arthralgia of right hand Benign essential hypertension Essential hypertension, benign Angioedema, subsequent encounter Type 2 diabetes mellitus with hyperglycemia, without long-term current use of insulin (HCC) Type 2 diabetes mellitus with hyperglycemia, without long-term current use of insulin (HCC)- Primary Benign essential hypertension Essential hypertension, benign Annual physical exam- Primary Routine general medical examination at a health care facility Type 2 diabetes mellitus with hyperglycemia, without long-term current use of insulin (HCC) Benign essential hypertension Essential hypertension, benign Class 1 obesity due to excess calories with serious comorbidity and body mass index (BMI) of 34.0 to 34.9 in adult documented in this encounter [facility]ructionsNot on filedocumented in this encounterProSt. [facility] SystemInstructionsNot on filedocumented in this encounterC[facility] Clinic SystemInstructionsNot on filedocumented in this encounterC[facility] Clinic SystemInstructionsNot on filedocumented in this encounterC[facility] InstructionsNot on filedocumented in this encounterC[facility] InstructionsNot on filedocumented in [facility] InstructionsNot on filedocumented in this encounterCleveland Clinic SystemReason for referral (narrative)* Consultation (Routine) - Pending Review Specialty Diagnoses / Procedures Referred By Kasi arias Referred To Contact General Surgery Diagnoses Colon cancer screening Procedures LA OFFICE/OUTPATIENT NEW HIGH MDM 60 MINUTES Srinivasan Christine MD [address] [place] [address] Oliver Fajardo DO [address] [place] [id number] Referral ID Status Reason Start Date Expiration Date Visits Requested Visits Authorized [id number] Pending Review Specialty Services Required 07/20/2024 01/16/2025 1 1 [facility] Summary Purpose Family History No Family History Records FoundNo Family History Records FoundNo Family History Records FoundNo Family History Records FoundNo Family History Records FoundNo Family History Records Found Advance Directives Date Activated Date Inactivated Comments 02/24/2025 6:46 PM 03/06/2025 7:26 PM Date Activated Date Inactivated Comments 02/24/2025 6:46 PM 03/06/2025 7:26 PM Additional Source Comments (unrecognized sect ion and content) No Status Records FoundNo Status Records FoundNo Status Records FoundNo Status Records FoundNo Status Records FoundNo Status Records Found INFORMATION SOURCE (unrecogn ized section and content) DATE CREATED AUTHOR 07/09/2022 [facility] DATE CREATED AUTHOR AUTHOR'S ORGANIZ ATION 02/25/2025 [facility] DATE CREATED AUTHOR AUTHOR'S ORGANIZ ATION 03/24/2025 [facility] DATE CREATED AUTHOR AUTHOR'S ORGANIZ ATION 04/12/2025 [facility] DATE CREATED AUTHOR AUTHOR'S ORGANIZ ATION 04/14/2025 [facility] DATE CREATED AUTHOR AUTHOR'S ORGANIZ ATION 04/26/2025 [facility] Care Teams (unrecognized sec tion and content) Lead Medical Technologist Relationship Specialty Start Date End Date Srinivasan Christine MD [address] [place] [phone] PCP - General Family Medicine 12/28/23 Lead Medical Technologist Relationship Specialty Start Date End Date Srinivasan Christine MD [address] [place] [phone] PCP - General Family Medicine 12/28/23 Lead Medical Technologist Relationship Specialty Start Date End Date Srinivasan Christine MD [address] [place] [phone] PCP - General Family Medicine 12/28/23 Srinivasan Christine MD [address] [place] [phone] PCP - Medical [employer] 08/15/20 11/14/99 Lead Medical Technologist Relationship Specialty Start Date End Date Srinivasan Christine MD [address] [place] [phone] PCP - General Family Medicine 12/28/23 Srinivasan Christine MD [address] [place] [address] PCP - Medical [employer] 08/15/20 11/14/99 Lead Medical Technologist Relationship Specialty Start Date End Date Srinivasan Christine MD [address] [place] [address] PCP - General Family Medicine 12/28/23 Srinivasan Christine MD [address] [place] [address] PCP - Medical [employer] 08/15/20 11/14/99 Lead Medical Technologist Relationship Specialty Start Date End Date Srinivasan Christine MD [address] [place] [address] PCP - General Family Medicine 12/28/23 Srinivasan Christine MD [address] [place] [address] PCP - Medical [employer] 08/15/20 11/14/99 Lead Medical Technologist Relationship Specialty Start Date End Date Srinivasan Christine MD PCP - General Family Medicine 07/15/21 Lead Medical Technologist Relationship Specialty Start Date End Date Srinivasan Christine MD PCP - General Family Medicine 07/15/21 Lead Medical Technologist Relationship Specialty Start Date End Date Srinivasan Christine MD PCP - General Family Medicine 07/15/21 Lead Medical Technologist Relationship Specialty Start Date End Date Srinivasan Christine MD [address] [place] [phone] PCP - General Family Medicine 12/28/23 Srinivasan Christine MD [address] [place] [address] PCP - Medical [employer] 08/15/20 11/14/99 Lead Medical Technologist Relationship Specialty Start Date End Date Srinivasan Christine MD [address] [place] [address] PCP - General Family Medicine 12/28/23 Srinivasan Christine MD [address] [place] [address] PCP - Medical [employer] 08/15/20 11/14/99 Lead Medical Technologist Relationship Specialty Start Date End Date Srinivasan Christine MD PCP - General Family Medicine 07/15/21 Lead Medical Technologist Relationship Specialty Start Date End Date Srinivasan Christine MD PCP - General Family Medicine 07/15/21 Lead Medical Technologist Relationship Specialty Start Date End Date Srinivasan Christine MD PCP - General Family Medicine 07/15/21 Lead Medical Technologist Relationship Specialty Start Date End Date Srinivasan Christine MD [address] [place] [address] PCP - General Family Medicine 12/28/23 Srinivasan Christine MD [address] [place] [address] PCP - Medical [employer] 08/15/20 11/14/99 Lead Medical Technologist Relationship Specialty Start Date End Date Srinivasan Christine MD [address] [place] [address] PCP - General Family Medicine 12/28/23 Srinivasan Christine MD [address] [place] [address] PCP - Medical [employer] 08/15/20 11/14/99 Lead Medical Technologist Relationship Specialty Start Date End Date Srinivasan Christine MD [address] [place] [address] PCP - General Family Medicine 12/28/23 Srinivasan Christine MD [address] [place] [address] PCP - Medical [employer] 08/15/20 11/14/99 Lead Medical Technologist Relationship Specialty Start Date End Date Srinivasan Christine MD PCP - General Family Medicine 07/15/21 Lead Medical Technologist Relationship Specialty Start Date End Date Srinivasan Christine MD [address] [place] [address] PCP - General Family Medicine 12/28/23 Srinivasan Christine MD [address] [place] [address] PCP - Medical [employer] 08/15/20 11/14/99 Lead Medical Technologist Relationship Specialty Start Date End Date Srinivasan Christine MD [address] [place] [address] PCP - General Family Medicine 12/28/23 Srinivasan Christine MD [address] [place] [address] PCP - Medical [employer] 08/15/20 11/14/99 Lead Medical Technologist Relationship Specialty Start Date End Date Srinivasan Christine MD PCP - General Family Medicine 07/15/21 Lead Medical Technologist Relationship Specialty Start Date End Date Srinivasan Christine MD [address] [place] [address] PCP - General Family Medicine 12/28/23 Srinivasan Christine MD [address] [place] [address] PCP - Medical [employer] 08/15/20 11/14/99 Lead Medical Technologist Relationship Specialty Start Date End Date Srinivasan Christine MD [address] [place] [address] PCP - General Family Medicine 12/28/23 Srinivasan Christine MD [address] [place] [address] PCP - Medical [employer] 08/15/20 11/14/99 Lead Medical Technologist Relationship Specialty Start Date End Date Srinivasan Christine MD [address] [place] [address] PCP - General Family Medicine 12/28/23 Srinivasan Christine MD [address] [place] [address] PCP - Medical [employer] 08/15/20 11/14/99 Reason for Visit (unrecogniz ed section and content) Reason Comments Follow-up High bp Reason Comments Follow-up 6 m Reason Comments Colon Cancer Screening FIRST SCREENING EUGENIA LOW OF COLON CANCER IN MOTHER Specialty Diagnoses / Procedures Referred By Contnolan t Referred To Contact General Surgery Diagnoses Colon cancer screening Procedures LA OFFICE OUTPATIENT VISIT 60-74 MINS HIGH MDM AMB REFERRAL TO GENERAL SURGERY Srinivasan Christine MD [address] [place] [address] Oliver Fajardo, [address] [place] [address] Referral ID Status Reason Start Date Expiration Date Visits Re quested Visits Authorized [id number] Closed 07/20/2024 01/16/2025 1 1 Reason Comments Suture / Staple Removal Reason Onset Date Comments Med Refill 03/08/2025 Reason Onset Date Comments clarify PT order 03/15/2025 Reason Comments Follow-up 6m f/upHospital f/u Reason Onset Date Comments Med Refill 03/21/2025 Reason Onset Date Comments med refill request 03/21/2025 Reason Onset Date Comments Med Refill 03/27/2025 Reason Onset Date Comments med refill request 03/27/2025 Reason Comments Follow-up 6 week follow up T6- 11 lami, abscess Reason Comments Follow-up 1 m Reason Comments Follow-up 2M FOR RECORDS PERTAINING TO PATIENTS WHO ARE [...] BE BASED ON THE PRIMARY CLINICAL RECORDS. [facility]. provides no warranty or guarantee of the accuracy or completeness of information in this document.
[2025-07-05 08:00] LABS: Hematocrit 41.8 % (42.0-54.0); Hemoglobin 15.4 g/dL (14.0-18.0); Immature Granulocytes Abs Auto 0.04 10^3/uL (0.00-0.03); Immature Granulocytes Pct Auto 0.6 % (0.0-0.5); Lymphocytes Absolute Auto 1.8 10^3/uL (1.2-3.8); Mean Corpuscular HGB Conc 36.8 g/dL (29.9-35.2); Mean Corpuscular Hemoglobin 30.6 pg (25.9-34.0); Mean Corpuscular Volume 83.1 fL (80.0-94.0); Platelet Count 240 10^3/uL (150-450); Red Blood Count 5.03 10^6/uL (4.70-6.10); White Blood Count 6.6 10^3/uL (4.0-11.0)
[2025-07-05 09:14] LABS: Alanine Aminotransferase 46 U/L (16-63); Albumin Globulin Ratio 1.0; Albumin Level 4.1 g/dL (3.4-5.0); Alkaline Phosphatase 120 U/L (46-116); Anion Gap 11.9; Aspartate Amino Transferase 27 U/L (15-37); Blood Urea Nitrogen 15.0 mg/dL (7.0-18.0); Calcium 9.3 mg/dL (8.5-10.1); Carbon Dioxide 29.2 mmol/L (21.0-32.0); Chloride 100 mmol/L (98-107); Cholesterol 158 mg/dL (<=200); Estimated GFR (African America >60 (>=60 mL/min/1.73m^2); Estimated GFR (Non-African Ame >60 (>=60 mL/min/1.73m^2); Globulin 4.0 g/dL; Glucose 168 mg/dL (74-106); HDL Cholesterol 45 mg/dL (40-60); Potassium 3.1 mmol/L (3.5-5.1); Sodium 138 mmol/L (136-145); Thyroid Stimulating Hormone 1.417 uIU/mL (0.358-3.740); Total Protein 8.1 g/dL (6.4-8.2); Triglycerides 322 mg/dL (<=150); VLDL CHOLESTEROL 64.4 mg/dL
[2025-07-06 14:20] LABS: Microalbum Creatinine Ratio Ur 12.6 mg/g (0.0-29.9)
== END 2025-07-05 07:11 | disposition home or self-care (01) ==
LOC: LAB 07:11
PROVIDERS: PCP Family Medicine; Visit Provider Family Medicine
DX: Z00.00 Encounter for general adult medical examination without abnormal findings (principal); E11.65 Type 2 diabetes mellitus with hyperglycemia
CPT/HCPCS: 36415; 80053; 80061; 82043; 82570; 83036; 84403; 84443; 85025; G0103

== ENCOUNTER 2025-10-01 11:13 | Outpatient (OUT) | payer OTHER, SELFPAY ==
--- OUTSIDE RECORDS SUMMARY | 2025-09-27 10:12 | XMS_ITS | Continuity of Care Document ---
Author Organization [facility] Address [address] [place] [address] Phone Care Team Providers Care [employer]otive Lube Technician Name Role Phone Srinivasan Graham MD Primary Care Provider [phone] Srinivasan Graham MD Attending Provider Care Teams Patient Care Team Team Status: Active Member Role/Relationship Status Dates Srinivasan Graham MD Primary Care Provider Active Patient Care Team Team Status: Inactive Member Role/Relationship Status Dates Srinivasan Graham MD Primary Care Provider Active S tart: September 27, 2025 End: September 27, 2025[facility] VARGHESE Grahamttending ProviderActiveStart: September 27, 2025 End: September 27, 2025 Chief Complaint and Reason for Visit Chief Complaint Admit Date Established Patient September 27, 2025 2:30pm Reason for Visit Admit Date Benign essential hypertension September 152024 2:30pm Generalized anxiety disorder September 272024 2:30pm Male hypogonadism September 27, 2025 2:30pm Type 2 diabetes mellitus wit h hyperglycemia, without long-term current use September 27, 2025 2:30pm Allergies, Adverse Reactions, Alerts Allergen Type Severity Reaction Last Updated Verified Status lisinopril Allergy Unknown Swelling September 27, 2025 2:40pm Y es Active Social History Smoking Status Status Start Date End Date Date of Observa tion Never smoked tobacco (finding) September 27, 2025 2:42pm Observation Status Observation Response Date of Response Legal Sex Male (finding) Sex Assigned At [facility] 1979 Problems Active Problems Problem Diagnosis/Recorded Date Onset Date Stat us Generalized anxiety disorder September 26, 2025 1:23p m Unknown Active Benign essential hypertension September 26, 2025 1:22 pm Unknown Active Dyslipidemia September 26, 2025 1:23pm Unknown A ctive Hypersomnia September 26, 2025 1:24pm Unknown A ctive Male hypogonadism September 26, 2025 1:24pm Unknown Active Thoracic degenerative disc disease September 26, 2025 1:24pm Unknown Active Type 2 diabetes mellitus wit h hyperglycemia, without long-term current use of insulin September 26, 2025 1:24pm Unknown Active Chronic rhinosinusitis September 26, 2025 1:22pm Unkn own Active Arthralgia of right hand September 26, 2025 1:22pm Un known Active Medications Medication Status Dose Units Route Directions Qty Days Refills S tart Date Stop Date End Date Reason(s) Instructions Adherence Atorvastatin 40 mg tablet Active 40 MG PO Daily at bedtime 30 5October 2024 11:00pmComplies with drug therapyParoxetine Hcl 10 mg tablet Qpefne45WDQUQsudlDimihiho 12th, 2025 12:00amComplies with drug therapyNifedipine 90 mg tablet extended release 48qdDjqcqy22MRBJHyfwqTadsoxec 12th, 2025 12:00am Complies with drug therapyHydrochlorothiazide 25 mg vhqgleQlvqmgmvjbfd11OXZJ DailySeptember 26, 2025 12:00amN2024 3:08pmMetformin 500 mg tablet extended release 24 leSxombw700ZPVCNrrep eveningSeptember 26, 2025 12:00amComplies with drug therapyTestosterone 20.25 mg/1.25 gram (1.62 %) gel in metered-dose quuzCmghcq8ZEAWMRSWOKSJzgacLelavsor 12th, 2025 12:00amapply 1 pump amount over max area of EACH upper arm and shoulderComplies with drug therapy Semaglutide 0.25 mg or 0.5 mg(2 mg/1.5 mL) pen injectorDiscontinued0.5MGSUBCUT every weekSeptember 26, 2025 12:00amNovemb2024 3:08pmSemaglutide 1 mg/dose (4 mg/3 mL) pen gpxwjqiiDwtrul3NORSJNFNcunpp ntzi77EytgowcmSeptember 27, 2025 12:00amComplies with drug therapyHydrochlorothiazide 25 mg bdyxzeYrestk12GLQA Sxgvp2128WfkoootdSeptember 27, 2025 3:08pmComplies with drug therapy Vital Signs Vital Reading Result Reference Range Collection Date/Time Height 67 [in_i] September 27, 2025 2:37orBcvtpb78.45 kgSeptember 27, 2025 2:39pmBody Qshroderaoq47.2 [degF]97.6-99.0September 27, 2025 2:39pmHeart Rate89 /qma48-165 September 27, 2025 2:39pmRespiratory rate12 /rqz80-03OiwhilcdSeptember 27, 2025 2:39pm Oxygen saturation by Pulse lyatqlou24 %95-100September 27, 2025 2:39pmBP Yamyrhdc403 mm[Hg]100-140September 27, 2025 2:39pmBP Weexqitbo486 mm[Hg]60-100 September 27, 2025 2:39pmBMI (Body Mass Index)34.3 kg/r4PrdaleqxSeptember 27, 2025 2:39pm Advance Directives Advance Directive Response Recorded Date/ Time Advance Directives No July 12:50pm Insurance Providers Guarantor Krish Menendez Address [address] [place] [address]Wjwyqlz Info.Home Phone: Coverage Status Update:2025 Payer Group Member ID Coverage Type Subscriber Relationship to Subscriber Effective Date Expiration Date MMO Id: [id number] J Rakes Id: [id number] [address] [place] [address] Home Phone: Email: [email or web address] sale to [employer] Id: [id number] J Rakes Id: [id number] [address] [place] [address] Home Phone: Email: [email or web address] Encounter Location(s) Arrival/Admit Date Discharge/Departure Date Discharge/Departure Disposition Provider(s) Departed Physician/ Provider Office Visit -[facility] Family Medicine Kinde September 27, 2025 2:30pm September 27, 2025 3:10pm Discharged to home care or self care (routine discharge) Srinivasan Graham MD Recent Diagnosis Onset Date Admit Date Benign essential hypertension Unknown No vember 2024 2:30pm Generalized anxiety disorder Unknown Nov ember 2024 2:30pm Male hypogonadism Unknown September 27, 2025 2:30pm Type 2 diabetes mellitus wit h hyperglycemia, without long-term current use Unknown September 27, 2025 2:30 pm Assessments Diagnosis Onset Date Resolution Status Admit Date Benign essential hypertension acuteNovember 2024 2:30pmGeneralized anxiety disorderacuteNov2024 2:30pmMale hypogonadismacuteNov2024 2:30pmType 2 diabetes mellitus with hyperglycemia, without long-term current useacuteNov2024 2:30pm Plan of Treatment Author Srinivasan Graham [facility] 2024 3:10pmNot checking BS but last A1C 5.8. Increase ozempic to help with weight loss. Stick to ADA diet and limit carbs. BP improved but still elevated and increase HCTZ. Continue procardia. Monitor PRN. Discussed DASH diet. Symptoms remain controlled and weaning off paxil. Monitor. No change in symptoms and repeat labs. Future Tests Future scheduled test information is unavailable Pending Tests Pending diagnostic test information is unavailable Future Visits Future appointment information is unavailable Future Procedures Procedure Name Ordered Date Scheduled Date Testosterone September 27, 2025 2:55pm Future Medications Future medication information is unavailable Patient Instructions Patient instructions are unavailable
--- OUTSIDE RECORDS SUMMARY | 2025-10-01 11:24 | XMS_ITS | CCD ---
Author Organization 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 Name Role Phone DR SIRNIVASAN CHRISTINE Attending Unavailable NANCI, DR SRINIVASAN Fernandez Consulting Unavailable NANCI, DR SRINIVASAN Fernandez Primary Care Unavailable NANCI, DR SRINIVASAN Fernandez Admitting Unavailable Nanci YOUNG, Srinivasan Primary Care Provider Srinivasan Christine MD Unavailable Srinivasan Christine MD Primary Care Provider SRINIVASAN CHRISTINE Primary Care Unavailable YOANA CORTEZ Attending Unavailable PATRIA JANE Admitting Unavailable PATRIA JANE Attending Unavailable SRINIVASAN CHRISTINE Primary Care Unavailable SRINIVASAN CHRISTINE Referring Unavailable SRINIVASAN CHRISTINE Primary Care Unavailable Nanci YOUNG, Srinivasan Primary Care Provider ANURAG HUFFMAN Attending Unavailable ANURAG HUFFMAN Referring [...] Consulting Unavailable EMMY YBARRA Consulting Unavailable SUDARSHAN ROMAN Consulting Unavailable KANG GALINDO Consulting Unavailable HEMANT KENNEDY Attending Unavailable HEMANT KENNEDY Attending Unavailable BISI SALAZAR Attending Unavailable SRINIVASAN CHRISTINE Referring Unavailable SRINIVASAN CHRISTINE Primary Care Unavailable SRINIVASAN CHRISTINE Referring Unavailable SRINIVASAN CHRISTINE Primary Care Unavailable ANURAG HUFFMAN Attending Unavailable SRINIVASAN CHRISTINE Referring Unavailable SRINIVASAN CHRISTINE Primary Care Unavailable SRINIVASAN CHRISTINE Attending Unavailable SRINIVASAN CHRISTINE Attending Unavailable INEZ CAMARGO Attending Unavailable SRINIVASAN CHRISTINE Attending Unavailable Allergies Allergy ClassificationReported Allergen(s)Allergy TypeDate of OnsetReaction(s) Facility (12 sources)cefTRIAXone; Translations: [CEFTRIAXONE]Drug Bisxtll00-03-7486FrhxjcLakeview Hospital (12 sources)hydroCHLOROthiazide / Lisinopril; Translations: [LISINOPRIL-HYDROCHLOROTHIAZIDE]Drug Nvszhpg79-54-5192IzbkulLakeview Hospital Work Phone: (15 sources)LisinoprilPropensity to adverse wlxechukl60-78-8647OP[facility] Medications Current Medications MedicationDrug Class(es)DatesSig (Normalized)Sig (Original)acetaminophen 325 mg / oxyCODONE hydrochloride 5 mg oral tablet (2 sources)Opioid AgonistStart: 02-22-2025 End: 04-43-3417emsd 1 tablet by mouth four times daily as needed for pain oxyCODONE-acetaminophen (Percocet) 5-325 MG tablet Indications: Thoracic degenerative disc disease Take 1 tablet by mouth 4 (four) times a day as needed for severe pain or moderate pain for up to 7 days 28 tablet 02/22/2025 03/01/2025 Activeatorvastatin 40 mg oral tablet (20 sources)HMG-CoA Reductase InhibitorStart: 71-05-4631rxfp 1 tablet by mouth once dailyatorvastatin (Lipitor) 40 MG tablet Indications: Dyslipidemia Take 1 tablet (40 mg) by mouth Daily 90 tablet 3 10/30/2024 ActiveStart: 06-29-2024 End: 76-86-9702hjtg 1 tablet by mouth once dailyatorvastatin (Lipitor) 20 MG tablet Indications: Dyslipidemia (CMS/HCC) Take 1 tablet (20 mg) by mouth Daily 90 tablet 3 06/29/2024 07/24/2024 Discontinued (Reorder)Start: 93-56-4583sbpp 1 tablet by mouth in the morningatorvastatin (Lipitor) 20 MG tablet Indications: Dyslipidemia (CMS/HCC) Take 1 tablet (20 mg) by mouth in the morning. 90 tablet 3 12/28/2023 ActiveStart: 17-79-6771aacx 1 tablet by mouth in the morning atorvastatin (Lipitor) 20 MG tablet Indications: Dyslipidemia (CMS/HCC) Take 1 tablet (20 mg) by mouth in the morning. 90 tablet 3 12/28/2023 ActiveStart: 09-06-2023 End: 97-39-5463txqu 1 tablet by mouth in the morningatorvastatin (Lipitor) 20 MG tablet Take 20 mg by mouth in the morning. 0 09/06/2023 12/28/2023 Discontinued (Reorder)Blood Glucose Monitoring Suppl (FreeStyle Lite) device (20 sources)Start: 20-14-7241xjzqqx 1 dose by subcutaneous injection once daily Blood Glucose Monitoring Suppl (FreeStyle Lite) device Indications: Type 2 diabetes mellitus with hyperglycemia, without long-term current use of insulin ([facility]) Inject 1 each under the skin Daily Use as instructed 1 each 07/24/2024 ActiveStart: 32-18-5114lomrnc 1 dose by subcutaneous injection once dailyBlood Glucose Monitoring Suppl (FreeStyle Lite) device Indications: Type 2 diabetes mellitus with hyperglycemia, without long-term current use of insulin ([facility]) Inject 1 each under the skin Daily Use as instructed 1 each 07/24/2024 Active FREESTYLE LITE METER kit (12 sources)Start: 74-63-0450FMSNFSSSZ LITE METER kit 07/24/2024 Activeheparin sodium, porcine 10 unt/ml injectable solution (18 sources)Unfractionated Heparin, Anti-coagulantStart: 82-27-0637jfixeol lock flush, porcine, 10 unit/mL injection Infuse 1-5 mL (10-50 Units total) into a venous catheter as needed (line care per nursing agency protocol.). 1 mL 03/05/2025 ActiveStart: 81-39-3595isgiegy lock flush, porcine, injection 100 unit/mL solution Infuse 1-5 mL (100-500 Units total) into a venous catheter as needed (line care per nursing agency protocol.). 1 mL 03/05/2025 Active hydroCHLOROthiazide 25 mg oral tablet (20 sources)Thiazide DiureticStart: 03-21-2025 End: 09-73-4545bljl 1 tablet by mouth once dailyhydroCHLOROthiazide (HYDRODiuril) 25 MG tablet Indications: Benign essential hypertension TAKE 1 TAB LET BY MOUTH EVERY DAY 90 tablet 1 07/16/2025 ActiveStart: 11-03-2023 End: 25-14-0242bqgu 1 tablet by mouth once dailyhydroCHLOROthiazide (HYDRODiuril) 25 MG tablet Indications: Benign essential hypertension (CMS/HCC) TAKE 1 TABLET BY MOUTH EVERY DAY 90 tablet 3 11/03/2023 12/28/2023 Discontinued hydroCHLOROthiazide 25 mg / lisinopril 20 mg oral tablet (20 sources)Thiazide Diuretic, Angiotensin Converting Enzyme InhibitorStart: 10-16-2024 End: 86-99-9969ylil 1 tablet by mouth once daily in the morninglisinopril- hydroCHLOROthiazide 20-25 MG tablet Indications: Benign essential hypertension (CMS/HCC)TAKE 1 TABLET BY MOUTH EVERY DAY IN THE MORNING 90 tablet 2 10/16/2024 03/21/2025 DiscontinuedStart: 92-24-9028zocw 1 tablet by mouth in the morning lisinopril-hydroCHLOROthiazide 20-25 MG tablet Indications: Benign essential hypertension (CMS/HCC)Take 1 tablet by mouth in the morning. 30 tablet 3 06/29/2024 ActiveStart: 77-89-5771wkfg 20-25 mg by mouth in the morning lisinopril-hydroCHLOROthiazide (Zestoretic) 20-25 MG tablet Indications: Benign essential hypertension (CMS/HCC) Take 1 tablet by mouth in the morning. 30 tablet 3 12/28/2023 ActiveStart: 73-36-1505xoqb 20-25 mg by mouth in the morning lisinopril-hydroCHLOROthiazide (Zestoretic) 20-25 MG tablet Indications: Benign essential hypertension (CMS/HCC) Take 1 tablet by mouth in the morning. 30 tablet 3 12/28/2023 Activetake 1 tablet by mouth once in the morninglisinopril- hydroCHLOROthiazide (PRINZIDE,ZESTORETIC) 20-25 mg per tablet Take 1 tablet by mouth in the morning. Activelidocaine 0.05 mg/mg medicated patch (9 sources)Antiarrhythmic, Amide Local AnestheticStart: 91-80-5362aplea 1 dose transdermal route once dailylidocaine (LIDODERM) 5 % Place 1 patch on the skin daily. 02/21/2025 Uyzkmf51 hr metFORMIN hydrochloride 500 mg extended release oral tablet (20 sources)BiguanideStart: 45-26-7322rpoz 1 tablet by mouth every twenty-four hours at mealtimemetFORMIN XR (Glucophage-XR) 500 MG 24 hr tablet Indications: Type 2 diabetes mellitus with hyperglycemia, without long-term current use of insulin (HCC) TAKE 1 TABLET (500 MG) BY MOUTH IN THE EVENING. TAKE WITH MEALS DO NOT CRUSH, CHEW, OR SPLIT. 90 tablet 1 06/18/2025 ActiveStart: 09-67-4567amul 1 tablet by mouth every twenty-four hours at mealtimemetFORMIN XR (Glucophage-XR) 500 MG 24 hr tablet Indications: Type 2 diabetes mellitus with hyperglycemia, without long-term current use of insulin (CMS/HCC) TAKE 1 TABLET (500 MG) BY MOUTH IN THE EVENING. TAKE WITH MEALS DO NOT CRUSH, CHEW, OR SPLIT. 90 tablet 1 12/27/2024 ActiveStart: 80-24-6392yion 1 tablet by mouth every twenty-four hours at mealtimemetFORMIN XR (Glucophage-XR) 500 MG 24 hr tablet Indications: Type 2 diabetes mellitus with hyperglycemia, without long-term current use of insulin (CMS/HCC) Take 1 tablet (500 mg) by mouth in the evening. Take with meals Do not crush, chew, or split. 30 tablet 5 08/28/2024 ActiveStart: 68-58-7554zurn 1 tablet by mouth once dailymetFORMIN XR (GLUCOPHAGE XR) 500 mg 24 hr tablet Take 1 tablet (500 mg total) by mouth nightly. 07/24/2024 ActiveStart: 13-34-7372aqlc 1 tablet by mouth every twenty-four hours at mealtimemetFORMIN XR (Glucophage- XR) 500 MG 24 hr tablet Indications: Type 2 diabetes mellitus with hypergly cemia, without long-term current use of insulin (CMS/HCC) Take 1 tablet (500 mg) by mouth in the evening. Take with meals Do not crush, chew, or split. 30 tablet 5 07/24/2024 Activemethocarbamol 750 mg oral tablet (20 sources)Muscle RelaxantStart: 02-20-2025 End: 71-67-6639jxts 1 tablet by mouth three times daily as needed for muscle spasmsmethocarbamol (Robaxin) 750 MG tablet Indications: Thoracic degenerative disc disease Take 1 tablet(750 mg) by mouth 3 (three) times a day as needed for muscle spasms 90 tablet 3 03/11/2025 06/27/2025 Discontinuednaloxone (NARCAN) 4 mg/actuation spray,non-aerosol nasal spray (9 sources)Start: 36-06-8988xkkmsohr (NARCAN) 4 mg/actuation spray,non-aerosol nasal spray Administer 1 spray (4 mg total) intoalternating nostrils as needed for opioid reversal. 1 each 03/05/2025 ActiveNIFEdipine 90 mg osmotic 24 hr extended release oral tablet (16 sources)Dihydropyridine Calcium Channel BlockerStart: 66-03-9946lhsy 1 tablet by mouth once dailyNIFEdipine XL (Procardia XL) 90 MG 24 hr tablet Indications: Benign essential hypertension Take 1 tablet (90 mg) by mouth Daily Do not crush, chew, or split. 30 tablet 5 06/27/2025 ActiveStart: 04-24-2025 End: 10-23-7699wvbq 1 tablet by mouth once dailyNIFEdipine XL (Procardia XL) 60 MG 24 hr tablet Indications: Benign essential hypertension Take 1 tablet (60 mg) by mouth Daily Do not crush, chew, or split. 30 tablet 3 04/24/2025 06/27/2025 DiscontinuedStart: 67-68-0950rygm 1 tablet by mouth once dailyNIFEdipine CC (ADALAT CC) 30 mg 24 hr tablet TAKE 1 TABLET (30 MG) BY MOUTH DAILY DO NOT CRUSH, CHEW, OR SPLIT 03/26/2025 ActiveStart: 03-26-2025 End: 34-18-2576xdru 1 tablet by mouth once dailyNIFEdipine XL (Procardia XL) 30 MG 24 hr tablet Indications: Benign essential hypertension (CMS/HCC) Take 1 tablet (30 mg) by mouth Daily Do not crush, chew, or split. 30 tablet 3 03/26/2025 04/24/2025 DiscontinuedoxyCODONE hydrochloride 5 mg oral tablet (7 sources)Opioid AgonistStart: 03-21-2025 End: 11-43-9444zaam 1 tablet by mouth every six hours as needed for pain oxyCODONE (ROXICODONE) 5 mg immediate release tablet Indications: S/P laminectomy Take 1 tablet (5 mg total) by mouth every 6 (six) hours as needed for pain for up to 14 days. Max Daily Amount: 20 mg56 tablet 03/28/2025 04/11/2025 ActiveStart: 03-08-2025 End: 59-31-3812hwbOHPTSX (ROXICODONE) 5 mg immediate release tablet Indications: S/P laminectomy Take 1-2 tablets (5-10 mg total) by mouth every 6 (six) hours as needed for pain for up to 7 days. Max Daily Amount: 40 mg 56 tablet 03/08/2025 03/15/2025 ActiveOZEMPIC 0.25 mg or 0.5 mg (2 mg/3 mL) pen injector (1 source)Start: 64-21-0779wdxdqf 0.25 mg by subcutaneous injection every week, then inject 0.5 mg by subcutaneous injection every weekOZEMPIC 0.25 mg or 0.5 mg (2 mg/3 mL) pen injector INJECT 0.25MG UNDER THE SKIN ONCE WEEKLY FOR 4 WEEKS, THEN INCREASE TO 0.5MG ONCE WEEKLY 03/28/2025 ActivePARoxetine hydrochloride 10 mg oral tablet (20 sources)Serotonin Reuptake InhibitorStart: 29-57-5438scmk 1 tablet by mouth once dailyPARoxetine (Paxil) 10 MG tablet Indications: Generalized anxiety disorder TAKE 1 TABLET (10 MG) BY MOUTH DAILY. 90 tablet 3 07/15/2025 Active Start: 06-29-2024 End: 85-58-5579krce 1 tablet by mouth once dailyPARoxetine (Paxil) 10 MG tablet Indications: Generalized anxiety disorder Take 1 tablet (10 mg) by mouth Daily 90 tablet 3 06/29/2024 07/15/2025 DiscontinuedStart: 06-29-2024 End: 31-03-0945zxtp 1 tablet by mouth in the morningPARoxetine (Paxil) 20 MG tablet Indications: Generalized anxiety disorder (CMS/HCC) Take 1 tablet (20 mg) by mouth in the morning. 30 tablet 11 06/29/2024 07/20/2024 DiscontinuedStart: 66-42-7537iajb 2 tablets by mouth in the morningPARoxetine (Paxil) 10 MG tablet Indications: Generalized anxiety disorder (CMS/HCC) Take 2 tablets (20 mg) by mouth in the morning. 30 tablet 5 12/28/2023 ActiveStart: 20-21-5040eckj 2 tablets by mouth in the morningPARoxetine (Paxil) 10 MG tablet Indications: Generalized anxiety disorder (CMS/HCC) Take 2 tablets (20 mg) by mouth in the morning. 30 tablet 5 12/28/2023 ActiveStart: 11-23-2023 End: 35-81-9092jjpm 1 tablet by mouth in the morningPARoxetine (Paxil) 10 MG tablet Take 10 mg by mouth in the morning. 0 11/23/2023 12/28/2023 Discontinued (Reorder)penicillin G potassium 4 Million Units in sodium chloride 0.9 % 100 mL IVPB (8 sources)Start: 03-05-2025 End: 83-19-6899hbjzhsminm G potassium 4 Million Units in sodium chloride 0.9 % 100 mL IVPB Infuse 4 Million Units into a venous catheter every 4 (four) hours for 37 days. 1 each 03/05/2025 04/11/2025 Active0.25 mg, 0.5 mg dose 1.5 ml semaglutide 1.34 mg/ml pen injector (15 sources)Start: 29-76-6459pasgzbnrlbg (Ozempic, 0.25 or 0.5 MG/DOSE,) 2 MG/1.5ML solution pen-injector Indications: Type 2 diabetes mellitus with hyperglycemia, without long-term current use of insulin ([facility]) 0.25 mg SC weeklyx 4 weeks, then 0.5 mg weekly 3 each 3 03/30/2025 ActiveStart: 03-21-2025 semaglutide (Ozempic, 0.25 or 0.5 MG/DOSE,) 2 MG/1.5ML solution pen-injector Indications: Type 2 diabetes mellitus with hyperglycemia, without long-term current use of insulin (CMS/HCC) 0.25 mg SC weekly x 4 weeks, then 0.5 mg weekly 1 each 1 03/21/2025 Activesod sulf-pot chloride-mag sulf 1.479-0.188- 0.225 gram tablet (2 sources)Start: 71-35-7479jeb sulf-pot chloride-mag sulf 1.479-0.188- 0.225 gram tablet Indications: Encounter for screening colonoscopy Please see instructional sheet given by physicians office. 24 tablet 07/31/2024 Jzzwus746 ml sodium chloride 9 mg/ml prefilled syringe (9 sources)Start: 87-69-3669xzlqxu chloride injection Infuse 10-20 mL into a venous catheter as needed for line care ([facility] 1 mL 03/05/2025 Activetamsulosin hydrochloride 0.4 mg oral capsule (9 sources)alpha-Adrenergic BlockerStart: 58-75-2849rttv 1 capsule by mouth once dailytamsulosin (FLOMAX) 0.4 mg capsule Take 1 capsule (0.4 mg total) by mouth nightly. 30 capsule 03/06/2025 Activeterbinafine 250 mg oral tablet (20 sources)Allylamine AntifungalStart: 06-29-2024 End: 15-51-7630krgr 1 tablet by mouth once dailyterbinafine (LamISIL) 250 MG tablet Indications: Tinea manuum Take 1 tablet, by mouth, once daily, 21 days 21 tablet 06/29/2024 03/21/2025 DiscontinuedStart: 06-08-2024 End: 02-41-4134jqwznzxlviu (LamISIL) 1 % cream Indications: Tinea manuum Apply to affected areas on hands and feetbid, then when clear use once weekly as maintenance 42 g 11 06/08/2024 03/21/2025 Zdhukbkfiirw2534 mg testosterone 0.0162 mg/mg topical gel (4 sources)AndrogenStart: 15-76-6655Rydopiheafgr 20.25 MG/1.25GM (1.62%) gel Indications: Male hypogonadism Place 2 Pump on the skin Daily 1.25 g 07/12/2025 ActiveStart: 07-09-2025 End: 94-78-9459Atiucglvfvry 20.25 MG/1.25GM (1.62%) gel Indications: Male hypogonadism Place 40.5 mg on the skin Daily 1.25 g 07/09/2025 07/12/2025 Discontinued (Reorder)tiZANidine 4 mg oral tablet (12 sources)Central alpha-2 Adrenergic AgonistStart: 02-22-2025 End: 11-38-9645brlu 1 tablet by mouth three times daily as neededtiZANidine (ZANAFLEX) 4 mg tablet Take 1 tablet (4 mg total) by mouth Three times daily as needed. 02/22/2025 Active Completed/Discontinued Medications MedicationDrug Class(es)DatesSig (Normalized)Sig (Original)chlorhexidine gluconate 1.2 mg/ml mouthwash (1 source)Start: 07-15-2021 End: 83-07-3140ozuh 15 mL by mouth twice dailychlorhexidine (PERIDEX) 0.12 % solution Indications: Tongue lesion Apply 15 mL to the mouth or throat 2 (two) times a day. 150 mL 07/15/2021 07/31/2024 Discontinued (Therapy completed) predniSONE 10 mg oral tablet (3 sources)Start: 02-21-2024 End: 30-52-8441kxfy 6 tablets by mouth once daily, then take 4 tablets by mouth once daily, then take 2 tablets bymouth once daily, then take 1 tablet by mouth once dailypredniSONE (Deltasone) 10 MG tablet Indications: Chronic rhinosinusitis 6 PO daily x 3 days, 4 PO daily x 3 days, 2 PO daily x 3 days, 1 PO daily x 3 days 39 tablet 02/21/2024 07/20/2024 Discontinued Problems Active Problems Problem ClassificationProblemDateDocumented DateEpisodic/ChronicAnxiety disorders (20 sources)Generalized anxiety disorder; Translations: [Generalized anxiety disorder]Onset: 123284-35-9657IhzbjwdTbrzvxaig infection; unspecified site (2 sources)Streptococcal infection, unspecified site; Translations: [Streptococcal infection, unspecified site]Onset: 67-85-3888JuweuyfwDzubxuoa mellitus with complications (20 sources)Hyperglycemia due to type 2 diabetes mellitus; Translations: [Type 2 diabetes mellitus with hyperglycemia]Onset: 186986-07-9257FrcyskbNcnhafwy of white blood cells (2 sources)Decreased white blood cell count, unspecified; Translations: [Decreased white blood cell count, unspecified]Onset: 47-00-9736YhxsvgdVmaoyzfiv of lipid metabolism (20 sources)Dyslipidemia; Translations: [Hyperlipidemia, unspecified]Onset: 148307-70-0471BqsdbrkCxofrpgdu hypertension (20 sources)Benign essential hypertension; Translations: [Essential (primary) hypertension]Onset: 395144-88-6929RbhqzupLkytiffcaqoqv symptoms and ill- defined conditions (11 sources)Retention of urine, unspecified; Translations: [Retention of urine] Onset: 645473-87-9026MxuyicfyNuark endocrine disorders (4 sources)Male hypogonadism; Translations: [Testicular hypofunction]Onset: 741874-18-2747UrepbcvBwbrl eye disorders (3 sources)Xanthoma of eyelid; 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, unspecified eyelid]Onset: 446075-93-4532ZzivsrkfSvfcp nervous system disorders (1 source)NumbnessOnset: 67-32-4132WwktdjqcBwwge nutritional; endocrine; and metabolic disorders (17 sources)Severe obesity; Translations: [Class 2 severe obesity due to excess calories with serious comorbidity and body mass index (BMI) of 37.0 to 37.9 in adult ([facility])]Onset: 617684-57-8393KfjphisLqvma nutritional; endocrine; and metabolic disorders (6 sources)Body mass index 30+ - obesity; Translations: [Body mass index (BMI) 36.0-36.9, adult]Onset: 091689-88-2615FnzliihJxjyt nutritional; endocrine; and metabolic disorders (8 sources)Obesity caused by energy imbalance; Translations: [Class 1 obesity due to excess calories with serious comorbidity and body mass index (BMI) of 34.0 to 34.9 in adult]Onset: 933466-00-2658VhjiqkoDomwo upper respiratory infections (20 sources)Chronic sinusitis; Translations: [Chronic sinusitis, unspecified] Onset: 464241-98-9190QeldrgfApoxilju codes; unclassified (20 sources)Hypersomnia; Translations: [Hypersomnia, unspecified]Onset: 251333-37-7343HhrexwkZrkegngq codes; unclassified (5 sources)H/O Spinal surgery; Translations: [Other specified postprocedural states]66-15-2018HiijypqpXtczutadjfn; intervertebral disc disorders; other back problems (20 sources)Degeneration of thoracic intervertebral disc; Translations: [Other intervertebral disc degeneration, thoracic region]Onset: 330064-13-2202 ChronicSpondylosis; intervertebral disc disorders; other back problems (2 sources)Backache; Translations: [Dorsalgia, unspecified]Onset: 02-23-2025 EpisodicUnclassified (20 sources)Patient on antidepressant monitoring planOnset: 660384-93-4502 Unclassified (20 sources)Baseline PHQ-9Onset: 708231-36-3396Ebcclksnqyva (1 source)Low back pain, unspecified; Translations: [Low back pain, unspecified] Onset: 62-56-2892Rcfaewzfmvks (1 source)EMSOnset: 30-87-3960Icbcynfpaxrm (1 source)[place] transfer, 145/75Onset: 63-44-3060Wurrwiyaeqaw (1 source)Colon Cancer ScreeningOnset: 07-31-2024 Past or Other Problems Problem ClassificationProblemDateDocumented DateEpisodic/ChronicMood disorders (12 sources)Mood disordersOnset: 08-27-2021 Resolved: Other aftercare (15 sources)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; Translations: [Long-term (current) use of antibiotics]Onset: 239633-74-1573GpcrdxitOflkr NURSING PROFESSOR infection and poliomyelitis (20 sources)Epidural abscess; Translations: [Extradural and subdural abscess, unspecified]Onset: 553985-05-2428IpuzkbdrRgwgj eye disorders (20 sources)Xanthelasma; 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, unspecified eyelid]Onset: 532949-79-9040VwiymrflWydsr injuries and conditions due to external causes (17 sources)Angioedema; Translations: [Angioneurotic edema, subsequent encounter]Onset: 03-21-2025 Resolved: 466954-03-4704FnqzliwkOtyzt non-traumatic joint disorders (17 sources)Joint pain in right hand; Translations: [Pain in joints of right hand]Onset: 623220-37-2942HozclbcgQozhy screening for suspected conditions (not mental disorders or infectious disease) (8 sources)Encounter for screening for malignant neoplasm of prostate; Translations: [Patient encounter status]Onset: 060291-12-9389CyvxwylcKtwbo upper respiratory disease (12 sources)Deviated nasal septum; Translations: [Deviated nasal septum]Onset: 116226-88-4559PbvukcsvLrdvlyvt codes; unclassified (1 source)Family history of cancer of colon; Translations: [Family history of malignant neoplasm of digestiveorgans]13-07-5045EvkjuvgoHsfijrmy codes; unclassified (1 source)Family history of malignant neoplasm of digestive organs; Translations: [Family history of malignant neoplasm of digestive organs]Onset: 18-86-9171Qiigmscb Results Test NameValueInterpretationReference RangeFacilityALL CBC WITH AUTO DIFFon 20-41-0796VJVETDZRV ABSOLUTE UUZG8SMDJMercy Hospital South, formerly St. [facility] Medical CenterBasophils/100 WBC (Bld)0.6 %0.2 - 2.0 %[facility] HospitalEosinophils/100 WBC (Bld)2 %0.9 - 7.0 %[facility] Erythrocyte distribution width (RBC) [Ratio]12.6 %11.0 - 15.0 %[facility] Hematocrit (Bld) [Volume fraction]41.8 %Low42.0 - 54.0 %[facility] Hemoglobin (Bld) [Mass/Vol]15.4 g/dL14.0 - 18.0 g/dLSaint John's Saint Francis HospitalIMMATURE GRANULOCYTES ABS AUTO0.04HighSaint John's Saint Francis HospitalImmature granulocytes/100 WBC (Bld) 0.6 %High0.0 - 0.5 %[facility] HospitalInterpretation and review of laboratory resultsAbnormalNOMercy Hospital South, formerly St. [facility] Medical CenterLYMPHOCYTES ABSOLUTE AUTO1.8NOMercy Hospital South, formerly [facility] Lymphocytes/100 WBC (Bld)26.7 %20.5 - 60.0 %[facility] Hospital[facility] (RBC) [Entitic mass]30.6 pg25.9 - 34.0 pgNOSainte Genevieve County Memorial HospitalHC (RBC) [Mass/Vol]36.8 g/rEDogx38.9 - 35.2 g/dLUniversity HospitalV (RBC) [Entitic vol]83.1 fL80.0 - 94.0 fLNOMN HealthcareMONOCYTES ABSOLUTE AUTO0.4NOMN HealthcareMonocytes/100 WBC (Bld)5.8 % 1.7 - 12.0 %[facility] HealthcareNEUTROPHILS ABSOLUTE AUTO4.2NOMS Healthcare Neutrophils/100 WBC (Bld)64.3 %43.0 - 75.0 %[facility] HealthcarePlatelet mean volume (Bld) [Entitic vol]9.7 fL9.5 - 13.5 fLSaint John's Saint Francis HospitalTBH EO #0.1NOMS Healthcare TBH [id number] Hospital [facility] RBC5.03NOMercy Hospital South, formerly St. [facility] Medical CenterTB WBC6.6NOMN Healthcare CLINISYNCSaint John's Saint Francis HospitalALL LIPID PROFILE (FASTING)on 05-36-0794TPDF HDL RATIO 3.5NOMercy Hospital South, formerly St. Anthony's Medical CenterComment on above:3.3 - 4.4 LOW RISK 4.4 - 7.1 AVERAGE RISK 7.1 - 11.0 MODERATE RISK >11.0 HIGH RISK Cholesterol [Mass/Vol]158 mg/dLNINF - 200 mg/dLSaint John's Saint Francis HospitalCholesterol in HDL [Mass/Vol]45 mg/dL40 - 60 mg/dLUNIVERSITY OF UTAH HOSPITAL HealthcareComment on above:> or =60 mg/dl - LOW CARDIOVASCULAR RISK <40 mg/dl - HIGH CARDIOVASCULAR RISK Magnesium [Mass/Vol]49 mg/dLUNIVERSITY OF UTAH HOSPITAL HealthcareComment on above:<100 mg/dl OPTIMAL 100-129 mg/dl NEAR OR ABOVE OPTIMAL 130-159 mg/dl BORDERLINE HIGH 160-189 mg/dl HIGH >190 mg/dl VERY HIGH Magnesium [Mass/Vol]64.4 mg/dLSaint John's Saint Francis HospitalTriglyceride [Mass/Vol]322 mg/dL HighNINF - 150 mg/dLSaint John's Saint Francis HospitalALL THYROID STIM HORMONEon 42-20-8129KEA Qn 1.417 m[IU]/LNOMS HealthcareCCF CMP (CMP) (FOR REMOTE [facility] USE)on 07-05-2025 Albumin [Mass/Vol]4.1 g/dL3.4 - 5.0 g/dLSaint John's Saint Francis HospitalALBUMIN GLOBULIN RATIO1 [facility] HealthcareALP [Catalytic activity/Vol]120 U/LHigh46 - 116 U/LNOMS HealthcareALT [Catalytic activity/Vol]46 U/L16 - 63 U/LNOMS HealthcareAnion gap [Moles/Vol]11.9 mmol/LNOMS HealthcareAST [Catalytic activity/Vol]27 U/L15 - 37 U/LNOMS HealthcareBilirubin [Mass/Vol]0.8 mg/dL0.2 - 1.0 mg/dLNOMS Healthcare Calcium [Mass/Vol]9.3 mg/dL8.5 - 10.1 mg/dLNOMS HealthcareChloride [Moles/Vol] 100 mmol/L98 - 107 mmol/LNOMS HealthcareCO2 [Moles/Vol]29.2 mmol/L21.0 - 32.0 mmol/LNOMS HealthcareCreatinine [Mass/Vol]1.09 mg/dL0.70 - 1.30 mg/dLNOMS HealthcareGFR/1.73 sq M.predicted CKD-EPI (S/P/Bld) [Vol rate/Area]>60>=60 mL/min/1.73m 2NOMS HealthcareGlobulin (S) [Mass/Vol]4 g/dLNOMS HealthcareGlucose [Mass/Vol]168 mg/mGAfpj92 - 106 mg/dLNOMS HealthcarePotassium [Moles/Vol]3.1 mmol/LLow3.5 - 5.1 mmol/LNOMS HealthcareProtein [Mass/Vol]8.1 g/dL6.4 - 8.2 g/dL NOMS HealthcareSodium [Moles/Vol]138 mmol/L136 - 145 mmol/LNOMS HealthcareTBH EGFR-NON AF INDONESIAN>60>=60 mL/min/1.73m 2NOMS HealthcareUrea nitrogen [Mass/Vol]15 mg/dL7.0 - 18.0 mg/dLNOMN HealthcareUrea nitrogen/Creatinine [Mass ratio]13.8 mg/mgNOMN HealthcareNo Panel Informationon 11-30-9058Jyasbljspeltwx and review of laboratory resultsAbnormalNOMN HealthcareCLINISYNCNJD [facility] Healthcare SRMCOH PROSTATE SPECIFIC ANTIGEN SCRNon 68-14-3711EYQWCUVE SPECIFIC ANTIGEN SCRN 0.85 ng/mLNINF - 4.00 ng/mLNOMS HealthcareFollow-Upon 36-91-0936Ytijcg-Up [id number] Gem Menendez 1980 M Date Provider Department Center 04/06/2025 HEMANT HANKINS [facility] No family history on file Level of Service:95013 UT OFFICE/OUTPATIENT ESTABLISHED LOW MDM 20 MIN Reason for Visit and Comments: Abscess [267] - Doing well, just some healing muscle painNormalUniversity [facility]36on [id number] to follow up on labs office is closed and no records has been receivedNormalUniWilson Street Hospital 36on [phone] will be sent from 03/27 and 04/02 per nurse Yamileth.Normal [facility] HospitalALL CBC WITH AUTO DIFFon 17-89-3300TJOTOMFTK ABSOLUTE PRJE4EEKT HealthcareBasophils/100 WBC (Bld)0.6 %0.2 - 2.0 %NOMS HealthcareEosinophils/100 WBC (Bld)1 %0.9 - 7.0 %NOMS HealthcareErythrocyte distribution width (RBC) [Ratio]13.6 %11.0 - 15.0 %NOMS HealthcareHematocrit (Bld) [Volume fraction]38.2 %Low42.0 - 54.0 %NOMS HealthcareHemoglobin (Bld) [Mass/Vol]13.1 g/dLLow14.0 - 18.0 g/dLNOMN HealthcareIMMATURE GRANULOCYTES ABS AUTO0.01NOMS HealthcareImmature granulocytes/100 WBC (Bld)0.2 %0.0 - 0.5 %NOMS HealthcareInterpretation and review of laboratory resultsAbnormalNOMN Healthcare LYMPHOCYTES ABSOLUTE AUTO1.4NOMS HealthcareLymphocytes/100 WBC (Bld)29.1 %20.5 - 60.0 %NOMS [facility] CenterMCH (RBC) [Entitic mass]30.5 pg25.9 - 34.[address] pgNOMercy Hospital South, formerly [address] Anthony's Medical CenterMCHC (RBC) [Mass/Vol]34.3 g/dL29.9 - 35.2 g/dLNOMercy Hospital South, formerly St. Anthony's Medical CenterMCV (RBC) [Entitic vol]89 fL80.0 - 94.0 fLNOMN HealthcareMONOCYTES ABSOLUTE AUTO0.3NOMS HealthcareMonocytes/100 WBC (Bld)6.5 %1.7 - 12.0 %NOMS HealthcareNEUTROPHILS ABSOLUTE AUTO3.1NOMS HealthcareNeutrophils/100 WBC (Bld)62.6 %43.0 - 75.0 %NOMS HealthcarePlatelet mean volume (Bld) [Entitic vol]9.7 fL9.5 - 13.5 fLSaint John's Saint Francis HospitalTBH EO #0.1NOMS [facility] CenterTB [id number] [facility] RBC4.29LowNOMercy Hospital Washington WBC4.9NOMercy Hospital South, formerly St. Anthony's Medical CenterCLINISYNCNOMS HealthcareALL BUNon 03-26-2025 Urea nitrogen [Mass/Vol]17 mg/dL7.0 - 18.0 mg/dLSalem Memorial District Hospital CBC WITH AUTO DIFFon 46-65-0744WNYGDWIYP ABSOLUTE FOQQ2SEEMMercy Hospital South, formerly St. Anthony's Medical CenterBasophils/100 WBC (Bld) 0.7 %0.2 - 2.0 %NOMDoctors Hospital Of SpringfieldEosinophils/100 WBC (Bld)2.9 %0.9 - 7.0 %[facility] HospitalErythrocyte distribution width (RBC) [Ratio]14.6 %11.0 - 15.0 %[facility] HospitalHematocrit (Bld) [Volume fraction]34.4 %Low42.0 - 54.0 %[facility] HospitalHemoglobin (Bld) [Mass/Vol]11.8 g/dLLow14.0 - 18.0 g/dLSaint John[facility] Hospital IMMATURE GRANULOCYTES ABS AUTO0.02NOMercy Hospital South, formerly St. Anthony's Medical CenterImmature granulocytes/100 WBC (Bld)0.4 %0.0 - 0.5 %[facility] HospitalInterpretation and review of laboratory resultsAbnormalNOMercy Hospital South, formerly St. Anthony's Medical CenterLYMPHOCYTES ABSOLUTE AUTO1.4NOMercy Hospital [facility], formerly [facility] Lymphocytes/100 WBC (Bld)30.5 %20.5 - 60.0 %University HospitalH (RBC) [Entitic mass]31 pg25.9 - 34.0 pgNOSainte Genevieve County Memorial HospitalHC (RBC) [Mass/Vol]34.3 g/dL29.9 - 35.2 g/dLUniversity HospitalV (RBC) [Entitic vol]90.3 fL80.0 - 94.0 fLSaint John's [facility] Hospital MONOCYTES ABSOLUTE AUTO0.4NOMercy Hospital South, formerly St. Anthony's Medical CenterMonocytes/100 WBC (Bld)8 %1.7 - 12.0 % NOMDoctors Hospital Of SpringfieldNEUTROPHILS ABSOLUTE AUTO2.6NOMN HealthcareNeutrophils/100 WBC (Bld)57.5 %43.0 - 75.0 %[facility] HospitalPlatelet mean volume (Bld) [Entitic vol] 9.5 fL9.5 - 13.5 fLNOMS HealthcareTBH EO #0.1NOMS HealthcareTBH [id number] HealthcareTB RBC3.81LowNOMS HealthcareTBH WBC4.5NOMS HealthcareCLINISYNCNJD [facility] HealthcareNo Panel Informationon 65-81-5878SVEHYJSIJEEPM HealthcareTBH CREATININEon 09-43-7287Kdeakgwpnj [Mass/Vol]0.91 mg/dL0.70 - 1.30 mg/dLNOMS HealthcareGFR/1.73 sq M.predicted CKD-EPI (S/P/Bld) [Vol rate/Area]>60>=60 mL/min/1.73m 2NOMS HealthcareTB EGFR-NON AF INDONESIAN>60>=60 mL/min/1.73m 2N[facility] Sdbcqdwwna17fm [id number] are in mediaNormalKindred Healthcare36on 76-46-431882Ff left for return call for updates on labs.Normal [facility]36Call from pt stating [facility] called him to say they never received our orders and asked pt to call us to inform us. Orders refaxed to [facility]. Called to Carmina and she hasn't checked the fax but requests the order be sent to centralized [phone].NormalKindred HealthcareALL C REACTIVE PROTEINon 82-01-9846THB [Mass/Vol]mg/LNINF - 0.50 mg/dLNOMN HealthcareALL CKMBon 90-96-8052BPJ CREATININE KINASE MB<0.50NINF - 3.60 ng/mL NOMS HealthcareALL URIC ACIDon 12-48-6987Hzpdh [Mass/Vol]4.8 mg/dL3.5 - 7.2 mg/dLNOMS HealthcareCLINISYNBETH ISRAEL H[facility]PITAL HealthcareCCF CKon 63-76-3489IB [Catalytic activity/Vol]48 U/L39 - 308 U/LNOMS HealthcareNo Panel Informationon 03-21-2025 CLINISYNCNOMS Gjbfmcblkf40yg 88-88-523055Jjtbfdb left for [facility] call as we need to change the pt's antibiotic to Daptomycin 800mg every day. [facility] to update them regarding the med change and lab change. 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 He previously had a reaction to ceftriaxone. We will transition him to daptomycin for the remainder of his treatment course. He will need to have weekly CK total levels obtained. Please also add on CRP's. He has been instructed to hold his statin. [facility] CenterFollow-Upon 23-11-5027Yrmqid-Up [id number] Gem Menendez 1980 M [facility] [place] 03/20/2025 [facility] No family history on file Level of Service:85646 UT OFFICE/OUTPATIENT ESTABLISHED MOD MDM 30 MIN Reason for Visit and Comments: Follow-up [[id number]][facility] CenterTelephoneon [id number] ShonGem 1980 M [facility] Provider Department Center 03/20/2025 HEMANT HANKINS [facility] No family history on fileNormalUniversMercy Health St. Vincent Medical CenterALL BUNon 68-17-0251Leaj nitrogen [Mass/Vol]9 mg/dL7.0 - 18.0 mg/dLNOMS HealthcareALL CBC WITH AUTO DIFFon 94-59-2738CSPAUHVBI ABSOLUTE FTYY6AKGJ HealthcareBasophils/100 WBC (Bld)0.7 %0.2 - 2.0 %NOMS HealthcareEosinophils/100 WBC (Bld)4.4 %0.9 - 7.0 %NOMS HealthcareErythrocyte distribution width (RBC) [Ratio]13.7 %11.0 - 15.0 % NOMS HealthcareHematocrit (Bld) [Volume fraction]31.1 %Low42.0 - 54.0 %NOMS HealthcareHemoglobin (Bld) [Mass/Vol]10.5 g/dLLow14.0 - 18.0 g/dLNOMS Healthcare IMMATURE GRANULOCYTES ABS AUTO0.01NOMS HealthcareImmature granulocytes/100 WBC (Bld)0.4 %0.0 - 0.5 %[facility] HospitalInterpretation and review of laboratory resultsAbnormalSaint John's Saint Francis HospitalLYMPHOCYTES ABSOLUTE AUTO0.8LowNOMercy Hospital South, formerly St. [facility] Lymphocytes/100 WBC (Bld)30.3 %20.5 - 60.0 %University HospitalH (RBC) [Entitic mass]30.7 pg25.9 - 34.0 pgUniversity HospitalHC (RBC) [Mass/Vol]33.8 g/dL29.9 - 35.2 g/dLUniversity HospitalV (RBC) [Entitic vol]90.9 fL80.0 - 94.0 fLSaint John's Saint Francis HospitalMONOCYTES ABSOLUTE AUTO0.2LowNOMS HealthcareMonocytes/100 WBC (Bld)6.3 %1.7 - 12.0 %[facility] HospitalNEUTROPHILS ABSOLUTE AUTO1.6NOMercy Hospital South, formerly [facility] Neutrophils/100 WBC (Bld)57.9 %43.0 - 75.0 %[facility] HospitalPlatelet mean volume (Bld) [Entitic vol]9.3 fLLow9.5 - 13.5 fLCrossroads Regional Medical Center EO #0.1NOMS [facility] ONL410IGJQMercy Hospital Washington RBC3.42LowNOMercy Hospital [facility] WBC2.7Low [facility] HospitalCLINISYNCNPutnam County Memorial HospitalNo Panel Informationon 03-19-2025 CLINISYNCNOMercy Hospital [facility] CREATININEon 66-19-1862Hkdmmjbkdb [Mass/Vol]0.85 mg/dL0.70 - 1.30 mg/dLSaint John's Saint Francis HospitalGFR/1.73 sq M.predicted CKD-EPI (S/P/Bld) [Vol rate/Area]>60>=60 mL/min/1.73m [address] [place] [address] EGFR-NON AF INDONESIAN>60 >=60 mL/min/1.73m [address] [place], [place] [address]136on 64-37-278514Mxzz are in [facility] HospitalALL BUNon 82-71-4826Bcqh nitrogen [Mass/Vol]9 mg/dL7.0 - 18.0 mg/dLSalem Memorial District Hospital CBC WITH AUTO DIFFon 03-12-2025 BASOPHILS ABSOLUTE XTOF6RAZYMercy Hospital South, formerly St. Anthony's Medical CenterBasophils/100 WBC (Bld)0.3 %0.2 - 2.0 % [facility] HospitalEosinophils/100 WBC (Bld)1.6 %0.9 - 7.0 %[facility] Erythrocyte distribution width (RBC) [Ratio]13.2 %11.0 - 15.0 %[facility] Hematocrit (Bld) [Volume fraction]28.5 %Low42.0 - 54.0 %[facility] Hemoglobin (Bld) [Mass/Vol]9.5 g/dLLow14.0 - 18.0 g/dLSaint John's Saint Francis HospitalIMMATURE GRANULOCYTES ABS AUTO0.02[facility] Health Systemmature granulocytes/100 WBC (Bld)0.5 % 0.0 - 0.5 %[facility] HospitalInterpretation and review of laboratory results AbnormalSaint John's Saint Francis HospitalLYMPHOCYTES ABSOLUTE AUTO0.9LowSaint John's Saint [facility] Hospital Lymphocytes/100 WBC (Bld)23.6 %20.5 - 60.0 %University HospitalH (RBC) [Entitic mass]30.5 pg25.9 - 34.0 pgUniversity HospitalHC (RBC) [Mass/Vol]33.3 g/dL29.9 - 35.2 g/dLUniversity HospitalV (RBC) [Entitic vol]91.6 fL80.0 - 94.0 fLSaint John's Saint Francis HospitalMONOCYTES ABSOLUTE AUTO0.3NOMercy Hospital South, formerly St. Anthony's Medical CenterMonocytes/100 WBC (Bld)7 %1.7 - 12.0 %[facility] HospitalNEUTROPHILS ABSOLUTE AUTO2.6[facility] Neutrophils/100 WBC (Bld)67 %43.0 - 75.0 %[facility] HospitalPlatelet mean volume (Bld) [Entitic vol]9.2 fLLow9.5 - 13.5 fLCrossroads Regional Medical Center EO #0.1NOMS [facility] DRF457PDQUMercy Hospital Washington RBC3.11LowNOMercy Hospital [facility] WBC3.9Low [facility] HospitalCLINISYNCNPutnam County Memorial HospitalNo Panel Informationon 03-12-2025 CLINISYNCCrossroads Regional Medical Center CREATININEon 56-58-6182Baudximhge [Mass/Vol]1.02 mg/dL0.70 - 1.30 mg/dLSaint John's Saint Francis HospitalGFR/1.73 sq M.predicted CKD-EPI (S/P/Bld) [Vol rate/Area]>60>=60 mL/min/1.73m 2N[facility] HealthcareTBH EGFR-NON AF INDONESIAN>60 >=60 mL/min/1.73m 2N[facility] Mnybffgplx11zp 49-94-182901Cjwz received. [facility]. Message left with pt to call for a hospital follow up appt and to schedule his dressing change and lab draw with [facility].NormalKindred HealthcareCBC AND AUTO DIFFon 57-74-2170Aipzohxggch distribution width (RBC) [Ratio]13.7 %Jukybb20.5-15.0ProProvidence HospitalComment on above:Performed By: #### HA1C #### [facility] ([id number]) [address] [place], [place] [address]Cwgfrueeqn (Bld) [Volume fraction]30.0 %Frs40-37LooEuwksz [place] HospitalComment on above:Performed By: #### HA1C #### [facility] ([id number]) [address], [address] [place], [place] [address]Tlrhngebte (Bld) [Mass/Vol]10.4 g/dLLow13.0-17.0ProOhio Valley Hospital HospitalComment on above:Performed By: #### HA1C #### [facility] ([id number]) [address] [address] [place], [place] [address]Pjrnwcwfrfp (Bld) [#/Vol]1.5 10*3/uLNormal1.0-3.5Pro[facility] & Brentwood HospitalComment on above:Performed By: #### HA1C #### [facility] ([id number]) [address], [address] [place], [place] [address]Yprpshululh/100 WBC (Bld)24.8 %NormalProOhio Valley Hospital Hospital Comment on above:Performed By: #### HA1C #### [facility] ([id number]) [address], [address] [place], [place] [address]FQR (RBC) [Entitic mass]30.7 jgHvvtdi46-25RqpFphcxq [facility]ios HospitalComment on above:Performed By: #### HA1C #### [facility] ([id number]) [address], [address] [place], [place] [address]TSNK (RBC) [Mass/Vol]34.6 g/aOQimduv34-07SkmCkkhug Rios HospitalComment on above:Performed By: #### HA1C #### [facility] ([id number]) [address], [address] [place], [place] [address]DGQ (RBC) [Entitic vol]89 aBEromxw99-193SnaVxmxko Rios HospitalComment on above:Performed By: #### HA1C #### [facility] ([id number]) [address] [place], [place] [address]Stoyxaggw (Bld) [#/Vol]0.4 10*3/uLNormal0-0.9ProMedica Rios HospitalComment on above:Performed By: #### HA1C #### [facility] ([id number]) [address], [address] [place], [place] [address]Uhbulmycr/100 WBC (Bld)6.7 %NormalProOhio Valley Hospital Hospital Comment on above:Performed By: #### HA1C #### [facility] ([id number]) [address], [address] [place], [place] [address]Mealvhwwxkl (Bld) [#/Vol]4.1 10*3/uLNormal1.5-6.6ProMedica Rios HospitalComment on above:Performed By: #### HA1C #### [facility] ([id number]) [address], [address] [place], [place] [address]Crupnten mean volume (Bld) [Entitic vol]7.3 fLNormal7-12 ProMedica [facility]ios HospitalComment on above:Performed By: #### HA1C #### [facility] ([id number]) [address], [address] [place], [place] [address]Wnryjdukv (Bld) [#/Vol]235 10*3/eVDrjwmf485-292OduJekawo Rios HospitalComment on above:Performed By: #### SUNNI1C #### [facility] ([id number]) [address] [facility], [address] [place], [place] [address]TAA COUNT3.38 X10E12/LLow4.10-5.70[facility] Comment on above:Performed By: #### SUNNI1C #### [facility] ([id number]) [address] [facility] [place], [place] [address]HKI morphology finding Nom (Bld)REVIEWEDNormalProMedica Rios HospitalComment on above:Performed By: #### SUNNI1C #### [facility] ([id number]) [facility], [address] [place], [place] [address]STE EAXBDCQIHZ00.5 %NormalProMedica Rios HospitalComment on above:Performed By: #### SUNNI1C #### [facility] ([id number]) [facility], [address] [place], [place] [address]UYJ (Bld) [#/Vol]6.0 10*3/uLNormal4.0-11.0ProMedica Rios HospitalComment on above:Performed By: #### HA1C #### [facility] ([id number]) [address] [address] [place], [place] [address]HZDAJUELULVTY METABOLIC PANELon 92-19-4952Ffaqlze [Mass/Vol]3.3 g/dLNormal3.2-5.3ProMedica Rios HospitalComment on above:Performed By: #### HA1C #### [facility] ([id number]) [address] [facility] [facility], [address] [place], [place] [address]RTF [Catalytic activity/Vol]69 U/AXyjfte74-767BcnAkfnda Rios HospitalComment on above:Performed By: #### HA1C #### [facility] ([id number]) [address], [address] [place], [place] [address]LAT [Catalytic activity/Vol]53 U/LHigh0-40ProMedica Rios HospitalComment on above:Performed By: #### HA1C #### [facility] ([id number]) [address] [place], [place] [address]Yxopi gap [Moles/Vol]8 mmol/LNormal5-15[facility] Comment on above:Performed By: #### HA1C #### [facility] ([id number]) [address], [address] [place], [place] [address]TXY [Catalytic activity/Vol]22 U/LNormal0-41ProMedica [facility] HospitalComment on above:Performed By: #### HA1C #### [facility] ([id number]) [address], [address] [place], [place] [address]Ijzvtemfg [Mass/Vol]0.5 mg/dLNormal0.3-1.2ProMedica [facility]ios HospitalComment on above:Performed By: #### HA1C #### [facility] ([id number]) [address] [place], [place] [address]Emukycb [Mass/Vol]8.8 mg/dLNormal8.5-10.5ProMedica Rios HospitalComment on above:Performed By: #### HA1C #### [facility] ([id number]) [address], [address] [place], [place] [address]Akpamagq [Moles/Vol]104 mmol/QCydxgc24-793OpeBxzycw Rios HospitalComment on above:Performed By: #### HA1C #### [facility] ([id number]) [address], [address] [place], [place] [address]KP6 [Moles/Vol]25 mmol/EXptczj16-71QfjAveldrShelby Memorial Hospital Comment on above:Performed By: #### HA1C #### [facility] ([id number]) [address], [address] [place], [place] [address]Wrymmbfqnu [Mass/Vol]0.71 mg/dLNormal0.60-1.30ProProvidence HospitalComment on above:Result Comment: METHOD TRACEABLE TO IDMS STANDARD Performed By: #### HA1C #### [facility] ([id number]) [address] [place], [place] [address]yMBR (CKD-EPI) NON-RACE DEPENDENT>90Normal>59ProProvidence HospitalComment on above:Result Comment: Reported eGFR is based on the CKD-EPI 2020 equation that does not use a race coefficient.Performed By: #### HA1C #### [facility] ([id number]) [address], [address] [place], [place] [address]Ghfkudo [Mass/Vol]154 mg/qGUbkm25-12RriZhkellAvita Health System Comment on above:Performed By: #### HA1C #### [facility] ([id number]) [address] [address] [place], [place] [address]Puaibvosa [Moles/Vol]4.1 mmol/LNormal3.5-5.0Avita Health SystemComment on above:Performed By: #### HA1C #### [facility] ([id number]) [address] [address] [place], [place] [address]Rndxfsm [Mass/Vol]6.2 g/dLNormal6.0-8.0[facility] Comment on above:Performed By: #### HA1C #### [facility] ([id number]) [address] [address] [place], [place] [address]Eiunge [Moles/Vol]137 mmol/LHzbztu667-833LjeJoabuq [facility]ios HospitalComment on above:Performed By: #### HA1C #### [facility] ([id number]) [address] [place], [place] [address]Zvmt nitrogen [Mass/Vol]11 mg/dLNormal5-23ProCleveland Clinic Akron General Lodi Hospitalca Roark HospitalComment on above:Performed By: #### HA1C #### [facility] ([id number]) [address] [facility] [place], [place] [address]Ylfrjhn Glucometer (BldC) [Mass/Vol]on 02-17-5574Uppjlvu [Mass/Vol]159 mg/cHVmsm26-17EihHmygbu [place] HospitalGlucose [Mass/Vol]246 mg/dL Qcjm45-48GybIvidxh [facility] HospitalGlucose [Mass/Vol]149 mg/hHZesm21-26PccWktrcw [place] HospitalCBC AND AUTO DIFFon 30-48-4685Dxvgszrltcu (Bld) [#/Vol]0.1 10*3/uLNormal0.0-0.4ProOhio Valley Hospital HospitalComment on above:Performed By: #### HA1C #### [facility] ([id number]) [address], [address] [place], [place] [address]Tdbujfhrzlx/100 WBC (Bld)2.0 %NormalProOhio Valley Hospital Hospital Comment on above:Performed By: #### HA1C #### [facility] ([id number]) [address] [place], [place] [address]Oarwqlsstwq distribution width (RBC) [Ratio]13.6 %Normal 11.5-15.0ProOhio Valley Hospital HospitalComment on above:Performed By: #### HA1C #### [facility] ([id number]) [address], [address] [place], [place] [address]Xootawboqz (Bld) [Volume fraction]31.9 %Bjf32-92HzaYwjzpm [place] HospitalComment on above:Performed By: #### HA1C #### [facility] ([id number]) [address], [address] [place], [place] [address]Nmtumezbvg (Bld) [Mass/Vol]10.9 g/dLLow13.0-17.0ProMedica Rios HospitalComment on above:Performed By: #### HA1C #### [facility] ([id number]) [address], [address] [place], [place] [address]Xchoppskepk (Bld) [#/Vol]1.5 10*3/uLNormal1.0-3.5ProMedica Rios HospitalComment on above:Performed By: #### HA1C #### [facility] ([id number]) [address], [address] [place], [place] [address]Obpchjtlvnv/100 WBC (Bld)21.0 %NormalProMedica Rios Hospital Comment on above:Performed By: #### HA1C #### [facility] ([id number]) [address], [address] [place], [place] [address]ZMH (RBC) [Entitic mass]31.0 qcWvzkyl95-69NpfUrumnk Rios HospitalComment on above:Performed By: #### HA1C #### [facility] ([id number]) [address], [address] [place], [place] [address]LMNK (RBC) [Mass/Vol]34.2 g/bIJmruqw10-97SwvGvhytw Rios HospitalComment on above:Performed By: #### HA1C #### [facility] ([id number]) [address], [address] [place], [place] [address]NRD (RBC) [Entitic vol]91 aXConvvl13-043ZhnFritvh Rios HospitalComment on above:Performed By: #### HA1C #### [facility] ([id number]) [address], [address] [place], [place] [address]Vusocmbszccmjs/100 WBC (Bld)1.0 %NormalProMedica Rios Hospital Comment on above:Performed By: #### HA1C #### [facility] ([id number]) [address], [address] [place], [place] [address]Lanidmtda (Bld) [#/Vol]0.4 10*3/uLNormal0-0.9ProMedica Rios HospitalComment on above:Performed By: #### HA1C #### [facility] ([id number]) [address], [address] [place], [place] [address]Dgkzprlqq/100 WBC (Bld)6.0 %NormalProMedica Rios Hospital Comment on above:Performed By: #### HA1C #### [facility] ([id number]) [address], [address] [place], [place] [address]USZFOYSKA8.0 %NormalProMedica Rios HospitalComment on above: Performed By: #### HA1C #### [facility] ([id number]) [address], [address] [place], [place] [address]Dnbiijnvybl (Bld) [#/Vol]4.9 10*3/uLNormal1.5-6.6ProMedica Rios HospitalComment on above:Performed By: #### HA1C #### [facility] ([id number]) [address], [address] [place], [place] [address]Iuddxdnq mean volume (Bld) [Entitic vol]7.3 fLNormal7-12 [facility]ica Rios HospitalComment on above:Performed By: #### HA1C #### [facility] ([id number]) [address], [address] [place], [place] [address]Uhirgyjkd (Bld) [#/Vol]250 10*3/qGHafcyw279-564GrlQfgjdc Rios HospitalComment on above:Performed By: #### HA1C #### [facility] ([id number]) [address], [address] [place], [place] [address]UCXXDCKJRGBRQ7+AbnormalNONEProMedica Rios HospitalComment on above:Performed By: #### SUNNI1C #### [facility] ([id number]) [address], [address] [place], [place] [address]PID COUNT3.52 X10E12/LLow4.10-5.70[facility] [place] [facility] Comment on above:Performed By: #### SUNNI1C #### [facility] ([id number]) [address], [address] [place], [place] [address]GHY NLKMCBQTVZ18.0 %NormalProMedica Rios HospitalComment on above:Performed By: #### SUNNI1C #### [facility] ([id number]) [address] [facility] [place], [place] [address]VSO (Bld) [#/Vol]7.2 10*3/uLNormal4.0-11.0ProMedica [facility] HospitalComment on above:Performed By: #### SUNNI1C #### [facility] ([id number]) [address], [address] [place], [place] [address]MFBNWAAYRLBQD METABOLIC PANELon 12-93-8966Ntbisjl [Mass/Vol]3.3 g/dLNormal3.2-5.3ProMedica [facility]ios HospitalComment on above:Performed By: #### SUNNI1C #### [facility] ([id number]) [address], [address] [place], [place] [address]JBI [Catalytic activity/Vol]70 U/QJidcwd48-726SalDuyknh [place]ios HospitalComment on above:Performed By: #### HA1C #### [facility] ([id number]) [address], [address] [place], [place] [address]OKS [Catalytic activity/Vol]60 U/LHigh0-40ProMedica [facility] HospitalComment on above:Performed By: #### HA1C #### [facility] ([id number]) [address], [address] [place], [place] [address]Rgire gap [Moles/Vol]8 mmol/LNormal5-15[facility] Comment on above:Performed By: #### HA1C #### [facility] ([id number]) [address], [address] [place], [place] [address]FFF [Catalytic activity/Vol]27 U/LNormal0-41ProC[facility] Hospitalca [facility] HospitalComment on above:Performed By: #### HA1C #### [facility] ([id number]) [address], [address] [place], [place] [address]Hlkukckab [Mass/Vol]0.5 mg/dLNormal0.3-1.2ProMedica [place] HospitalComment on above:Performed By: #### HA1C #### [facility] ([id number]) [address], [address] [place], [place] [address]Atggbcl [Mass/Vol]8.6 mg/dLNormal8.5-10.5ProMedKettering Memorial Hospital HospitalComment on above:Performed By: #### HA1C #### [facility] ([id number]) [address], [address] [place], [place] [address]Bwnpunwu [Moles/Vol]103 mmol/XXltdws21-853LrmVligra [place] HospitalComment on above:Performed By: #### HA1C #### [facility] ([id number]) [address], [address] [place], [place] [address]IV4 [Moles/Vol]26 mmol/HTkewyb86-84TqkLjoafb [facility] Comment on above:Performed By: #### HA1C #### [facility] ([id number]) [address], [address] [place], [place] [address]Eqlvcvwqtq [Mass/Vol]0.71 mg/dLNormal0.60-1.30ProMedica [place] HospitalComment on above:Result Comment: METHOD TRACEABLE TO IDMS STANDARD Performed By: #### HA1C #### [facility] ([id number]) [address], [address] [place], [place] [address]mPYU (CKD-EPI) NON-RACE DEPENDENT>90Normal>59Pro[facility] Hospital HospitalComment on above:Result Comment: Reported eGFR is based on the CKD-EPI 2020 equation that does not use a race coefficient.Performed By: #### HA1C #### [facility] ([id number]) [address], [address] [place], [place] [address]Nggrmde [Mass/Vol]144 mg/gMRcqr06-27NmzYyvbukProvidence Hospital Comment on above:Performed By: #### HA1C #### [facility] ([id number]) [address] [address] [place], [place] [address]Xnnhutulg [Moles/Vol]4.1 mmol/LNormal3.5-5.0ProProvidence HospitalComment on above:Performed By: #### HA1C #### [facility] ([id number]) [address], [address] [place], [place] [address]Rwmrdfn [Mass/Vol]6.1 g/dLNormal6.0-8.0ProProvidence Hospital Comment on above:Performed By: #### HA1C #### [facility] ([id number]) [address], [address] [place], [place] [address]Jwubqn [Moles/Vol]137 mmol/VJzlkvf602-304GauDkqkov [place] HospitalComment on above:Performed By: #### HA1C #### [facility] ([id number]) [address] [address] [place], [place] [address]Etio nitrogen [Mass/Vol]13 mg/dLNormal5-23Pro[facility] HospitalComment on above:Performed By: #### HA1C #### [facility] ([id number]) [address], [address] [place], [place] [address]Qcdapsu Glucometer (BldC) [Mass/Vol]on 32-91-2955Lshtywj [Mass/Vol]155 mg/hPDmeq84-29YgyZfslyk [facility] HospitalGlucose [Mass/Vol]199 mg/dL Gsik90-62GrcNejvru [place] HospitalGlucose [Mass/Vol]199 mg/gBQqcz26-45ShvKuqwpv [place] HospitalGlucose [Mass/Vol]142 mg/gNEedn75-98MhbBsxydl [facility] HospitalCBC AND AUTO DIFFon 78-07-1354Xbct form neutrophils/100 WBC (Bld)1.0 %Normal [facility] HospitalComment on above:Performed By: #### CBCA, CMP ####[facility] ([id number])[address] [address]Twspmmgonad distribution width (RBC) [Ratio]13.6 %Wpmcjr65.5-15.0ProC[facility] Hospitalca [facility]ark HospitalComment on above:Performed By: #### CBCA, CMP ####[facility] ([id number])[address] [address] Hematocrit (Bld) [Volume fraction]30.8 %Shs30-24XrsRigeyu [place] HospitalComment on above:Performed By: #### CBCA, CMP ####[facility] ([id number])[address] [address] [place] [address]Abapcsxmwj (Bld) [Mass/Vol] 10.6 g/dLLow13.0-17.0ProC[facility] Hospitalca [facility] HospitalComment on above:Performed By: #### CBCA, CMP ####[facility] ([id number])[address] [address]NIXTWXGOVO, ATYPICAL1.0 %NormalProMedica Roark HospitalComment on above:Performed By: #### CBCA, CMP ####[facility] ([id number])[address], [place] [address]Tudtyxbjndm (Bld) [#/Vol]3.0 10*3/uLNormal1.0-3.5Pro[facility] [place] HospitalComment on above: Performed By: #### CBCA, CMP ####[facility] ([id number])[address], [place] [address]Iyvpclwnuex/100 WBC (Bld)37.9 %Normal [facility] HospitalComment on above:Performed By: #### CBCA, CMP ####[facility] ([id number])[address], [address] [place] [address]RQP (RBC) [Entitic mass]30.8 ssVmqfpy77-87XqnVqndzg [facility] HospitalComment on above:Performed By: #### CBCA, CMP ####[facility] ([id number])[address], [place] [address]NTEX (RBC) [Mass/Vol]34.3 g/gZWlunea24-80FsiQdzryp [facility] HospitalComment on above:Performed By: #### CBCA, CMP ####[facility] ([id number])[address], [place] [address]EGV (RBC) [Entitic vol]90 oKIvcjla91-806KnxDtcrvq [facility] HospitalComment on above:Performed By: #### CBCA, CMP ####[facility] ([id number])[address], [place] [address]Bfmpsgzrw (Bld) [#/Vol]0.1 10*3/uLNormal0-0.9ProMedica [facility] HospitalComment on above:Performed By: #### CBCA, CMP ####[facility] ([id number])[address], [place] [address]Nochmjtec/100 WBC (Bld)1.0 %NormalProMedica Rios HospitalComment on above:Performed By: #### CBCA, CMP ####[facility] ([id number])[address], [address] [place] [address]QXKUSMEXF3.0 % NormalProMedica Rios HospitalComment on above:Performed By: #### CBCA, CMP ####[facility] ([id number])[address] [place] [address]Dcxevrtnwni (Bld) [#/Vol]4.5 10*3/uLNormal1.5-6.6[facility] [place] [facility] Comment on above:Performed By: #### CBCA, CMP ####[facility] ([id number])[address], [address] [place] [address]Dmwmtnlk mean volume (Bld) [Entitic vol]7.3 fLNormal7-12Pro[facility] HospitalComment on above:Performed By: #### CBCA, CMP ####[facility] ([id number])[address], [address] [place] [address]Gmsoszfvq (Bld) [#/Vol]262 10*3/fUPydulm849-778 [facility] HospitalComment on above:Performed By: #### CBCA, CMP ####[facility] ([id number])[address], [address] [place] [address]LCIAPHYWXKWZL4+AbnormalNONEProMedica [facility]ark HospitalComment on above: Performed By: #### CBCA, CMP ####[facility] ([id number])[address], [address] [place] [address]KQR COUNT3.44 X10E12/LLow4.10-5.70[facility] HospitalComment on above:Performed By: #### CBCA, CMP ####[facility] ([id number])[address], [place] [address]EGO ULFVYABHGG34.1 %NormalProMedica Rios HospitalComment on above:Performed By: #### CBCJim, CMP ####[facility] ([id number])[address], [address] [address]NJL (Bld) [#/Vol]7.6 10*3/uLNormal4.0-11.0[facility] [place] HospitalComment on above:Performed By: #### CBCJim, CMP ####[facility] ([id number])[address], [address], [place] [address]DNBSJTJGTMCOS METABOLIC PANELon 01-74-1193Nvmiftj [Mass/Vol]3.2 g/dLNormal3.2-5.3[facility] [place] HospitalComment on above:Performed By: #### CBCJim, CMP ####[facility] ([id number])[address] [address]VTI [Catalytic activity/Vol]65 U/ALnmgyp46-664GhgWtgdme [place] HospitalComment on above:Performed By: #### CBCJim, CMP ####[facility] ([id number])[address] [place] [address]PFB [Catalytic activity/Vol]57 U/LHigh0-40[facility] [place] HospitalComment on above:Performed By: #### CBCA, CMP ####[facility] ([id number])[address] [address]Uoidp gap [Moles/Vol]7 mmol/LNormal5-15[facility] [place] HospitalComment on above:Performed By: #### CBCA, CMP ####[facility] ([id number])[address] [place] [address]DDH [Catalytic activity/Vol]28 U/LNormal0-41[facility] HospitalComment on above:Performed By: #### ISMAEL, CMP ####[facility] ([id number])[address] [address] [address]Nqoncaeuu [Mass/Vol]0.4 mg/dLNormal0.3-1.2ProMedKettering [facility] Hospital HospitalComment on above:Performed By: #### ISMAEL, CMP ####[facility] ([id number])[address] [address] [address]Czosqfd [Mass/Vol]8.7 mg/dLNormal8.5-10.5PParkview Health HospitalComment on above: Performed By: #### ISMAEL, CMP ####[facility] ([id number])[address] [address] [address]Pmcpstfn [Moles/Vol]107 mmol/TPftnvf57-261 [facility] HospitalComment on above:Performed By: #### ISMAEL, CMP ####[facility] ([id number])[address] [address] [address]FZ7 [Moles/Vol]26 mmol/CLpjxsf79-33OgzTvvxrj [place] HospitalComment on above:Performed By: #### ISMAEL, CMP ####[facility] ([id number])[address] [address] [address]Vmdvreqnnt [Mass/Vol]0.80 mg/dLNormal0.60-1.30Pro[facility] HospitalComment on above:Result Comment: METHOD TRACEABLE TO IDMS STANDARDPerformed By: #### ISMAEL, CMP ####[facility] ([id number])[address] [address], [place] [address]nTMU (CKD-EPI) NON-RACE DEPENDENT>90Normal>59Pro[facility] HospitalComment on above:Result Comment: Reported eGFR is based on the CKD-EPI 2020 equation that does not use a race coefficient.Performed By: #### ISMAEL, CMP ####[facility] ([id number])[address] [address]Zkzbrkq [Mass/Vol]128 mg/hAHdhj13-16ZmpXkqpyp [facility] HospitalComment on above:Performed By: #### CBCA, CMP ####[facility] ([id number])[address] [address]Kymikjzgq [Moles/Vol]4.3 mmol/LNormal3.5-5.0[facility] HospitalComment on above:Performed By: #### CBCJim, CMP ####[facility] ([id number])[address] [address]Azwcwpw [Mass/Vol]6.0 g/dLNormal6.0-8.0[facility] HospitalComment on above: Performed By: #### CBCJim, CMP ####[facility] ([id number])[address] [address]Cxskjf [Moles/Vol]140 mmol/FEyufii797-689 [facility] HospitalComment on above:Performed By: #### CBCA, CMP ####[facility] ([id number])[address] [address]Kgrx nitrogen [Mass/Vol]15 mg/dLNormal5-23[facility] HospitalComment on above:Performed By: #### CBCA, CMP ####[facility] ([id number])[address], [place] [address]Wplmvfg Glucometer (BldC) [Mass/Vol]on 09-31-4960Egjdtyq [Mass/Vol]208 mg/xGMhvo90-59AfrQvtuvk [facility] HospitalGlucose [Mass/Vol]183 mg/fOPfpw12-61IgqLizjzr [facility] HospitalGlucose [Mass/Vol]178 mg/tIAnja95-51ZkwNuufjk [facility] HospitalGlucose [Mass/Vol]129 mg/dL Xwiy06-35QroRebqhvProvidence HospitalCBC AND AUTO DIFFon 00-05-8453Fxouyyvtade (Bld) [#/Vol]0.1 10*3/uLNormal0.0-0.4[facility] Health SystemComment on above: Performed By: #### CMP, CBCA ####[facility] ([id number])[address] [address] [place] [address]Gfvhnwvrflp/100 WBC (Bld)1.0 %Normal [facility] HospitalComment on above:Performed By: #### CMP, CBCA ####[facility] ([id number])[address] [address]Lykqlleudpo distribution width (RBC) [Ratio]13.3 %Tatgqy45.5-15.0[facility] Health SystemComment on above:Performed By: #### CMP, CBCA ####[facility] ([id number])[address] [address] [place] [address] Hematocrit (Bld) [Volume fraction]30.6 %Pft50-45GikZumscsAvita Health SystemComment on above:Performed By: #### CMP, CBCA ####[facility] ([id number])[address] [address] [place] [address]Ltvvmcgrii (Bld) [Mass/Vol] 10.7 g/dLLow13.0-17.0[facility] HospitalComment on above:Performed By: #### CMP, CBCA ####[facility] ([id number])[address] [address]Vjdhvqpwtrk (Bld) [#/Vol]3.0 10*3/uLNormal1.0-3.5 [facility] HospitalComment on above:Performed By: #### CMP, CBCA ####[facility] ([id number])[address] [address]Bqhpqogbxrb/100 WBC (Bld)33.0 %NormalProMedica [facility]ios HospitalComment on above:Performed By: #### CMP, CBCA ####[facility] ([id number])[address] [address]AWJ (RBC) [Entitic mass] 31.2 rqHzowwd49-14AtySpyqpm [facility] HospitalComment on above:Performed By: #### CMP, CBCA ####[facility] ([id number])[address], [place] [address]MCQQ (RBC) [Mass/Vol]34.8 g/eUPwztgv31-26WhsWaftlh [facility] HospitalComment on above:Performed By: #### CMP, CBCA ####[facility] ([id number])[address], [place] [address]EKH (RBC) [Entitic vol]90 sWBtplae06-884DsfOjeleg [facility] HospitalComment on above: Performed By: #### CMP, CBCA ####[facility] ([id number])[address] [address]Wvrnxvdqdoefdr/100 WBC (Bld)1.0 %Normal [facility] HospitalComment on above:Performed By: #### CMP, CBCA ####[facility] ([id number])[address], [place] [address]Rbavwqrco (Bld) [#/Vol]0.3 10*3/uLNormal0-0.9[facility] Comment on above:Performed By: #### CMP, CBCA ####[facility] ([id number])[address] [address]Ryrqsafob/100 WBC (Bld)2.9 %NormalProMedica [facility]ios HospitalComment on above:Performed By: #### CMP, CBCA ####[facility] ([id number])[address], [address] [place] [address]WOUGRKQDL8.9 %NormalProMedica [facility]ios HospitalComment on above:Performed By: #### CMP, CBCA ####[facility] ([id number])[address], [address] [place] [address]Zgosucqbmzu (Bld) [#/Vol]5.3 10*3/uLNormal1.5-6.6 [facility] HospitalComment on above:Performed By: #### CMP, CBCA ####[facility] ([id number])[address], [address] [place] [address]Snjosxuy mean volume (Bld) [Entitic vol]7.1 fLNormal7-12[facility] HospitalComment on above:Performed By: #### CMP, CBCA ####[facility] ([id number])[address], [address] [place] [address]Lytjplgfx (Bld) [#/Vol]268 10*3/jBEhsbjy383-138YhqGvooqn [facility] HospitalComment on above: Performed By: #### CMP, CBCA ####[facility] ([id number])[address], [address] [place] [address]BZK COUNT3.42 X10E12/LLow4.10-5.70[facility] HospitalComment on above:Performed By: #### CMP, CBCA ####[facility] ([id number])[address] [place] [address], [place] [address]FSV morphology finding Nom (Bld)NORMALNormalProMedica [facility]ios HospitalComment on above:Performed By: #### CMP, CBCA ####[facility] ([id number])[address] [place] [address]VIH VLDOTIZENP38.2 %Normal [facility] HospitalComment on above:Performed By: #### JOEL, CBCA ####[facility] ([id number])[address] [place] [address]DYU (Bld) [#/Vol]9.0 10*3/uLNormal4.0-11.0[facility] HospitalComment on above:Performed By: #### CMP, CBCA ####[facility] ([id number])[address], [place] [address]IGVKILGTSCUXM METABOLIC PANELon 14-65-2007Nqlexhh [Mass/Vol]3.2 g/dLNormal3.2-5.3[facility] HospitalComment on above:Performed By: #### JOEL, CBCA ####[facility] ([id number])[address] [place] [address]UVU [Catalytic activity/Vol]59 U/LQenabi71-199WlkKxowkx [facility] HospitalComment on above: Performed By: #### CMP, CBCA ####[facility] ([id number])[address], [place] [address]OXF [Catalytic activity/Vol]56 U/LHigh0-40 [facility] HospitalComment on above:Performed By: #### CMP, CBCA ####[facility] ([id number])[address] [place] [address]Sacvx gap [Moles/Vol]8 mmol/LNormal5-15[facility] HospitalComment on above:Performed By: #### CMP, CBCA ####[facility] ([id number])[address], [place] [address]EBD [Catalytic activity/Vol]33 U/LNormal0-41[facility] HospitalComment on above:Performed By: #### CMP, CBCA ####[facility] ([id number])[address] [address], [place] [address]Wlwjwjmfm [Mass/Vol]0.5 mg/dLNormal0.3-1.2[facility]MedK[facility] HospitalComment on above:Performed By: #### CMP, CBCA ####[facility] ([id number])[address] [address], [place] [address]Tssrkou [Mass/Vol]8.7 mg/dLNormal8.5-10.5PParkview Health HospitalComment on above: Performed By: #### JOEL, CBCA ####[facility] ([id number])[address] [address] [address]Fcmrophu [Moles/Vol]106 mmol/KNjzzhb48-279 [facility] HospitalComment on above:Performed By: #### JOEL, CBCA ####[facility] ([id number])[address] [address] [place] [address]CX3 [Moles/Vol]25 mmol/AOkljbv77-08NznOkollo [place] HospitalComment on above:Performed By: #### JOEL, CBCA ####[facility] ([id number])[address] [address] [place] [address]Ykstmcevnd [Mass/Vol]0.75 mg/dLNormal0.60-1.30Pro[facility] HospitalComment on above:Result Comment: METHOD TRACEABLE TO IDMS STANDARDPerformed By: #### JOEL, CBCA ####[facility] ([id number])[address] [address], [place] [address]aGSQ (CKD-EPI) NON-RACE DEPENDENT>90Normal>59Pro[facility] HospitalComment on above:Result Comment: Reported eGFR is based on the CKD-EPI 2020 equation that does not use a race coefficient.Performed By: #### CMP, CBCA ####[facility] ([id number])[address] [place] [address]Vodqcjt [Mass/Vol]113 mg/gFAjws67-51IrtVbpmzm Rios HospitalComment on above:Performed By: #### CMP, CBCA ####[facility] ([id number])[address] [place] [address]Pyoweobbp [Moles/Vol]3.9 mmol/LNormal3.5-5.0[facility] HospitalComment on above:Performed By: #### CMP, CBCA ####[facility] ([id number])[address] [place] [place] [place] [address]Imivptj [Mass/Vol]6.0 g/dLNormal6.0-8.0[facility] HospitalComment on above: Performed By: #### CMP, CBCA ####[facility] ([id number])[address] [place] [address]Yktdld [Moles/Vol]139 mmol/HCmkvtl020-202 [facility] HospitalComment on above:Performed By: #### CMP, CBCA ####[facility] ([id number])[address] [place] [address]Ndzx nitrogen [Mass/Vol]15 mg/dLNormal5-23[facility] HospitalComment on above:Performed By: #### CMP, CBCA ####[facility] ([id number])[address], [place] [address]Csoxofh Glucometer (BldC) [Mass/Vol]on 46-87-8490Toxfblo [Mass/Vol]266 mg/hFMiib77-43ZlgIcgaum Rios HospitalGlucose [Mass/Vol]183 mg/hZCqbd04-00HpkBicmhe Rios HospitalGlucose [Mass/Vol]261 mg/gUFrap54-46SbhWfaznm Rios HospitalGlucose [Mass/Vol]119 mg/dL Nzqi41-85KimPnaxzcProvidence HospitalCBC AND AUTO DIFFon 14-49-0688JDSVCRCK BASOPHIL0.1 X10E9/LNormal0.0-0.2[facility]ark HospitalComment on above: Performed By: #### JOEL, , CBCA ####[facility] ([id number])[address], [place] [address]AHNUYKHW NEUTROPHIL5.6 X10E9/LNormal1.5-6.6Pro[facility] HospitalComment on above:Performed By: #### JOEL, , CBCA ####[facility] ([id number])[address], [place] [address]Lityximrw/100 WBC (Bld)0.9 %NormalProOhio Valley Hospital HospitalComment on above:Performed By: #### JOEL, , CBCA ####[facility] ([id number])[address], [place] [address] Eosinophils (Bld) [#/Vol]0.1 10*3/uLNormal0.0-0.4[facility] Comment on above:Performed By: #### JOEL, , CBCA ####[facility] ([id number])[address] [address], [place] [address]Saaovhywpwh/100 WBC (Bld)0.6 %NormalProOhio Valley Hospital HospitalComment on above:Performed By: #### JOEL, , CBCA ####[facility] ([id number])[address] [address] [place] [address]Bciavkyqcux distribution width (RBC) [Ratio]13.4 % Oavdxs75.5-15.0Pro[facility] HospitalComment on above:Performed By: #### JOEL, , CBCA ####[facility] ([id number])[address] [place] [address]Lbhjdthsqz (Bld) [Volume fraction]30.7 %Qsm01-28 [facility] HospitalComment on above:Performed By: #### JOEL, , CBCA ####[facility] ([id number])[address] [place] [address]Azbnqxhgjg (Bld) [Mass/Vol]10.7 g/dLLow13.0-17.0Pro[facility] [facility] Comment on above:Performed By: #### JOEL, , CBCA ####[facility] ([id number])[address], [place] [address]Hoxzuwywgat (Bld) [#/Vol]2.7 10*3/uLNormal1.0-3.5[facility] HospitalComment on above: Performed By: #### JOEL, , CBCA ####[facility] ([id number])[address] [place] [address]Dyipijuqrsy/100 WBC (Bld) 30.4 %NormalProOhio Valley Hospital HospitalComment on above:Performed By: #### JOEL, , CBCA ####[facility] ([id number])[address] [address]SKA (RBC) [Entitic mass]31.6 nnHyfzdr66-49MrwXhtlzn [facility] HospitalComment on above:Performed By: #### JOEL, , CBCA ####[facility] ([id number])[address], [address] [address]VBRM (RBC) [Mass/Vol]35.0 g/tZLwfcyy60-72RcsRqmxjh [facility] HospitalComment on above: Performed By: #### JOEL, , CBCA ####[facility] ([id number])[address], [address], [place] [address]JPN (RBC) [Entitic vol]90 tJZavxcg79-957XeoFotjlu [facility] HospitalComment on above:Performed By: #### JOEL, , CBCA ####[facility] ([id number])[address], [address], [place] [address]Nesclkejs (Bld) [#/Vol]0.6 10*3/uLNormal0-0.9[facility] HospitalComment on above:Performed By: #### JOEL, , CBCA ####[facility] ([id number])[address], [address], [place] [address] Monocytes/100 WBC (Bld)6.4 %NormalProMedica Roark HospitalComment on above: Performed By: #### JOEL, , CBCA ####[facility] ([id number])[address], [address], [place] [address]Fgseehypzoh/100 WBC (Bld) 61.7 %NormalProCleveland Clinic [facility] HospitalComment on above:Performed By: #### JOEL, , CBCA ####[facility] ([id number])[address], [address] [place] [address]Kaaiuvjv mean volume (Bld) [Entitic vol]7.2 fLNormal7-12 [facility] HospitalComment on above:Performed By: #### CMP, , CBCA ####[facility] ([id number])[address], [address] [place] [address]Eqkungtal (Bld) [#/Vol]287 10*3/uUNznosy360-413MbmVpgszy [facility] Comment on above:Performed By: #### JOEL, , CBCA ####[facility] ([id number])[address], [place] [address]VGCVHPVMORZVN5+ AbnormalNONEProMedica Roark HospitalComment on above:Performed By: #### JOEL, , CBCA ####[facility] ([id number])[address], [address] [place] [address]SEG COUNT3.39 X10E12/LLow4.10-5.70ProOhio [facility] Hospital Hospital Comment on above:Performed By: #### JOEL, , CBCA ####[facility] ([id number])[address], [place] [address]LES (Bld) [#/Vol]9.0 10*3/uLNormal4.0-11.0ProOhio Valley Hospital HospitalComment on above: Performed By: #### JOEL, , CBCA ####[facility] ([id number])[address], [address], [place] [address]IGTXMQTZMHIWH METABOLIC PANELon 73-71-3496Omgxzgu [Mass/Vol]3.3 g/dLNormal3.2-5.3[facility] HospitalComment on above:Performed By: #### JOEL, , CBCA ####[facility] ([id number])[address], [address], [place] [address]WLO [Catalytic activity/Vol]59 U/TDenush94-129VwkCisbvw [facility] HospitalComment on above:Performed By: #### JOEL, , CBCA ####[facility] ([id number])[address], [address], [place] [address]WZY [Catalytic activity/Vol]63 U/LHigh0-40ProCleveland Clinic [facility] HospitalComment on above:Performed By: #### JOEL, , CBCA ####[facility] ([id number])[address], [address], [place] [address]Xpswx gap [Moles/Vol]6 mmol/LNormal5-15 [facility] HospitalComment on above:Performed By: #### JOEL, , CBCA ####[facility] ([id number])[address], [address], [place] [address]LZO [Catalytic activity/Vol]49 U/LHigh0-41[facility] HospitalComment on above:Performed By: #### JOEL, , CBCA ####[facility] ([id number])[address], [address], [place] [address]Dlphqrlge [Mass/Vol]0.4 mg/dLNormal0.3-1.2ProMedK[facility] Hospital HospitalComment on above:Performed By: #### JOEL, , CBCA ####[facility] ([id number])[address], [address], [place] [address]Eyxpffw [Mass/Vol]8.8 mg/dLNormal8.5-10.5[facility]MedK[facility] HospitalComment on above:Performed By: #### JOEL, , CBCA ####[facility] ([id number])[address], [address], [place] [address] Chloride [Moles/Vol]105 mmol/PAtpisy87-705TruFkkfci [facility] HospitalComment on above:Performed By: #### JOEL, , CBCA ####[facility] ([id number])[address], [address], [place] [address]PK0 [Moles/Vol]26 mmol/L Mwasbs95-62IxuKpiljd [place] HospitalComment on above:Performed By: #### JOEL, , CBCA ####[facility] ([id number])[address], [address], [place] [address]Tqpvmadayz [Mass/Vol]0.78 mg/dLNormal0.60-1.30[facility] HospitalComment on above:Result Comment: METHOD TRACEABLE TO IDMS STANDARDPerformed By: #### JOEL, , CBCA ####[facility] ([id number])[address], [place] [address]hRUS (CKD-EPI) NON-RACE DEPENDENT>90Normal>59[facility] HospitalComment on above:Result Comment: Reported eGFR is based on the CKD-EPI 2020 equation that does not use a race coefficient.Performed By: #### JOEL, , CBCA ####[facility] ([id number])[address], [address], [place] [address] Glucose [Mass/Vol]108 mg/xEWlex03-73FdbZmuynx [facility] HospitalComment on above: Performed By: #### JOEL, , CBCA ####[facility] ([id number])[address] [address] [place] [address]Sfhkrolzh [Moles/Vol]4.3 mmol/LNormal3.5-5.0[facility] HospitalComment on above:Performed By: #### JOEL, , CBCA ####[facility] ([id number])[address] [address]Mmzfepn [Mass/Vol]6.0 g/dLNormal6.0-8.0[facility] HospitalComment on above:Performed By: #### JOEL, , CBCA ####[facility] ([id number])[address] [address] Sodium [Moles/Vol]137 mmol/ULqcajf322-442HcjJfmauz [facility] HospitalComment on above:Performed By: #### JOEL, , CBCA ####[facility] ([id number])[address], [place] [address]Csop nitrogen [Mass/Vol]19 mg/dLNormal5-23ProC[facility] Clinic [facility] HospitalComment on above:Performed By: #### JOEL, [id number], CBCA ####[facility] ([id number])[address], [place] [address]Jblwjcg Glucometer (BldC) [Mass/Vol]on 72-02-1573Pvrhizc [Mass/Vol]232 mg/uGFrfu70-59XthRbyjwf [facility] HospitalGlucose [Mass/Vol]314 mg/oLHmhy18-78XzfQbrkaz [facility] HospitalGlucose [Mass/Vol]183 mg/bVBwwe42-32 [facility] HospitalGlucose [Mass/Vol]109 mg/jLPonb69-90JyiBscrgt [place] HospitalMAGNESIUMon 89-87-2480Mcdaphrnu [Mass/Vol]2.1 mg/dLNormal1.8-2.6 ProMvaughan regional medical centera [facility] HospitalComment on above:Performed By: #### JOEL, , CBCA ####[facility] ([id number])[address] [address]TVV AND AUTO DIFFon 19-00-6147CQLVTGBZ BASOPHIL0.0 X10E9/LNormal0.0-0.2 ProMOhio[facility] HospitalComment on above:Performed By: #### JOEL, CBCA ####[facility] ([id number])[address], [address], [place] [address]YBMXWBTZ NEUTROPHIL6.6 X10E9/LNormal1.5-6.6ProC[facility] Comment on above:Performed By: #### JOEL, CBCA ####[facility] ([id number])[address], [address], [place] [address]Xosqfhhub/100 WBC (Bld)0.4 %NormalProCleveland Clinic [facility] HospitalComment on above:Performed By: #### CMP, CBCA ####[facility] ([id number])[address] [address]Ajymjvbqexp (Bld) [#/Vol]0.0 10*3/uLNormal0.0-0.4[facility] Comment on above:Performed By: #### CMP, CBCA ####[facility] ([id number])[address], [address], [place] [address]Ljvjjlrnazr/100 WBC (Bld) 0.1 %NormalAvita Health SystemComment on above:Performed By: #### CMP, CBCA ####[facility] ([id number])[address], [address] [place], [place] [address]Cicvszskrwt distribution width (RBC) [Ratio]13.2 %Suupoo36.5-15.0 [facility] SystemComment on above:Performed By: #### CMP, CBCA ####[facility] ([id number])[address] [address] [place] [place] [address]Myxkjtliqq (Bld) [Volume fraction]31.2 %Lhb22-99IfoRxlcmkAvita Health System Comment on above:Performed By: #### CMP, CBCA ####[facility] ([id number])[address] [address], [place] [address]Ngoanqejqz (Bld) [Mass/Vol] 10.8 g/dLLow13.0-17.0[facility] SystemComment on above:Performed By: #### CMP, CBCA ####[facility] ([id number])[address] [address] [address]Jzssxlsuyjc (Bld) [#/Vol]1.7 10*3/uLNormal1.0-3.5 [facility] HospitalComment on above:Performed By: #### CMP, CBCA ####[facility] ([id number])[address] [address]Hqclvnfxchn/100 WBC (Bld)19.6 %NormalProMedica Rios HospitalComment on above:Performed By: #### CMP, CBCA ####[facility] ([id number])[address] [address]GAB (RBC) [Entitic mass] 30.7 beJfinhn57-98CbxFjfzhy [facility] HospitalComment on above:Performed By: #### CMP, CBCA ####[facility] ([id number])[address] [address]HAIM (RBC) [Mass/Vol]34.5 g/jIQjprer95-32MksGwnhjd [facility] HospitalComment on above:Performed By: #### CMP, CBCA ####[facility] ([id number])[address], [address], [place] [address]LOL (RBC) [Entitic vol]89 dYCbaepa22-220CoxOfloku [facility] HospitalComment on above: Performed By: #### CMP, CBCA ####[facility] ([id number])[address], [address], [place] [address]Qojkaxabb (Bld) [#/Vol]0.5 10*3/uLNormal 0-0.9[facility] HospitalComment on above:Performed By: #### CMP, CBCA ####[facility] ([id number])[address] [place] [place] [address]Xowjsmyxu/100 WBC (Bld)5.5 %NormalProMedica [facility]ios HospitalComment on above:Performed By: #### CMP, CBCA ####[facility] ([id number])[address] [place] [place] [address]Llkstwzuwrj/100 WBC (Bld) 74.4 %NormalProMedica [facility]ios HospitalComment on above:Performed By: #### CMP, CBCA ####[facility] ([id number])[address], [address], [place] [address]Olmovoyu mean volume (Bld) [Entitic vol]7.8 fLNormal7-12ProMedst. vincent's st. clair [facility]ios HospitalComment on above:Performed By: #### CMP, CBCA ####[facility] ([id number])[address], [address] [place] [address]Wdquxmgly (Bld) [#/Vol]322 10*3/nNDgatoy225-451RqnTlfuge [facility] HospitalComment on above: Performed By: #### CMP, CBCA ####[facility] ([id number])[address] [address] [place] [address]YGM COUNT3.50 X10E12/LLow4.10-5.70ProC[facility] HospitalComment on above:Performed By: #### CMP, CBCA ####[facility] ([id number])[address] [address] [place] [address]IUX (Bld) [#/Vol]8.9 10*3/uLNormal4.0-11.0ProC[facility] HospitalComment on above: Performed By: #### CMP, CBCA ####[facility] ([id number])[address] [address] [place] [address]MHQUPDVHFGKIM METABOLIC PANELon 03-01-2025 Albumin [Mass/Vol]3.4 g/dLNormal3.2-5.3PParkview Health HospitalComment on above:Performed By: #### CMP, CBCA ####[facility] ([id number])[address] [address] [place] [address]EHD [Catalytic activity/Vol]58 U/UNalbid67-297YfsRxfcls [facility] HospitalComment on above: Performed By: #### CMP, CBCA ####[facility] ([id number])[address], [address], [place] [address]GII [Catalytic activity/Vol]57 U/LHigh0-40 [facility] HospitalComment on above:Performed By: #### CMP, CBCA ####[facility] ([id number])[address], [address], [place] [address]Emgsa gap [Moles/Vol]9 mmol/LNormal5-15[facility] HospitalComment on above:Performed By: #### CMP, CBCA ####[facility] ([id number])[address], [address], [place] [address]HAF [Catalytic activity/Vol]42 U/LHigh0-41[facility] HospitalComment on above:Performed By: #### CMP, CBCA ####[facility] ([id number])[address], [address], [place] [address]Bexqtjjue [Mass/Vol]0.4 mg/dLNormal0.3-1.2ProMedKettering [facility] Hospital HospitalComment on above:Performed By: #### CMP, CBCA ####[facility] ([id number])[address], [address], [place] [address]Fnmkiwk [Mass/Vol]8.9 mg/dLNormal8.5-10.5[facility] HospitalComment on above: Performed By: #### CMP, CBCA ####[facility] ([id number])[address], [address], [place] [address]Xgylnwxl [Moles/Vol]99 mmol/EPnrgla72-438 [facility] HospitalComment on above:Performed By: #### CMP, CBCA ####[facility] ([id number])[address], [address], [place] [address]BM3 [Moles/Vol]27 mmol/DKrybfo88-67AnlYnvnyx [facility] HospitalComment on above:Performed By: #### JOLE CBCA ####[facility] ([id number])[address] [address] [address]Nmgofybzfe [Mass/Vol]0.65 mg/dLNormal0.60-1.30Pro[facility] HospitalComment on above:Result Comment: METHOD TRACEABLE TO IDMS STANDARDPerformed By: #### JOEL CBCA ####[facility] ([id number])[address] [address], [place] [address]wEXU (CKD-EPI) NON-RACE DEPENDENT>90Normal>59Pro[facility] Hospital HospitalComment on above:Result Comment: Reported eGFR is based on the CKD-EPI 2020 equation that does not use a race coefficient.Performed By: #### JOEL CBCA ####[facility] ([id number])[address] [address] [place] [address]Xsjrkoz [Mass/Vol]177 mg/gYBtlr77-72HlrCwaesh [place] HospitalComment on above:Performed By: #### JOEL CBCA ####[facility] ([id number])[address] [address] [address]Jforiqkdw [Moles/Vol]4.1 mmol/LNormal3.5-5.0Pro[facility] HospitalComment on above:Performed By: #### JOEL CBCA ####[facility] ([id number])[address] [address] [address]Jkwaczl [Mass/Vol]6.4 g/dLNormal6.0-8.0Pro[facility] HospitalComment on above: Performed By: #### JOEL, CBCA ####[facility] ([id number])[address] [address] [place] [place] [address]Ipygdk [Moles/Vol]135 mmol/ASfqrfz767-963 [facility] HospitalComment on above:Performed By: #### CMP, CBCA ####[facility] ([id number])[address], [place] [address]Oxha nitrogen [Mass/Vol]21 mg/dLNormal5-23ProC[facility]ca [facility] HospitalComment on above:Performed By: #### CMP, CBCA ####[facility] ([id number])[address], [address] [place] [address]Lqqlljg Glucometer (BldC) [Mass/Vol]on 84-42-0111Rbyosif [Mass/Vol]260 mg/bYEzif27-95CygCfeqsa [facility] HospitalGlucose [Mass/Vol]290 mg/oKJepd91-64GirQqrtcr [facility] HospitalGlucose [Mass/Vol]211 mg/jFLsxv00-90MnrEupgkz [facility] HospitalGlucose [Mass/Vol]154 mg/dL Eepp71-81LecBduxbn [facility]ios HospitalCBC AND AUTO DIFFon 55-61-9477PJYBFUCS BASOPHIL0.0 X10E9/LNormal0.0-0.2[facility] HospitalComment on above: Performed By: #### CBCJim, CMP ####[facility] ([id number])[address], [address] [place] [address]EKGJTYIT NEUTROPHIL5.5 X10E9/LNormal1.5-6.6 [facility] HospitalComment on above:Performed By: #### CBCA, CMP ####[facility] ([id number])[address], [place] [address]Klobejnic/100 WBC (Bld)0.2 %NormalProOhio Valley Hospital HospitalComment on above:Performed By: #### CBCA, CMP ####[facility] ([id number])[address], [address] [place] [address]Dosjytxjkcq (Bld) [#/Vol] 0.0 10*3/uLNormal0.0-0.4[facility] SystemComment on above:Performed By: #### CBCA, CMP ####[facility] ([id number])[address] [place] [address]Zjwxfnbvthg/100 WBC (Bld)0.4 %NormalAvita Health SystemComment on above:Performed By: #### CBCA, CMP ####[facility] ([id number])[address] [address] [address]Kdqduaabwez distribution width (RBC) [Ratio]13.4 %Oralew13.5-15.0[facility] Comment on above:Performed By: #### CBCA, CMP ####[facility] ([id number])[address] [address] [place] [place] [address]Pcvkceapsl (Bld) [Volume fraction]32.4 %Wtr81-60QxbRrstysAvita Health SystemComment on above:Performed By: #### CBCA, CMP ####[facility] ([id number])[address] [address], [place] [address]Odagmmzhxw (Bld) [Mass/Vol]11.4 g/dLLow13.0-17.0 [facility] SystemComment on above:Performed By: #### CBCA, CMP ####[facility] ([id number])[address] [address] [place] [place] [address]Gajwvxqrymm (Bld) [#/Vol]1.9 10*3/uLNormal1.0-3.5[facility] Comment on above:Performed By: #### CBCA, CMP ####[facility] ([id number])[address] [address] [address]Ozmapudranv/100 WBC (Bld) 23.2 %NormalProOhio Valley Hospital HospitalComment on above:Performed By: #### CBCA, CMP ####[facility] ([id number])[address] [place], [place] [address]PKM (RBC) [Entitic mass]31.1 geSfttjf80-20SkoPkhrcn [facility] HospitalComment on above:Performed By: #### CBCA, CMP ####[facility] ([id number])[address], [place] [address]PWVN (RBC) [Mass/Vol]35.0 g/qQXnryne78-26FevUbuuuq [facility] HospitalComment on above: Performed By: #### CBCA, CMP ####[facility] ([id number])[address], [place] [address]CCU (RBC) [Entitic vol]89 lVUttffl97-036 [facility] HospitalComment on above:Performed By: #### CBCA, CMP ####[facility] ([id number])[address], [address] [place] [address]Rlqdwyzep (Bld) [#/Vol]0.6 10*3/uLNormal0-0.9Pro[facility] Comment on above:Performed By: #### CBCA, CMP ####[facility] ([id number])[address], [address] [place] [address]Bfhlmumhy/100 WBC (Bld)7.8 %NormalProMedica Rios HospitalComment on above:Performed By: #### CBCA, CMP ####[facility] ([id number])[address], [address] [place] [address]Wdikxvqkczk/100 WBC (Bld)68.4 %NormalProMedica Rios HospitalComment on above:Performed By: #### CBCA, CMP ####[facility] ([id number])[address], [place] [address]Yxhsmgpi mean volume (Bld) [Entitic vol]7.5 fLNormal7-12ProMedica Rios HospitalComment on above:Performed By: #### CBCJim, CMP ####[facility] ([id number])[address], [address] [place] [address] 10958Xqzbzqqov (Bld) [#/Vol]299 10*3/lMQxlrko350-087 [facility]ios HospitalComment on above:Performed By: #### CBCA, CMP ####[facility] ([id number])[address], [address] [place] [address]1554SLN COUNT3.66 X10E12/LLow4.10-5.70ProMedica Rios HospitalComment on above:Performed By: #### CBCA, CMP ####[facility] ([id number])[address], [address] [place] [address]40CQU (Bld) [#/Vol]8.0 10*3/uLNormal4.0-11.0Pro[facility]ica Rios HospitalComment on above:Performed By: #### CBCJim, CMP ####[facility] ([id number])[address], [address] [place] [address]JILMZQQESLNZU METABOLIC PANELon 87-88-9061Hgfqhcj [Mass/Vol]3.4 g/dLNormal3.2-5.3ProMedica Rios HospitalComment on above: Performed By: #### CBCA, CMP ####[facility] ([id number])[address], [address] [place] [address]057SRE [Catalytic activity/Vol]59 U/LNormal 39-130ProMedica Rios HospitalComment on above:Performed By: #### CBCA, CMP ####[facility] ([id number])[address], [address] [place] [address]4820TQO [Catalytic activity/Vol]30 U/LNormal0-40[facility] Comment on above:Performed By: #### CBCA, CMP ####[facility] ([id number])[address], [address], [place] [address]Rtegl gap [Moles/Vol]10 mmol/LNormal5-15Pro[facility] Rios HospitalComment on above:Performed By: #### CBCA, CMP ####[facility] ([id number])[address], [address], [place] [address]TLB [Catalytic activity/Vol]25 U/LNormal0-41Pro[facility] Rios HospitalComment on above:Performed By: #### CBCA, CMP ####[facility] ([id number])[address], [address], [place] [address]Cicwdxkub [Mass/Vol]0.5 mg/dLNormal0.3-1.2Pro[facility]ica Rios HospitalComment on above: Performed By: #### CBCA, CMP ####[facility] ([id number])[address], [address], [place] [address]Vryenar [Mass/Vol]8.9 mg/dLNormal8.5-10.5 [facility] Rios HospitalComment on above:Performed By: #### CBCA, CMP ####[facility] ([id number])[address], [address], [place] [address]Pvazmymd [Moles/Vol]97 mmol/CKrr71-991KivCtlklw Rios HospitalComment on above:Performed By: #### CBCA, CMP ####[facility] ([id number])[address], [address], [place] [address]AI8 [Moles/Vol]28 mmol/L Bdtwsj85-13IozFdfzlg Rios HospitalComment on above:Performed By: #### CBCA, CMP ####[facility] ([id number])[address], [place] [address]Hvjhwbcrzw [Mass/Vol]0.66 mg/dLNormal0.60-1.30Pro[facility] HospitalComment on above:Result Comment: METHOD TRACEABLE TO IDMS STANDARD Performed By: #### ISMAEL, CMP ####[facility] ([id number])[address] [address] [place] [address]bAVZ (CKD-EPI) NON-RACE DEPENDENT>90Normal >59ProOhio Valley Hospital HospitalComment on above:Result Comment: Reported eGFR is based on the CKD-EPI 2020 equation that does not use a race coefficient.Performed By: #### ISMAEL, CMP ####[facility] ([id number])[address] [address], [place] [address]Kezblra [Mass/Vol]192 mg/dPDbkn73-01AgzYzkhkz [place] HospitalComment on above:Performed By: #### ISMAEL, CMP ####[facility] ([id number])[address] [address] [place] [address]Vkcumnqrx [Moles/Vol]4.2 mmol/LNormal3.5-5.0Pro[facility] HospitalComment on above:Performed By: #### CBCJim, CMP ####[facility] ([id number])[address] [address] [place] [place] [address]Zesoyrp [Mass/Vol]6.4 g/dLNormal6.0-8.0Pro[facility] HospitalComment on above: Performed By: #### CBCA, CMP ####[facility] ([id number])[address] [address], [place] [address]Siqgtp [Moles/Vol]135 mmol/EIjfvrc700-821 [facility] HospitalComment on above:Performed By: #### CBCA, CMP ####[facility] ([id number])[address] [address] [place] [address]Uyqr nitrogen [Mass/Vol]22 mg/dLNormal5-23Pro[facility] HospitalComment on above:Performed By: #### [facility] ####[facility] ([id number])[address], [address] [place] [address]Oglugls Glucometer (BldC) [Mass/Vol]on 20-49-4589Lmhcral [Mass/Vol]329 mg/rINcrv12-51HsjRlzsoh [place] HospitalGlucose [Mass/Vol]315 mg/kKBwfq59-88AnaEybrqh [place] HospitalGlucose [Mass/Vol]250 mg/nXUglb96-05GvdYluvyp [place] HospitalGlucose [Mass/Vol]175 mg/dL Zsai63-45VsyLnfaurAvita Health SystemCBC AND AUTO DIFFon 26-40-8374EEMQNCDH BASOPHIL0.0 X10E9/LNormal0.0-0.2[facility]ark HospitalComment on above: Performed By: #### JOEL GUEVARA, 23661-5, 1988-03 ####[facility] ([id number])[address], [address] [place] [address]JNAYXQCN NEUTROPHIL5.1 X10E9/LNormal1.5-6.6ProProvidence HospitalComment on above:Performed By: #### JOEL GUEVARA, 60[address]-6[address]-03 ####[facility] ([id number])[address], [address] [place] [address]Rnbkvgkcm/100 WBC (Bld)0.2 %NormalProOhio Valley Hospital HospitalComment on above:Performed By: #### JOEL GUEVARA, 61907-41988-03 ####[facility] ([id number])[address], [address] [place] [address] 05591Zhogmpoknyw (Bld) [#/Vol]0.0 10*3/uLNormal0.0-0.4[facility] Comment on above:Performed By: #### JOEL GUEVARA, 52120-4, 1988-03 ####[facility] ([id number])[address] [address] [address] Eosinophils/100 WBC (Bld)0.4 %NormalProOhio Valley Hospital HospitalComment on above: Performed By: #### JOEL GUEVARA, 34773-8, 1988-03 ####[facility] ([id number])[address], [address], [place] [address]Ukxwjpuwnaj distribution width (RBC) [Ratio]13.6 %Tedikb83.5-15.0Pro[facility] HospitalComment on above:Performed By: #### JOEL GUEVARA, 96602-7, 1988-03 ####[facility] ([id number])[address] [address], [place] [address]Cwkrqbbzeu (Bld) [Volume fraction]33.4 %Xrq14-00NitRonvin [place] HospitalComment on above: Performed By: #### JOEL GUEVARA, 44384-5, 1988-03 ####[facility] ([id number])[address] [address] [place] [place] [address]Fajkjstmha (Bld) [Mass/Vol] 11.6 g/dLLow13.0-17.0Pro[facility] HospitalComment on above:Performed By: #### JOEL GUEVARA, 81336-9, 1988-03 ####[facility] ([id number])[address] [address], [place] [address]Vcoqippxeez (Bld) [#/Vol] 1.3 10*3/uLNormal1.0-3.5[facility] Shreveportica Roark HospitalComment on above:Performed By: #### JOEL GUEVARA, 04231-2, 1988-03 ####[facility] ([id number])[address] [address], [place] [address]Eyfuuhxeuza/100 WBC (Bld) 19.3 %NormalProMedica Rios HospitalComment on above:Performed By: #### JOEL GUEVARA, 66653-5, 1988-03 ####[facility] ([id number])[address], [address] [place] [address]ICB (RBC) [Entitic mass]30.9 xxUytrmw06-41 [facility] HospitalComment on above:Performed By: #### CBCJOEL Fernandez, 19021-5, 1988-03 ####[facility] ([id number])[address], [address], [place] [address]NLBP (RBC) [Mass/Vol]34.6 g/lTJlxntg84-44VyuVevzbc [facility]ios HospitalComment on above:Performed By: #### JOEL GUEVARA, 41616-3, 1988-03 ####[facility] ([id number])[address], [address], [place] [address]SBF (RBC) [Entitic vol]89 yXFaofdm85-098YhqTbjpnq [facility] HospitalComment on above:Performed By: #### JOEL GUEVARA, 20770-8, 1988-03 ####[facility] ([id number])[address] [address] [place] [address]Pvyufplht (Bld) [#/Vol]0.5 10*3/uLNormal0-0.9[facility] HospitalComment on above:Performed By: #### CBCJOEL Fernandez, 83357-8, 1988-03 ####[facility] ([id number])[address] [address], [place] [address]Dchmrlorp/100 WBC (Bld)7.2 %NormalProMedica Rios HospitalComment on above:Performed By: #### CBCJim CMP, 00706-9, 1988-03 ####[facility] ([id number])[address], [address] [place] [address]Ywmoniagmip/100 WBC (Bld)72.9 %NormalProCleveland Clinic [facility]odi Hospitalca Roark HospitalComment on above:Performed By: #### JOEL GUEVARA, 83443-5, 1988-03 ####[facility] ([id number])[address], [address] [place] [address]Kfisokow mean volume (Bld) [Entitic vol]7.7 fLNormal7-12[facility] HospitalComment on above:Performed By: #### JOEL GUEVARA, 02224-5, 1988-03 ####[facility] ([id number])[address], [address] [place] [address]Aoehcjlnz (Bld) [#/Vol]247 10*3/yLCvybxo699-704IxnWpqtcz [facility] Comment on above:Performed By: #### JOEL GUEVARA, 51727-2, 1988-03 ####[facility] ([id number])[address] [address] [place] [address]IQH COUNT3.74 X10E12/LLow4.10-5.70[facility] HospitalComment on above: Performed By: #### JOEL GUEVARA, 16553-4, 1988-03 ####[facility] ([id number])[address] [address] [place] [address]TZD (Bld) [#/Vol]7.0 10*3/uLNormal4.0-11.0ProC[facility] Clinic [facility] Hospitalca Roark HospitalComment on above:Performed By: #### JOEL GUEVARA, 30489-9, 1988-03 ####[facility] ([id number])[address] [address] [place] [address]KOHSHEQEVTRXD METABOLIC PANELon 84-81-2826Hvwhxkh [Mass/Vol]3.4 g/dLNormal3.2-5.3[facility] HospitalComment on above:Performed By: #### JOEL GUEVARA, 23389-7, 1988-03 ####[facility] ([id number])[address], [address], [place] [address]FVM [Catalytic activity/Vol]55 U/YKgpetb93-138XhdQzikch [facility] Comment on above:Performed By: #### JOEL GUEVARA, 68451-7, 1988-03 ####[facility] ([id number])[address], [address], [place] [address]TJC [Catalytic activity/Vol]20 U/LNormal0-40[facility] HospitalComment on above:Performed By: #### JOLE GUEVARA, 34933-8, 1988-03 ####[facility] ([id number])[address], [address], [place] [address]Tavkn gap [Moles/Vol]11 mmol/LNormal5-15ProProvidence HospitalComment on above:Performed By: #### JOEL GUEVARA, 06310-8, 1988-03 ####[facility] ([id number])[address], [address], [place] [address]HYW [Catalytic activity/Vol]17 U/LNormal0-41 [facility] HospitalComment on above:Performed By: #### JOEL GUEVARA, 91019-7, 1988-03 ####[facility] ([id number])[address], [address], [place] [address]Wwezfpaum [Mass/Vol]0.5 mg/dLNormal0.3-1.2ProMedKettering [facility] Hospital HospitalComment on above:Performed By: #### JOEL GUEVARA, 68828-3, 1988-03 ####[facility] ([id number])[address], [address], [place] [address]Epdmtsp [Mass/Vol]8.8 mg/dLNormal8.5-10.5ProMedKettering Memorial Hospital HospitalComment on above:Performed By: ###Fallon GUEVARA CMP, 21387-9, 1988-03 ####[facility] ([id number])[address], [address] [place], [place] [address]Ohldugqy [Moles/Vol]96 mmol/UWgt87-718SjwRiyygq [place] HospitalComment on above:Performed By: #### JOEL GUEVARA, 16637-1, 1988-03 ####[facility] ([id number])[address], [address], [place] [address]LG0 [Moles/Vol]27 mmol/L Xqiyei23-49MefUlsmpkShelby Memorial HospitalComment on above:Performed By: ###Fallon GUEVARA CMP, 05351-8, 1988-03 ####[facility] ([id number])[address], [address], [place] [address]Aqrjtlzxwm [Mass/Vol]0.75 mg/dLNormal0.60-1.30 [facility] HospitalComment on above:Result Comment: METHOD TRACEABLE TO IDMS STANDARDPerformed By: ###Fallon GUEVARA CMP, 33010-2, 1988-03 ####[facility] ([id number])[address] [address], [place] [address]uGTU (CKD-EPI) NON-RACE DEPENDENT>90Normal>59Pro[facility] HospitalComment on above:Result Comment: Reported eGFR is based on the CKD-EPI 2021 equation that does not use a race coefficient.Performed By: ###Fallon GUEVARA CMP, 19220-9, 1988-03 ####[facility] ([id number])[address], [address], [place] [address]Uewjvid [Mass/Vol]210 mg/jZBuys89-71SwsDdhugh [place] HospitalComment on above:Performed By: ###Fallon GUEVARA CMP, 57835-9, 1988-03 ####[facility] ([id number])[address], [address] [place] [place] [address]Supwmzljh [Moles/Vol] 3.8 mmol/LNormal3.5-5.0ProC[facility] Hospitalca Roark HospitalComment on above:Performed By: #### JOEL GUEVARA, 45876-5, 1988-03 ####[facility] ([id number])[address] [place] [place] [address]Bpvkspj [Mass/Vol]6.3 g/dL Normal6.0-8.0ProC[facility] Clinic [facility] Hospitalca Roark HospitalComment on above:Performed By: #### JOEL GUEVARA, 07981-6, 1988-03 ####[facility] ([id number])[address], [address] [address]Mdnhsv [Moles/Vol]134 mmol/CUtsrsd887-198 [facility] HospitalComment on above:Performed By: #### JOEL GUEVARA, 71179-3, 1988-03 ####[facility] ([id number])[address] [address] [place] [place] [address]Qive nitrogen [Mass/Vol]22 mg/dLNormal5-23[facility] HospitalComment on above:Performed By: #### JOEL GUEVARA, 41774-7, 1988-03 ####[facility] ([id number])[address] [address] [address]IRB [Mass/Vol]on 02-27-2025 REACTIVE SUBCPAD16.7 mg/dLHigh0.000-0.744 ProM[facility] HospitalComment on above:Performed By: #### JOEL GUEVARA, 91386-3, 1988-03 ####[facility] ([id number])[address] [address], [place] [address]IQZ Photometric method (Bld) [Velocity]on 42-16-2274JOQ, ERYTHROCYTE SEDIMENTATION RATE61 mm/hHigh0-15Pro[facility] Hospitalca [facility]ios HospitalComment on above:Performed By: #### CBCA, CMP, 17676-7, 1988-03 ####[facility] ([id number])[address], [address], [place] [address]Skthiwg Glucometer (BldC) [Mass/Vol]on 01-59-1475Dhjwoey [Mass/Vol]377 mg/eAQsie22-00 [facility] HospitalGlucose [Mass/Vol]387 mg/rCBfue27-62TkzHikeki [facility]ios HospitalGlucose [Mass/Vol]361 mg/gTPmje88-82PmrMfzahk [facility] HospitalGlucose [Mass/Vol]217 mg/rBSidc01-72IzbPzwbwr [facility] HospitalGlucose [Mass/Vol]220 mg/dL Wywm95-35LarNvyzmv [place] HospitalBASIC METABOLIC PANLon 31-11-9101Kvmbc gap [Moles/Vol]10 mmol/LNormal5-15[facility] HospitalComment on above: Performed By: #### 82384-3, 1988-03, 59271-0 #### [facility] ([id number]) [address], [address] [place], [place] [address]Nynyfih [Mass/Vol]8.8 mg/dLNormal8.5-10.5PParkview Health HospitalComment on above:Performed By: #### 69576-0, 1988-03, 24849-9 #### [facility] ([id number]) [address], [address] [place], [place] [address]Siugshnn [Moles/Vol]97 mmol/KBcy25-793NdxRlqcvwProvidence Hospital Comment on above:Performed By: #### 81358-3, 1988-03, 85794-4 #### [facility] ([id number]) [address], [address] [place], [place] [address]HB2 [Moles/Vol]27 mmol/OLqaffe78-49PysHumkmzShelby Memorial Hospital Comment on above:Performed By: #### 03075-2, 1988-03, #### [facility] ([id number]) [address], [address] [place], [place] [address]Cqmncoemyk [Mass/Vol]0.64 mg/dLNormal0.60-1.30ProProvidence HospitalComment on above:Result Comment: METHOD TRACEABLE TO IDMS STANDARD Performed By: #### 98360-0, 1988-03, #### [facility] ([id number]) [address], [facility] [address] [place], [place] [address]sJDX (CKD-EPI) NON-RACE DEPENDENT>90Normal>59[facility] HospitalComment on above:Result Comment: Reported eGFR is based on the CKD-EPI 2020 equation that does not use a race coefficient.Performed By: #### 15237-1, 1988-03, #### [facility] ([id number]) [address] [place], [place] [address]Bsazniw [Mass/Vol]212 mg/dVTjsf33-34DpfSqysriProvidence Hospital Comment on above:Performed By: #### 58593-8, 1988-03, #### [facility] ([id number]) [address], [address] [place], [place] [address]Ubufjliyo [Moles/Vol]4.0 mmol/LNormal3.5-5.0[facility] HospitalComment on above:Performed By: #### 52946-3, 1988-03, #### [facility] ([id number]) [address] [place], [place] [address]Eewyya [Moles/Vol]134 mmol/ICmwkqk351-853KafXpcgwj [place] HospitalComment on above:Performed By: #### 62302-4, 1988-03, #### [facility] ([id number]) [address], [address] [place], [place] [address]Wwag nitrogen [Mass/Vol]15 mg/dLNormal5-23[facility] HospitalComment on above:Performed By: #### 96614-7, 1988-03, 12516-1 #### [facility] ([id number]) [address], [address] [place], [place] [address]XCA AND AUTO DIFFon 52-91-0824Hcqwkqteyjk distribution width (RBC) [Ratio]13.7 %Shborz32.5-15.0ProC[facility] Hospitalca Roark HospitalComment on above: Performed By: #### 90793-7, 1988-03, #### [facility] ([id number]) [address], [address] [place], [place] [address]Wkzkcahtmg (Bld) [Volume fraction]32.3 %Pvo55-68LmuKvokpz [place] HospitalComment on above:Performed By: #### 17591-5, 1988-03, #### [facility] ([id number]) [address], [address] [place], [place] [address]Karwbgvaox (Bld) [Mass/Vol]11.2 g/dLLow13.0-17.0[facility] HospitalComment on above:Performed By: #### 96181-7, 1988-03, #### [facility] ([id number]) [address] [place], [place] [address]Czomhtqarrm (Bld) [#/Vol]1.0 10*3/uLNormal1.0-3.5[facility] HospitalComment on above:Performed By: #### 98860-5, 1988-03, #### [facility] ([id number]) [address], [address] [place], [place] [address]Rmmmkosukxm/100 WBC (Bld)17.1 %NormalProProvidence Hospital Comment on above:Performed By: #### 89773-2, 1988-03, #### [facility] ([id number]) [address], [address] [place], [place] [address]SLC (RBC) [Entitic mass]30.9 qlJiyebd08-29EhqBclqtw [facility]ark HospitalComment on above:Performed By: #### 00377-8, 1988-03, #### [facility] ([id number]) [address], [address] [place], [place] [address]PODH (RBC) [Mass/Vol]34.8 g/wQZydduq68-21YlcWhtrlo [facility] HospitalComment on above:Performed By: #### 81926-4, 1988-03, #### [facility] ([id number]) [address], [address] [place], [place] [address]DOP (RBC) [Entitic vol]89 rGIlylzs88-758LmhYtitkq [facility] HospitalComment on above:Performed By: #### 66906-5, 1988-03, #### [facility] ([id number]) [address], [address] [place], [place] [address]Yeckmnjns (Bld) [#/Vol]0.2 10*3/uLNormal0-0.9ProC[facility] Hospitalca Roark HospitalComment on above:Performed By: #### 11839-8, 1988-03, #### [facility] ([id number]) [address], [address] [place], [place] [address]Jfljcmhjt/100 WBC (Bld)2.9 %NormalAvita Health System Comment on above:Performed By: #### 57490-7, 1988-03, #### [facility] ([id number]) [address], [address] [place], [place] [address]Abbwefyckjv (Bld) [#/Vol]4.6 10*3/uLNormal1.5-6.6[facility] HospitalComment on above:Performed By: #### 82585-0, 1988-03, #### [facility] ([id number]) [address], [address] [place], [place] [address]Nyxxrzha mean volume (Bld) [Entitic vol]8.9 fLNormal7-12 [facility] HospitalComment on above:Performed By: #### 74272-3, 1988-03, #### [facility] ([id number]) [address], [address] [place], [place] [address]Kphaskzhx (Bld) [#/Vol]215 10*3/nYDfqesj280-829ClwLghazf [facility] HospitalComment on above:Performed By: #### 36235-7, 1988-03, #### [facility] ([id number]) [address], [address] [place], [place] [address]HBH COUNT3.64 X10E12/LLow4.10-5.70[facility] Comment on above:Performed By: #### 92530-2, 1988-03, #### [facility] ([id number]) [address], [address] [place], [place] [address]UHO morphology finding Nom (Bld)NORMALNormalProMedica Rios HospitalComment on above:Performed By: #### 15407-1, 1988-03, #### [facility] ([id number]) [address], [address] [place], [place] [address]FEN SNPRMEUFYN08.0 %NormalProMedica Rios HospitalComment on above:Performed By: #### 15442-7, 1988-03, #### [facility] ([id number]) [address], [address] [place], [place] [address]WBR (Bld) [#/Vol]5.8 10*3/uLNormal4.0-11.0Pro[facility] HospitalComment on above:Performed By: #### 78782-6, 1988-03, 40778-7 #### [facility] ([id number]) [address], [address] [place], [place] [address]Zofrouk Glucometer (BldC) [Mass/Vol]on 15-97-7368Euuxciq [Mass/Vol]326 mg/bJVjjc88-76ZsnEmimuj [facility] HospitalGlucose [Mass/Vol]199 mg/dL Lafk91-81DmzYgiipo [facility] HospitalGlucose [Mass/Vol]204 mg/lVRjyj07-67BcqLccxfh [place] HospitalGlucose [Mass/Vol]176 mg/eXDecv91-66UqzHsfusf [facility] HEMOGLOBINon 83-43-3634Ksgxfjfsns (Bld) [Mass/Vol]11.3 g/dLLow13.0-17.0Pro[facility] HospitalComment on above:Performed By: #### 71509-0, 1988-03, 24112-3 #### [facility] ([id number]) [address] [place], [place] [address]YLYEG PANELon 23-11-7452Azujqpt [Mass/Vol]3.4 g/dLNormal3.2-5.3 [facility] HospitalComment on above:Performed By: #### 10253-6, 1988-03, #### [facility] ([id number]) [address] [place], [place] [address]ZVU [Catalytic activity/Vol]56 U/OKeqvvk11-996CdhGyqast [place] HospitalComment on above:Performed By: #### 07486-8, 1988-03, 60076-3 #### [facility] ([id number]) [address] [place], [place] [address]URH [Catalytic activity/Vol]22 U/LNormal0-40[facility] HospitalComment on above:Performed By: #### 10455-1, 1988-03, #### [facility] ([id number]) [address] [place], [place] [address]EAL [Catalytic activity/Vol]23 U/LNormal0-41[facility] HospitalComment on above:Performed By: #### 00271-4, 1988-03, #### [facility] ([id number]) [address] [place] [address]Xrxlyvmkz [Mass/Vol]0.5 mg/dLNormal0.3-1.2[facility] HospitalComment on above:Performed By: #### 85463-9, 1988-03, #### [facility] ([id number]) [address], [address] [place] [address]Bflppvjfk.direct [Mass/Vol]0.2 mg/dLNormal0.0-0.4[facility] HospitalComment on above:Performed By: #### 01598-5, 1988-03, #### [facility] ([id number]) [address] [place] [address]Qhvpypa [Mass/Vol]6.4 g/dLNormal6.0-8.0Pro[facility] Hospitalca [facility] Comment on above:Performed By: #### 87779-6, 1988-03, #### [facility] ([id number]) [address] [place], [place] [address]KTQGBZIX COUNT AND MPVon 74-23-4932Cbajlqeg mean volume (Bld) [Entitic vol]8.0 fLNormal7-12[facility] HospitalComment on above:Performed By: #### 57874-2, 1988-03, #### [facility] ([id number]) [address], [address] [place], [place] [address]Vzwpxldbl (Bld) [#/Vol]205 10*3/jVCboycb567-977LhuVswcuv [place] HospitalComment on above:Performed By: #### 34635-4, 1988-03, #### [facility] ([id number]) [address], [address] [place], [place] [address]KNMRE METABOLIC PANLon 17-25-7600Chpuo gap [Moles/Vol]11 mmol/L Normal5-15[facility] HospitalComment on above:Performed By: #### 10662-9, 1988-03, #### [facility] ([id number]) [address], [address] [place], [place] [address]Lhfoxyc [Mass/Vol]8.7 mg/dLNormal8.5-10.5[facility] HospitalComment on above:Performed By: #### 01192-1, 1988-03, #### [facility] ([id number]) [address], [address] [place], [place] [address]Ymrywtap [Moles/Vol]100 mmol/MBxeydv29-075GlsBckphu [facility] HospitalComment on above:Performed By: #### 05702-0, 1988-03, #### [facility] ([id number]) [address], [address] [place], [place] [address]VE3 [Moles/Vol]25 mmol/SDiboom56-17EioAcifts [facility] Comment on above:Performed By: #### 98277-2, 1988-03, #### [facility] ([id number]) [address], [address] [place], [place] [address]Rblghpdrbp [Mass/Vol]0.72 mg/dLNormal0.60-1.30[facility] HospitalComment on above:Result Comment: METHOD TRACEABLE TO IDMS STANDARD Performed By: #### 84865-4, 1988-03, #### [facility] ([id number]) [address], [address] [place], [place] [address]zZUX (CKD-EPI) NON-RACE DEPENDENT>90Normal>59Pro[facility] HospitalComment on above:Result Comment: Reported eGFR is based on the CKD-EPI 2020 equation that does not use a race coefficient.Performed By: #### 73388-0, 1988-03, #### [facility] ([id number]) [address], [address] [place], [place] [address]Vliwgdf [Mass/Vol]236 mg/pKXmxk61-30UamTyrwww [facility] Comment on above:Performed By: #### 32196-4, 1988-03, #### [facility] ([id number]) [address], [address] [place], [place] [address]Wotpjjfea [Moles/Vol]4.2 mmol/LNormal3.5-5.0Pro[facility] HospitalComment on above:Performed By: #### 77475-4, 1988-03, #### [facility] ([id number]) [address], [address] [place], [place] [address]Gitpbl [Moles/Vol]136 mmol/MBiifeg589-366XqcAkbrjb [facility] HospitalComment on above:Performed By: #### 11372-9, 1988-03, #### [facility] ([id number]) [address], [address] [place], [place] [address]Iiju nitrogen [Mass/Vol]19 mg/dLNormal5-23Pro[facility] HospitalComment on above:Performed By: #### 50469-4, 1988-03, #### [facility] ([id number]) [address], [address] [place], [place] [address]TC FLUORO GUIDANCE SPINAL PUNCTURE OPERATIVEon 12-43-7302VR FLUORO GUIDANCE SPINAL PUNCTURE OPERATIVEFL FLUORO GUIDANCE SPINAL PUNCTURE OPERATIVE FL FLUORO [...] by Carine Ortiz MD on 02/25/2025 4:40 AMNormalProProvidence HospitalGlucose Glucometer (BldC) [Mass/Vol]on 70-31-5781Jogxhup [Mass/Vol]253 mg/uRCurb55-50QeaMdewjo [facility] HospitalGlucose [Mass/Vol]187 mg/gCBxil79-35 [facility] HospitalGlucose [Mass/Vol]202 mg/uJQtyd15-72ZygSrskmi [facility] HospitalGlucose [Mass/Vol]256 mg/uZBgen29-87HuxJnewvg [facility] HospitalHEMOGLOBIN on 02-95-2696Cpbnwsvzds (Bld) [Mass/Vol]11.0 g/dLLow13.0-17.0ProProvidence HospitalComment on above:Performed By: #### 70615-0, 1988-03, #### [facility] ([id number]) [address], [address] [place], [place] [address]TIWVGGLIRnl 16-01-8929Vvohmxgql [Mass/Vol]2.4 mg/dLNormal1.8-2.6 [facility] HospitalComment on above:Performed By: #### 55191-0, 1988-03, 01611-2 #### [facility] ([id number]) [address], [address] [place], [place] [address]JOCRQBMX COUNT AND MPVon 73-21-2962Wdjlgbiy mean volume (Bld) [Entitic vol]8.0 fLNormal7-12[facility] HospitalComment on above:Performed By: #### 51364-7, 1988-03, #### [facility] ([id number]) [address], [address] [place], [place] [address]Hgjiwehwe (Bld) [#/Vol]170 10*3/cAExfxbq815-589AptAajjbk [facility] HospitalComment on above:Performed By: #### 80278-3, 1988-03, #### [facility] ([id number]) [address], [address] [place], [place] [address]vGWP Coag (PPP) [Time]on 17-15-5085fKNL Coag (Bld) [Time]23 sLow 26-37ProMedica Roark HospitalComment on above:Performed By: #### 41896-1, , #### [facility] ([id number]) [address], [address] [place], [place] [address]DEHXAUAF CULTUREon 48-10-4304Wsxfqvqt identified Anaer cx Nom (Unsp spec)CULTURE RESULTS NO ANAEROBIC ORGANISMS ISOLATEDNoUniversity Hospitals Elyria Medical Center HospitalComment on above: Performed By: #### 94267-5, 1988-03, #### [facility] ([id number]) [address], [address] [place], [place] [address]Rmbiknlr identified Anaer cx Nom (Unsp spec)CULTURE RESULTS NO ANAEROBIC ORGANISMS ISOLATEDNoalCleveland Clinic Fairview Hospitalca Roark HospitalComment on above: Performed By: #### 30746-0, 1988-03, 28126-2 #### [facility] ([id number]) [address], [address] [place] [address]NVQDWAOI CULTUREon 18-14-3017Exsfxhph identified Aer cx Nom (Asp)GRAM STAIN >25 WHITE BLOOD CELLS/LPF 0 SQUAMOUS EPITHELIAL CELLS/LPF MODERATE GRAM POSITIVE COCCI IN CHAINS CULTURE RESULTS MANY STREPTOCOCCUS AGALACTIAE (GROUP B)AbnormalProProvidence HospitalComment on above:Performed By: #### 18879-5, 1988-03, 33614-8 #### [facility] ([id number]) [address], [address] [place], [place] [address]RELZW CULTUREon 77-02-0230Cqjhenpf identified Aer cx Nom (Bld) SPECIMEN NOTES SUBOPTIMAL VOLUME OF BLOOD COLLECTED, RESULTS MAY BE AFFECTED. CULTURE RESULTS NO GROWTH 5 DAYSNormalProProvidence HospitalComment on above:Performed By: #### 09197-6, 1988-03, 50052-0 #### [facility] ([id number]) [address], [address] [place], [place] [address]JKM [Mass/Vol]on 02-24-2025 REACTIVE GWKGVJX19.7 mg/dLHigh 0.000-0.744[facility] & Brentwood HospitalComment on above:Performed By: #### 80391-6, 1988-03, 96279-2 #### [facility] ([id number]) [address], [address] [place], [place] [address]RE CTA ABD AND PELVISon 99-58-7775SH CTA ABD AND PELVISCT CTA ABD AND PELVIS STUDY: CT angiography of the abdomen and pelvis with contrast CLINICAL HISTORY: Back pain, atraumatic. Clinical concern for aortic dissection. COMPARISON: None. TECHNIQUE: CT angiography of the abdomen and pelvis was performed utilizing thin section axial images with coronal and sagittal reformatted images generated. 3- D maximum intensity projection coronal and sagittal reformatted images generated and reviewed. Images acquired following the uneventful administration of 100 cc Omnipaque 350 nonionic intravenous contrast. Automated exposure control was uti lized. FINDINGS: Vascular: Excellent arterial opacification. Patent celiac axis, SMA, single left renal artery, multiple rightrenal arteries, BELINDA, common, internal, external iliac arteries. [...] by Clinton Wade MD on 02/24/2025 12:20 [facility]CT [facility] CHESTon 20-68-7321GE CTA CHESTCT CTA CHEST STUDY: CT angiography of the [...] heights. No substantial listhesis. Well aligned posterior facets.No aggressive osseous lesions. Trace gas within the [...] T9-T10 level is nonspecific, possibly related to vacuumphenomenon from adjacent posterior facet arthropathy, iatrogenic, etc. All CT scans at this facility use dose modulation, iterative reconstruction, and/or weight based dosing when appropriate to reduce radiation dose to as low as reasonably achievable. Finalized by Clinton Wade MD on 02/24/2025 12:16 [facility] HospitalR Photometric method (Bld) [Velocity]on 24-81-7689LWX, ERYTHROCYTE SEDIMENTATION RATE78 mm/hHigh0-15Avita Health SystemComment on above: Performed By: #### 92098-3, 1988-03, 34356-7 #### [facility] ([id number]) [address], [address] [place], [place] [address]XBOBTL CULTUREon 68-47-9858Llxdtr identified Cx Nom (Unsp spec) FUNGAL SMEAR NO FUNGUS ISOLATED ON DIRECT SMEAR CULTURE RESULTS NO FUNGUS ISOLATED AFTER 4 WEEKSNormalProMedica Roark HospitalComment on above: Performed By: #### 48851-1, 1988-03, 68045-6 #### [facility] ([id number]) [address], [address] [place], [place] [address]Rapirm identified Cx Nom (Unsp spec)FUNGAL SMEAR NO FUNGUS ISOLATED ON DIRECT SMEAR CULTURE RESULTS NO FUNGUS ISOLATED AFTER 4 WEEKSNormalProMedica Roark HospitalComment on above: Performed By: #### 45431-7, 1988-03, 81361-5 #### [facility] ([id number]) [address], [address] [place], [place] [address]Jenoiip Glucometer (BldC) [Mass/Vol]on 25-94-9846Gpbrthq [Mass/Vol]227 mg/iDDqfu61-34JmcQaaczv [facility] HospitalGlucose [Mass/Vol]202 mg/dL Qcbk89-61NauWwunas [facility] HospitalGlucose [Mass/Vol]237 mg/iTFpil20-04NbqNtnbft [facility] HospitalHGB A1C (GLYCO-HGB)on 05-04-4676Mcbcwrk [Mass/Vol]160 mg/dLNormal ProMedica Roark HospitalComment on above:Performed By: #### HA1C #### [facility] ([id number]) [address], [address] [place], [place] [address]ZkY3j (Bld) [Mass fraction]7.2 %High4.4-5.6ProOhio Valley Hospital HospitalComment on above:Result Comment: NOTE ADA Guidelines Result HgbA1c Normal : less than 5.7 % Prediabetes : 5.7 % to 6.4 % Diabetes : > 6.4 % Use with caution in patients with abnormal hemoglobin variants as the half-life of red blood cells and in vivo glycation rates are affected.Performed By: #### HA1C #### [facility] ([id number]) [address] [place] [address], [address] [place], [place] [address]BSG 1+2 Ab+HIV1 p24 Ag IA Qlon 26-08-1150LNX 1 and 2 Ab/Ag ScreenNon-ReactiveNormalNRCTProMedica Suburban Community Hospital & Brentwood HospitalComment on above:Result Comment: NEW TEST METHOD NOTE This information [...] the release of HIV test results or diagnoses.Performed By: #### 06040-3, 1987-, 13425-4 #### [facility] ([id number]) [address] [place] [address], [address] [place], [place] [address]SgA9r (Bld) [Mass fraction]on 07-41-3869Yprkzis glucose Estimated from glycated hemoglobin (Bld) [Mass/Vol]160 mg/dLSaint John's Saint Francis Hospital Comment on above:PERFORMED AT [address],[place] [address] The copy-to physician of this order is SRINIVASAN Min ; , ; The ordering physician of this order is LATONYA Eagle Interpretation and review of laboratory resultsAbnoMercyhealth Walworth Hospital and Medical CenterHemoglobin A1con 69-90-9870GvM0z (Bld) [Mass fraction]7.2 %High4.4 - 5.6 %[facility] HospitalComment on above:NOTE ADA Guidelines Result HgbA1c Normal : less than 5.7 % Prediabetes : 5.7 % to 6.4 % Diabetes : > 6.4 % Use with caution in patients with abnormal hemoglobin variants as the half-life of red blood cells and in vivo glycation rates are affected. MR CERVICAL SPINE W WO CONTon 22-71-9375YR CERVICAL SPINE W WO CONTMR CERVICAL SPINE W WO CONT MR CERVICAL [...] by Alessandro Matute MD on 02/24/2025 11:21 [facility] HospitalMR LUMBAR SP[facility] WO CONTon 26-79-8606YH LUMBAR SPINE WO CONTMR LUMBAR SPINE WO CONT MR LUMBAR SPINE [...] and facet arthrosis. Mild loss and fatty inf iltration of the lower paraspinous musculature. Duplicated IVC. The conus medullaris is unremarkable and terminates at L1. Cauda equina demonstrates no evidence ofclumping. Evaluation of the individual intervertebral disc levels are as follows: L1-L2: No significant spinal canal or neural foraminal stenosis. L2-L3: Disc bulge, facet arthrosis and ligamentum flavum thickening contribute to mild spinal canalstenosis. No significant neural foraminal stenosis. Right facet [...] were discussed Secure Epic chat with Yang Arango DO at the time of interpretation (02/24/2025 8:52 AM) by Manny Mendoza M.D. THIS REPORT CONTAINS A SIGNIFICANT RESULT AND/OR RECOMMENDATION, WHICH REQUIRES THE ATTENTION OF THE LICENSED CAREGIVER RESPONSIBLE FOR THIS PATIENT. THEREFORE, I SPECIFICALLY DESIGNATED THIS REPORT TO BE TELEPHONED BY THE RADIOLOGY DEPARTMENT. Finalized by Manny Mendoza MD on 02/24/2025 9:07 [facility] MR THORACIC SPINE W WO CONTon 48-87-7532SW THORACIC SPINE W WO CONTMR THORACIC SPINE W WO CONT MR THORACIC SPINE W WO CONT HISTORY: BLE weakness and urinary retention PROTOCOL: Routine multiplanar multisequence MR imaging of the thoracic spine was performed with andwithout contrast. COMPARISON: None. FINDINGS: No acute vertebral body height loss. No significant malalignment of the thoracic spine. Ill-definedheterogeneous signal and enhancement within the epidural space [...] enhancement spanning the visualized thoracic spine most significantfrom T7 to T11 which results in severe [...] by Manny Mendoza MD on 02/24/2025 12:09 PMNormalProMedica Roark HospitalPLATELET COUNT AND MPVon 69-94-4449Rsqfxoun mean volume (Bld) [Entitic vol]8.1 fLNormal7-12ProMedica Roark HospitalComment on above:Performed By: #### 30083-9, 1988-03, 19238-0 #### [facility] ([id number]) [address], [address] [place], [place] [address]Zohqxhaor (Bld) [#/Vol]179 10*3/gTQrehhf382-287IpuOpuruj Roark HospitalComment on above:Performed By: #### 56234-4, 1988-03, 20302-1 #### [facility] ([id number]) [address], [address] [place], [place] [address]EYIBG CARDIAC W/ NAon 92-23-4521ZPAII'S TESTNormalProMedica Roark HospitalComment on above:Performed By: #### ANOVA #### [facility] ([id number]) [address] [place], [place] [address]Dzwk excess Calc (Bld) [Moles/Vol]1.8 mmol/LNormal0.0-2.0 [facility] Roark HospitalComment on above:Performed By: #### ANOVA #### [facility] ([id number]) [address] [facility], [place] [address]Oszc opacrovseze58.6 [degF]Yjdagl71.0[facility] Comment on above:Performed By: #### ANOVA #### [facility] ([id number]) [address] [place], [place] [address]Nwsypfx [Mass/Vol]226 mg/mZKhyr43-89WqhXcukxnAvita Health System Comment on above:Performed By: #### ANOVA #### [facility] ([address] [place] [address]) [address], [place] [address]WLR2 (Bld) [Moles/Vol]26.4 mmol/SWtsr83-14FryBmskfyAvita Health SystemComment on above:Performed By: #### ANOVA #### [facility] ([address] [place] [address]) [address] [place], [place] [address]Tzxihvnlvb (Bld) [Volume fraction]36 %Teh58-10EyxSvgfcjProvidence HospitalComment on above:Performed By: #### ANOVA #### [facility] ([address] [place] [address]) [address], [place] [address]Jllocumnta (Bld) [Mass/Vol]11.6 g/dLLow13.0-17.0Avita Health SystemComment on above:Performed By: #### ANOVA #### [facility] ([address] [place] [address]) [address], [place] [address]PIYF. O2 CONC.50 %NormalProProvidence HospitalComment on above:Performed By: #### ANOVA #### [facility] ([id number]) [address] [place], [place] [address]SEXJZWI CALCIUM4.8 mg/dLNormal4.5-5.3PShelby Memorial Hospital Comment on above:Performed By: #### ANOVA #### [facility] ([id number]) [address] [place], [place] [address]Lwtojc (Bld) [Partial pressure]180 mm[Hg]Osgj19-107RpmYjzhjd Rios HospitalComment on above:Performed By: #### ANOVA #### [facility] ([id number]) [address] [facility] [place], [place] [address]Cmewfu saturation in Blood99.9 %Normal>90ProMedica Rios HospitalComment on above:Performed By: #### ANOVA #### [facility] ([id number]) [address] [place], [place] [address]RYT141.3 YQGMCpulwk06-01EoeIythey Rios HospitalComment on above:Performed By: #### ANOVA #### [facility] ([id number]) [address] [place], [place] [address]kJ (Bld)7.414 [pH]Normal7.350-7.450[facility] Comment on above:Performed By: #### ANOVA #### [facility] ([address] [place] [address]) [address] [place], [place] [address]Eudtvlypb [Moles/Vol]4.1 mmol/LNormal3.5-5.0ProMedica [facility]ios HospitalComment on above:Performed By: #### ANOVA #### [facility] ([id number]) [address] [place], [place] [address]VMOTXI SITEALINENormalProMedica Rios HospitalComment on above: Performed By: #### ANOVA #### [facility] ([id number]) [address] [place], [place] [address]TSSTVT TYPEArterialNormalProMedica Rios HospitalComment on above:Performed By: #### ANOVA #### [facility] ([id number]) [address] [place], [place] [address]Kdgwcc [Moles/Vol]138 mmol/LFmzpwy842-992StfAknbqf Rios HospitalComment on above:Performed By: #### ANOVA #### [facility] ([id number]) [address] [place], [place] [address]QGXGSE CULTUREon 79-77-9448Kodhbbtd identified Aer cx Nom (Tiss) GRAM STAIN 0 to 1 WHITE BLOOD CELLS/LPF 0 SQUAMOUS EPITHELIAL CELLS/LPF NO ORGANISMS SEEN CULTURE RESULTS RARE STREPTOCOCCUS AGALACTIAE (GROUP B)AbnormalProMedica Suburban Community Hospital & Brentwood HospitalComment on above:Performed By: #### 18665-9, 1987-, 53363-0 #### [facility] ([id number]) [address], [address] [place], [place] [address]UGO MACROSCOPIC NURon 22-60-3433JMMYAGWJP NURNegativeNormalNEG ProMSt Luke Medical CenterComment on above:Performed By: #### NUM #### [facility] ([id number]) [address] [place] [address], [place], [place] [address]NBABW/HGB NURTraceAbnormalNEGKettering Health SpringfieldComment on above:Performed By: #### NUM #### [facility] ([id number]) [address] [place] [address]NVANKVB VTU184 mg/dLAbnormalNEGKettering Health Springfield Comment on above:Performed By: #### NUM #### [facility] ([id number]) [address] [place] [address]DDDEFMM NUR15 mg/dLAbnormalNEGProChristus Mother Frances Hospital – TylerComment on above:Performed By: #### NUM #### [facility] ([id number]) [address] [place] [address]KZOIYFCAN ESTERASE NURNegativeNormalNEGKettering Health SpringfieldComment on above:Performed By: #### NUM #### [facility] ([id number]) [address] [place] [address]IVNEFWU NURNegativeNormalNEGKettering Health SpringfieldComment on above:Performed By: #### NUM #### [facility] ([id number]) [address] [place] [address]AL NUR6.2Cxdxaq5.0-8.5PPremier Health Miami Valley Hospital SouthComment on above:Performed By: #### NUM #### [facility] ([id number]) [address] [place] [address]RNXOUOC NUR30 mg/dLAbnormalNEGProChristus Mother Frances Hospital – TylerComment on above:Performed By: #### NUM #### [facility] ([id number]) [address] [place] [address]UKNGJUZT GRAVITY NUR1.121Bafzgi7.003-1.035ProChristus Mother Frances Hospital – TylerComment on above:Performed By: #### NUM #### [facility] ([id number]) [address] [place] [address]PVFAZCXJRSOI NUR2.0 eu/dLHigh<1.1PPremier Health Miami Valley Hospital South Comment on above:Performed By: #### NUM #### [facility] ([id number]) [address] [place] [address]283FV HAND RT MIN 3 VWSon 96-67-6547XJ HAND RT MIN 3 VWSXR HAND RT MIN 3 VWS XR HAND RT MIN 3 VWS CLINICAL HISTORY: Pain and swelling over the third and fourth fingers COMPARISON: None. FINDINGS: 4 views are obtained. Soft tissues: Unremarkable. Osseous structures: No acute fracture. No destructive osseous lesion. Joints: No dislocation or malalignment. IMPRESSION: * No acute fracture or malalignment. Finalized by Carine Ortiz MD on 02/24/2025 5:34 AMNormalProMedica Rios HospitalBASIC METABOLIC PANLon 04-07-0420Phjdw gap [Moles/Vol]12 mmol/LNormal 5-15ProChristus Mother Frances Hospital – TylerComment on above:Performed By: #### PINR, LIVR, 3040-3, BMP, CBCA, 60684-5 #### [facility] ([id number]) [address] [place] [address]Vyuuaaa [Mass/Vol]9.0 mg/dLNormal8.5-10.5PPremier Health Miami Valley Hospital SouthComment on above:Performed By: #### PINR, LIVR, 3040-3, BMP, CBCA, 13960-8 #### [facility] ([id number]) [address] [place] [address]Iydqktfy [Moles/Vol]94 mmol/YSvs65-001FobTmylmkKettering Health SpringfieldComment on above:Performed By: #### PINR, LIVR, 3040-3, BMP, CBCA, 92816-4 #### [facility] ([id number]) [address] [place] [address]16[address]CC0 [Moles/Vol]24 mmol/PQgqigy14-45EkkLiehssPremier Health [facility] Hospital South Comment on above:Performed By: #### PINR, LIVR, 3040-3, BMP, CBCA, 69459-3 #### [facility] ([id number]) [address] [place] [address]Bnrrlxmjni [Mass/Vol]0.90 mg/dLNormal0.70-1.20Kettering Health SpringfieldComment on above:Result Comment: METHOD TRACEABLE TO IDMS STANDARD Performed By: #### PINR, LIVR, 3040-3, BMP, CBCA, 52887-2 #### [facility] ([id number]) [address] [place] [address] 49898qILP (CKD-EPI) NON-RACE DEPENDENT>90Normal>59ProChristus Mother Frances Hospital – TylerComment on above:Result Comment: Reported eGFR is based on the CKD-EPI 2020 equation that does not use a race coefficient.Performed By: #### PINR, LIVR, 3040-3, BMP, CBCA, 18472-4 #### [facility] ([id number]) [address] [place] [address]Twcjttq [Mass/Vol]245 mg/cWNgji33-54XdgHqwnjpKettering Health Springfield Comment on above:Performed By: #### PINR, LIVR, 3040-3, BMP, CBCA, 28442-7 #### [facility] ([id number]) [address] [place] [address]Kavnrewth [Moles/Vol]3.6 mmol/LNormal3.5-5.0ProChristus Mother Frances Hospital – TylerComment on above:Performed By: #### PINR, LIVR, 3040-3, BMP, CBCA, 11735-0 #### [facility] ([id number]) [address] [place] [address] 33871Nenfdr [Moles/Vol]130 mmol/JAwq127-637JmpLyxxsnChristus Mother Frances Hospital – TylerComment on above:Performed By: #### PINR, LIVR, 3040-3, BMP, CBCA, 67610-2 #### [facility] ([id number]) [address] [place] [address] 12319Kvkh nitrogen [Mass/Vol]25 mg/dLHigh5-23ProChristus Mother Frances Hospital – TylerComment on above:Performed By: #### PINR, LIVR, 3040-3, BMP, CBCA, 87126-7 #### [facility] ([id number]) [address] [place] [address]48[address]LPU AND AUTO DIFFon 55-79-2703GKEVFBMU BASOPHIL0.0 X10E9/L Normal0.0-0.2PPremier Health Miami Valley Hospital SouthComment on above:Performed By: #### PINR, LIVR, 3040-3, BMP, CBCA, 09639-2 #### [facility] ([id number]) [address] [place] [address] 47[address]EEGBDBKR NEUTROPHIL6.4 X10E9/LNormal1.5-6.6ProChristus Mother Frances Hospital – TylerComment on above:Performed By: #### PINR, LIVR, 3040-3, BMP, CBCA, 10456-9 #### [facility] ([id number]) [address] [place] [address] 80100Rjyaahvoc/100 WBC (Bld)0.2 %[facility] Comment on above:Performed By: #### PINR, LIVR, 3040-3, BMP, CBCA, 78313-3 #### [facility] ([id number]) [address] [place] [address] 41232Ssiygrffbom (Bld) [#/Vol]0.0 10*3/uLNormal0.0-0.4Kettering Health SpringfieldComment on above:Performed By: #### PINR, LIVR, 3040-3, BMP, CBCA, 50027-9 #### [facility] ([id number]) [address] [place] [address] 44738Jwfxszsuebb/100 WBC (Bld)0.1 %[facility] Comment on above:Performed By: #### PINR, LIVR, 3040-3, BMP, CBCA, 63049-8 #### [facility] ([id number]) [address] [place] [address] 10706Dinvisgqjjh distribution width (RBC) [Ratio]13.1 %Normal 11.5-15.0Kettering Health SpringfieldComment on above:Performed By: #### PINR, LIVR, 3040-3, BMP, CBCA, 92752-0 #### [facility] ([id number]) [address] [place] [address] 33945Cyvdgffovq (Bld) [Volume fraction]31.4 %Kgi38-38EnaSfiiwdChristus Mother Frances Hospital – TylerComment on above:Performed By: #### PINR, LIVR, 3040-3, BMP, CBCA, 49731-3 #### [facility] ([id number]) [address] [place] [address] 37514Zxpbwswpfi (Bld) [Mass/Vol]11.4 g/dLLow13.0-17.0Kettering Health SpringfieldComment on above:Performed By: #### PINR, LIVR, 3040-3, BMP, CBCA, 49181-9 #### [facility] ([id number]) [address] [place] [address] 43262Uzprligeivc (Bld) [#/Vol]0.6 10*3/uLLow1.0-3.5PPremier Health Miami Valley Hospital SouthComment on above:Performed By: #### PINR, LIVR, 3040-3, BMP, CBCA, 26592-0 #### [facility] ([id number]) [address] [place] [address] 94954Qkphsybaotw/100 WBC (Bld)8.3 %NormalProChristus Mother Frances Hospital – Tyler Comment on above:Performed By: #### PINR, LIVR, 3040-3, BMP, CBCA, 48662-4 #### [facility] ([id number]) [address] [place] [address] 18175OPQ (RBC) [Entitic mass]31.9 knXkhusq98-69BjzRggtuuChristus Mother Frances Hospital – TylerComment on above:Performed By: #### PINR, LIVR, 3040-3, BMP, CBCA, 63226-1 #### [facility] ([id number]) [address] [place] [address] 99136GRIA (RBC) [Mass/Vol]36.4 g/bBQmfg42-96EfnMugzsgKettering Health SpringfieldComment on above:Performed By: #### PINR, LIVR, 3040-3, BMP, CBCA, 00346-4 #### [facility] ([id number]) [address] [place], [place] [address]LFP (RBC) [Entitic vol]88 nMAdhsna21-805JeeUsyfeh Fremont HospitalComment on above:Performed By: #### PINR, LIVR, 3040-3, BMP, CBCA, 94112-0 #### [facility] ([id number]) [address] [place] [address] [id number] (Bld) [#/Vol]0.7 10*3/uLNormal0-0.9[facility] SpringfieldComment on above:Performed By: #### PINR, LIVR, 3040-3, BMP, CBCA, 32811-3 #### [facility] ([id number]) [address] [place] [address] 68163Bcfarcoxs/100 WBC (Bld)9.3 %NormalKettering Health Springfield Comment on above:Performed By: #### PINR, LIVR, 3040-3, BMP, CBCA, 51013-3 #### [facility] ([id number]) [address] [place] [address] 62135Dzcliogaxnw/100 WBC (Bld)82.1 %[facility] Comment on above:Performed By: #### PINR, LIVR, 3040-3, BMP, CBCA, 15454-7 #### [facility] ([id number]) [address] [place] [address] 24443Likaveqx mean volume (Bld) [Entitic vol]8.3 fLNormal7-12 [facility] SpringfieldComment on above:Performed By: #### PINR, LIVR, 3040- 3, BMP, CBCA, 38839-8 #### [facility] ([id number]) [address] [place] [address] 08944Uuvvztnab (Bld) [#/Vol]147 10*3/rBBhn005-079AikEdyppdChristus Mother Frances Hospital – TylerComment on above:Performed By: #### PINR, LIVR, 3040-3, BMP, CBCA, 53621-6 #### [facility] ([id number]) [address] [place] [address] 34267RSM COUNT3.58 X10E12/LLow4.10-5.70[facility] Comment on above:Performed By: #### PINR, LIVR, 3040-3, BMP, CBCA, 79413-6 #### [facility] ([id number]) [address] [place] [address] 24303CIL (Bld) [#/Vol]7.8 10*3/uLNormal4.0-11.0ProChristus Mother Frances Hospital – TylerComment on above:Performed By: #### PINR, LIVR, 3040-3, BMP, CBCA, 32073-2 #### [facility] ([id number]) [address] [place] [address] [id number] SCREEN, URINEon 93-80-2842WVIELRAUSXG/METHAMPNegative NormalNEGKettering Health SpringfieldComment on above:Result Comment: AMPH/METH screening cut off = 1000 ng/mLPerformed By: #### PINR, LIVR, 3040-3, BMP, CBCA, 18399-6 #### [facility] ([id number]) [address] [place] [address] 01248KIGGSYZQHSSDBnpidepnXblxmeBCZZgkXfzpxp [facility] HospitalComment on above:Result Comment: Barbiturates screening cut off value = 200 ng/mL Performed By: #### PINR, LIVR, 3040-3, BMP, CBCA, 70908-9 #### [facility] ([id number]) [address] [place] [address] [id number]ucrctGSNGckMgvwqg [facility] Comment on above:Result Comment: Benzodiazepines screening cut off value = 200 ng/mLPerformed By: #### PINR, LIVR, 3040-3, BMP, CBCA, 75120-8 #### [facility] ([id number]) [address] [place] [address] 11060XFBNQAVWGJIADskdrjzsMoqtvdjvWNYDeyXcuqfq [facility] Comment on above:Result Comment: Confirmation available upon request. Cannabinoids/THC screening cut off value = 50 ng/mLPerformed By: #### PINR, LIVR, 3040-3, BMP, CBCA, 90886-0 #### [facility] ([id number]) [address] [place] [address] 61074FRNTDMG METABOLITENegativeNounc hospitals hillsborough campusNEGKettering Health Springfield Comment on above:Result Comment: Cocaine screening cut off value = 300 ng/mL Performed By: #### PINR, LIVR, 3040-3, BMP, CBCA, 86930-8 #### [facility] ([id number]) [address] [place] [address] 39812XHYBOTCKsamnrekWwsohhPJBKbiYpgcyj [facility] HospitalComment on above:Result Comment: Ecstasy screening cut off value = 500 ng/mL This report is intended for use in clinical monitoring or management of patients.Performed By: #### PINR, LIVR, 3040-3, BMP, CBCA, 26844-4 #### [facility] ([id number]) [address] [place] [address] 32060YRGFGVXYMJiavdsfuMypjkgIJGXvjGjdxse [facility] HospitalComment on above:Result Comment: Methadone screening cut off value = 300 ng/mL.Performed By: #### PINR, LIVR, 3040-3, BMP, CBCA, 31534-9 #### [facility] ([id number]) [address] [place] [address] 27776EZHRIGOCpzuefmrPmmneujfLCKHryXxeweb [facility] HospitalComment on above:Result Comment: Confirmation available upon request. Opiates screening cut off value = 300 ng/mL NOTE: This test is used for the detection of codeine, hydrocodone (>1000 ng/mL), morphine and hydromorphone (>900 ng/mL) in urine.Performed By: #### PINR, LIVR, 3040-3, BMP, CBCA, 42686-7 #### [facility] ([id number]) [address] [place] [address] 71448ASRKKBIVPMnhozwqhTykzjsicPDAVfxYtaoia [facility] HospitalComment on above:Result Comment: Confirmation available upon request. Oxycodone screening cut off value = 300 ng/mL NOTE: This test is used for the detection of oxycodone and oxymorphone in urine.Performed By: #### PINMichelle, LIVR, 3040-3, BMP, CBCA, 07812-2 #### [facility] ([id number]) [address] [place] [address] 27570APITDIFQWHOKPFybymaqqXtqlevREMVzlSydhju [facility] HospitalComment on above:Result Comment: Phencyclidine screening cut off value = 25 ng/mL Performed By: #### PINMichelle, LIVR, 3040-3, BMP, CBCA, 05371-0 #### [facility] ([id number]) [address] [place] [address] 44434EYYOMAga 39-44-0225Kzolew [Catalytic activity/Vol]31 U/LNormal 17-40ProChristus Mother Frances Hospital – TylerComment on above:Performed By: #### PINR, LIVR, 3040-3, BMP, CBCA, 26351-4 #### [facility] ([id number]) [address] [place] [address] [id number] PANELon 96-29-9036Wntimiz [Mass/Vol]3.5 g/dLNormal3.2-5.3 [facility] Medical CenterComment on above:Performed By: #### PINR, LIVR, 3040- 3, BMP, CBCA, 53083-5 #### [facility] ([id number]) [address] [place] [address], [place] [address]SJT [Catalytic activity/Vol]66 U/DKpkboq34-756JpoFzpydlChristus Mother Frances Hospital – TylerComment on above:Performed By: #### PINR, LIVR, 3040-3, BMP, CBCA, 47667-6 #### [facility] ([id number]) [address] [place] [address] 40746PPG [Catalytic activity/Vol]29 U/LNormal0-40ProChristus Mother Frances Hospital – TylerComment on above:Performed By: #### PINR, LIVR, 3040-3, BMP, CBCA, 57324-7 #### [facility] ([id number]) [address] [place] [address] [id number] [Catalytic activity/Vol]21 U/LNormal0-41ProChristus Mother Frances Hospital – TylerComment on above:Performed By: #### PINR, LIVR, 3040-3, BMP, CBCA, 50070-5 #### [facility] ([id number]) [address] [place] [address] 17731Ulmnanwll [Mass/Vol]1.9 mg/dLHigh0.3-1.2PPremier Health Miami Valley Hospital SouthComment on above:Performed By: #### PINR, LIVR, 3040-3, BMP, CBCA, 32201-2 #### [facility] ([id number]) [address] [place] [address] 19443Viqkpvnsy.direct [Mass/Vol]0.4 mg/dLNormal0.0-0.4Kettering Health SpringfieldComment on above:Performed By: #### PINR, LIVR, 3040-3, BMP, CBCA, 71286-7 #### [facility] ([id number]) [address] [place] [address] 12439Mrnbcdc [Mass/Vol]7.6 g/dLNormal6.0-8.0ProChristus Mother Frances Hospital – TylerComment on above:Performed By: #### PINR, LIVR, 3040-3, BMP, CBCA, 90397-6 #### [facility] ([id number]) [address] [place] [address] 74435MOYBZZX AND INRon 43-80-1422YLM Coag (PPP) [Relative time]1.3 {INR}High0.9-1.2PPremier Health Miami Valley Hospital SouthComment on above:Performed By: #### PINR, LIVR, 3040-3, BMP, CBCA, 44313-8 #### [facility] ([id number]) [address] [place] [address] 09508LY Coag (PPP) [Time]14.3 sHigh9.8-13.2PPremier Health Miami Valley Hospital SouthComment on above:Result Comment: NEW REFERENCE RANGEPerformed By: #### PINR, LIVR, 3040-3, BMP, CBCA, 88068-0 #### [facility] ([id number]) [address] [place] [address] 18848PSNXK CULTUREon 71-80-2300Adltfntw identified Cx Nom (U)CULTURE RESULTS NO GROWTH AT <1000 CFU/mLNormalKettering Health SpringfieldComment on above: Performed By: #### PINR, LIVR, 3040-3, BMP, CBCA, 07103-6 #### [facility] ([id number]) [address] [place] [address] 04084dZAC Coag (PPP) [Time]on 99-80-4526uAFZ Coag (Bld) [Time]27 s Swiyon72-66LgbAhancpChristus Mother Frances Hospital – TylerComment on above:Result Comment: NEW REFERENCE RANGEPerformed By: #### PINR, LIVR, 3040-3, BMP, CBCA, 52295-1 #### [facility] ([id number]) [address] [place] [address] 74021YRE 3 LeadOrdered By: Carley Mims on 75-14-1188QHCMSaint John's Saint Francis Hospital Surgical Pathologyon 06-75-9961Xtivaepf PathologyNormalCleveland Clinic Fairview Hospitalca Colorado River Medical CenterComment on above:Result Comment: [facility]itt[facility] Medical CenterStarboard Storage Systems Laboratories [facility] [address] [place] [address] Surgical Pathology Consultation Patient Name:GEM MENENDEZ:1980 (Age: 44)Gender:MTaken:09/22/2024eported:09/27/2024hysician(s):Patria Jane MD ([phone])Copy To: Rec. #:[id number]: #[phone] [id number] Final Pathologic Diagnosis Rectal sigmoid polyp, polypectomy: Tubular adenoma. No high-grade dysplasia or invasive carcinoma identified. Report Electronically Signed Out ssi/09/27/2024Chema Casas M.D. Interpretation performed at [facility], [address] [place] [address], License number: [id number]. Clinical History Screening. Gross Description Received in formalin labeled SHON, polyp rectal sigmoid is a 1.5 x 1.2 x 0.8 cm multinodular pedunculated polyp. The resection margin is inked black and the specimen is serially sectioned. Entirely submitted in 1 cassette. (1, ns, [id number], m1) mxw/09/25/2024NSK Specimen(s) Received Rectal sigmoid polyp Fee Codes(s): 1; 84528DER CBC WITH AUTO DIFFon [id number] ABSOLUTE AUTO0.1NOMS HealthcareBasophils/100 WBC (Bld)1.0 %0.2 - 2.0 %NOMS HealthcareEosinophils/100 WBC (Bld)2.0 %0.9 - 7.0 %NOMS HealthcareErythrocyte distribution width (RBC) [Ratio]12.2 %11.0 - 15.0 %[facility]OMS HealthcareHematocrit (Bld) [Volume fraction]37.3 %Low42.0 - 54.0 %[facility]OMS HealthcareHemoglobin (Bld) [Mass/Vol]13.1 g/dLLow14.0 - 18.0 g/dLSaint John's Saint Francis HospitalIMMATURE GRANULOCYTES ABS AUTO0.02NOMercy Hospital South, formerly [facility] Immature granulocytes/100 WBC (Bld)0.4 %0.0 - 0.5 %[facility] HospitalInterpretation and review of laboratory resultsAbnormalNOMercy Hospital South, formerly St. [facility] Medical CenterLYMPHOCYTES ABSOLUTE AUTO1.5NOMercy Hospital South, formerly St. Anthony's Medical CenterLymphocytes/100 WBC (Bld)29.7 %20.5 - 60.0 %University HospitalH (RBC) [Entitic mass]31.0 pg25.9 - 34.0 pgNOSainte Genevieve County Memorial HospitalHC (RBC) [Mass/Vol]35.1 g/dL29.9 - 35.2 g/dLUniversity HospitalV (RBC) [Entitic vol]88.2 fL 80.0 - 94.0 fLSaint John's Saint Francis HospitalMONOCYTES ABSOLUTE AUTO0.3NOMercy Hospital South, formerly [facility] Monocytes/100 WBC (Bld)6.3 %1.7 - 12.0 %[facility] HospitalNEUTROPHILS ABSOLUTE AUTO 3.1NOMS [facility] Medical CenterNeutrophils/100 WBC (Bld)60.6 %43.0 - 75.0 %[facility] Platelet mean volume (Bld) [Entitic vol]10.3 fL9.5 - 13.5 fLSaint John's Saint Francis HospitalTB EO #0.1NOMS [facility] Medical CenterTB SOZ071AHIM [facility] RBC4.23LowNOMercy Hospital [place] WBC5.1NOMS [facility] Medical CenterCLINISYNCNPutnam County Memorial HospitalCBC AUTO DIFFon [id number] #0.1 103/ulNormal0.0-0.1The [facility] [address] HospitalComment on above:Performed By: #### CBC #### [facility] [address] [address] [address] Casey Casianosophils/100 WBC (Bld)0.6 %Normal0.2-2.0The [facility] Comment on above:Performed By: #### CBC #### [facility] [address] [address] [address] Peña ChangEO #0.3 103/ulNormal0.0-0.7The [facility] [address] HospitalComment on above: Performed By: #### CBC #### [facility] [address] [address] [address] Casey Russellosinophils/100 WBC (Bld)4.3 %Normal0.9-7.0The [facility] on above:Performed By: #### CBC #### [facility] [address] [place] [address] Dr. Casey Russellrythrocyte distribution width (RBC) [Ratio]11.9 %Phmruj63.0-15.0 [facility] Memorial HospitalComment on above:Performed By: #### CBC #### [facility] [address] [place] [address] Dr. Casey SiddiquiHematocrit (Bld) [Volume fraction]40.8 %Critically low42.0-54.[address] HospitalComment on above:Performed By: #### CBC #### [facility] [address] [place] [address] Dr. Casey SiddiquiHemoglobin (Bld) [Mass/Vol]14.5 g/uNGbcgbn00.0-18.0[address] HospitalComment on above:Performed By: #### CBC #### [facility] [address] [place] [address] Dr. Casey Wolfe #0.03 10e3/ulNormal0.00-0.03The UK Healthcarement on above:Performed By: #### CBC #### [facility] [address] [place] [address] Dr. Casey Wolfe %0.4 %Normal0.0-0.5The UK Healthcarement on above: Performed By: #### CBC #### [facility] [address] [place] [address] Dr. Casey GoveaH #1.9 103/ulNormal1.2-3.8[address] HospitalComment on above:Performed By: #### CBC #### [facility] [address] [place] [address] Dr. Casey Bouchermphocytes/100 WBC (Bld)24.0 %Ytdigx04.5-60.0The [facility] [address] HospitalComment on above:Performed By: #### CBC #### [facility] [address] [address] [address] Casey Morris DIFF REQNONormalThe Wilson Street HospitalComment on above: Performed By: #### CBC #### [facility] [address] [place] [address] Dr. Casey Crowe (RBC) [Entitic mass]31.6 srPobray41.9-34.0The [facility] HospitalComment on above:Performed By: #### CBC #### [facility] [address] [place] [address] Dr. Casey Crowe (RBC) [Mass/Vol]35.5 g/dLCritically high29.9-35.2[address] HospitalComment on above:Performed By: #### CBC #### [facility] [address] [place] [address] Dr. Casey Crowe (RBC) [Entitic vol]88.9 vCWehxgr13.0-94.0[address] HospitalComment on above:Performed By: #### CBC #### [facility] [address] [place] [address] Dr. Casey Young #0.5 103/ulNormal0.3-0.8The [address] HospitalComment on above:Performed By: #### CBC #### [facility] [address] [place] [address] Dr. Casey Waltersocytes/100 WBC (Bld)6.2 %Normal1.7-12.0[facility] Comment on above:Performed By: #### CBC #### [facility] [address] [place] [address] Dr. Casey Santiago #5.0 103/ulNormal1.4-6.5The [facility] [address] HospitalComment on above:Performed By: #### CBC #### [facility] [address] [place] [address] Dr. Casey Sevillautrophils/100 WBC (Bld)64.5 %Mvxmwe49.0-75.0Ohio[facility] Memorial HospitalComment on above:Performed By: #### CBC #### [facility] [address] [address] [address] Casey SiddiquiPlatelet mean volume (Bld) [Entitic vol]9.7 fLNormal9.5-13.5The [address] HospitalComment on above:Performed By: #### CBC #### [facility] [address] [place] [address] Dr. Casey SiddiquiPLT184 103/twDzisys088-532Yxz [facility] [address] HospitalComcorewell health big rapids hospital on above: Performed By: #### CBC #### [facility] [address] [place] [address] Dr. Casey SiddiquiRBC4.59 106/ulCritically low4.70-6.10The [facility] [address] HospitalComcorewell health big rapids hospital on above:Performed By: #### CBC #### [facility] [address] [place] [address] Dr. Casey SiddiquiWBC7.8 103/ulNormal4.0-11.0[address] HospitalComcorewell health big rapids hospital on above: Performed By: #### CBC #### [facility] [address] [place] [address] Dr. Casey SiddiquiGLYCOHEMOGLOBIN A1Con 50-80-5709CKJ RECOMMENDATIONSEE BELOWNormal [facility] HospitalComcorewell health big rap[facility] hospital on above:Result Comment: ADA RECOMMENDED LIMIT 4.0 - 6.0 ADA THERAPEUTIC TARGET < 7.0 ACTION SUGGESTED > 7.0Performed By: #### A1C #### [facility] [address] [place] [address] Dr. Casey SiddiquiGlucose [Mass/Vol]105 mg/dLNormalThCherrington HospitalComcorewell health big rapids hospital on above:Performed By: #### A1C #### [facility] [address] [place] [address] Dr. Casey SiddiquiHbA1c (Bld) [Mass fraction]5.3 %Normal4.5-6.2The [facility] on above:Performed By: #### A1C #### [facility] [address] [place] [address] Dr. Casey AntonioID PROFILEon 58-30-1639OGNF-HDL RATIO NORMSCorey HospitalComcorewell health big rapids hospital on above:Result Comment: 3.3 - 4.4 LOW RISK 4.4 - 7.1 AVERAGE RISK 7.1 - 11.0 MODERATE RISK >11.0 HIGH RISKPerformed By: #### BMP, LIPID, TSH, LIVER #### [facility] [address] [address] [address] Casey SiddiquiCholesterol [Mass/Vol]237 mg/dLCritically high<=200[facility] on above:Performed By: #### BMP, LIPID, TSH, LIVER #### [facility] [address] [place] [address] Dr. Casey Pepeesterol in HDL [Mass/Vol]44 mg/fICvmnxi55-70QcyMercy Health St. Charles Hospital on above:Performed By: #### BMP, LIPID, TSH, LIVER #### [facility] [address] [address] [address] Casey Pepeesterol in LDL [Mass/Vol]115.6 mg/dLOhioHealth Arthur [facility], [facility] on above:Performed By: #### BMP, LIPID, TSH, LIVER #### [facility] [address] [place] [address] Dr. Casey Mitchell.total/Cholesterol in HDL [Mass ratio]5.4 {ratio} NormalMercy Health St. Charles Hospital on above:Performed By: #### BMP, LIPID, TSH, LIVER #### [facility] [address] [place] [address] Dr. Casey Ruby NORMAL> or = 60 mg/dl - LOW CARDIOVASCULAR RISK <40 mg/dl - HIGH CARDIOVASCULAR RISKSt. John of God HospitalComcorewell health big rap[facility] hospital on above:Performed By: #### BMP, LIPID, TSH, LIVER #### [facility] [address] [place] [address] Dr. Casey SiddiquiLDL CALC NORMALSEE [facility] CenterComcorewell health [facility] hospital on above:Result Comment: <100 mg/dl OPTIMAL 100 - 129 mg/dl NEAR OR ABOVE OPTIMAL 130 - 159 mg/dl BORDERLINE HIGH 160 - 189 mg/dl HIGH >190 mg/dl VERY HIGH Performed By: #### BMP, LIPID, TSH, LIVER #### [facility] [address] [place] [address] Dr. Casey SiddiquiTriglyceride [Mass/Vol]387 mg/dLCritically high<=150The [facility] on above:Performed By: #### BMP, LIPID, TSH, LIVER #### [facility] [address] [address] [address] Casey SiddiquiVLDL CALC77.4 mg/dLNormalThe [facility] on above: Performed By: #### BMP, LIPID, TSH, LIVER #### [facility] [address] [place] [address] Dr. Casey Izquierdo PROFILEon 82-04-3275Xprosry [Mass/Vol]4.2 g/dLNormal3.4-5.0 The [facility] on above:Performed By: #### BMP, LIPID, TSH, LIVER #### [facility] [address] [place] [address] Dr. Casey SiddiquiAlbumin/Globulin [Mass ratio]1.2 {ratio}NormalThe [facility] on above:Performed By: #### BMP, LIPID, TSH, LIVER #### [facility] [address] [place] [address] Dr. Casey Owen [Catalytic activity/Vol]102 U/NHzzjyu24-348Hjl [facility] on above:Performed By: #### BMP, LIPID, TSH, LIVER #### [facility] [address] [place] [address] Dr. Casey Wallace [Catalytic activity/Vol]35 U/FTgyiql10-87Ycq [facility] on above:Performed By: #### BMP, LIPID, TSH, LIVER #### [facility] [address] [place] [address] Dr. Casey Frias [Catalytic activity/Vol]23 U/HHoutwi73-24Utj [facility] on above:Performed By: #### BMP, LIPID, TSH, LIVER #### [facility] [address] [address] [address] Casey ReaI, CONJUGATED0.1 mg/dLNormal0.0-0.2The [facility] Comment on above:Performed By: #### BMP, LIPID, TSH, LIVER #### [facility] [address] [address] [address] Casey SiddiquiBilirubin [Mass/Vol]0.6 mg/dLNormal0.2-1.0The [facility] Comment on above:Performed By: #### BMP, LIPID, TSH, LIVER #### [facility] [address] [address] [address] Casey SiddiquiGlobulin (S) [Mass/Vol]3.4 g/dLNormalThe Wilson Street HospitalComment on above:Performed By: #### BMP, LIPID, TSH, LIVER #### [facility] [address] [place] [address] Dr. Casey SiddiquiProtein [Mass/Vol]7.6 g/dLNormal6.4-8.2[facility] Comment on above:Performed By: #### BMP, LIPID, TSH, LIVER #### [facility] [address] [place] [address] Dr. Casey SiddiquiPROF CHEM 8 (BAS METB)on 15-58-9873Thino gap [Moles/Vol]13.1 mmol/LNormalOhiohealth Hardin Memorial HospitalComment on above:Performed By: #### BMP, LIPID, TSH, LIVER #### [facility] [address] [place] [address] Dr. Casey SiddiquiCalcium [Mass/Vol]8.8 mg/dLNormal8.5-10.1[facility] Comment on above:Performed By: #### BMP, LIPID, TSH, LIVER #### [facility] [address] [place] [address] Dr. Casey SiddiquiChloride [Moles/Vol]101 mmol/SZgfoym31-430GliOhiohealth Hardin Memorial Hospital Comment on above:Performed By: #### BMP, LIPID, TSH, LIVER #### [facility] [address] [address] [address] Casey SiddiquiCO2 [Moles/Vol]27.1 mmol/UQvblwo43.0-32.0The [facility] Comment on above:Performed By: #### BMP, LIPID, TSH, LIVER #### [facility] [address] [address] [address] Casey SiddiquiCreatinine [Mass/Vol]0.99 mg/dLNormal0.70-1.30[address] [facility] [address] HospitalComment on above:Performed By: #### BMP, LIPID, TSH, LIVER #### [facility] [address] [address] [address] Casey RussellGFR-AF INDONESIAN>60Normal>=60The [facility] [address] HospitalComment on above:Performed By: #### BMP, LIPID, TSH, LIVER #### [facility] [address] [place] [address] Dr. Casey RussellGFR-NON AF INDONESIAN>60Normal>=60[address] [facility] [address] HospitalComment on above:Performed By: #### BMP, LIPID, TSH, LIVER #### [facility] [address] [address] [address] Casey SiddiquiGlucose [Mass/Vol]100 mg/kBTdekio77-780Ylz [facility] Comment on above:Performed By: #### BMP, LIPID, TSH, LIVER #### [facility] [address] [address] [address] Casey SiddiquiPotassium [Moles/Vol]3.2 mmol/LCritically low3.5-5.1The [facility] [address] HospitalComment on above:Performed By: #### BMP, LIPID, TSH, LIVER #### [facility] [address] [address] [address] Casey SiddiquiSodium [Moles/Vol]138 mmol/TZdxftt744-491Aqx [facility] Comment on above:Performed By: #### BMP, LIPID, TSH, LIVER #### [facility] [address] [address] [address] Casey SiddiquiUrea nitrogen [Mass/Vol]13.0 mg/dLNormal7.0-18.0[address] [facility] [address] HospitalComment on above:Performed By: #### BMP, LIPID, TSH, LIVER #### [facility] [address] [place] [address] Dr. Casey SiddiquiUrea nitrogen/Creatinine [Mass ratio]13.1 mg/mgNormalThe [facility] Street HospitalComment on above:Performed By: #### BMP, LIPID, TSH, LIVER #### [facility] [address] [place] [address] Dr. Casey Jimenez 79-07-2107NNA4.519 uIU/mLNormal0.358-3.740[address] [facility] [address] HospitalComment on above:Performed By: #### BMP, LIPID, TSH, LIVER #### [facility] [address] [place] [address] Dr. Casey Siddiqui Vital Signs Date TimeVital SignValuePerforming UskchzrppDqsqfvpc98-24-7422 07:33-0400Body .2 cmSrinivasan Christine MD Work Phone: [facility] HospitalJcpmjmqkxp58-29-3167 07:33-0400Body mass index (BMI) [Ratio]34.14 kg/m2Srinivasan Christine MD Work Phone: [facility] HospitalYazglmevpg02-75-2544 07:33-0400Body temperature 97.81 [degF]Srinivasan Christine MD Work Phone: [facility] HospitalXefkmtzsab10-33-7651 07:33-0400Body atswtq86.88 kgSrinivasan Christine MD Work Phone: [place] [phone] 07:33-0400Diastolic blood shkquece70 mm[Hg]Srinivasan Christine MD Work Phone: [place] [address]Oewdciyglc99-21-5572 07:33-0400Heart rate90 /min Srinivasan Christine MD Work Phone: [place] [address]Mxbqtengeb59-72-6040 07:33-0400Respiratory rate20 /minSrinivasan Christine MD Work Phone: [phone] Nash StreetKjozbjvzyx11-62-9859 07:33-1306JmY8% (BldA) [Mass fraction]97 %Srinivasan Christine MD Work Phone: [facility] HospitalVvlojhkaxd69-77-2190 07:33-0400Systolic blood uzguxdys313 mm[Hg]Srinivasan Christine MD Work Phone: [facility] HospitalKtdlidtaxd63-01-4420 15:29-0400Body ubksav541.2 cmSrinivasan Christine MD Work Phone: [facility] [facility] HospitalDylsakegbd62-47-3200 15:29-0400Body mass index (BMI) [Ratio]35.08 kg/m2Srinivasan Christine MD Work Phone: [facility] HospitalMtomymbyrb88-67-7521 15:29-0400Body temperature 97.81 [degF]Srinivasan Christine MD Work Phone: [facility] HospitalJzrchfaeew47-82-5703 15:29-0400Body qghjuv780.61 kgSrinivasan Christine MD Work Phone: [facility] HospitalWbiyanvzkg03-09-8362 15:29-0400Diastolic blood qyprmnqy475 mm[Hg]Srinivasan Christine MD Work Phone: [facility] HospitalPnugmqfgdw07-06-5636 15:29-0400Heart btph482 /min Srinivasan Christine MD Work Phone: [facility] HospitalDcdyyxyjql28-24-7519 15:29-0400Respiratory rate20 /minSrinivasan Christine MD Work Phone: [facility] HospitalBvvfoclflz00-92-5390 15:29-9578CtM7% (BldA) [Mass fraction]97 %Srinivasan Christine MD Work Phone: [facility] HospitalSikjevrwjy42-71-8257 15:29-0400Systolic blood qzlnrvba353 mm[Hg]Srinivasan Christine MD Work Phone: [facility] HospitalFyjfwpeyjv24-34-0648 13:29-0400Body .2 cmAnurag Huffman MD Work Phone: [facility]05-29-2025 13:29-0400Body mass index (BMI) [Ratio]33.99 kg/z9XjxrzbyAnurag Huffman MD Work Phone: [facility]05-29-2025 13:29-0400Body .43 kgAnurag Huffman MD Work Phone: [facility]05-07-2025 08:58-0400Body nluhbj529.2 cmSrinivasan Christine MD Work Phone: [facility] HospitalDptepgjcsc66-70-2603 08:58-0400Body mass index (BMI) [Ratio]35.55 kg/m2Srinivasan Christine MD Work Phone: [facility] HospitalDsvbchvmip18-06-1354 08:58-0400Body temperature 97.81 [degF]Srinivasan Christine MD Work Phone: [facility] HospitalSezvlhxdal83-25-4194 08:58-0400Body jvebel548.97 kgSrinivasan Christine MD Work Phone: [facility] HospitalQygwnkjpez38-06-6456 08:58-0400Diastolic blood iukolfmo768 mm[Hg]Srinivasan Christine MD Work Phone: [facility] HospitalLjsbfizzmi85-45-4219 08:58-0400Heart rate92 /min Srinivasan Christine MD Work Phone: [facility] HospitalTrcnvqjgbo19-00-7001 08:58-0400Respiratory rate22 /minSrinivasan Christine MD Work Phone: [facility] HospitalRdmynsbqcf04-39-9438 08:58-6463DcE6% (BldA) [Mass fraction]91 %Srinivasan Christine MD Work Phone: [facility] HospitalKfjlwljodz77-37-0287 08:58-0400Systolic blood dxlxmhip520 mm[Hg]Srinivasan Christine MD Work Phone: [facility] HospitalEmqyvtgful07-99-1138 10:59-0400Body iuhuff638.[address]10-31-2024 10:59-0400Body mass index (BMI) [Ratio] 35.4 kg/m2Pmh [address] [place], [place] 6225810-31-2024 10:59-0400Body .51 kg [address] [place], [place] 6225809-16-2024 11:21-0400Body miozxe113.7 cmiBsi Salazar APRN-AUDIT CLERKS SUPERVISOR Work Phone: [facility]09-16-2024 11:21-0400Body mass index (BMI) [Ratio]35.34 kg/r8BkyxptgBisi Salazar LOW VOLTAGE ELECTRICIAN-AUDIT CLERKS SUPERVISOR Work Phone: [facility]09-16-2024 11:21-0400Body nhgmeq036.42 kgBisi Salazar LOW VOLTAGE ELECTRICIAN-AUDIT CLERKS SUPERVISOR Work Phone: [facility]09-16-2024 11:21-0400Diastolic blood mm[Hg]Bisi Salazar LOW VOLTAGE ELECTRICIAN-AUDIT CLERKS SUPERVISOR Work Phone: [facility]09-16-2024 11:21-0400Systolic blood ljxxmxlo219 mm[Hg]Bisi Salazar APRN-AUDIT CLERKS SUPERVISOR Work Phone: [facility]09-05-2024 15:04-0400Body .2 cmSrinivasan Christine MD Work Phone: [facility] HospitalGvauzmwwfq72-89-7360 15:04-0400Body mass index (BMI) [Ratio]37.28 kg/m2Srinivasan Christine MD Work Phone: [facility] HospitalNbtufnrsrj55-78-4793 15:04-0400Body temperature 97.3 [degF]Srinivasan Christine MD Work Phone: [place] [address]Vulmwfnwvf93-31-6102 15:04-0400Body .96 kgSrinivasan Christine MD Work Phone: [facility] HospitalXlgcgqgave67-44-0800 15:04-0400Diastolic blood zobixulu34 mm[Hg]Srinivasan Christine MD Work Phone: [facility] HospitalQnjfahupeg05-02-7530 15:04-0400Heart vvkj908 /min Srinivasan Christine MD Work Phone: [facility] HospitalSfkispsafl38-67-4952 15:04-0400Respiratory rate18 /minSrinivasan Christine MD Work Phone: [facility] HospitalAikrjnmhzy86-40-9375 15:04-3857LrP8% (BldA) [Mass fraction]95 %Srinivasan Christine MD Work Phone: [facility] HospitalJeytgxryfe28-96-2728 15:04-0400Systolic blood mxhekdfe704 mm[Hg]Srinivasan Christine MD Work Phone: [facility] HospitalIsmallxstm46-03-7734 11:38-0500Body ulzjqt771.2 cmSrinivasan Christine MD Work Phone: [facility] HospitalWymnzvdvux38-13-6216 11:38-0500Body mass index (BMI) [Ratio]36.34 kg/m2Srinivasan Christine MD Work Phone: [phone] [place], [place] [address]Syjnylnruu39-02-4535 11:38-0500Body temperature 97.81 [degF]Srinivasan Christine MD Work Phone: [facility] HospitalLbyxcqkyts08-13-6390 11:38-0500Body wnomeb013.23 kgSrinivasan Christine MD Work Phone: [facility] HospitalOyrlnaighq92-17-4710 11:38-0500Diastolic blood buswsnmb130 mm[Hg]Srinivasan Christine MD Work Phone: [facility] HospitalKqfulrhshg81-06-1040 11:38-0500Heart rate98 /min Srinivasan Christine MD Work Phone: [facility] HospitalQfgvrkqbfv46-98-3207 11:38-9156NtQ5% (BldA) [Mass fraction]98 %Srinivasan Christine MD Work Phone: [facility] HospitalRytjvumbqu87-59-6261 11:38-0500Systolic blood msnnugwo604 mm[Hg]Srinivasan Christine MD Work Phone: [facility] Healthcare Encounters Encounter DateEncounter TypeCare ProviderFacilityStart: 07-16-2025 End: 75-68-7654FivhgiUafu Naderer MD Work Phone: [facility] FMComment on above:Benign essential hypertensionStart: 07-15-2025 End: 43-31-6367PayzisQotv Naderer MD Work Phone: [facility] FMComment on above:Generalized anxiety disorderStart: 07-12-2025 End: 34-96-2660Gngyng OnlySrinivasan Christine MD Work Phone: [facility] FMComment on above:Male hypogonadismStart: 07-05-2025 End: 79-89-3994Lpancysmt Result EncounterSrinivasan Christine MD Work Phone: NOJF External Department UnsolicitedStart: 07-05-2025 End: 30-68-0250Rftovraag Result EncounterSrinivasan Christine MD Work Phone: NORY External Department UnsolicitedStart: 06-27-2025 End: 33-40-8781Obvazb flowsPatricia Christine MD Work Phone: NOWL CWM FMStart: 06-27-2025 End: 66-14-6620Gnelgd flowsPatricia Christine MD Work Phone: NOZA CWM FMStart: 06-27-2025 End: 03-73-1740Rawctwi encounter procedureSrinivasan Christine MD Work Phone: [facility] Work Phone: Start: 06-27-2025 End: 96-60-0543Mtmmbukx preventive med est patient 40-64yrsMarc Nanci YOUNG Work Phone: [facility] FMComment on above:Annual physical exam (Primary Dx); Type 2 diabetes mellitus with hyperglycemia, without long-term current use of insulin (HCC); Benign essential hypertension ; Class 1 obesity due to excess calories with serious comorbidity and body mass index (BMI) of 34.0 to 34.9 in adultStart: 04-24-2025 End: 68-17-2750Uvpsvt outpatient visit 15 minutesSrinivasan Christine MD Work Phone: [facility] C[facility] FMComment on above:Type 2 diabetes mellitus with hyperglycemia, without long-term current use of insulin (CMS/HCC) (Primary Dx); Benign essential hypertension (CMS/HCC)Start: 04-24-2025 End: 89-54-2624gwogloqmzyIUTW NADERERNot AvailableStart: 04-24-2025 End: 04-26-9084Uurtqjlinda Christine MD Work Phone: [facility] FMStart: 04-24-2025 End: 83-39-7803Eckdmnconchita Christine MD Work Phone: [facility] FMStart: 04-12-2025 End: 42-79-2563Nmqpth outpatient visit 10 minutesAnurag Huffman MD Work Phone: [facility] Physicians NeuroSurgeryComment on above: Epidural abscess (Primary Dx)Start: 04-12-2025 End: 01-78-7450psfmllmyieCSFFBCF C [facility] Ambulatory PPGStart: 30-53-2044yxoaqzaeygVIYSBSOhio State East Hospitaltart: 04-02-2025 End: 76-30-3510Klreyuvnn Result EncounterGeneric External Data ProviderNOMS External Department UnsolicitedStart: 04-02-2025 End: 86-40-4963Gtvrebagk Result EncounterGeneric External Data ProviderNOMS External Department UnsolicitedStart: 03-27-2025 End: 30-37-2056UwgbvxFeulmf Davis [facility] Centersissy Physicians NeuroSurgeryComment on above:S/P laminectomymed refill requestStart: 03-26-2025 End: 40-59-3231Pxhgxziqv Result EncounterGeneric External Data ProviderNOMS External Department UnsolicitedStart: 03-26-2025 End: 10-43-0435Kqummwvtm Result EncounterGeneric External Data ProviderNOMS External Department UnsolicitedStart: 03-21-2025 End: 16-75-3277Pncyai Emi Christine MD Work Phone: [facility] FMStart: 03-21-2025 End: 29-17-6471Emjbgv flowsPatricia Christine MD Work Phone: [facility] FMStart: 03-21-2025 End: 52-14-3168Udeuszbfv Result EncounterSrinivasan Christine MD Work Phone: noms External Department UnsolicitedStart: 03-21-2025 End: 02-64-3805Qtpcxktejdcs care manage srvc 14 day dischargeSrinivasan Christine MD Work Phone: [facility] FMComment on above:Epidural abscess (Primary Dx); Arthralgia of right hand; Benign essential hypertension (CMS/HCC); Angioedema, subsequent encounter; Type 2 diabetes mellitus with hyperglycemia, without long-term current use of insulin (CMS/HCC)Start: 03-21-2025 End: 54-92-2025DrxhfeMlzuaiAmaris Doherty Physicians NeuroSurgeryComment on above:S/P laminectomy (Primary Dx)med refill requestStart: 03-20-2025 End: 82-04-4365cphbqxnhrpCEINSM [facility] Start: 03-19-2025 End: 71-85-2784Aqwigyhxo Result EncounterGeneric External Data ProviderNOMS External Department UnsolicitedStart: 03-19-2025 End: 23-38-2459Yjrxiwssp Result EncounterGeneric External Data ProviderNOMS External Department UnsolicitedStart: 03-15-2025 End: 10-99-4502Hsildqzku encounterHeather Perico Hanna Physicians NeuroSurgeryComment on above:clarify PT orderStart: 03-12-2025 End: 27-50-7819Dvhjyqymm Result EncounterGeneric External Data ProviderNOMS External Department UnsolicitedStart: 03-12-2025 End: 77-51-2356Usdbewciw Result EncounterGeneric External Data ProviderNOMS External Department UnsolicitedStart: 03-11-2025 End: 95-29-8761Fbqopd OnlySrinivasan Christine MD Work Phone: NOMN CWM FMComment on above:Thoracic degenerative disc disease (Primary Dx)Start: 03-08-2025 End: 22-17-4642Jjyfec follow up visit related to original pxPnsc Neurosurgery NurseProMedica Physicians NeuroSurgeryComment on above:S/P laminectomy (Primary Dx)Start: 03-08-2025 End: 78-78-5222XzcikqJgyhehu Perico Hanna Physicians NeuroSurgeryComment on above:S/P laminectomy (Primary Dx)Start: 03-07-2025 End: 00-79-7559Vptucouujwrqb procedureCandace Arden FIGUEROADorotmary grace Munoz [facility] - Medical OncologyStart: 03-06-2025 End: 28-24-1005Aetfyefqb department patient visitMATTMATT SHELTONCleveland Clinic Fairview Hospitalca [facility] HospitalStart: 02-27-2025 End: 65-49-1816tljxgoauisEFTESelect Medical Specialty Hospital [facility] HospitalStart: 02-24-2025 End: 31-30-4057Ticilqjg Result EncounterGeneric External Data ProviderNOMS External Department UnsolicitedStart: 02-24-2025 End: 64-00-8397Bwimujrc Result EncounterGeneric External Data ProviderNOMS External Department UnsolicitedStart: 02-24-2025 End: 05-21-4486Wxbswjige department patient visitANURAG King PRECIOUSELCleveland Clinic Fairview Hospitalca [facility] HospitalStart: 02-24-2025 End: 01-94-9852Vblcaqrpu department patient visitALMA DELIA Martinez MATEOProMedica Roark HospitalStart: 02-24-2025 End: 22-64-1689Ncmvtzbuz department patient visitNATALIJOON DUTTAMAUROCleveland Clinic Fairview Hospitalca [facility] HospitalStart: 02-24-2025 End: 82-61-5299Ezmxdxoduo and management of inpatientKALEEM U GILLCleveland Clinic Fairview Hospitalca [facility] HospitalStart: 02-23-2025 End: 76-61-3937Cvfdfexre department patient visitJASPER GENERAL HOSPITALERNESTOFort Memorial Hospital HospitalStart: 02-21-2025 End: 86-39-7389QwzzxpYaneli Christine MD Work Phone: [facility] CWM FMComment on above:Thoracic degenerative disc disease (Primary Dx)Start: 09-29-2024 End: 04-89-8368Pimmdxrhr encounterSalina Hurtado CMASelect Medical [facility] Physicians General SurgeryStart: 09-22-2024 End: 32-92-1149Thsfkrrmwl and management of inpatientMENMarymount Hospitaltart: 09-14-2024 End: 01-23-2974wppyfoyhvqTfw Pat Phone Call Provider [address] [place] [address] - Pre AdmitStart: 09-07-2024 End: 79-90-4350Cwlgom Josue Christine MD Work Phone: [facility] CWM FMComment on above:Class 2 severe obesity due to excess calories with serious comorbidity and body mass index (BMI) of37.0 to 37.9 in adult (CMS/HCC) (Primary Dx)Start: 07-31-2024 End: 00-69-8504Hrjddmn encounter procedureBisi HARTMANAUDIT CLERKS SUPERVISOR Work Phone: [facility] Physicians General SurgeryComment on above: Encounter for screening colonoscopy (Primary Dx); Family history of malignant neoplasm of colon in motherStart: 07-31-2024 End: 72-85-3731ozsndbtrvlMIRVTGQDeer Park Hospital Ambulatory PPG Start: 07-21-2024 End: 41-71-4832Hliyov Josue Christine MD Work Phone: [facility] CWM FMComment on above:Type 2 diabetes mellitus with hyperglycemia, without long-term current use of insulin (CMS/HCC) (Primary Dx); Dyslipidemia (CMS/HCC)Start: 07-20-2024 End: 33-73-7108Yhtigbup preventive med est patient 40-64yrStefan Christine MD Work Phone: [facility] C[facility] FMComment on above:Annual physical exam (Primary Dx); Benign essential hypertension (CMS/HCC); Colon cancer screening; Body mass index (BMI) 36.0-36.9, adultStart: 07-20-2024 End: 02-27-3920ppyonzznohGMUP NADERERNot AvailableStart: 07-20-2024 End: 82-76-0873Envnua flowsPatricia Christine MD Work Phone: [facility] FMStart: 07-20-2024 End: 00-50-9671Zarajdypx Result EncounterSrinivasan Christine MD Work Phone: noms External Department UnsolicitedStart: 07-20-2024 End: 62-89-9880Kefxsoomp Result EncounterSrinivasan Christine MD Work Phone: noms External Department UnsolicitedStart: 07-20-2024 End: 18-55-1002Qyebrdp encounter procedureSrinivasan Christine MD Work Phone: noms HealthcareStart: 06-08-2024 End: 82-05-0672xbbifiacmeCIFDB A PETITTINot AvailableStart: 88-59-2461Wndgdb Emi Christine MD Work Phone: [facility] CWM FMStart: 34-83-9764Yckxpp Emi Christine MD Work Phone: [facility] FMStart: 12-28-2023 End: 36-75-9593Vugagc outpatient visit 15 minutesSrinivasan Christine MD Work Phone: [facility] FMComment on above:Benign essential hypertension (CMS/HCC) (Primary Dx); Generalized anxiety disorder (CMS/HCC); Dyslipidemia (CMS/HCC)Start: 55-51-2800Zbdyduebc for general adult medical examination without abnormal findingsDR SRINIVASAN LONGOKeenan Private Hospital Start: 07-02-2022 End: 88-08-5529bhydkzecwdBA SRINIVASAN Fernandez NADERERFacility:H0Ziyui: 07-02-2022 End: 79-60-8199Tvqndaqls for general adult medical examination without abnormal findingsDR SRINIVASAN Fernandez NADERNESTORFacility:H1 Procedures DateProcedureProcedure DetailPerforming ClinicianStart: 98-56-3202DFJ CBC WITH AUTO DIFFSrinivasan Christine MD Work Phone: Start: 62-06-0750JCV LIPID PROFILE (FASTING)Srinivasan Christine MD Work Phone: Start: 23-94-1254FRO THYROID STIM HORMONESrinivasan Christine MD Work Phone: Start: 46-04-9997XPP CMP (CMP) (FOR REMOTE [facility] USE) Srinivasan Christine MD Work Phone: Start: 02-08-5925BKXXLT PROSTATE SPECIFIC ANTIGEN SCRN Srinivasan Christine MD Work Phone: Start: 11-84-7528Bxteck-up visitFollow-upBRANDON C GABELStart: 33-57-9090XEF CBC WITH AUTO DIFFGeneric External Data ProviderStart: 07-65-3744TAY BUNGeneric External Data ProviderStart: 71-32-4418UOJ CBC WITH AUTO DIFFGeneric External Data ProviderStart: 65-32-5415ADO CREATININEGeneric External Data ProviderStart: 85-80-3584IGG C REACTIVE PROTEINGeneric External Data ProviderStart: 10-70-5474DSQ CKMBGeneric External Data ProviderStart: 16-85-9526BGN URIC ACIDSrinivasan Christine MD Work Phone: Start: 08-17-2259BBZ CKGeneric External Data Provider Start: 08-43-7835CFJ BUNGeneric External Data ProviderStart: 71-37-2610XBP CBC WITH AUTO DIFFGeneric External Data ProviderStart: 32-39-4866BTM CREATININE Generic External Data ProviderStart: 64-77-4688LXY BUNGeneric External Data ProviderStart: 19-99-1463WCW CBC WITH AUTO DIFFGeneric External Data Provider Start: 30-67-8018ZAI CREATININEGeneric External Data ProviderStart: 02-25-2025 Adult depression screening assessmentCandadejan Her RNStart: 02-24-2025 Hemoglobin glycosylated r4cBnhcgow External Data ProviderStart: 18-55-2389Xqxdvx ecg 1-3 leads interpretation & reprt onSrinivasan Christine MD Work Phone: Start: 57-22-2329ZqhdwgxwubyZkajvy Venia CMAStart: 54-66-9743KBZ CBC WITH AUTO DIFFMarc Nanci YOUNG Work Phone: Start: 30-35-0858BCX screeningDR SRINIVASAN Reeves on above:Performed By: #### PSASC #### [facility] [address] [place] [address] Dr. Peña ChangStart: 85-89-7365Tocic depression screening assessmentBisi Salazar LOW VOLTAGE ELECTRICIAN-AUDIT CLERKS SUPERVISOR Work Phone: Plan of Treatment DateCare ActivityDetailAuthorStart: 30-95-8340Qvkmnjmmi for malignant neoplasm of colonNOMS HealthcareStart: 40-24-1604Ufemfqmft for malignant neoplasm of colonColonoscopyProCleveland Clinic [facility] Hospitalca Health SystemStart: 47-59-4446Izlkc screening for proteinDiabetes: Urine Protein ScreeningNOMS HealthcareStart: 20-48-4228Lzkfn BMI ScreeningAdult BMI ScreeningProCleveland Clinic [facility] Hospitalca Health SystemStart: 07-38-1440Vnldk BMI ScreeningAdult BMI ScreeningProCleveland Clinic [facility] Hospitalca Health SystemStart: 02-25-2026 Depression ScreeningDepression ScreeningProCleveland Clinic [facility] Hospitalca Health SystemStart: 02-25-2026 Tobacco ScreeningTobacco ScreeningProCleveland Clinic [facility] Hospitalca Health SystemStart: 09-27-2025 End: 98-00-9916Lmrlikb encounter xkaksblxi26/13/2025 2:45 PM EST Office Visit [facility] [address] [place] [address] Srinivasan Christine MD [address] [place] [address] [facility] FMStart: 12-14-7785Coukz BMI ScreeningAdult BMI ScreeningProCleveland Clinic [facility] Hospitalca Health SystemStart: 52-42-8019Dzeypsj ScreeningTobacco ScreeningCleveland Clinic Fairview Hospitalca [facility] SystemStart: 05-64-3577Czlkywgzto A1c measurementDiabetes: Hemoglobin A1C [facility] HealthcareStart: 55-61-9462Xvhby BMI ScreeningAdult BMI ScreeningProMedica Health SystemStart: 15-56-2527Schrbol ScreeningTobacco ScreeningKettering Health Greene Memorial SystemStart: 76-60-9095Olxziysok [facility] HealthcareStart: 06-27-2025 End: 92-45-0845XZE W Auto Differential panel - BloodCBC and differential Lab Routine Annual physical exam Expected: 06/27/2025 (Approximate), Expires: 0 06/27/2026MN HealthcareComment on above:Expected: 06/27/2025 (Approximate), Expires: 06/27/2026Start: 06-27-2025 End: 49-03-4588Updtaiqqsmafd metabolic 2000 panel - Serum or PlasmaComprehensive metabolic panel Lab Routine Annual physical exam Expected: 06/27/2025 (Approximate), Expires: 06/27/2026[place] HealthcareComment on above:Expected: 06/27/2025 (Approximate), Expires: 06/27/2026Start: 06-27-2025 End: 28-07-5608Vehjazefff A1c/Hemoglobin.total in BloodHemoglobin A1c Lab Routine Annual physical exam Expected: 06/27/2025 (Approximate), Expires: 06/27/2026[facility] Healthcare Work Phone: Comment on above:Expected: 06/27/2025 (Approximate), Expires: 06/27/2026Start: 06-27-2025 End: 84-04-5630Llmzy 1996 panel - Serum or PlasmaLipid panel Lab Routine Annual physical exam Expected: 06/27/2025 (Approximate), Expires: 06/27/2026[facility] HealthcareComment on above:Expected: 06/27/2025 (Approximate), Expires: 06/27/2026Start: 06-27-2025 End: 55-31-6877Smrtubohtrkm/Creatinine panel in random UrineMicroalbumin / creatinine, urine ratio Lab Routine Type 2 diabetes mellitus with hyperglycemia, without long-term current use of insulin (HCC) Expected: 06/27/2025 (Approximate), Expires: 06/27/2026[facility] HealthcareComment on above:Expected: 06/27/2025 (Approximate), Expires: 06/27/2026Start: 06-27-2025 End: 08-95-7837Mfjjpcha specific Ag [Mass/volume] in Serum or PlasmaPSA Lab Routine Annual physical exam Expected: 06/27/2025 (Approximate), Expires: 06/27/2026N[facility] HealthcareComment on above:Expected: 06/27/2025 (Approximate), Expires: 06/27/2026Start: 06-27-2025 End: 61-24-7585Mqsutrlntvfi [Mass/volume] in Serum or PlasmaTestosterone Lab Routine Annual physical exam Expected: 06/27/2025 (Approximate), Expires: 06/27/2026N[facility] HealthcareComment on above:Expected: 06/27/2025 (Approximate), Expires: 06/27/2026Start: 06-27-2025 End: 14-32-7292Ukhqzxxiire [Units/volume] in Serum or PlasmaTSH Lab Routine Annual physical exam Expected: 06/27/2025 (Approximate), Expires: 06/27/2026N[facility] HealthcareComment on above:Expected: 06/27/2025 (Approximate), Expires: 06/27/2026Start: 06-27-2025 End: 33-12-7109Elctoyn encounter procedureNOMS CWM FMComment on above:Arrived Start: 16-35-6283Gwvjysgdnb A1c measurementDiabetes: Hemoglobin G9NOOID HealthcareStart: 04-24-2025 End: 44-73-2772Ifvzjby encounter procedureNOMS CWM FMComment on above:Arrived Start: 04-11-2025 End: 52-45-0731Vtrtojp encounter tflxxfuhl72/28/2025 9:30 AM EDT Office Visit [facility] [address] [place] [address] [place] [address] Sudarshan Roman MD [address] [place] [address] Shannan Powers PA [address] [place] [address] [facility]inary SurgeonsStart: 04-05-2025 End: 62-70-1588Cbltkml encounter zcwfcgpze30/22/2025 1:30 PM EDT Office Visit [facility] [place] [phone] Anurag Huffman MD [address] [place] [address] [facility] NeuroSurgeryStart: 03-21-2025 End: 08-93-1552Gqpvy [Mass/volume] in Serum or PlasmaUric acid Lab Routine Arthralgia of right hand Expected: 03/21/2025 (Approximate), Expires: 03/21/2026 [facility] Work Phone: Comment on above:Expected: 03/21/2025 (Approximate), Expires: 03/21/2026Start: 03-21-2025 End: 42-25-0096Kwbydxz encounter procedureNOMS CWM FMComment on above:Arrived Start: 03-08-2025 End: 28-56-8861Jxijttvln to same day surgery hszban0903/08/2025 11:30 AM EDT Support Visit [facility] [place], [place] [phone] [facility] NeuroSurgeryStart: 01-22-2025 End: 30-79-2766Mzigays encounter wupqtyxaz89/10/2025 2:45 PM EDT Office Visit [facility] [address] [place] [address] Srinivasan Christine MD [address] [place] [address] [facility] FMStart: 90-35-1950Dqlkpnefr for malignant neoplasm of colon Colorectal Cancer ScreeningNOMS HealthcareComment on above:Postponed from 1978 (Patient Refused)Start: 09-22-2024 End: 09-12-1893Vawviomuj to same day surgery rhtfgj8409/22/2024 8:00 AM EST - 09/22/2024 8:30 AM EST [facility] [address] [place] [phone] Patria Jane MD [address] [place] [address] COLONOSCOPY DIAGNOSTIC / SCREENING [09649 (CPT )][facility] HospitalComment on above:COLONOSCOPY DIAGNOSTIC / SCREENING [06623 (CPT )]Start: 09-22-2024 End: 60-09-7689Udiaqjjxcwo flx dx w/collj spec when pfrmdCOLONOSCOPY DIAGNOSTIC / SCREENING Screen for colon cancer 09/22/2024 8:00 AM ESTFRST. LOUIS [facility] SURGERYStart: 90-40-1264Hezgvdlbqx hospital visit by gogvxwtjk24/08/2024 8:00 AM EST Hospital Encounter [facility] [address] [place] [address] Patria Jane MD [address] [place] [phone] [facility]Start: 09-14-2024 End: 68-94-0049fhntybvckl06/31/2024 4:00 PM EDT Support Visit [facility] Admit [address] [place] [address] [facility] AdmitStart: 09-07-2024 End: 09-22-5287Wgsntpilqkz [Units/volume] in Serum or PlasmaTSH Lab Routine Class 2 severe obesity due to excess calories with serious comorbidity and body mass index (BMI) of 37.0 to 37.9 in adult (CMS/HCC) Expected: 09/07/2024 (Approximate), Expires: 09/07/2025[facility] Work Phone: Comment on above:Expected: 09/07/2024 (Approximate), Expires: 09/07/2025Start: 07-20-2024 End: 38-04-8356Ddnfowy encounter bbllghzaz37/05/2024 3:15 PM EDT Office Visit [facility] [address] [place] [phone] Srinivasan Christine MD [address] [place] [address] [facility]rivedN[facility] FMComment on above:ArrivedStart: 07-20-2024 End: 53-20-2954Rvymn metabolic 1998 panel - Serum or PlasmaBasic metabolic panel Lab Routine Annual physical exam Expected: 07/20/2024 (Approximate), Expires: 07/20/2025[facility] HealthcareComment on above:Expected: 07/20/2024 (Approximate), Expires: 07/20/2025Start: 07-20-2024 End: 55-23-3175PPS W Auto Differential panel - BloodCBC and differential Lab Routine Annual physical exam Expected: 07/20/2024 (Approximate), Expires: 0 07/20/2025[facility] HealthcareComment on above:Expected: 07/20/2024 (Approximate), Expires: 07/20/2025Start: 07-20-2024 End: 72-04-1967Ermfofczig A1c/Hemoglobin.total in BloodHemoglobin A1c Lab Routine Annual physical exam Expected: 07/20/2024 (Approximate), Expires: 07/20/2025[facility] Work Phone: Comment on above:Expected: 07/20/2024 (Approximate), Expires: 07/20/2025Start: 07-20-2024 End: 40-87-2469Itfmxni function 2000 panel - Serum or PlasmaHepatic function panel Lab Routine Annual physical exam Expected: 07/20/2024 (Approximate), Expires: 07/20/2025[facility] HealthcareComment on above:Expected: 07/20/2024 (Approximate), Expires: 07/20/2025Start: 07-20-2024 End: 75-27-9361Jzfty 1996 panel - Serum or PlasmaLipid panel Lab Routine Annual physical exam Expected: 07/20/2024 (Approximate), Expires: 07/20/2025[facility] HealthcareComment on above:Expected: 07/20/2024 (Approximate), Expires: 07/20/2025Start: 07-20-2024 End: 54-41-1366Nfyuxmae specific Ag [Mass/volume] in Serum or PlasmaPSA Lab Routine Annual physical exam Expected: 07/20/2024 (Approximate), Expires: 07/20/2025[facility] HealthcareComment on above:Expected: 07/20/2024 (Approximate), Expires: 07/20/2025Start: 07-20-2024 End: 47-12-8641Hrcvnwuyvbb [Units/volume] in Serum or PlasmaTSH Lab Routine Annual physical exam Expected: 07/20/2024 (Approximate), Expires: 07/20/2025[facility] HealthcareComment on above:Expected: 07/20/2024 (Approximate), Expires: 07/20/2025Start: 88-03-6809JHLGR-19 Vaccine ( season)COVID-19 Vaccine ( season)[facility]: 06-47-7754FDHKK-19 Vaccine ( season)COVID-19 Vaccine ()[facility] Start: 41-06-1641Xtelzbaec vaccinationUNIVERSITY OF UTAH HOSPITAL HealthcareStart: 01-27-2024 End: 76-35-5008Ffekyxl encounter dbftxicke56/14/2024 9:30 AM EDT Office Visit [facility] [address] [place] [phone] Srinivasan Christine MD [address] [place] [phone] [facility] FMStart: 89-02-8871Wwbvqobpa vaccinationInfluenza Vaccine (#1)[facility] HealthcareStart: 30-93-6687Unpytpkxai ScreeningDepression ScreeningKettering Health Greene Memorial SystemStart: 77-31-6487OIsC,Tdap and Td Vaccines (1 - Tdap)DTaP,Tdap and Td Vaccines (1 - Tdap)[facility]: 79-10-8591Saqrz screening for proteinDiabetes: Urine Protein ScreeningSaint John's Saint Francis HospitalStart: 01-19-1996 Adult BMI Follow Up PlanAdult BMI Follow Up PlanUNC Health Pardeetart: 18-41-7088Hezwspcn foot examinationDiabetic Foot ExamHol[facility] Start: 61-62-8342Yujobaoaoy ScreeningDepression ScreeningHol[facility] Start: 19-98-8332Edktyhln screeningDiabetes: Retinopathy ScreeningNOMN HealthcareStart: 84-52-5116Idqwdquk screeningDiabetic Ophthalmology Exam [facility]: 66-52-1026Yhgtvqeyts A1c measurementDiabetes: Hemoglobin G0XORSOSaint John's Saint Francis HospitalStart: 69-83-5058Gliwksbxf for malignant neoplasm of colonSaint John's Saint Francis HospitalStart: 63-61-0187Tnjmkpm CounselingTobacco Counseling [facility]: 76-23-9268Auwra screening for proteinUrine MicroalbuminHolmes County [facility] End: 14-27-4954XgvddwzdnoiSmzkviqywjf GI Routine Encounter for screening colonoscopy 1 Occurrences starting 07/31/2024 until 07/31/2025[facility] Work Phone: Comment on above:1 Occurrences starting 07/31/2024 until 07/31/2025 Payers DatePayer CategoryPayerPolicy [id number] Care Other (unspecified) [employer] [id number] Private Health [id number] Health Insurance [id number] 1.2.840.477170.1.13.693.2.7.3.326[id number] 2.840.1.276020.3.579.[id number] 2.0.1.918800.3.57[id number] 2..1.350924.3.57[id number] 2..1.527078.3.57[id number] 2..1.862943.3.57[id number] 2..1.453572.3.579.[id number] 2..1.639022.3.579.[id number] 2..1.929051.3.579.[id number] 2..1.437582.3.57[id number] 2..1.336549.3.57[id number] 2..1.761758.3.579.2.[id number] 2.0.1.127062.3.579.[id number] 2.0.1.350851.3.579.2.4[id number] 2..840.1.178391.3.57[id number] 2.16.840.1.792820.3.579.[id number] 2..840.1.815499.3.579.2.261818-24-6125Gwgrfgq34367316 2.16.840.1.814124.3.579.2.150817-98-7659Bboankl5650287 2..840.1.505605.3.579.2.428492-54-7271Prvpukp8131679 2..840.1.618555.3.579.2.540983-58-0046Rddgicr0093422 2.0.1.198571.3.579.2.31338[id number] Social History DateTypeDetailFacilityTobacco smoking status NHISTobacco smoking consumption unknownUNIVERSITY OF UTAH HOSPITAL HealthcareStart: 93-42-0843Nxz Assigned At BirthNot on [facility] HealthcareStart: 12-28-2023 End: 93-21-3486Vcywnl identityNot on [facility] SystemStart: 12-28-2023 End: 36-48-0438Htxrznm smoking status NHISNever smoked tobaccoNOMS Healthcare Start: 98-87-7271Lgjguis use and exposureSmokeless tobacco non-userNOMS HealthcareStart: 12-28-2023 End: 43-58-1390Ztaxgyr of Social functionProClinton Memorial Hospital SystemStart: 01-05-2024 End: 50-60-2556Jcnzrob use and exposureFormer smokeless tobacco userNOMS HealthcareHistory of tobacco useChews TobaccoNOMS HealthcareStart: 02-14-2024 End: 40-76-5827Tvcwhdj smoking status NHISOccasional tobacco smokerKettering Health Greene Memorial SystemStart: 11-89-7849Ytkspvk of tobacco useCigar SmokerUNC Health [facility]etart: 07-31-2024 End: 85-61-9667Kxwidavyw beverage intakeCurrent drinker of alcohol (finding) [facility] HospitalAdolescent depression screening sgeaetqsyy4AtjQhfnulUNC Health [facility]etart: 48-25-8222LmbUmjn (finding)[facility] HospitalHas the electric, gas, oil, or water company threatened to shut off services in your home in past 12MoNoProClinton Memorial Hospital SystemHow often to you have a drink containing alcohol?4 or more times a weekKettering Health Greene Memorial SystemHow many standard drinks containing alcohol do you have on a typical day?3 or 4Kettering Health Greene Memorial SystemHow often do you have 6 or more drinks on 1 occasion?Weekly [facility] SystemHow often do you need to have someone help you when you read instructions, pamphlets, or other written material from your doctor or pharmacy [SILS]NeverNOMS HealthcareAre you now , , , , never or living with a partner?MarriedNOMN HealthcareDo you feel stress - tense, restless, nervous, or anxious, or unable to sleep at night because yourmind is troubled all the time - these days [OSQ]Not at allNOMN Healthcare(I/We) worried whether (my/our) food would run out before (I/we) got money to buy more.Never [facility] Medical Equipment Procedure CodeEquipment CodeEquipment Original TextEquipment IdentifierDates [id number]: each [id number]: each by Other route Daily Use as [id number]: 09-19-2024 Goals DatePatient GoalDesired Activity/StatePersonal health goalPersonal health goal Comment on above: Evaluation of progress towards goal: Patient stated he hopes to go home, but waiting therapy input for discharge planning. Clinical Notes 12-28-2023 to 06-27-2025 Note Date & LdlnYfxrJpeprpzu80-56-1998 History of Present illness Narrative* Srinivasan Christine MD - 06/27/2025 8:18 AM EDTAssociated Problem(s): Type 2 diabetes mellitus with hyperglycemia, without long-term current use of insulin (HCC) Not checking BS and due for A1C. Stick to ADA diet and limit carbs. * Srinivasan Christine MD - 06/27/2025 8:18 AM EDTAssociated Problem(s): Benign essential hypertension BP elevated and increase procardia. Continue to monitor PRN. * Srinivasan Christine MD - 06/27/2025 8:18 AM EDTAssociated Problem(s): Annual physical exam Due for labs. Discussed proper diet and regular aerobic exercise. Need aerobic exercise 5-6 days a week for 30 minutes at a time. Smaller portions and limit total calories. Colonoscopy every 10 years. Tetanus every 10 years. Advised not to smoke. * Srinivasan Christine MD - 06/27/2025 7:30 AM EDT Images from the original note were not [...] hyperglycemia, without long-term current use of insulin ([facility]) Not checking BS and due for A1C. Stick to ADA diet and limit carbs. Relevant Orders Microalbumin / creatinine, urine ratio documented in this encounterSaint John's Saint Francis HospitalPfrppjblxe21-19-0540 History of Present illness Narrative* Srinivasan Christine MD - 04/24/2025 4:22 PM EDTAssociated Problem(s): Class 2 severe obesity due to excess calories with serious comorbidity and carlos dy mass index (BMI) of 35.0 to 35.9 in adult ([facility]) Weight loss indicated. * Srinivasan Christine MD - 04/24/2025 4:21 PM EDTAssociated Problem(s): Benign essential hypertension (CMS/HCC) BP elevated and increase procardia. Continue to monitor PRN. * Srinivasan Christine MD - 04/24/2025 4:21 PM EDTAssociated Problem(s): Type 2 diabetes mellitus with hyperglycemia, without long-term current use of insulin (CMS/HCC) BS stable and continue ozempic. Stick to ADA diet and limit carbs. * Srinivasan Christine MD - 04/24/2025 3:15 PM EDT Images from the original note were not [...] diet and limit carbs. documented in this encounterSaint John's Saint Francis HospitalGktpydjkft71-58-7250 History of Present illness Narrative* Anurag Huffman MD - 04/12/2025 1:45 PM EDT Images from the original note were not included. [facility] [address] [place] [address], [address] [place] [address] * CHART NOTE ? 04/12/2025 Patient: Gem Menendez 1980 [id number] Physician: Anurag Huffman MD REASON FOR VISIT [...] injection 100 unit/mL solution, Infuse 1-5 mL (100- 500 Units total) into a venous catheter as needed (line care per nursing agency protocol.). (Patient not taking: Reported on 04/12/2025), Disp: 1 mL, Rfl: 0 lidocaine (LIDODERM) 5 %, Place 1 patch on the skin daily. (Patient not taking: Reported on 04/12/2025), Disp: , Rfl: lisinopril-hydroCHLOROthiazide (PRINZIDE,ZESTORETIC) 20-25 mg per tablet, Take 1 tablet by mouth inthe morning., Disp: , Rfl: methocarbamoL (ROBAXIN) 750 [...] total) by mouth Three times daily as needed.(Patient not taking: Reported on 04/12/2025), Disp: , Rfl: VITAL SIGNS Ht 170.2 cm (5' 7 ) Wt 98.4 kg (217 lb) BMI 33.99 kg/m PHYSICAL EXAMINATION On exam he is awake and attentive in no distress. He ambulates steadily down the hallway. He has nofocal motor weakness in zhou upper or lower [...] thoracic laminectomies for epidural abscess causing urinary retention,numbness in legs, and mild weakness. He appears to be doing well status post surgery and course of IV antibiotics. At this point he can follow up with us as needed if he starts to notice any new concerns. Anurag Huffman MD documented in this encounterHolmes County [facility]05-29-2025 Instructions* Patient Instructions* Sophie Suarez CMA - 04/12/2025 1:45 PM EDT Patient ok to RTW 04/23/2025. [facility] paperwork to be updated ss documented in this encounterHolmes County [facility]05-23-2025 NoteDivision of Infectious Diseases - Outpatient Clinic Note Patient name: [...] urine obtained. He was then transferred to [facility], and neurosurgery was consulted. The patient [...] Insecurity: No Food Insecurity (02/26/2025) [facility] Hunger Screening Within the past 12 months we worried whether our food would run out before we got money to buy more.: Never True Within the past 12 months the food we bought just didn't last and we didn't have money to get more.: Never True Transportation Needs: No Transportation Needs (02/25/2025) [facility] [employer] PRAPARE - Transportation Lack of Transportation (Medical): No Lack of Transportation (Non-Medical): No Physical Activity: Not on file Stress: Not on file Social Connections: Not on file Intimate Partner Violence: Not on file Housing Stability: Low Risk (02/25/2025) [facility] [employer] Housing Instability Are you worried or concerned [...] pains. Hematologic: No bleedi (more content not included)...[facility]05-13-2025 Miscellaneous Notes* Telephone Encounter - Amaris Prieto RN - 03/27/2025 3:24 PM EDT oxycodone documented in this encounterHolmes County [facility] Hospital05-13-2025 Telephone encounter Note* Telephone Encounter - Amaris Prieto RN - 03/27/2025 3:24 PM EDT oxycodone [facility]05-13-2025 Miscellaneous Notes* Telephone Encounter - Amaris Prieto RN - 03/27/2025 3:23 PM EDT Gem calls asking for refill of oxycodone Pended 1 q 6 hr prn for 14 days (56) to Dr Huffman * Telephone Encounter - Amaris Prieto RN - 03/27/2025 3:23 PM EDT Gem calls and asks about pain medication being sent to pharmacy. Call to Gem and informed that script is pending sign from provider. Will remind him to sign again.He then ask what restrictions he may have- discussed with him to listen to body but would avoid mowing lawn. documented in this encounterHolmes County [facility] Hospital05-13-2025 Telephone encounter Note* Telephone Encounter - Amaris Prieto RN - 03/27/2025 3:23 PM EDT Gem calls asking for refill of oxycodone Pended 1 q 6 hr prn for 14 days (56) to Dr Huffman [facility]05-13-2025 Telephone encounter Note* Telephone Encounter - Amaris Prieto RN - 03/27/2025 3:23 PM EDT Gem calls and asks about pain medication being sent to pharmacy. Call to Gem and informed that script is pending sign from provider. Will remind him to sign again.He then ask what restrictions he may have- discussed with him to listen to body but would avoid mowing lawn. [facility]05-07-2025 Miscellaneous Notes* Telephone Encounter - Amaris Prieto RN - 03/21/2025 11:28 AM EDT oxycodone documented in this encounterHolmes County [facility] Hospital05-07-2025 Telephone encounter Note* Telephone Encounter - Amaris Prieto RN - 03/21/2025 11:28 AM EDT oxycodone [facility]05-07-2025 Miscellaneous Notes* Telephone Encounter - Amaris Prieto RN - 03/21/2025 11:25 AM EDT Gem calls asking for oxycodone 5 to be refilled. Oxycodone 5 q 6 hr prn for 14 days (56) pended to Dr Huffman. documented in this encounterHolmes County [facility] Hospital05-07-2025 Telephone encounter Note* Telephone Encounter - Amaris Prieto RN - 03/21/2025 11:25 AM EDT Gem calls asking for oxycodone 5 to be refilled. Oxycodone 5 q 6 hr prn for 14 days (56) pended to Dr Huffman. [facility]05-07-2025 History of Present illness Narrative* Srinivasan Christine MD - 03/21/2025 10:00 AM EDTAssociated Problem(s): Type 2 diabetes mellitus with hyperglycemia, without long-term current use of insulin ([facility]) BS improved and A1C 7.2. Concerned of weight and add ozempic. * Srinivasan Christine MD - 03/21/2025 9:58 AM EDTAssociated Problem(s): Epidural abscess Doing well and follow with surgeon and ID. * Srinivasan Christine MD - 03/21/2025 9:58 AM EDTAssociated Problem(s): Benign essential hypertension ([facility]) BP elevated and start hydrochlorothiazide. Monitor PRN. * Srinivasan Christine MD - 03/21/2025 9:58 AM EDTAssociated Problem(s): Arthralgia of right hand Still swelling and check uric acid. * Srinivasan Christine MD - 03/21/2025 9:58 AM EDTAssociated Problem(s): Angioedema Developed angioedema in hospital and stopped lisinopril. * Srinivasan Christine MD - 03/21/2025 8:45 AM EDT Images from the original note were not included. Subjective Patient ID: Gem Menendez is a 45 y.o. male who presents for Follow-up (6m f/up/Hospital f/u). Hospital follow up from 02/23-03/06 for epidural abscess. Developed back pain and to ER 02/21. Thought strain and sent home. Developed urinary retention and continued pain. Transferred to [facility] and MRI showed epidural abscess. Drained [...] hospital and stopped lisinopril. documented in this encounterSaint John's Saint Francis HospitalJahtumuwjf80-52-5795 [facility] Hospitalision [facility]ious Diseases - [facility] Clinic Note Patient name: [...] urine obtained. He was then transferred to [facility], and neurosurgery was consulted. The patient [...] Insecurity: No Food Insecurity (02/26/2025) [facility] Hunger Screening Within the past 12 months we worried whether our food would run out before we got money to buy more.: Never True Within the past 12 months the food we bought just didn't last and we didn't have money to get more.: Never True Transportation Needs: No Transportation Needs (02/25/2025) Received from [facility] PRAPARE - Transportation Lack of Transportation (Medical): No Lack of Transportation (Non-Medical): No Physical Activity: Not on file Stress: Not on file Social Connections: Not on file Intimate Partner Violence: Not on file Housing Stability: Low Risk (02/25/2025) Received from [facility] Housing Instability Are you worried or concerned [...] chest pain or p (more content not included)...[facility]05-01-2025 Miscellaneous Notes* Telephone Encounter - Lisa River LPN - 03/15/2025 2:51 PM EDT Karina with [facility] calls asking to clarify patients PT order. Reports due to patient having a PICC line to RUE, land based PT will be started first. Advised ok. documented in this encounterHolmes County [facility] Hospital05-01-2025 Telephone encounter Note* Telephone Encounter - Lisa River LPN - 03/15/2025 2:51 PM EDT Karina with [facility] calls asking to clarify patients PT order. Reports due to patient having a PICC line to RUE, land based PT will be started first. Advised ok. [facility]04-24-2025 Miscellaneous Notes* Telephone Encounter - Lisa River LPN - 03/08/2025 12:09 PM EDT Roxicodone documented in this encounterHolmes County [facility] Hospital04-24-2025 Telephone encounter Note* Telephone Encounter - Lisa River LPN - 03/08/2025 12:09 PM EDT Roxicodone [facility]04-24-2025 History of Present illness Narrative* Lisa River LPN - 03/08/2025 11:30 AM EDT [facility] [address] [facility], [address] [address] Suture/Staple Removal/Wound Date: March 08, 2025 Patient: Gem Hicks Shon Physician: Dr. Huffman Procedure: Past Surgical History: Procedure Laterality Date ANKLE SURGERY Left APPENDECTOMY COLONOSCOPY DIAGNOSTIC / SCREENING N/A 09/22/2024 Performed by Patria Jane MD at [facility] KNEE SURGERY Left LAMINECTOMY THORACIC MULTI LEVEL T6-T11 N/A 02/24/2025 Performed by Anurag Huffman MD at [facility] TONSILLECTOMY Date of Procedure: 02/24/25 Reason for [...] of infection, no drainage,redness or warmth noted. Shelton removed without difficulty. Hygiene reviewed with patient understanding.Patient does report some relief to edmar horse in back post operatively. Patient request PT referral to [facility] fax [phone]. Patient has P[facility] to [facility] with daily infusion of penicillin done by [...] pressure on the incision. documented in this [facility]04-23-2025 History of Present illness Narrative* Ne Her RN - 03/07/2025 10:30 AM EDT Images from the original note were not included. Rita Frost RN spoke with patient today and he reports that he is set up for lab draws in [place], but if anything changes he will reach out to our office again. [facility] [facility] Blanca from [facility] called about a patient that will be getting home infusions for penicillin. Wants to know if we can do his lab draws here? His name is Gem Menendez [birth year] Her number is [phone] documented in this [facility]11-15-2024 Miscellaneous Notes* Telephone Encounter - Salina Hurtado CMA - 09/29/2024 1:39 PM EST ----- Message from Dr. Patria Jane MD sent at 09/28/2024 9:00 AM EST ----- Regarding: Pathology Patient know that polyp removed during colonoscopy was benign tubular adenoma. Repeat colonoscopy as needed in 3 years due to size. Thank you ----- Message ----- From: Interface - Lab Results/Orders In Sent: 09/27/2024 4:43 PM EST To: Patria Jane MD * Telephone Encounter - Salina Hurtado CMA - 09/29/2024 1:39 PM EST Spoke with patient regarding pathology results. Patient verbally understood with no further questions. Recall to be put in chart. documented in this encounterHolmes County [facility] Hospital11-15-2024 Telephone encounter Note* Telephone Encounter - Salina Hurtado CMA - 09/29/2024 1:39 PM EST ----- Message from Dr. Patria Jane MD sent at 09/28/2024 9:00 AM EST ----- Regarding: Pathology Patient know that polyp removed during colonoscopy was benign tubular adenoma. Repeat colonoscopy as needed in 3 years due to size. Thank you ----- Message ----- From: Interface - Lab Results/Orders In Sent: 09/27/2024 4:43 PM EST To: Patria Jane MD [facility]11-15-2024 Telephone encounter Note* Telephone Encounter - Salina Hurtado CMA - 09/29/2024 1:39 PM EST Spoke with patient regarding pathology results. Patient verbally understood with no further questions. Recall to be put in chart. [facility]10-31-2024 Nurse Note* Perioperative Nursing Note - Caridad Amin RN - 09/14/2024 11:00 AM EDT Preoperative Education Checklist- General Surgery date: 09/22/24 Surgery time: 8a Arrival time: 610a 1. Bring a photo ID and your insurance card with you the day of surgery. You will check in at the main lobby of the [facility]- registration desk is straight ahead as soon as you walk in. Tell them you are here for surgery. 2. If you have a Living Will/Durable Power of Treatment Technician for Health Care that is not on [...] after you have bathed. 5. NO nail luxembourger/acrylic on at least one finger. If you are having a hand, wrist or foot surgery then all nail luxembourger and artificial/acrylic nails must be removed from [...] least 8 hours and marijuana for 24 hoursprior to arrival for your surgery. 16. If [...] please call the Preadmission Testing office at [phone], Mon.-Fri. 7 a.m.-3 p.m. Leave a voicemail [...] Stop taking 0 days prior to procedure Medcurrent10-31-2024 Miscellaneous Notes* Perioperative Nursing Note - Caridad Amin RN - 09/14/2024 11:00 AM EDT Preoperative Education Checklist- General Surgery date: 09/22/24 Surgery time: 8a Arrival time: 610a 1. Bring a photo ID and your insurance card with you the day of surgery. You will check in at the main lobby of the [facility]- registration desk is straight ahead as soon as you walk in. Tell them you are here for surgery. 2. If you have a Living Will/Durable Power of Treatment Technician for Health Care that is not on [...] after you have bathed. 5. NO nail luxembourger/acrylic on at least one finger. If you are having a hand, wrist or foot surgery then all nail luxembourger and artificial/acrylic nails must be removed from [...] WITH YOU ANY DEVICES YOU MAY NEED: LAYC hose, ice machine, sling/swath, brace or special [...] least 8 hours and marijuana for 24 hoursprior to arrival for your surgery. 16. If [...] please call the Preadmission Testing office at [phone], Mon.-Fri. 7 a.m.-3 p.m. Leave a voicemail [...] days prior to procedure documented in [facility] encounterHol[facility] History of Present illness Narrative* Bisi Salazar APRN-SU - 07/31/2024 11:30 AM EDT Images from the original note were not [...] in his mother diagnosed in her late 4 0s or early 50s. Review of Systems Constitutional: [...] Past Medical History: Diagnosis Date Diabetes mellitus ([facility]) 07/25/2024 Varicella YOUNG CHILD Past Surgical History: [...] per tablet, Take 1 tablet by mouth inthe morning., Disp: , Rfl: metFORMIN XR (GLUCOPHAGE XR) 500 mg 24 hr tablet, Take 1 tablet (500 mg total) by mouth daily with breakfast., Disp: , Rfl: PARoxetine (PAXIL) 10 mg tablet, Take 1 tablet (10 mg total) by mouth in the morning., Disp: , Rfl: terbinafine (LamISIL) 250 mg tablet, Take 1 tablet (250 mg total) by mouth in the morning., Disp: ,Rfl: sod sulf-pot chloride-mag sulf 1.479-0.188- 0.225 gram tablet, Please see instructional sheet givenby physicians office., Disp: 24 tablet, Rfl: 0 [...] evacuation preparation. Patient verbalizes understanding and wishes toproceed. Evaluation included: Preparing to see the patient (e.g., review of tests) Obtaining and/or reviewing separately obtained history Performing a medically appropriate examination and/or evaluation Counseling and educating the patient/family/caregiver Referring and communicating with other health college and career counselor Encounter for screening colonoscopy [Z12.11] [facility] CEDEÑO [facility] [place] This note was created with the assistance of a speech recognition program. While intending to generate a timely document that accurately reflects the content of the visit, no guarantee can be provided that every grammatical or spelling mistake has been or will be identified or corrected. Thank you for your understanding. ANNE Cedeño 07/31/24 1242 documented in this encounterHolmes County [facility]09-[facility] History of Present illness Narrative* Srinivasan Christine MD - 07/21/2024 12:36 PM EDT documented in this encounterSaint [facility]'s Saint [facility] [id number] History of Present illness Narrative* Srinivasan Christine MD - 07/20/2024 3:20 PM EDTAssociated Problem(s): Benign essential hypertension (CMS/HCC) BP controlled and monitor PRN. * Srinivasan Christine MD - 07/20/2024 3:20 PM EDTAssociated Problem(s): Annual physical exam Due for labs. Due for colon cancer screening and referral in chart. Discussed proper diet and regular aerobic exercise. Need aerobic exercise 5-6 days a week for 30 minutes at a time. Smaller portions and limit total calories. Tetanus every 10 years. Advised not to smoke. Discussed daily Aspirin therapy. * Srinivasan Christine MD - 07/20/2024 3:15 PM EDT Images from the original note were not included. Subjective Patient ID: Gem Menendez is a 44 y.o. male who presents for Follow-up (6 m). Presents for annual PE. Weight up 6 pounds since last visit. Plan on resuming regular exercise and activity. Tries to watch diet and eat healthy. Increased fruits and vegetables. Smaller portions andlimits snacking. Tries to limit total daily calories. Due for labs. Never had colon cancer screening and willing to have colonoscopy. Checking BP PRN and typically controlled. BP normal today. Takingmedication daily and tolerating without side effects. Review [...] referral to General Surgery documented in this encounterSaint John's Saint Francis [id number] History of Present illness Narrative* Srinivasan Christine MD - 12/28/2023 12:12 PM ESTAssociated Problem(s): Generalized anxiety disorder (CMS/HCC) Increased stress and may be affecting BP. Increase paxil and warned will take 2- 3 weeks to notice improvement in mood. * Srinivasan Christine MD - 12/28/2023 12:11 PM ESTAssociated Problem(s): Benign essential hypertension (CMS/HCC) BP elevated and add lisinopril to hydrochlorothiazide. Monitor BP PRN. Discussed DASH diet. * Srinivasan Christine MD - 12/28/2023 11:30 AM EST Subjective Patient ID: Gem Menendez is a [...] BP. Increase paxil and warned will take 2- 3 weeks to notice improvement in mood. Relevant Medications PARoxetine (Paxil) 10 MG tablet documented in this encounterNOMS HealthcareEvaluation note* Diagnosis Benign essential hypertension (CMS/HCC)- [...] serious comorbidity and body mass index (BMI) of37.0 to 37.9 in adult (CMS/HCC)- Primary documented [...] disc disease- Primary documented in this encounter [facility]* Diagnosis S/P laminectomy- Primary Other postprocedural status [facility] S/P laminectomy- Primary Other postprocedural status documented [facility] [...] disc disease- Primary documented in this encounter [facility]Evaluation note* Diagnosis Benign essential hypertension (CMS/HCC)- [...] of insulin (CMS/HCC) documented in this encounter [facility] HealthcareEvaluation note* Diagnosis S/P laminectomy- Primary Other postprocedural status [facility] Diagnosis S/P laminectomy Other postprocedural status [facility]* Diagnosis Epidural abscess- Primary Intracranial abscess [facility]* Diagnosis Benign essential hypertension (CMS/HCC)- [...] Essential hypertension, benign documented in this encounter [facility]* Diagnosis Benign essential hypertension- Primary [...] mass index (BMI) 36.0-36.9, adult Epidural abscess ([facility])- Primary Intracranial abscess Arthralgia of right hand [...] 34.9 in adult documented in this encounter [facility] HealthcareEvaluation note* Diagnosis Benign essential hypertension- Primary [...] mass index (BMI) 36.0-36.9, adult Epidural abscess ([facility])- Primary Intracranial abscess Arthralgia of right hand [...] (BMI) of 34.0 to 34.9 in adult Male hypogonadism Other testicular hypofunction documented in this encounter [facility] HealthcareEvaluation note* Diagnosis Benign essential hypertension- Primary [...] mass index (BMI) 36.0-36.9, adult Epidural abscess ([facility])- Primary Intracranial abscess Arthralgia of right hand [...] (BMI) of 34.0 to 34.9 in adult Generalized anxiety disorder Generalized anxiety disorder documented in this encounter [facility]* Diagnosis Benign essential hypertension- Primary [...] mass index (BMI) 36.0-36.9, adult Epidural abscess ([facility]CC)- Primary Intracranial abscess Arthralgia of right hand [...] (BMI) of 34.0 to 34.9 in adult Benign essential hypertension Essential hypertension, benign documented in this encounter [facility] HealthcareInstructionsNot on filedocumented in this encounterProMediid Rap[employer] Holdings SystemInstructionsNot on filedocumented in this encounterProMediTonx SystemInstructionsNot on filedocumented in this encounterProMediTonx SystemInstructionsNot on filedocumented in this encounterProCleveland Clinic [facility] HospitalTonx System InstructionsNot on filedocumented in this encounterCleveland Clinic Fairview HospitalTonx System InstructionsNot on filedocumented in this encounterCleveland Clinic Fairview HospitalTripConnect [facility] System InstructionsNot on filedocumented in this encounterProBrookwood [facility] Health SystemReason for referral (narrative)* Consultation (Routine) - Pending ReviewSpecialty Diagnoses / ProceduresReferred By ContactReferred To ContactGeneral Surgery Diagnoses Colon cancer screening Procedures [place] OFFICE/OUTPATIENT NEW HIGH MDM 60 MINUTES Srinivasan Christine MD [address] [place] [address] Oliver Fajardo DO [address] [place] [id number] Referral IDStatusReasonStart DateExpiration DateVisits RequestedVisits [id number] Review Specialty Services Required / [facility] Summary Purpose Family History No Family History Records FoundNo Family History Records FoundNo Family History Records FoundNo Family History Records FoundNo Family History Records FoundNo Family History Records Found Advance Directives Date ActivatedDate InactivatedComments02/24/2025 6:46 PM03/06/2025 7:26 PMDate ActivatedDate InactivatedComments02/24/2025 6:46 PM03/06/2025 7:26 PM Additional Source Comments (unrecognized sect ion and content) No Status Records FoundNo Status Records FoundNo Status Records FoundNo Status Records FoundNo Status Records FoundNo Status Records Found INFORMATION SOURCE (unrecogn ized section and content) DATE CREATED AUTHOR 07/09/2022 [facility] DATE CREATED AUTHOR AUTHOR'S ORGANIZ ATION 02/25/2025 [facility] DATE CREATED AUTHOR AUTHOR'S ORGANIZ ATION 03/24/2025 [facility] DATE CREATED AUTHOR AUTHOR'S ORGANIZ ATION 04/12/2025 [facility] DATE CREATED AUTHOR AUTHOR'S ORGANIZ ATION 04/14/2025 [facility] DATE CREATED AUTHOR AUTHOR'S ORGANIZ ATION 04/26/2025 [facility] EPIC Care Teams (unrecognized sec tion and content) Team MemberRelationshipSpecialtyStart DateEnd Date Srinivasan Christine MD [address] [place] [address] PCP - [facility] Medicine12/28/23Team MemberRelationshipSpecialtyStart DateEnd Date Srinivasan Christine MD [address] [place] [address] PCP [facility]12/28/23Team MemberRelationshipSpecialtyStart DateEnd Date Srinivasan Christine MD [address] [place] [address] PCP - [facility]12/28/23 Srinivasan Christine MD [address] [place] [address] PCP - [facility] [place] Emikxsatke41/1/2012Team MemberRelationshipSpecialty Start DateEnd Date Srinivasan hCristine MD [address] [place] [address] PCP - [facility]12/28/23 Srinivasan Christine MD [address] [place] [address] PCP - [facility] [place] Rhgeowwsxx75/1/2012Team MemberRelationshipSpecialty Start DateEnd Date Srinivasan Christine MD [address] [place] [address] PCP - [facility]12/28/23 Srinivasan Christine MD [address] [place] [address] [facility] Zihsvcdvef64/1/2012Team MemberRelationshipSpecialty Start DateEnd Date Srinivasan Christine MD [address] [place] [address] [facility] - [facility]12/28/23 Srinivasan Christine MD [address] [place] [address] [facility] - [facility]08/15/2012Team MemberRelationshipSpecialty Start DateEnd Date Srinivasan Christine MD [facility] - [facility]07/15/21Team MemberRelationshipSpecialtyStart DateEnd Date Srinivasan Christine MD [facility] - [facility]07/15/21Team MemberRelationshipSpecialtyStart DateEnd Date Srinivasan Christine MD [facility] - [facility]07/15/21Team MemberRelationshipSpecialtyStart DateEnd Date Srinivasan Christine MD [address] [place] [address] [facility]12/28/23 Srinivasan Christine MD [address] [place] [address] PCP - [facility] [place] Zylomymgmz62/1/2012Team MemberRelationshipSpecialty Start DateEnd Date Srinivasan Christine MD [address] [place] [address] PCP - [facility] Medicine12/28/23 Srinivasan Christine MD [address] [place] [address] PCP - [facility] [place] Lpglrnohpn60/1/2012Team MemberRelationshipSpecialty Start DateEnd Date Srinivasan Christine MD P[facility]07/15/21Team MemberRelationshipSpecialtyStart DateEnd Date Srinivasan Christine MD PCP - [facility]07/15/21Team MemberRelationshipSpecialtyStart DateEnd Date Srinivasan Christine MD PCP [facility]07/15/21Team MemberRelationshipSpecialtyStart DateEnd Date Srinivasan Christine MD [address] [place] [address] PCP - [facility]12/28/23 Srinivasan Christine MD [address] [place] [address] PCP - [facility] [place] Iyjdiuyjid21/1/2012Team MemberRelationshipSpecialty Start DateEnd Date Srinivasan Christine MD [address] [place] [address] PCP - [facility]12/28/23 Srinivasan Christine MD [address] [place] [address] PCP - [facility] Rfwywqstyg03/1/2012Team MemberRelationshipSpecialty Start DateEnd Date Srinivasan Christine MD [address] [place] [address] [facility] - [facility]12/28/23 Srinivasan Christine MD [address] [place] [address] [facility] - [facility]08/15/2012Team MemberRelationshipSpecialty Start DateEnd Date Srinivasan Christine MD [facility] - [facility]07/15/21Team MemberRelationshipSpecialtyStart DateEnd Date Srinivasan Christine MD [address] [place] [address] [facility] - [facility]12/28/23 Srinivasan Christine MD [address] [place] [address] [facility]08/15/2012Team MemberRelationshipSpecialty Start DateEnd Date Srinivasan Christine MD [address] [place] [address] PCP - [facility] Medicine12/28/23 Srinivasan Christine MD [address] [place] [address] PCP - [facility] [place] Yhrnyvuqsw49/1/2012Team MemberRelationshipSpecialty Start DateEnd Date Srinivasan Christine MD PCP - [facility]07/15/21Team MemberRelationshipSpecialtyStart DateEnd Date Srinivasan Christine MD [address] [place] [address] PCP - [facility]12/28/23 Srinivasan Christine MD [address] [place] [address] PCP - [facility] [place] Sghgfudfnd26/1/2012Team MemberRelationshipSpecialty Start DateEnd Date Srinivasan Christine MD [address] [place] [address] PCP - [facility]12/28/23 Srinivasan Christine MD [address] [place] [address] PCP - [facility] [place] Bmtqhvnsno60/1/2012Team MemberRelationshipSpecialty Start DateEnd Date Srinivasan Christine MD [address] [place] [address] PCP - [facility]12/28/23 Srinivasan Christine MD [address] [place] [address] PCP - [facility] [place] Yufdylizzf74/1/2012Team MemberRelationshipSpecialty Start DateEnd Date Srinivasan Christine MD [address] [place] [address] PCP - [facility]12/28/23 Srinivasan Christine MD [address] [place] [address] PCP - [facility]08/15/2012Team MemberRelationshipSpecialty Start DateEnd Date Srinivasan Christine MD [address] [place] [address] PCP - [facility]12/28/23 Srinivasan Christine MD [address] [place] [address] PCP - [facility] [place] Uuutejxmef93/1/2012Team MemberRelationshipSpecialty Start DateEnd Date Srinivasan Christine MD [address] [place] [address] PCP - [facility]12/28/23 Srinivasan Christine MD [address] [place] [address] PCP - [facility] [place] Kixwsjthak09/1/ Reason for Visit (unrecogniz ed section and content) ReasonCommentsFollow-upHigh bpReasonCommentsFollow-up6 mReasonCommentsColon Cancer ScreeningFIRST SCREENING COLON, HX OF COLON CANCER IN MOTHERSpecialty Diagnoses / ProceduresReferred By ContactReferred To ContactGeneral Surgery Diagnoses Colon cancer screening Procedures [place] OFFICE OUTPATIENT VISIT 60-74 MINS HIGH MDM AMB REFERRAL TO GENERAL SURGERY Srinivasan Christine MD [address] [place] [address] Oliver Fajarod DO [address] [place] [address] Referral IDStatusReasonStart DateExpiration DateVisits RequestedVisits [id number] / Staple Removal ReasonOnset DateCommentsMed Mrqdvz0203/08/2025ReasonOnset DateCommentsclarify PT order03/15/2025ReasonCommentsFollow-up6m f/upHospital f/uReasonOnset Date CommentsMed Hkjylg8203/21/2025ReasonOnset DateCommentsmed refill ldgdbwf2203/21/2025 ReasonOnset DateCommentsMed Syacno8403/27/2025ReasonOnset DateCommentsmed refill bgqoaby4003/27/2025ReasonCommentsFollow-up6 week follow up T6-11 [place] ReasonCommentsFollow-up1 mReasonCommentsFollow-fw7RHydhxnQbqyydfbDqr Refill FOR RECORDS PERTAINING TO PATIENTS WHO ARE [...] BE BASED ON THE PRIMARY CLINICAL RECORDS. [employer] [facility]. provides no warranty or guarantee of the accuracy or completeness of information in this document.
== END 2025-10-01 11:14 | disposition home or self-care (01) ==
LOC: LAB 11:15
PROVIDERS: PCP Family Medicine; Visit Provider Family Medicine
DX: E29.1 Testicular hypofunction (principal)
CPT/HCPCS: 36415; 84403